=== PATIENT | female | born 1940 | race Hispanic/Latino ===

== ENCOUNTER 2017-06-26 12:33 | Inpatient (IN) | payer MEDICARE ==
[2017-06-26 12:33] VITALS: BMI 35.8
[2017-06-26] MEDS ORDERED: Iohexol 240 (50 ml) PO ONE (13:00)
[2017-06-26] MEDS ORDERED: Iohexol 240 (50 ml) ONE (13:17)
[2017-06-26 13:29] LABS: BASO # 0.1 K/uL (0.0-0.2); BASO % 1.1 % (0.0-2.0); EOS # 0.3 K/uL (0.0-0.7); EOS % 2.5 % (0.0-4.0); HEMATOCRIT 39.7 % (34.0-47.0); LYMPH # 1.3 K/uL (1.0-4.3); MEAN CELL VOLUME 90.9 fl (81.0-99.0); NEUT # 9.8 K/uL (1.8-7.0); NEUT % 78.4 % (50.0-75.0); RED CELL DISTRIBUTION WIDTH 15.6 % (11.5-14.5); WHITE BLOOD COUNT 12.5 K/uL (4.8-10.8)
[2017-06-26 13:46] LABS: ALB/GLOB RATIO 1.1 (1.0-2.1); ALKALINE PHOSPHATASE 86 U/L (38-126); ALT/SGPT 28 U/L (9-52); AST/SGOT 21 U/L (14-36); BILIRUBIN,TOTAL 0.8 mg/dl (0.2-1.3); BLOOD UREA NITROGEN 8 mg/dl (7-17); CARBON DIOXIDE 33 mmol/L (22-30); CHLORIDE 99 mmol/L (98-107); GFR AFRICAN-AMERICAN > 60; GLUCOSE,RANDOM 120 mg/dL (65-105); LIPASE 34 U/L (23-300); POTASSIUM 3.5 MMOL/L (3.6-5.0); SODIUM 141 mmol/l (132-148); TOTAL PROTEIN 6.5 G/DL (6.3-8.2)
--- NOTE | 2017-06-26 14:17 | ED PDOC ---
HPI: Abdomen Time Seen by Provider: 06/26/17 12:50 Chief Complaint (Nursing): Abdominal Pain Chief Complaint (Provider): Abdominal Pain History Per: Patient History/Exam Limitations: no limitations Onset/Duration Of Symptoms: Days (x2 weeks) Current Symptoms Are (Timing): Still Present Location Of Pain/Discomfort: LLQ Associated Symptoms: Vomiting (x2), Loss Of Appetite Additional Complaint(s): Marielos Zimmer is a 76 year old female with previous medical history of hypertension, atrial fibrillation and diverticulitis, who presents to the emergency department with a complaint of worsening left lower abdominal pain associated with abnormal stools, loss of appetite and 2 episodes of non-bloody vomiting ongoing for 2 weeks. Denied chest pain, cough, shortness of breath or dizziness. Patient stated she saw her night time babysitter, Dr. Schumacher, a week ago who also performed a colonoscopy/endoscopy in 2016 and removed 1 polyp but in process of looking for second opinion and requesting new GI doctor. PMD: Raymond Fang MD Past Medical History Reviewed: Historical Data, Nursing Documentation, Vital Signs Vital Signs: Last Vital Signs Temp 98.4 F 06/27/17 16:51 Pulse 57 L 06/27/17 16:51 Resp 20 06/27/17 16:51 BP 95/65 L 06/27/17 16:51 Pulse Ox 97 06/27/17 16:51 - Medical History PMH: Anemia, Asthma, Atrial Fibrillation, Bronchitis, Cardia Arrhythmia, CHF, Fractures (Left elbow repair), Gastritis, Osteoporosis, Pneumonia, Sleep Apnea Denies: Arthritis, COPD, HIV, HTN, Hypercholesterolemia, Hypothyroidism, Chronic Kidney Disease, Rheumatoid Arthritis - Surgical History Surgical History: Cholecystectomy, Tonsillectomy - Family History Family History: States: Unknown Family Hx - Social History Current smoker - smoking cessation education provided: No Ex-Smoker (has not smoked in the last 12 months): Yes Alcohol: None Drugs: Denies - Home Medications Home Medications: Ambulatory Orders Medication Instructions Recorded Furosemide [Lasix] 40 mg PO DAILY #0 tab 09/06/15 Clopidogrel [Plavix] 75 mg PO DAILY #0 tab 12/14/15 Digoxin [Lanoxin] 0.25 mg PO DAILY #0 tab 12/14/15 Aspirin [Ecotrin] 81 mg PO DAILY 06/26/17 Atorvastatin Calcium [Lipitor] 10 mg PO HS 06/26/17 Carvedilol [Coreg] 3.125 mg PO DAILY 06/26/17 Dexlansoprazole [Dexilant] 60 mg PO DAILY 06/26/17 - Allergies Allergies/Adverse Reactions: Allergies Allergy/AdvReac Type Severity Reaction Status Date / Time Penicillins Allergy RASH Verified 06/26/17 21:20 Sulfa (Sulfonamide Allergy RASH Verified 06/26/17 21:20 Antibiotics) suture Allergy REDNESS Uncoded 12/11/15 07:41 Review of Systems ROS Statement: Except As Marked, All Systems Reviewed And Found Negative Cardiovascular: Negative for: Chest Pain Respiratory: Negative for: Cough, Shortness of Breath Gastrointestinal: Positive for: Vomiting (non-bloody x2), Abdominal Pain (left lower), Other (abnormal stools; loss of appetite) Neurological: Negative for: Dizziness Physical Exam - Reviewed Nursing Documentation Reviewed: Yes Vital Signs Reviewed: Yes - Physical Exam Appears: Positive for: Well, Non-toxic, No Acute Distress Head Exam: Positive for: ATRAUMATIC, NORMAL INSPECTION, NORMOCEPHALIC Skin: Positive for: Pallor. Negative for: Normal Color Eye Exam: Positive for: Normal appearance ENT: Positive for: Normal ENT Inspection Neck: Positive for: Normal Cardiovascular/Chest: Positive for: Chest Non Tender Respiratory: Positive for: Normal Breath Sounds, Accessory Muscle Use. Negative for: Decreased Breath Sounds, Respiratory Distress Gastrointestinal/Abdominal: Positive for: Soft, Tenderness (LLQ). Negative for : Normal Exam Back: Positive for: Normal Inspection. Negative for: L CVA Tenderness, R CVA Tenderness Extremity: Positive for: Normal ROM. Negative for: Tenderness, Pedal Edema Neurologic/Psych: Positive for: Alert, Oriented - Laboratory Results Result Diagrams: 06/27/17 06:05 06/27/17 06:05 - ECG O2 Sat by Pulse Oximetry: 99 (RA) Pulse Ox Interpretation: Normal Medical Decision Making Medical Decision Making: Initial Impression: LLQ pain R/O diverticulitis Initial Plan: * Type and screen * VBG * CMP * Lipase * Omnipaque 50ml PO * Toradol 15mg IVP * Urinalysis * CT ABD/pelvis labs reveal mild leukocytosis, normal lactate, mild derangement of chemistries, evidence of UTI CT reveals severe colitis D/w PMD Dr Fang, admit hospitalist request GI consult Dr Osvaldo Escalona Attestation: Documented by Pastora Larios, acting as a scribe for Jasvir Burns III, DO. Provider Scribe Attestation: All medical record entries made by the Scribe were at my direction and personally dictated by me. I have reviewed the chart and agree that the record accurately reflects my personal performance of the history, physical exam, medical decision making, and the department course for this patient. I have also personally directed, reviewed, and agree with the discharge instructions and disposition. Disposition - Clinical Impression Clinical Impression: Colitis - Patient ED Disposition Is Patient to be Admitted: Yes - Disposition Disposition Time: 15:00 Condition: GUARDED - Pt Status Changed To: Hospital Disposition Of: Inpatient - Admit Certification Admit to Inpatient:: After my assessment, the patient will require hospitalization for at least two midnights. This is because of the severity of symptoms shown, intensity of services needed, and/or the medical risk in this patient being treated as an outpatient. - POA Present On Arrival: None
[2017-06-26 15:29] LABS: RBC URINE 3 /hpf (0-3); URINE BACTERIA MOD (<OCC); URINE BILIRUBIN NEGATIVE (NEGATIVE); URINE BLOOD NEGATIVE (NEGATIVE); URINE COLOR AMBER (YELLOW); URINE GLUCOSE (UA) NEG (Normal); URINE KETONE NEGATIVE (NEGATIVE); URINE LEUKOCYTE ESTERASE MOD Leu/uL (Negative); URINE PROTEIN 30 mg/dL (NEGATIVE); WBC URINE 38 /hpf (0-5)
[2017-06-26 16:10] LABS: VENOUS BLOOD GAS BASE EXCESS 8.4 mmol/L (0.0-2.0); VENOUS BLOOD GAS PCO2 57 mmHg (40-60)
[2017-06-26] MEDS ORDERED: Iohexol 300 100 ML IJ ONE (16:27)
[2017-06-26] MEDS ORDERED: Sodium Chloride 0.9% 50 ML IV ONE (16:28)
--- NOTE | 2017-06-26 17:29 | CT ---
PROCEDURE: CT Abdomen and Pelvis with contrast HISTORY: Unspecified abdominal pain. COMPARISON: None. TECHNIQUE: Contrast dose: 95 cc Omnipaque 300 Radiation dose: Total exam DLP = 955.96 mGy-cm. This CT exam was performed using one or more of the following dose reduction techniques: Automated exposure control, adjustment of the mA and/or kV according to patient size, and/or use of iterative reconstruction technique. FINDINGS: LOWER THORAX: Unremarkable. LIVER: Hepatic steatosis. No focal masses. No intrahepatic bile duct dilatation or perihepatic ascites. GALLBLADDER AND BILE DUCTS: Status post cholecystectomy. No abnormality is seen in the gallbladder fossa. PANCREAS: Unremarkable. No gross lesion or ductal dilatation. SPLEEN: Unremarkable. ADRENALS: Unremarkable. No mass. KIDNEYS AND URETERS: Unremarkable. No hydronephrosis. No solid mass. VASCULATURE: Unremarkable. No aortic aneurysm. BOWEL: Severe thickening of a long segment of the descending colon and sigmoid approximately 15 cm. Despite the fact that this appears in an area of diverticular disease and more likely represents colitis. The rectum is spared. There is a component of constipation proximal to this. Remainder of the colon however is unremarkable. APPENDIX: Normal appendix. PERITONEUM: Unremarkable. No free fluid. No free air. LYMPH NODES: Unremarkable. No enlarged lymph nodes. BLADDER: Unremarkable. REPRODUCTIVE: Unremarkable. BONES: No acute fracture. OTHER FINDINGS: None. IMPRESSION: Segmental thickening of the descending colon extending to the sigmoid. Although this occurs in a segment of the colon affected by diverticular disease the geographic nature and a long segment involvement more likely represents acute and severe colitis. No free air, loculated air, drainable collection.
[2017-06-26] MEDS ORDERED: Ciprofloxacin 400mg/200ml D5W 400 MG/200 ML BAG IVPB STA (18:11)
[2017-06-26] MEDS ORDERED: Sodium Chloride 0.9% 1,000 ML IV STA (18:20)
[2017-06-26] MEDS ORDERED: Ciprofloxacin 400mg/200ml D5W 400 MG/200 ML BAG IVPB ONE (18:22)
--- NOTE | 2017-06-26 19:13 | CP.PCM.HP ---
History of Present Illness - History of Present Illness History of Present Illness: 76 yo female with history of Asthma, CAD, CHF, AFib and Diverticulitis came in complaining of lower abdominal pain more on the left since 4 days ago associated with nausea, vomiting and decreased appetite. She also complained of loose bowel movement with abnormal looking stools, like gel. She denied chest pain, SOB, fever or chills. Present on Admission - Present on Admission Any Indicators Present on Admission: No History of DVT/PE: No History of Uncontrolled Diabetes: No Urinary Catheter: No Decubitus Ulcer Present: No Review of Systems - Review of Systems Systems not reviewed;Unavailable: Acuity of Condition (rom those mentioned above , 12 point system review were negative by me) Past Patient History - Infectious Disease Hx of Infectious Diseases: None - Tetanus Immunizations Tetanus Immunization: Unknown - Past Medical History & Family History Past Medical History?: Yes Past Family History: Reviewed and not pertinent - Past Social History Smoking Status: Former Smoker Alcohol: None Drugs: Denies - CARDIAC Hx Atrial Fibrillation: Yes Hx Cardia Arrhythmia: Yes Hx Congestive Heart Failure: Yes Hx Hypercholesterolemia: No Hx Hypertension: Yes - PULMONARY Hx Asthma: Yes Hx Bronchitis: Yes Hx Chronic Obstructive Pulmonary Disease (COPD): No Hx Pneumonia: Yes Hx Sleep Apnea: Yes - NEUROLOGICAL Hx Neurological Disorder: No HX Cerebrovascular Accident: No Other/Comment: Peripheral Neuropathy - HEENT Hx HEENT Problems: Yes Other/Comment: WEARS GLASSES FOR READING - RENAL Hx Chronic Kidney Disease: No - ENDOCRINE/METABOLIC Hx Hypothyroidism: No - HEMATOLOGICAL/ONCOLOGICAL Hx Anemia: Yes Hx Human Immunodeficiency Virus (HIV): No - INTEGUMENTARY Hx Dermatological Problems: Yes Other/Comment: Hx chronic venous stasis dermatitis - MUSCULOSKELETAL/RHEUMATOLOGICAL Hx Arthritis: No Hx Fractures: Yes (Left elbow repair) Hx Osteoporosis: Yes Hx Rheumatoid Arthritis: No - GASTROINTESTINAL Hx Gastritis: Yes - GENITOURINARY/GYNECOLOGICAL Hx Genitourinary Disorders: Yes Hx Incontinence: Yes Hx Urinary Tract Infection: Yes - PSYCHIATRIC Hx Psychophysiologic Disorder: No Hx Substance Use: No - SURGICAL HISTORY Hx Cholecystectomy: Yes Hx Tonsillectomy: Yes - ANESTHESIA Hx Anesthesia: Yes Hx Anesthesia Reactions: No Hx Malignant Hyperthermia: No Meds Allergies/Adverse Reactions: Allergies Allergy/AdvReac Type Severity Reaction Status Date / Time Penicillins Allergy RASH Verified 12/11/15 07:41 Sulfa (Sulfonamide Allergy RASH Verified 12/11/15 07:41 Antibiotics) suture Allergy REDNESS Uncoded 12/11/15 07:41 Physical Exam - Constitutional Appears: No Acute Distress - Head Exam Head Exam: ATRAUMATIC - Eye Exam Eye Exam: absent: Scleral icterus - ENT Exam ENT Exam: Mucous Membranes Moist - Neck Exam Neck exam: Negative for: Meningismus - Respiratory Exam Respiratory Exam: absent: Rhonchi, Wheezes, Respiratory Distress - Cardiovascular Exam Cardiovascular Exam: Irregular Rhythm, +S1, +S2 - GI/Abdominal Exam GI & Abdominal Exam: Soft. absent: Guarding, Rebound, Tenderness - Rectal Exam Rectal Exam: Deferred - Extremities Exam Extremities exam: Negative for: calf tenderness, pedal edema - Neurological Exam Neurological exam: Alert, Oriented x3 - Psychiatric Exam Psychiatric exam: Normal Affect - Skin Skin Exam: Dry, Intact Results - Vital Signs Recent Vital Signs: Last Vital Signs Temp 98.3 F 06/26/17 18:28 Pulse 61 06/26/17 18:28 Resp 16 06/26/17 18:28 BP 117/71 06/26/17 18:28 Pulse Ox 96 06/26/17 18:28 - Labs Result Diagrams: 06/26/17 13:13 06/26/17 13:13 Labs: Laboratory Results - last 24 hr 06/26/17 06/26/17 06/26/17 13:13 13:13 13:13 WBC 12.5 H RBC 4.37 Hgb 13.1 Hct 39.7 MCV 90.9 D MCH 30.0 MCHC 33.0 RDW 15.6 H Plt Count 401 H MPV 7.0 L Neut % (Auto) 78.4 H Lymph % (Auto) 10.0 L [place] % (Auto) 8.0 Eos % (Auto) 2.5 Baso % (Auto) 1.1 Neut # 9.8 H Lymph # 1.3 [place] # 1.0 H Eos # 0.3 Baso # 0.1 pO2 VBG pH VBG pCO2 VBG HCO3 VBG Total CO2 VBG O2 Sat (Calc) VBG Base Excess VBG Potassium Glucose Lactate FiO2 Sodium 141 Potassium 3.5 L Chloride 99 Carbon Dioxide 33 H Anion Gap 13 BUN 8 Creatinine 0.8 Est GFR ( Amer) > 60 Est GFR (Non-Af Amer) > 60 Random Glucose 120 H Calcium 9.0 Total Bilirubin 0.8 AST 21 ALT 28 Alkaline Phosphatase 86 Total Protein 6.5 Albumin 3.4 L Globulin 3.0 Albumin/Globulin Ratio 1.1 Lipase 34 Venous Blood Potassium Urine Color Urine Clarity Urine pH Ur Specific [place] Urine Protein Urine Glucose (UA) Urine Ketones Urine Blood Urine Nitrate Urine Bilirubin Urine Urobilinogen Ur Leukocyte Esterase Urine RBC (Auto) Urine Microscopic WBC Ur Squamous Epith Cells Urine Bacteria Hyaline Casts Blood Type O NEGATIVE Blood Type Confirm Antibody Screen Negative BBK History Checked No verified bt 06/26/17 06/26/17 06/26/17 13:23 13:59 15:16 WBC RBC Hgb Hct MCV MCH MCHC RDW Plt Count MPV Neut % (Auto) Lymph % (Auto) [place] % (Auto) Eos % (Auto) Baso % (Auto) Neut # Lymph # [place] # Eos # Baso # pO2 22 L VBG pH 7.40 VBG pCO2 57 VBG HCO3 29.9 VBG Total CO2 37.0 H VBG O2 Sat (Calc) 45.8 VBG Base Excess 8.4 H VBG Potassium 3.4 L Glucose 109 H Lactate 1.2 FiO2 21.0 Sodium 135.0 Potassium Chloride 97.0 L Carbon Dioxide Anion Gap BUN Creatinine Est GFR ( Amer) Est GFR (Non-Af Amer) Random Glucose Calcium Total Bilirubin AST ALT Alkaline Phosphatase Total Protein Albumin Globulin Albumin/Globulin Ratio Lipase Venous Blood Potassium 3.4 L Urine Color [place] Urine Clarity Cloudy Urine pH 6.0 Ur Specific [place] 1.014 Urine Protein 30 Urine Glucose (UA) Neg Urine Ketones Negative Urine Blood Negative Urine Nitrate Negative Urine Bilirubin Negative Urine Urobilinogen 4.0 H Ur Leukocyte Esterase Mod Urine RBC (Auto) 3 Urine Microscopic WBC 38 H Ur Squamous Epith Cells 2 Urine Bacteria Mod H Hyaline Casts 3-5 H Blood Type Blood Type Confirm O NEGATIVE Antibody Screen BBK History Checked Assessment & Plan (1) Colitis Status: Acute Comment: admit to med/surg. blood culture x 2. continue IV Cipro and oral Flagyl. continue IV hydration. NPO except meds. GI consult with Dr Riley ([place]) (2) Afib Status: Acute Comment: rate controlled. continue Digoxin and Coreg. on Plavix and ASA (3) Chronic congestive heart failure Status: Acute Comment: denied SOB. continue Lasix (4) Asthma Status: Chronic Priority: High Comment: asymptomatic (5) CAD (coronary artery disease) Status: Chronic Priority: Medium Comment: denied chest pain. continue statin, ASA, Plavix, BB (6) Hypertension Status: Chronic Priority: Medium Comment: BP stable. continue Coreg and Lasix
[2017-06-26] MEDS: Sodium Chloride 0.9% 1,000 ML IV SCH (20:18)
[2017-06-26] MEDS: Ciprofloxacin 400mg/200ml D5W 400 MG/200 ML BAG IVPB SCH (22:14)
[2017-06-27 06:35] LABS: BASO # 0.1 K/uL (0.0-0.2); BASO % 0.7 % (0.0-2.0); EOS # 0.6 K/uL (0.0-0.7); EOS % 6.6 % (0.0-4.0); HEMATOCRIT 36.1 % (34.0-47.0); LYMPH # 1.2 K/uL (1.0-4.3); MEAN CELL VOLUME 90.3 fl (81.0-99.0); MEAN CORPUSCULAR HGB CONC 34.3 g/dL (33.0-37.0); MEAN PLATELET VOLUME 7.1 fl (7.2-11.7); MONO # 0.9 K/uL (0.0-0.8); MONO % 10.4 % (0.0-10.0); NEUT # 5.8 K/uL (1.8-7.0); NEUT % 68.3 % (50.0-75.0); NRBC % 0.1 % (0.0-0.0); RED CELL DISTRIBUTION WIDTH 15.6 % (11.5-14.5); WHITE BLOOD COUNT 8.5 K/uL (4.8-10.8)
[2017-06-27 06:47] LABS: BLOOD UREA NITROGEN 7 mg/dl (7-17); CALCIUM 8.7 mg/dL (8.4-10.2); CARBON DIOXIDE 29 mmol/L (22-30); CHLORIDE 100 mmol/L (98-107); GFR AFRICAN-AMERICAN > 60; GLUCOSE,RANDOM 96 mg/dL (65-105); POTASSIUM 2.9 MMOL/L (3.6-5.0); SODIUM 139 mmol/l (132-148)
[2017-06-27] MEDS: Pantoprazole 40 mg EC Tab PO SCH (08:23)
[2017-06-27] MEDS: Sodium Chloride 0.9% 1,000 ML IV SCH ×2 (08:44→15:35)
[2017-06-27] MEDS ORDERED: Pneumococcal 23-Valent Vaccine IM ONE (09:00)
[2017-06-27] MEDS ORDERED: Influenza Vaccine 18yr & older 0.5 ML/45 MCG SYR IM ONE (09:00)
[2017-06-27] MEDS: Digoxin 250 mcg (0.25 mg) Tab PO SCH (09:04)
[2017-06-27] MEDS ORDERED: Potassium Chloride 20 mEq ER Tab PO ONE ×2 (10:35→15:30)
--- NOTE | 2017-06-27 10:39 | CP.PCM.CON ---
History of Present Illness - History of Present Illness History of Present Illness: This 76-year-old female who is known to suffer from bronchial asthma/COPD overlap syndrome as well as urinary incontinence, venous insufficiency of both lower extremities, diverticulosis, gastroesophageal reflux disease and hypertension came in to emergency room with severe abdominal pain which began about 3 or 4 days prior to admission. There was associated nausea but no vomiting and she did have a loss of appetite. She denies any bloody stools or constipation during this time. She was unaware of any fevers or chills. She has been seen by gastroenterology in the past and is known to have diverticulosis. Her respiratory status has been stable she does have chronic pain in both knees and lower back. Review of Systems - Review of Systems All systems: reviewed and no additional remarkable complaints except - Gastrointestinal Gastrointestinal: Abdominal Pain, Change in Stool Character, Cramping, Loose Stools, Nausea - Genitourinary Genitourinary: Urinary Incontinence - Musculoskeletal Musculoskeletal: Back Pain, Joint Swelling, Limited Range of Motion Past Patient History - Infectious Disease Hx of Infectious Diseases: None - Tetanus Immunizations Tetanus Immunization: Unknown - Past Medical History & Family History Past Medical History?: Yes - Past Social History Smoking Status: Former Smoker Chewing Tobacco Use: No Cigar Use: No Alcohol: Social Drugs: Denies Home Situation {Lives}: Alone - CARDIAC Hx Atrial Fibrillation: Yes Hx Congestive Heart Failure: Yes Hx Heart Attack: Yes Hx Hypertension: Yes Hx Peripheral Edema: Yes Other/Comment: chronic venous stasis dermatitis/peripheral neuropathy - PULMONARY Hx Asthma: Yes Hx Bronchitis: Yes Hx Chronic Obstructive Pulmonary Disease (COPD): Yes Hx Pneumonia: Yes - NEUROLOGICAL Other/Comment: peripheral neuropathy - HEENT Hx HEENT Problems: Yes - RENAL Hx Chronic Kidney Disease: No - ENDOCRINE/METABOLIC Other/Comment: exogenous obesity - HEMATOLOGICAL/ONCOLOGICAL Hx Blood Disorders: No Hx Human Immunodeficiency Virus (HIV): No - INTEGUMENTARY Other/Comment: dermatitis of LE's - MUSCULOSKELETAL/RHEUMATOLOGICAL Hx Arthritis: Yes Hx Back Pain: Yes Hx Degenerative Joint Disease: Yes Hx Falls: Yes Hx Fractures: Yes (left arm) Hx Osteoporosis: Yes - GASTROINTESTINAL Hx Diverticulitis: Yes Hx Gastritis: Yes - GENITOURINARY/GYNECOLOGICAL Hx Incontinence: Yes (bladder) Hx Urinary Tract Infection: Yes - PSYCHIATRIC Hx Psychophysiologic Disorder: No Hx Substance Use: No - SURGICAL HISTORY Hx Cholecystectomy: Yes Hx Orthopedic Surgery: Yes (left arm fx) Hx Tonsillectomy: Yes - ANESTHESIA Hx Anesthesia: Yes Hx Anesthesia Reactions: No Hx Malignant Hyperthermia: No Meds Allergies/Adverse Reactions: Allergies Allergy/AdvReac Type Severity Reaction Status Date / Time Penicillins Allergy RASH Verified 06/26/17 21:20 Sulfa (Sulfonamide Allergy RASH Verified 06/26/17 21:20 Antibiotics) suture Allergy REDNESS Uncoded 12/11/15 07:41 - Medications Medications: Current Medications Acetaminophen (Tylenol 325mg Tab) 650 mg PO Q6 PRN PRN Reason: Pain, Mild (1-3) Last Admin: 06/27/17 00:04 Dose: 650 mg Aspirin (Ecotrin) 81 mg PO DAILY [facility] Last Admin: 06/27/17 08:23 Dose: 81 mg Atorvastatin Calcium (Lipitor) 10 mg PO HS [facility] Last Admin: 06/26/17 22:34 Dose: 10 mg Carvedilol (Coreg) 3.125 mg PO DAILY [facility] Last Admin: 06/27/17 09:04 Dose: 3.125 mg Clopidogrel Bisulfate (Plavix) 75 mg PO DAILY [facility] Last Admin: 06/27/17 08:23 Dose: 75 mg Digoxin (Lanoxin) 0.25 mg PO DAILY [facility] Last Admin: 06/27/17 09:04 Dose: 0.25 mg Sodium Chloride (Sodium Chloride 0.9%) 1,000 mls @ 100 mls/hr IV .Q10H [facility] Last Admin: 06/27/17 08:44 Dose: 100 mls/hr Ciprofloxacin (Cipro 400mg/200ml Dsw) 400 mg in 200 mls @ 200 mls/hr IVPB Q12 [facility] PRN Reason: Protocol Last Admin: 06/26/17 22:14 Dose: Not Given Potassium Chloride (Potassium Chloride 10 Meq/100 Ml) 100 mls @ 100 mls/hr IVPB Q1 [facility] Stop: 06/27/17 12:59 Metronidazole (Flagyl) 500 mg PO Q8 [facility] PRN Reason: Protocol Last Admin: 06/27/17 08:23 Dose: 500 mg Ondansetron HCl (Zofran Inj) 4 mg IVP Q4 PRN PRN Reason: Nausea/Vomiting Last Admin: 06/27/17 08:37 Dose: 4 mg Pantoprazole Sodium (Protonix Ec Tab) 40 mg PO DAILY [facility] Last Admin: 06/27/17 08:23 Dose: 40 mg Physical Exam - Additional Findings Additional findings: When examined the patient was lying in bed and appeared relatively comfortable. There is trace edema of both ankles with some hyperemia and increased warmth. No calf tenderness or palpable venous cords. No cyanosis. Capillary refill appeared greater than 2 seconds. No palpable lymphadenopathy. Neck was supple and trachea was midline. No neck vein distention or carotid bruit. Fraction is pink and mucous membranes are moist. No exudate. Nares were patent bilaterally. No bleeding or exudate. Conjunctivae were pink and there is no scleral icterus. Chest: No dullness to percussion. Increased AP diameter of the thorax secondary to kyphosis of the dorsal spine. Breath sounds are present bilaterally without any rales or wheezes. No bronchial breath sounds or egophony. No rhonchi or rub. Heart sounds are slightly distant rhythm is regular. Faint ejection systolic murmur is heard at the base. The abdomen is obese, fleshy and at the present time nontender. Bowel sounds appear hypoactive. Results - Vital Signs Recent Vital Signs: Last Vital Signs Temp 98.2 F 06/27/17 08:50 Pulse 78 06/27/17 09:04 Resp 20 06/27/17 08:50 BP 133/63 06/27/17 09:04 Pulse Ox 86 L 06/27/17 08:50 - Labs Result Diagrams: 06/27/17 06:05 06/27/17 06:05 Labs: Laboratory Results - last 24 hr 06/26/17 06/26/17 06/26/17 13:13 13:13 13:13 WBC 12.5 H RBC 4.37 Hgb 13.1 Hct 39.7 MCV 90.9 D MCH 30.0 MCHC 33.0 RDW 15.6 H Plt Count 401 H MPV 7.0 L Neut % (Auto) 78.4 H Lymph % (Auto) 10.0 L [place] % (Auto) 8.0 Eos % (Auto) 2.5 Baso % (Auto) 1.1 Neut # 9.8 H Lymph # 1.3 [place] # 1.0 H Eos # 0.3 Baso # 0.1 pO2 VBG pH VBG pCO2 VBG HCO3 VBG Total CO2 VBG O2 Sat (Calc) VBG Base Excess VBG Potassium Glucose Lactate FiO2 Sodium 141 Potassium 3.5 L Chloride 99 Carbon Dioxide 33 H Anion Gap 13 BUN 8 Creatinine 0.8 Est GFR ( Amer) > 60 Est GFR (Non-Af Amer) > 60 POC Glucose (mg/dL) Random Glucose 120 H Calcium 9.0 Total Bilirubin 0.8 AST 21 ALT 28 Alkaline Phosphatase 86 Total Protein 6.5 Albumin 3.4 L Globulin 3.0 Albumin/Globulin Ratio 1.1 Lipase 34 Venous Blood Potassium Urine Color Urine Clarity Urine pH Ur Specific [place] Urine Protein Urine Glucose (UA) Urine Ketones Urine Blood Urine Nitrate Urine Bilirubin Urine Urobilinogen Ur Leukocyte Esterase Urine RBC (Auto) Urine Microscopic WBC Ur Squamous Epith Cells Urine Bacteria Hyaline Casts Blood Type O NEGATIVE Blood Type Confirm Antibody Screen Negative BBK History Checked No verified bt 06/26/17 06/26/17 06/26/17 13:23 13:59 15:16 WBC RBC Hgb Hct MCV MCH MCHC RDW Plt Count MPV Neut % (Auto) Lymph % (Auto) [place] % (Auto) Eos % (Auto) Baso % (Auto) Neut # Lymph # [place] # Eos # Baso # pO2 22 L VBG pH 7.40 VBG pCO2 57 VBG HCO3 29.9 VBG Total CO2 37.0 H VBG O2 Sat (Calc) 45.8 VBG Base Excess 8.4 H VBG Potassium 3.4 L Glucose 109 H Lactate 1.2 FiO2 21.0 Sodium 135.0 Potassium Chloride 97.0 L Carbon Dioxide Anion Gap BUN Creatinine Est GFR ( Amer) Est GFR (Non-Af Amer) POC Glucose (mg/dL) Random Glucose Calcium Total Bilirubin AST ALT Alkaline Phosphatase Total Protein Albumin Globulin Albumin/Globulin Ratio Lipase Venous Blood Potassium 3.4 L Urine Color Alejandra Urine Clarity Cloudy Urine pH 6.0 Ur Specific [place] 1.014 Urine Protein 30 Urine Glucose (UA) Neg Urine Ketones Negative Urine Blood Negative Urine Nitrate Negative Urine Bilirubin Negative Urine Urobilinogen 4.0 H Ur Leukocyte Esterase Mod Urine RBC (Auto) 3 Urine Microscopic WBC 38 H Ur Squamous Epith Cells 2 Urine Bacteria Mod H Hyaline Casts 3-5 H Blood Type Blood Type Confirm O NEGATIVE Antibody Screen BBK History Checked 06/27/17 06/27/17 06/27/17 05:59 06:05 06:05 WBC 8.5 RBC 4.00 Hgb 12.4 Hct 36.1 MCV 90.3 MCH 31.0 MCHC 34.3 RDW 15.6 H Plt Count 382 MPV 7.1 L Neut % (Auto) 68.3 Lymph % (Auto) 14.0 L [place] % (Auto) 10.4 H Eos % (Auto) 6.6 H Baso % (Auto) 0.7 Neut # 5.8 Lymph # 1.2 [place] # 0.9 H Eos # 0.6 Baso # 0.1 pO2 VBG pH VBG pCO2 VBG HCO3 VBG Total CO2 VBG O2 Sat (Calc) VBG Base Excess VBG Potassium Glucose Lactate FiO2 Sodium 139 Potassium 2.9 L Chloride 100 Carbon Dioxide 29 Anion Gap 13 BUN 7 Creatinine 0.8 Est GFR ( Amer) > 60 Est GFR (Non-Af Amer) > 60 POC Glucose (mg/dL) 89 Random Glucose 96 Calcium 8.7 Total Bilirubin AST ALT Alkaline Phosphatase Total Protein Albumin Globulin Albumin/Globulin Ratio Lipase Venous Blood Potassium Urine Color Urine Clarity Urine pH Ur Specific [place] Urine Protein Urine Glucose (UA) Urine Ketones Urine Blood Urine Nitrate Urine Bilirubin Urine Urobilinogen Ur Leukocyte Esterase Urine RBC (Auto) Urine Microscopic WBC Ur Squamous Epith Cells Urine Bacteria Hyaline Casts Blood Type Blood Type Confirm Antibody Screen BBK History Checked Assessment & Plan (1) Colitis Assessment and Plan: Patient presently appears to be somewhat improved from the time of admission. Continue current antibiotic regimen. GI consult pending. Status: Acute Priority: High (2) A-fib Status: Chronic Priority: Medium (3) Asthma with COPD Assessment and Plan: Stable at the present time. Status: Chronic Priority: Medium (4) Chronic pain disorder Status: Chronic Priority: Medium (5) Urinary incontinence Status: Chronic Priority: Medium - Date & Time Date: 06/27/17 Time: 10:45
[2017-06-27] MEDS: Potassium CL 10mEq/100ml 100 ML IVPB SCH ×2 (10:58→15:34)
[2017-06-27] MEDS: Ciprofloxacin 400mg/200ml D5W 400 MG/200 ML BAG IVPB SCH ×2 (11:21→20:41)
--- NOTE | 2017-06-27 15:02 | CP.PCM.PN ---
Subjective - Date & Time of Evaluation Date of Evaluation: 06/27/17 Time of Evaluation: 11:20 - Subjective Subjective: Pt seen and examined. Admitted feeling better although still nauseous at times. Objective - Vital Signs/Intake and Output Vital Signs (last 24 hours): Temp Pulse Resp BP Pulse Ox 98.2 F 78 20 133/63 86 L 06/27/17 08:50 06/27/17 09:04 06/27/17 08:50 06/27/17 09:04 06/27/17 08:50 - Medications Medications: Current Medications Acetaminophen (Tylenol 325mg Tab) 650 mg PO Q6 PRN PRN Reason: Pain, Mild (1-3) Last Admin: 06/27/17 10:55 Dose: 650 mg Atorvastatin Calcium (Lipitor) 10 mg PO HS [facility] Last Admin: 06/26/17 22:34 Dose: 10 mg Carvedilol (Coreg) 3.125 mg PO DAILY [facility] Last Admin: 06/27/17 09:04 Dose: 3.125 mg Digoxin (Lanoxin) 0.25 mg PO DAILY [facility] Last Admin: 06/27/17 09:04 Dose: 0.25 mg Sodium Chloride (Sodium Chloride 0.9%) 1,000 mls @ 100 mls/hr IV .Q10H [facility] Last Admin: 06/27/17 08:44 Dose: 100 mls/hr Ciprofloxacin (Cipro 400mg/200ml Dsw) 400 mg in 200 mls @ 200 mls/hr IVPB Q12 SHARIFA PRN Reason: Protocol Last Admin: 06/26/17 22:14 Dose: Not Given Metronidazole (Flagyl) 500 mg PO Q8 SHARIFA PRN Reason: Protocol Last Admin: 06/27/17 08:23 Dose: 500 mg Ondansetron HCl (Zofran Inj) 4 mg IVP Q4 PRN PRN Reason: Nausea/Vomiting Last Admin: 06/27/17 08:37 Dose: 4 mg Pantoprazole Sodium (Protonix Ec Tab) 40 mg PO DAILY [facility] Last Admin: 06/27/17 08:23 Dose: 40 mg - Labs Labs: 06/27/17 06:05 06/27/17 06:05 - Constitutional Appears: No Acute Distress - Head Exam Head Exam: ATRAUMATIC - Eye Exam Eye Exam: absent: Scleral icterus - ENT Exam ENT Exam: Mucous Membranes Moist - Neck Exam Neck Exam: absent: Meningismus - Respiratory Exam Respiratory Exam: absent: Rhonchi, Wheezes, Respiratory Distress - Cardiovascular Exam Cardiovascular Exam: REGULAR RHYTHM, +S1, +S2 - GI/Abdominal Exam GI & Abdominal Exam: Soft. absent: Tenderness - Rectal Exam Rectal Exam: Deferred - Extremities Exam Extremities Exam: Pedal Edema - Neurological Exam Neurological Exam: Alert, Oriented x3 - Psychiatric Exam Psychiatric exam: Normal Affect - Skin Skin Exam: Dry, Intact Assessment and Plan (1) Colitis Status: Acute (2) Afib Status: Chronic (3) Chronic congestive heart failure Status: Chronic (4) Asthma Status: Chronic (5) CAD (coronary artery disease) Status: Chronic (6) Hypertension Status: Chronic - Assessment and Plan (Free Text) Assessment: 76 yo female with history of Asthma, CAD, CHF, AFib and Diverticulitis came in complaining of lower abdominal pain more on the left since 4 days ago associated with nausea, vomiting and decreased appetite. She also complained of loose bowel movement with abnormal looking stools, like gel. She denied chest pain, SOB, fever or chills. (1) Colitis continue IV Cipro and PO Flagyl tolerated clear liquid diet Dr Riley saw patient and advised colonoscopy on Sunday will hold ASA and Plavix (2) Afib rate controlled. on Digoxin and Coreg. ASA and Plavix held prior to colonoscopy (3) Chronic congestive heart failure continue Lasix (4) Asthma asymptomatic (5) CAD (coronary artery disease) denied chest pain. continue statin, BB Plavix and ASA held (6) Hypertension BP stable. continue Coreg and Lasix
[2017-06-27] MEDS ORDERED: Alum-Mag Hydrox-Simethicone Susp (30 mL) PO ONE (16:14)
--- NOTE | 2017-06-27 18:38 | CP.PCM.CON ---
History of Present Illness - History of Present Illness History of Present Illness: 76 yo female with h/o divericulosis and last colonscopy early 2016 admitted with 4 days of unrelenting abdominal pain. Over past several months has been having irregular bowel movements but usually doesn't have constipation. Denies rectal bleeding. No fever or chills at home. Review of Systems - Constitutional Constitutional: absent: Chills - EENT Eyes: absent: Blurred Vision Nose/Mouth/Throat: absent: Epistaxis - Cardiovascular Cardiovascular: absent: Chest Pain - Respiratory Respiratory: absent: Dyspnea - Gastrointestinal Gastrointestinal: As Per HPI - Genitourinary Genitourinary: absent: Change in Urinary Stream Past Patient History - Infectious Disease Hx of Infectious Diseases: None - Tetanus Immunizations Tetanus Immunization: Unknown - Past Medical History & Family History Past Medical History?: Yes - Past Social History Alcohol: None Drugs: Denies - CARDIAC Hx Atrial Fibrillation: Yes Hx Cardia Arrhythmia: Yes Hx Congestive Heart Failure: Yes Hx Hypercholesterolemia: No Hx Hypertension: No - PULMONARY Hx Asthma: Yes Hx Bronchitis: Yes Hx Chronic Obstructive Pulmonary Disease (COPD): No Hx Pneumonia: Yes Hx Sleep Apnea: Yes - NEUROLOGICAL Other/Comment: peripheral neuropathy - HEENT Hx HEENT Problems: Yes - RENAL Hx Chronic Kidney Disease: No - ENDOCRINE/METABOLIC Hx Hypothyroidism: No - HEMATOLOGICAL/ONCOLOGICAL Hx Anemia: Yes Hx Human Immunodeficiency Virus (HIV): No - INTEGUMENTARY Other/Comment: dermatitis of LE's - MUSCULOSKELETAL/RHEUMATOLOGICAL Hx Arthritis: No Hx Fractures: Yes (Left elbow repair) Hx Osteoporosis: Yes Hx Rheumatoid Arthritis: No - GASTROINTESTINAL Hx Gastritis: Yes - GENITOURINARY/GYNECOLOGICAL Hx Incontinence: Yes (bladder) Hx Urinary Tract Infection: Yes - PSYCHIATRIC Hx Psychophysiologic Disorder: No Hx Substance Use: No - SURGICAL HISTORY Hx Cholecystectomy: Yes Hx Tonsillectomy: Yes - ANESTHESIA Hx Anesthesia: Yes Hx Anesthesia Reactions: No Hx Malignant Hyperthermia: No Meds Allergies/Adverse Reactions: Allergies Allergy/AdvReac Type Severity Reaction Status Date / Time Penicillins Allergy RASH Verified 06/26/17 21:20 Sulfa (Sulfonamide Allergy RASH Verified 06/26/17 21:20 Antibiotics) suture Allergy REDNESS Uncoded 12/11/15 07:41 - Medications Medications: Current Medications Acetaminophen (Tylenol 325mg Tab) 650 mg PO Q6 PRN PRN Reason: Pain, Mild (1-3) Last Admin: 06/27/17 10:55 Dose: 650 mg Atorvastatin Calcium (Lipitor) 10 mg PO HS [facility] Last Admin: 06/26/17 22:34 Dose: 10 mg Carvedilol (Coreg) 3.125 mg PO DAILY [facility] Last Admin: 06/27/17 09:04 Dose: 3.125 mg Digoxin (Lanoxin) 0.25 mg PO DAILY [facility] Last Admin: 06/27/17 09:04 Dose: 0.25 mg Sodium Chloride (Sodium Chloride 0.9%) 1,000 mls @ 100 mls/hr IV .Q10H [facility] Last Admin: 06/27/17 15:35 Dose: Not Given Ciprofloxacin (Cipro 400mg/200ml Dsw) 400 mg in 200 mls @ 200 mls/hr IVPB Q12 SHARIFA PRN Reason: Protocol Last Admin: 06/27/17 11:21 Dose: 200 mls/hr Metronidazole (Flagyl) 500 mg PO Q8 SHARIFA PRN Reason: Protocol Last Admin: 06/27/17 16:12 Dose: 500 mg Ondansetron HCl (Zofran Inj) 4 mg IVP Q4 PRN PRN Reason: Nausea/Vomiting Last Admin: 06/27/17 15:24 Dose: 4 mg Pantoprazole Sodium (Protonix Ec Tab) 40 mg PO DAILY [facility] Last Admin: 06/27/17 08:23 Dose: 40 mg Physical Exam - Head Exam Head Exam: ATRAUMATIC - Eye Exam Eye Exam: Normal appearance Pupil Exam: NORMAL ACCOMODATION - Respiratory Exam Respiratory Exam: Clear to Auscultation Bilateral - Cardiovascular Exam Cardiovascular Exam: REGULAR RHYTHM, +S1, +S2 - GI/Abdominal Exam GI & Abdominal Exam: Normal Bowel Sounds, Soft, Tenderness Additional comments: Moderate LLQ tenderness. no guarding or rebound. Results - Vital Signs Recent Vital Signs: Last Vital Signs Temp 98.4 F 06/27/17 16:51 Pulse 57 L 06/27/17 16:51 Resp 20 06/27/17 16:51 BP 95/65 L 06/27/17 16:51 Pulse Ox 99 06/27/17 18:25 - Labs Result Diagrams: 06/27/17 06:05 06/27/17 06:05 Labs: Laboratory Results - last 24 hr 06/27/17 06/27/17 06/27/17 05:59 06:05 06:05 WBC 8.5 RBC 4.00 Hgb 12.4 Hct 36.1 MCV 90.3 MCH 31.0 MCHC 34.3 RDW 15.6 H Plt Count 382 MPV 7.1 L Neut % (Auto) 68.3 Lymph % (Auto) 14.0 L [place] % (Auto) 10.4 H Eos % (Auto) 6.6 H Baso % (Auto) 0.7 Neut # 5.8 Lymph # 1.2 [place] # 0.9 H Eos # 0.6 Baso # 0.1 Sodium 139 Potassium 2.9 L Chloride 100 Carbon Dioxide 29 Anion Gap 13 BUN 7 Creatinine 0.8 Est GFR ( Amer) > 60 Est GFR (Non-Af Amer) > 60 POC Glucose (mg/dL) 89 Random Glucose 96 Calcium 8.7 Assessment & Plan (1) Colitis Assessment and Plan: CT shows thickening of descending colon c/w colitis. Agree with broad spectrum antibiotics. Colonscopy Sunday to r/o ischemia , fixed stricture possibly related to diverticuosis, , or infection. Clinically appears well. Status: Acute Priority: High
[2017-06-27] MEDS ORDERED: DiphenhydrAMINE 50 mg/ml Inj IVP STA (21:09)
[2017-06-28 06:39] LABS: BLOOD UREA NITROGEN 5 mg/dl (7-17); CALCIUM 8.4 mg/dL (8.4-10.2); CARBON DIOXIDE 28 mmol/L (22-30); CHLORIDE 103 mmol/L (98-107); GFR AFRICAN-AMERICAN > 60; GLUCOSE,RANDOM 100 mg/dL (65-105); POTASSIUM 3.2 MMOL/L (3.6-5.0); SODIUM 141 mmol/l (132-148)
[2017-06-28] MEDS ORDERED: Potassium Chloride 20 mEq ER Tab PO ONE ×2 (08:56)
--- NOTE | 2017-06-28 09:55 | PQF GENQUE ---
This form is a permanent part of the medical record 06/28/17 Dr Cabrales, Documentation of a history of Atrial Fibrillation. Medications include: Digoxin and Coreg. Please clarify the type of atrial fibrillation if known. Clarification of your documentation is requested to better reflect the severity of illness and intensity of treatment of your patient. Indicators present [] Specify: [] [] Specify: [] [] Specify: [] [] Specify: [] Location in the medical record that reflects the above clinical findings: [] Treatment Provided: [] PHYSICIAN'S RESPONSE Chronic A Fib Please clarify the type of atrial fibrillation: [] Chronic [] Paroxysmal [] Permanent [] Persistent [] Other (please specify type) [] Clinically unable to determine [] Unknown Based on your medical judgment of the clinical indicators outlined above please clarify the following: [] Practitioner response [] If unable to determine, please check the box, sign and date. Present On Admission (POA) Indicator: [] Present at the time of admission [] Not present at the time of admission [] Clinically Undetermined In responding to this query, please exercise your independent professional judgment. The fact that a question is asked does not imply that any particular answer is desired or expected. Thank you for your clarification on this documentation. If you have any questions please call:extension [phone] * Thank you, Tricia Raya RN CDMP [facility]TDD
[2017-06-28] MEDS ORDERED: Magnesium Citrate Oral SOL (300 ml) PO ONE ×2 (10:00→20:00)
--- NOTE | 2017-06-28 10:02 | PQF GENQUE ---
This form is a permanent part of the medical record 06/28/17 Dr. Cabrales, Documentation of a history of Chronic CHF. Please specify the type of heart failure if known. Clarification of your documentation is requested to better reflect the severity of illness and intensity of treatment of your patient. Indicators present [] Specify: [] [] Specify: [] [] Specify: [] [] Specify: [] Location in the medical record that reflects the above clinical findings: [] Treatment Provided: [] PHYSICIAN'S RESPONSE Chronic Diastolic CHF Please specify the type of heart failure if known [] Combined systolic and diastolic [] Diastolic [] Systolic [] Other (please specify) [] Clinically unable to determine [] Unknown Based on your medical judgment of the clinical indicators outlined above please clarify the following: [] Practitioner response [] If unable to determine, please check the box, sign and date. Present On Admission (POA) Indicator: [] Present at the time of admission [] Not present at the time of admission [] Clinically Undetermined In responding to this query, please exercise your independent professional judgment. The fact that a question is asked does not imply that any particular answer is desired or expected. Thank you for your clarification on this documentation. If you have any questions please call:ext [phone] * Thank you, Tricia Raya RN CDMP [id number]
[2017-06-28] MEDS: Ciprofloxacin 400mg/200ml D5W 400 MG/200 ML BAG IVPB SCH ×2 (10:10→22:18)
[2017-06-28] MEDS: Pantoprazole 40 mg EC Tab PO SCH (10:16)
[2017-06-28] MEDS: Digoxin 250 mcg (0.25 mg) Tab PO SCH (10:16)
[2017-06-28] MEDS ORDERED: Sucralfate 1 gm/10 ml Oral Susp UD PO STA (10:49)
--- NOTE | 2017-06-28 10:50 | CP.PCM.PN ---
Subjective - Date & Time of Evaluation Date of Evaluation: 06/28/17 Time of Evaluation: 10:00 - Subjective Subjective: No fever minimal abd pain had sl nausea and also some epigastric discomfort after taking the Potassium pill denies CP no SOB complains of skin pruritus on her arm , skin very dry no diarrhea no bloody stools Objective - Vital Signs/Intake and Output Vital Signs (last 24 hours): Temp Pulse Resp BP Pulse Ox 98.6 F 76 20 116/77 96 06/28/17 08:40 06/28/17 10:11 06/28/17 08:40 06/28/17 10:11 06/28/17 08:40 - Medications Medications: Current Medications Acetaminophen (Tylenol 325mg Tab) 650 mg PO Q6 PRN PRN Reason: Pain, Mild (1-3) Last Admin: 06/27/17 18:39 Dose: 650 mg Atorvastatin Calcium (Lipitor) 10 mg PO HS [facility] Last Admin: 06/27/17 21:01 Dose: 10 mg Bisacodyl (Dulcolax) 20 mg PO ONCE ONE Stop: 06/28/17 14:01 Carvedilol (Coreg) 3.125 mg PO DAILY [facility] Last Admin: 06/28/17 10:11 Dose: 3.125 mg Digoxin (Lanoxin) 0.25 mg PO DAILY [facility] Last Admin: 06/28/17 10:16 Dose: 0.25 mg Diphenhydramine HCl (Benadryl) 25 mg PO Q6 PRN PRN Reason: Itching / Pruritus Sodium Chloride (Sodium Chloride 0.9%) 1,000 mls @ 100 mls/hr IV .Q10H [facility] Last Admin: 06/27/17 15:35 Dose: Not Given Ciprofloxacin (Cipro 400mg/200ml Dsw) 400 mg in 200 mls @ 200 mls/hr IVPB Q12 SHARIFA PRN Reason: Protocol Last Admin: 06/28/17 10:10 Dose: 200 mls/hr Magnesium Citrate (Citrate Of Mag) 300 ml PO ONCE ONE Stop: 06/28/17 20:01 Metronidazole (Flagyl) 500 mg PO Q8 SHARIFA PRN Reason: Protocol Last Admin: 06/28/17 10:12 Dose: 500 mg Ondansetron HCl (Zofran Inj) 4 mg IVP Q4 PRN PRN Reason: Nausea/Vomiting Last Admin: 06/27/17 20:33 Dose: 4 mg Pantoprazole Sodium (Protonix Ec Tab) 40 mg PO DAILY [facility] Last Admin: 06/28/17 10:16 Dose: 40 mg - Labs Labs: 06/27/17 06:05 06/28/17 06:10 - Constitutional Appears: No Acute Distress, Chronically Ill - Head Exam Head Exam: NORMAL INSPECTION, NORMOCEPHALIC - Eye Exam Pupil Exam: NORMAL ACCOMODATION - ENT Exam ENT Exam: Mucous Membranes Moist, Normal External Ear Exam - Neck Exam Neck Exam: Full ROM. absent: Meningismus - Respiratory Exam Respiratory Exam: Decreased Breath Sounds, NORMAL BREATHING PATTERN. absent: Wheezes, Respiratory Distress - Cardiovascular Exam Cardiovascular Exam: Irregular Rhythm, +S1, +S2 - GI/Abdominal Exam GI & Abdominal Exam: Soft, Tenderness (minimal lower abd tenderness), Normal Bowel Sounds - Extremities Exam Extremities Exam: Full ROM, Normal Capillary Refill. absent: Calf Tenderness - Back Exam Back Exam: absent: CVA tenderness (L), CVA tenderness (R) - Neurological Exam Neurological Exam: Alert, Awake, CN II-XII Intact, Oriented x3 Neuro motor strength exam: Left Upper Extremity: 5, Right Upper Extremity: 5, Left Lower Extremity: 5, Right Lower Extremity: 5 - Psychiatric Exam Psychiatric exam: Normal Affect, Normal Mood - Skin Skin Exam: Dry, Normal Color, Warm Assessment and Plan (1) Acute colitis Status: Acute (2) Diverticulosis Status: Chronic (3) Chronic atrial fibrillation Status: Chronic (4) Chronic diastolic CHF (congestive heart failure) Status: Chronic (5) Pulmonary HTN Status: Chronic (6) CAD (coronary artery disease) Status: Chronic (7) COPD (chronic obstructive pulmonary disease) Status: Chronic (8) Hypertension Status: Chronic (9) DVT prophylaxis Status: Acute - Assessment and Plan (Free Text) Assessment: 76 y/o lady with hx of CAD , Hx of PCI ( 2014), Diverticulosis, HTN, CHF, A Fib , COPD, came in bec of 4 days of abd pain, N/V . No fever however had leukocytosis of 12K on admission. CT of abdomen:Segmental thickening of the descending colon extending to the sigmoid. Although this occurs in a segment of the colon affected by diverticular disease the geographic nature and a long segment involvement more likely represents acute and severe colitis. No free air, loculated air, drainable collection. (1) Acute colitis Status: Acute abd pain better cont IV Cipro and Flagyl GI consulted- discussed case with Dr Riley- plan for Colonoscopy in am Pain mgt (2) Diverticulosis Status: Chronic (3) Chronic atrial fibrillation Status: Chronic cont Digoxin and Coreg not on anticoagulat off ASA and Plavix for Colonoscopy (4) Chronic diastolic CHF (congestive heart failure) Status: Chronic Pt has hx of Pulm HTN on previous ECHO, normal LV fxn cont Coreg and Dogoxin Hold Lasix for now as pt will be NPO for the Colonoscopy (5) Pulmonary HTN Status: Chronic as above (6) CAD (coronary artery disease) Status: Chronic hx of PCI in 2015 off ASA and Plavix for Colonoscopy- restart post procedure cont Coreg and Statin (7) COPD (chronic obstructive pulmonary disease), stable Status: Chronic Duoneb prn Pulm consulted (8) Hypertension Status: Chronic cont Coreg 9. Dry Skin start Lac hydrin pruritus unlikely due to Cipro allergy ( pt had received Cipro on 3 previous admission without any incidence) and accdg to pt's PMD - Dr Fang - though pt is PCN allergic, she had taken Augementin and Amoxicillin and has been fine . (10) DVT prophylaxis Status: Acute Hold anticoag for now - plan for Colonoscopy in am
[2017-06-28] MEDS: Nasal Spray(Ocean spray) NAS PRN ×3 (12:26→23:44)
[2017-06-28] MEDS ORDERED: Bisacodyl 5mg EC Tab PO ONE (14:00)
--- NOTE | 2017-06-28 14:12 | CP.PCM.PN ---
Subjective - Date & Time of Evaluation Date of Evaluation: 06/28/17 Time of Evaluation: 14:09 - Subjective Subjective: Remains free of abdominal pain but continues to have nausea. As tolerated antibiotics without incident, although there was some transient itching while receiving 1 dose of parenteral ciprofloxacin. The patient has no known allergy to quinolones and this itching subsided despite continued infusion. Her vital signs remained stable. He remains afebrile. Oxygenation is satisfactory and blood pressure is normal. Leukocytosis has resolved. No respiratory complaints or shortness of breath. No cough. Plan for colonoscopy tomorrow. Agree with continued antibiotic therapy. The patient has never experienced any ill effect (bronchospasm) with the use of carvedilol. Objective - Vital Signs/Intake and Output Vital Signs (last 24 hours): Temp Pulse Resp BP Pulse Ox 98.6 F 76 20 116/77 96 06/28/17 08:40 06/28/17 10:11 06/28/17 08:40 06/28/17 10:11 06/28/17 08:40 - Medications Medications: Current Medications Acetaminophen (Tylenol 325mg Tab) 650 mg PO Q6 PRN PRN Reason: Pain, Mild (1-3) Last Admin: 06/27/17 18:39 Dose: 650 mg Atorvastatin Calcium (Lipitor) 10 mg PO HS [facility] Last Admin: 06/27/17 21:01 Dose: 10 mg Carvedilol (Coreg) 3.125 mg PO DAILY [facility] Last Admin: 06/28/17 10:11 Dose: 3.125 mg Digoxin (Lanoxin) 0.25 mg PO DAILY [facility] Last Admin: 06/28/17 10:16 Dose: 0.25 mg Diphenhydramine HCl (Benadryl) 25 mg PO Q6 PRN PRN Reason: Itching / Pruritus Sodium Chloride (Sodium Chloride 0.9%) 1,000 mls @ 100 mls/hr IV .Q10H [facility] Last Admin: 06/27/17 15:35 Dose: Not Given Ciprofloxacin (Cipro 400mg/200ml Dsw) 400 mg in 200 mls @ 200 mls/hr IVPB Q12 SHARIFA PRN Reason: Protocol Last Admin: 06/28/17 10:10 Dose: 200 mls/hr Lactic Acid (Lac-Hydrin 12% Lotion (225 G)) 1 applic TOP TID [facility] Last Admin: 06/28/17 12:18 Dose: 1 applic Magnesium Citrate (Citrate Of Mag) 300 ml PO ONCE ONE Stop: 06/28/17 20:01 Metronidazole (Flagyl) 500 mg PO Q8 SHARIFA PRN Reason: Protocol Last Admin: 06/28/17 10:12 Dose: 500 mg Ondansetron HCl (Zofran Inj) 4 mg IVP Q4 PRN PRN Reason: Nausea/Vomiting Last Admin: 06/28/17 13:22 Dose: 4 mg Pantoprazole Sodium (Protonix Ec Tab) 40 mg PO DAILY [facility] Last Admin: 06/28/17 10:16 Dose: 40 mg Sodium Chloride ([place] Nasal [place]) 2 sprays [place] Q4 PRN PRN Reason: Nasal congestion Last Admin: 06/28/17 12:26 Dose: 2 sprays - Labs Labs: 06/27/17 06:05 06/28/17 06:10 Assessment and Plan (1) Colitis Status: Acute (2) A-fib Status: Chronic (3) Asthma with COPD Status: Chronic (4) Chronic pain disorder Status: Chronic (5) Urinary incontinence Status: Chronic
--- NOTE | 2017-06-28 20:02 | CP.PCM.PN ---
Subjective - Date & Time of Evaluation Date of Evaluation: 06/28/17 Time of Evaluation: 14:00 - Subjective Subjective: Less abdominal pain. Prep has been started and mild nausea and light headedness reported. Objective - Vital Signs/Intake and Output Vital Signs (last 24 hours): Temp Pulse Resp BP Pulse Ox 97.9 F 78 20 107/66 95 06/28/17 16:50 06/28/17 16:50 06/28/17 16:50 06/28/17 16:50 06/28/17 16:50 - Medications Medications: Current Medications Acetaminophen (Tylenol 325mg Tab) 650 mg PO Q6 PRN PRN Reason: Pain, Mild (1-3) Last Admin: 06/27/17 18:39 Dose: 650 mg Atorvastatin Calcium (Lipitor) 10 mg PO HS [facility] Last Admin: 06/27/17 21:01 Dose: 10 mg Carvedilol (Coreg) 3.125 mg PO DAILY [facility] Last Admin: 06/28/17 10:11 Dose: 3.125 mg Digoxin (Lanoxin) 0.25 mg PO DAILY [facility] Last Admin: 06/28/17 10:16 Dose: 0.25 mg Diphenhydramine HCl (Benadryl) 25 mg PO Q6 PRN PRN Reason: Itching / Pruritus Sodium Chloride (Sodium Chloride 0.9%) 1,000 mls @ 100 mls/hr IV .Q10H [facility] Last Admin: 06/27/17 15:35 Dose: Not Given Ciprofloxacin (Cipro 400mg/200ml Dsw) 400 mg in 200 mls @ 200 mls/hr IVPB Q12 SHARIFA PRN Reason: Protocol Last Admin: 06/28/17 10:10 Dose: 200 mls/hr Lactic Acid (Lac-Hydrin 12% Lotion (225 G)) 1 applic TOP TID [facility] Last Admin: 06/28/17 17:05 Dose: 1 applic Magnesium Citrate (Citrate Of Mag) 300 ml PO ONCE ONE Stop: 06/28/17 20:01 Metronidazole (Flagyl) 500 mg PO Q8 SHARIFA PRN Reason: Protocol Last Admin: 06/28/17 17:04 Dose: 500 mg Ondansetron HCl (Zofran Inj) 4 mg IVP Q4 PRN PRN Reason: Nausea/Vomiting Last Admin: 06/28/17 13:22 Dose: 4 mg Pantoprazole Sodium (Protonix Ec Tab) 40 mg PO DAILY [facility] Last Admin: 06/28/17 10:16 Dose: 40 mg Sodium Chloride ([place] Nasal [place]) 2 sprays [place] Q4 PRN PRN Reason: Nasal congestion Last Admin: 06/28/17 17:06 Dose: 2 sprays - Labs Labs: 06/27/17 06:05 06/28/17 06:10 - Head Exam Head Exam: ATRAUMATIC - Eye Exam Eye Exam: Normal appearance - ENT Exam ENT Exam: Normal Exam - Neck Exam Neck Exam: Full ROM - Respiratory Exam Respiratory Exam: Clear to Ausculation Bilateral - Cardiovascular Exam Cardiovascular Exam: REGULAR RHYTHM - GI/Abdominal Exam GI & Abdominal Exam: Soft, Normal Bowel Sounds. absent: Tenderness Assessment and Plan (1) Colitis Assessment & Plan: Clinically better. Prep started and reasonably well tolerated. Colonoscopy tomorrow. Status: Acute
[2017-06-29 06:15] LABS: BASO # 0.1 K/uL (0.0-0.2); EOS # 0.6 K/uL (0.0-0.7); LYMPH # 1.3 K/uL (1.0-4.3); LYMPH % 15.7 % (20.0-40.0); MEAN CELL VOLUME 91.4 fl (81.0-99.0); MEAN CORPUSCULAR HEMOGLOBIN 29.9 pg (27.0-31.0); MEAN CORPUSCULAR HGB CONC 32.7 g/dL (33.0-37.0); MONO # 0.8 K/uL (0.0-0.8); MONO % 9.6 % (0.0-10.0); NEUT # 5.3 K/uL (1.8-7.0); NEUT % 65.7 % (50.0-75.0); RED CELL DISTRIBUTION WIDTH 15.7 % (11.5-14.5)
[2017-06-29 06:25] LABS: BLOOD UREA NITROGEN 3 mg/dl (7-17); CALCIUM 8.7 mg/dL (8.4-10.2); CARBON DIOXIDE 29 mmol/L (22-30); CHLORIDE 104 mmol/L (98-107); GFR AFRICAN-AMERICAN > 60; GLUCOSE,RANDOM 94 mg/dL (65-105); POTASSIUM 3.3 MMOL/L (3.6-5.0); SODIUM 142 mmol/l (132-148)
[2017-06-29 06:26] LABS: PARTIAL THROMBOPLASTIN TIME 35.3 Seconds (25.6-37.1)
[2017-06-29] MEDS ORDERED: Propofol 10 mg/ml Inj (20 ML) ONE (07:28)
[2017-06-29] MEDS ORDERED: Lidocaine 2% MPF (5 ml) Inj ONE (07:29)
[2017-06-29] MEDS ORDERED: Lactated Ringer's 500 ML IV ONE (07:57)
--- NOTE | 2017-06-29 08:19 | CARD ---
APPROVED REPORT EKG Measurement Heart [id number] <Conclusion> Atrial fibrillation with slow ventricular response Left axis deviation Anterior infarct, age undetermined Abnormal ECG
[2017-06-29 09:19] VITALS: RESP 20; TEMP 97; O2SAT 100
[2017-06-29 09:31] VITALS: BP 108/60; PULSE 63
[2017-06-29] MEDS: Digoxin 250 mcg (0.25 mg) Tab PO SCH (09:44)
[2017-06-29] MEDS: Pantoprazole 40 mg EC Tab PO SCH (09:44)
[2017-06-29 09:45] VITALS: PULSE 82
[2017-06-29] MEDS ORDERED: Potassium Chloride 20 mEq/15 ml LIQ UD PO ONE (09:45)
--- NOTE | 2017-06-29 11:36 | CP.PCM.PN ---
Subjective - Date & Time of Evaluation Date of Evaluation: 06/29/17 Time of Evaluation: 11:36 - Subjective Subjective: Case discussed with hospitalist. Results of colonoscopy noted. Appears comfortable. No further abdominal pain. Vital signs have remained stable. Pyuria with <10,000 CFU gram negative rods. Will await final culture report. No respiratory related problems. Plan for discharge to home later today. Will follow as outpatient. Objective - Vital Signs/Intake and Output Vital Signs (last 24 hours): Temp Pulse Resp BP Pulse Ox 97 F L 63 20 108/60 100 06/29/17 09:30 06/29/17 09:30 06/29/17 09:30 06/29/17 09:30 06/29/17 09:30 Intake and Output: 06/28/17 06/29/17 23:59 11:59 Intake Total 200 Balance 200 - Medications Medications: Current Medications Acetaminophen (Tylenol 325mg Tab) 650 mg PO Q6 PRN PRN Reason: Pain, Mild (1-3) Last Admin: 06/28/17 22:19 Dose: 650 mg Atorvastatin Calcium (Lipitor) 10 mg PO HS [facility] Last Admin: 06/28/17 22:19 Dose: 10 mg Carvedilol (Coreg) 3.125 mg PO DAILY [facility] Last Admin: 06/29/17 07:28 Dose: 3.125 mg Digoxin (Lanoxin) 0.25 mg PO DAILY [facility] Last Admin: 06/29/17 09:44 Dose: 0.25 mg Diphenhydramine HCl (Benadryl) 25 mg PO Q6 PRN PRN Reason: Itching / Pruritus Sodium Chloride (Sodium Chloride 0.9%) 1,000 mls @ 100 mls/hr IV .Q10H [facility] Last Admin: 06/27/17 15:35 Dose: Not Given Lactic Acid (Lac-Hydrin 12% Lotion (225 G)) 1 applic TOP TID [facility] Last Admin: 06/29/17 09:43 Dose: 1 applic Ondansetron HCl (Zofran Inj) 4 mg IVP Q4 PRN PRN Reason: Nausea/Vomiting Last Admin: 06/28/17 23:44 Dose: 4 mg Pantoprazole Sodium (Protonix Ec Tab) 40 mg PO DAILY [facility] Last Admin: 06/29/17 09:44 Dose: 40 mg Sodium Chloride (Enigma Nasal Fate) 2 sprays KWABENA Q4 PRN PRN Reason: Nasal congestion Last Admin: 06/28/17 23:44 Dose: 2 sprays - Labs Labs: 06/29/17 05:20 06/29/17 05:20 PT 13.3 Seconds (9.8-13.1) H 06/29/17 05:20 INR 1.2 (0.9-1.2) 06/29/17 05:20 APTT 35.3 Seconds (25.6-37.1) 06/29/17 05:20 Assessment and Plan (1) Colitis Status: Acute (2) A-fib Status: Chronic (3) Asthma with COPD Status: Chronic (4) Chronic pain disorder Status: Chronic (5) Urinary incontinence Status: Chronic
[2017-06-29] MEDS: Nasal Spray(Ocean spray) NAS PRN (14:46)
--- NOTE | 2017-06-29 15:38 | CP.PCM.DIS ---
Provider - Provider Date of Admission: 06/26/17 18:21 Attending physician: Jose G Lara MD Primary care physician: Dr. Fang Consults: Pulmonary consult Gastroenterology consult Time Spent in preparation of Discharge (in minutes): 20 Hospital Course - Lab Results Lab Results: Micro Results 06/27/17 20:06 Urine,Clean Catch Urine Culture - Final Gram Negative Jimmy Most Recent Lab Values WBC 8.0 K/uL (4.8-10.8) 06/29/17 05:20 RBC 4.27 Mil/uL (3.80-5.20) 06/29/17 05:20 Hgb 12.8 g/dL (12.0-16.0) 06/29/17 05:20 Hct 39.0 % (34.0-47.0) 06/29/17 05:20 MCV 91.4 fl (81.0-99.0) 06/29/17 05:20 MCH 29.9 pg (27.0-31.0) 06/29/17 05:20 MCHC 32.7 g/dL (33.0-37.0) L 06/29/17 05:20 RDW 15.7 % (11.5-14.5) H 06/29/17 05:20 Plt Count 408 K/uL (130-400) H 06/29/17 05:20 MPV 7.0 fl (7.2-11.7) L 06/29/17 05:20 Neut % (Auto) 65.7 % (50.0-75.0) 06/29/17 05:20 Lymph % (Auto) 15.7 % (20.0-40.0) L 06/29/17 05:20 [place] % (Auto) 9.6 % (0.0-10.0) 06/29/17 05:20 Eos % (Auto) 8.0 % (0.0-4.0) H 06/29/17 05:20 Baso % (Auto) 1.0 % (0.0-2.0) 06/29/17 05:20 Neut # 5.3 K/uL (1.8-7.0) 06/29/17 05:20 Lymph # 1.3 K/uL (1.0-4.3) 06/29/17 05:20 [place] # 0.8 K/uL (0.0-0.8) 06/29/17 05:20 Eos # 0.6 K/uL (0.0-0.7) 06/29/17 05:20 Baso # 0.1 K/uL (0.0-0.2) 06/29/17 05:20 PT 13.3 Seconds (9.8-13.1) H 06/29/17 05:20 INR 1.2 (0.9-1.2) 06/29/17 05:20 APTT 35.3 Seconds (25.6-37.1) 06/29/17 05:20 pO2 22 mm/Hg (30-55) L 06/26/17 13:59 VBG pH 7.40 (7.32-7.43) 06/26/17 13:59 VBG pCO2 57 mmHg (40-60) 06/26/17 13:59 VBG HCO3 29.9 mmol/L 06/26/17 13:59 VBG Total CO2 37.0 mmol/L (22-28) H 06/26/17 13:59 VBG O2 Sat (Calc) 45.8 % (40-65) 06/26/17 13:59 VBG Base Excess 8.4 mmol/L (0.0-2.0) H 06/26/17 13:59 VBG Potassium 3.4 mmol/L (3.6-5.2) L 06/26/17 13:59 Sodium 135.0 mmol/L (132-148) 06/26/17 13:59 Chloride 97.0 mmol/L (98-107) L 06/26/17 13:59 Glucose 109 mg/dL (65-105) H 06/26/17 13:59 Lactate 1.2 mmol/L (0.7-2.1) 06/26/17 13:59 FiO2 21.0 % 06/26/17 13:59 Sodium 142 mmol/l (132-148) 06/29/17 05:20 Potassium 3.3 MMOL/L (3.6-5.0) L 06/29/17 05:20 Chloride 104 mmol/L (98-107) 06/29/17 05:20 Carbon Dioxide 29 mmol/L (22-30) 06/29/17 05:20 Anion Gap 12 (10-20) 06/29/17 05:20 BUN 3 mg/dl (7-17) L 06/29/17 05:20 Creatinine 0.7 mg/dL (0.7-1.2) 06/29/17 05:20 Est GFR ( Amer) > 60 06/29/17 05:20 Est GFR (Non-Af Amer) > 60 06/29/17 05:20 POC Glucose (mg/dL) 89 mg/dL (65-110) 06/27/17 05:59 Random Glucose 94 mg/dL (65-105) 06/29/17 05:20 Calcium 8.7 mg/dL (8.4-10.2) 06/29/17 05:20 Total Bilirubin 0.8 mg/dl (0.2-1.3) 06/26/17 13:13 AST 21 U/L (14-36) 06/26/17 13:13 ALT 28 U/L (9-52) 06/26/17 13:13 Alkaline Phosphatase 86 U/L (38-126) 06/26/17 13:13 Total Protein 6.5 G/DL (6.3-8.2) 06/26/17 13:13 Albumin 3.4 g/dL (3.5-5.0) L 06/26/17 13:13 Globulin 3.0 gm/dL (2.2-3.9) 06/26/17 13:13 Albumin/Globulin Ratio 1.1 (1.0-2.1) 06/26/17 13:13 Lipase 34 U/L (23-300) 06/26/17 13:13 Venous Blood Potassium 3.4 mmol/L (3.6-5.2) L 06/26/17 13:59 Urine Color Alejandra (YELLOW) 06/26/17 15:16 Urine Clarity Cloudy (Clear) 06/26/17 15:16 Urine pH 6.0 (5.0-8.0) 06/26/17 15:16 Ur Specific [place] 1.014 (1.003-1.030) 06/26/17 15:16 Urine Protein 30 mg/dL (NEGATIVE) 06/26/17 15:16 Urine Glucose (UA) Neg mg/dL (Normal) 06/26/17 15:16 Urine Ketones Negative mg/dL (NEGATIVE) 06/26/17 15:16 Urine Blood Negative (NEGATIVE) 06/26/17 15:16 Urine Nitrate Negative (NEGATIVE) 06/26/17 15:16 Urine Bilirubin Negative (NEGATIVE) 06/26/17 15:16 Urine Urobilinogen 4.0 mg/dL (0.2-1.0) H 06/26/17 15:16 Ur Leukocyte Esterase Mod Jaci/uL (Negative) 06/26/17 15:16 Urine RBC (Auto) 3 /hpf (0-3) 06/26/17 15:16 Urine Microscopic WBC 38 /hpf (0-5) H 06/26/17 15:16 Ur Squamous Epith Cells 2 /hpf (0-5) 06/26/17 15:16 Urine Bacteria Mod (<OCC) H 06/26/17 15:16 Hyaline Casts 3-5 /hpf (0-2) H 06/26/17 15:16 Blood Type O NEGATIVE 06/26/17 13:13 Blood Type Confirm O NEGATIVE 06/26/17 13:23 Antibody Screen Negative 06/26/17 13:13 BBK History Checked No verified bt 06/26/17 13:13 - Hospital Course Hospital Course: 76 y/o lady with hx of CAD , Hx of PCI ( 2014), Diverticulosis, HTN, CHF, A Fib , COPD, came in bec of 4 days of abd pain,nausea and vomiting . No fever however had leukocytosis of 12K on admission. CT of abdomen showed :Segmental thickening of the descending colon extending to the sigmoid. Although this occurs in a segment of the colon affected by diverticular disease the geographic nature and a long segment involvement more likely represents acute and severe colitis. No free air, loculated air, drainable collection. Patient was admitted in med/surg started on IV Cipro and Flagyl ,pain medication , IVf and kept NPO. GI was consulted. Patient clinically showed improvement . She underwent colonsocopy today that showed diverticulosis without diverticulitis. Patient started on high fiber diet and tolerated well. Cleraed by Gi for discharge without any antibiotics.Nutritional consul called to educate patient on diverticulosis diet. Patient is hemodynamically stable, afebrile, pain totalluy resolved, tolerating Po intake , voiding freely and passing flatus. patient would like to go home and agress with discharge plan. will d/c patient home with follow up with PMD Dr. Fang and GI Dr. Salas Her urine cx also was reported as positive for gram negative jimmy but with < [phone] colonies.She already received Cipro and flagyl Iv for 3 days . 1.Non infectious colitis -- treated with Cipro and Flagyl IV empirically colonoscopy did not show evidence of colitis but Ct on admission showed thickening of descending colon extending to the sigmoid represented colitis pain resolved , tolerating diet d/c Cipro and Flagyl High fiber diet follow up with GI 2. 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 Pulmonary HTN Chronic Pulmonary consulted and following 7. CAD (coronary artery disease) Chronic hx of PCI in 2014 on ASA and Plavix f cont Coreg and Statin 8. COPD (chronic obstructive pulmonary disease), stable Chronic Duoneb prn Pulm consulted 9. Hypertension Chronic, controlled cont Coreg 10. Dry Skin- resolved given Lac hydrin pruritus unlikely due to Cipro allergy ( pt had received Cipro on 3 previous admission without any incidence) and accdg to pt's PMD - Dr Fang - though pt is PCN allergic, she had taken Augementin and Amoxicillin and has been fine . Will d/c cipro 11.Hypokalemia due to poor PO intake replaced Discharge Exam - Head Exam Head Exam: ATRAUMATIC, NORMAL INSPECTION, NORMOCEPHALIC - Eye Exam Eye Exam: EOMI, Normal appearance, PERRL Pupil Exam: NORMAL ACCOMODATION - ENT Exam ENT Exam: Mucous Membranes Moist, Normal Exam - Neck Exam Neck exam: Full Rom, Normal Inspection - Respiratory Exam Respiratory Exam: Clear to PA & Lateral, NORMAL BREATHING PATTERN. absent: Rales, Rhonchi, Wheezes - Cardiovascular Exam Cardiovascular Exam: REGULAR RHYTHM, RRR, +S1, +S2. absent: JVD - GI/Abdominal Exam GI & Abdominal Exam: Normal Bowel Sounds, Soft. absent: Distended, Guarding, Rebound, Tenderness - Rectal Exam Rectal Exam: Deferred - Extremities Exam Extremities exam: normal capillary refill, normal inspection, pedal pulses present - Back Exam Back exam: NORMAL INSPECTION - Neurological Exam Neurological exam: Alert, CN II-XII Intact, Oriented x3 - Psychiatric Exam Psychiatric exam: Normal Affect, Normal Mood - Skin Skin Exam: Dry, Intact, Normal Color, Warm Discharge Plan - Follow Up Plan Condition: STABLE Disposition: HOME/ ROUTINE Patient education suggested?: Yes Instructions: Colonoscopy (DC), Diverticulosis (DC), Diverticulitis Diet (DC) Additional Instructions: follow up with dr fang in 1 week and also with dr salas Referrals: Raymond Fang MD [Family Provider] - Johny Salas MD [Staff Provider] -
== END 2017-06-29 15:00 | disposition home or self-care (01) | DRG 392 ==
LOC: H.ER 12:33 → H.ERHOLD 18:21 → H.MEDSURG1 21:15
PROC: 3E0234Z Introduction of Serum, Toxoid and Vaccine into Muscle, Percutaneous Approach (ICD-10-PCS; 2017-06-27)
PROC: 0DDQ8ZX Extraction of Anus, Via Natural or Artificial Opening Endoscopic, Diagnostic (ICD-10-PCS; principal; 2017-06-29 08:00)
DX: K52.9 Noninfective gastroenteritis and colitis, unspecified (principal); I50.32 Chronic diastolic (congestive) heart failure; N39.0 Urinary tract infection, site not specified; I48.2 Chronic atrial fibrillation; K57.30 Diverticulosis of large intestine without perforation or abscess without bleeding; K62.0 Anal polyp; I11.0 Hypertensive heart disease with heart failure; E87.6 Hypokalemia; G62.9 Polyneuropathy, unspecified; J44.9 Chronic obstructive pulmonary disease, unspecified; D64.9 Anemia, unspecified; G47.30 Sleep apnea, unspecified; I27.20 Pulmonary hypertension, unspecified; I25.10 Atherosclerotic heart disease of native coronary artery without angina pectoris; G89.29 Other chronic pain; I87.2 Venous insufficiency (chronic) (peripheral); R32 Unspecified urinary incontinence; K21.9 Gastro-esophageal reflux disease without esophagitis; L29.9 Pruritus, unspecified; M81.0 Age-related osteoporosis without current pathological fracture; I25.2 Old myocardial infarction; K29.70 Gastritis, unspecified, without bleeding; Z23 Encounter for immunization; Z88.0 Allergy status to penicillin; Z88.2 Allergy status to sulfonamides; Z98.61 Coronary angioplasty status; Z79.02 Long term (current) use of antithrombotics/antiplatelets; Z79.82 Long term (current) use of aspirin; Z87.891 Personal history of nicotine dependence; Z87.01 Personal history of pneumonia (recurrent); Z87.440 Personal history of urinary (tract) infections

== ENCOUNTER 2018-03-04 00:31 | Inpatient (IN) | payer MEDICARE ==
[2018-03-04 00:32] VITALS: BMI 35.8
[2018-03-04] MEDS ORDERED: Sodium Chloride 0.9% 1,000 ML IV STA (01:08)
--- NOTE | 2018-03-04 01:26 | ED PDOC ---
HPI: Abdomen Time Seen by Provider: 03/04/18 00:37 Chief Complaint (Nursing): GI Problem Chief Complaint (Provider): Abdominal Pain History Per: Patient History/Exam Limitations: no limitations Onset/Duration Of Symptoms: Intermittent Episodes (for a few months), Worse Since (past few days) Current Symptoms Are (Timing): Still Present Location Of Pain/Discomfort: LLQ (pain most significant in LLQ) Associated Symptoms: Diarrhea. denies: Fever, Vomiting Exacerbating Factors: Other (Prescribed medication) Additional Complaint(s): 77 year old female presents to ED with complaints of intermittent episodes of abdominal pain for the past few months that worsened over the last few days and has a past medical history of AFIB, HTN, asthma, dyslipidemia, diverticular disease, and arthritis. (+) PO intolerance, weakness, nausea, fever, and diarrhea (non-bloody but mucoid stool). (-) vomiting or fever. Patient notes pain is most significant in the LLQ. Of note, patient states she was recently prescribed Linzess by her GI doctor, which made her symptoms worse. PCP: Leoncio GI: Osvaldo Past Medical History Reviewed: Historical Data, Nursing Documentation, Vital Signs Vital Signs: Last Vital Signs Temp 98.1 F 03/04/18 05:23 Pulse 93 H 03/04/18 05:23 Resp 18 03/04/18 05:23 BP 131/77 03/04/18 05:23 Pulse Ox 96 03/04/18 05:23 - Medical History PMH: Anemia, Asthma, Atrial Fibrillation, Bronchitis, CAD, Cardia Arrhythmia, CHF, Diverticulitis, Fractures (Left elbow repair), Gastritis, Osteoporosis, Peripheral Edema, Pneumonia, Sleep Apnea Denies: No Chronic Diseases, Arthritis, COPD, HIV, HTN, Hypercholesterolemia , Hypothyroidism, Chronic Kidney Disease, Rheumatoid Arthritis - Surgical History Surgical History: Cholecystectomy, Tonsillectomy Denies: No Surg Hx - Family History Family History: States: Unknown Family Hx - Living Arrangements Living Arrangements: With Family - Social History Current smoker - smoking cessation education provided: No Ex-Smoker (has not smoked in the last 12 months): No Alcohol: None Drugs: Denies - Home Medications Home Medications: Ambulatory Orders Medication Instructions Recorded Furosemide [Lasix] 40 mg PO DAILY #0 tab 09/06/15 Clopidogrel [Plavix] 75 mg PO DAILY #0 tab 12/14/15 Digoxin [Lanoxin] 0.25 mg PO DAILY #0 tab 12/14/15 Aspirin [Ecotrin] 81 mg PO DAILY 06/26/17 Atorvastatin Calcium [Lipitor] 10 mg PO HS 06/26/17 Carvedilol [Coreg] 3.125 mg PO DAILY 06/26/17 - Allergies Allergies/Adverse Reactions: Allergies Allergy/AdvReac Type Severity Reaction Status Date / Time Penicillins Allergy RASH Verified 06/26/17 21:20 Sulfa (Sulfonamide Allergy RASH Verified 06/26/17 21:20 Antibiotics) suture Allergy REDNESS Uncoded 12/11/15 07:41 Review of Systems ROS Statement: Except As Marked, All Systems Reviewed And Found Negative Constitutional: Positive for: Weakness. Negative for: Fever Gastrointestinal: Positive for: Nausea, Abdominal Pain, Diarrhea, Other ((+) PO intolerance). Negative for: Vomiting Physical Exam - Reviewed Nursing Documentation Reviewed: Yes Vital Signs Reviewed: Yes - Physical Exam Appears: Positive for: Non-toxic, Uncomfortable Skin: Positive for: Normal Color, Warm, Dry Eye Exam: Positive for: Normal appearance, EOMI, PERRL ENT: Negative for: Normal ENT Inspection (tacky mucous membranes) Cardiovascular/Chest: Positive for: Regular Rate, Rhythm. Negative for: Murmur Respiratory: Positive for: Normal Breath Sounds. Negative for: Respiratory Distress Gastrointestinal/Abdominal: Positive for: Soft, Tenderness (LLQ tenderness) Back: Positive for: Normal Inspection Extremity: Positive for: Normal ROM. Negative for: Deformity Neurologic/Psych: Positive for: Alert, Oriented. Negative for: Motor/Sensory Deficits - Laboratory Results Result Diagrams: 03/04/18 01:24 03/04/18 01:24 - ECG ECG: Positive for: Interpreted By Me, Viewed By Me ECG Rhythm: Positive for: Atrial Fibrillation, ST/T Changes (non-specific) Rate: 96 (at 0124 03/04/18) O2 Sat by Pulse Oximetry: 96 (RA) Pulse Ox Interpretation: Normal Medical Decision Making Medical Decision Makin Initial impression: 77 year old female with abdominal pain, nausea, and diarrhea in setting of diverticular disease Initial plan: * CTA A/P * EKG * Labs * Lipase * Morphine 2mg IVP * NS IV * Zofran 4mg IV * UA * Re-eval 0248 CT FINDINGS: Lung bases: COPD.There is bibasilar atelectasis. Heart: Cardiomegaly with mitral valve calcifications. Trace pericardial effusion. ABDOMEN: Liver: Enlarged fatty liver. Gallbladder and bile ducts: Cholecystectomy. Pancreas: Unremarkable. No mass. No ductal dilation. Spleen: Lobular deformed spleen. Adrenals: Unremarkable. No mass. Kidneys and ureters: Unremarkable. No solid mass. No hydronephrosis. Stomach and bowel: There is distal descending colon and sigmoid diverticulosis without colonic thickening and surrounding inflammatory changes representing acute diverticulitis and colitis. No abscess or free air is noted. There are nonspecific fluid filled small bowel loops. These findings can represent ileus versus enteritis versus slow transit versus peristalsis. Nonspecific gastric thickening likely due to under distention. Correlation with clinical data is recommended if gastritis is suspected. PELVIS: Appendix: The appendix not identified with complete certainty due to unopacified cecum and distal small bowel. There is lack of intra-abdominal fat. If clinical concern remains, a repeat study with thin sections after an appropriate time interval may allow oral contrast to opacify the cecum. Bladder: Partially decompressed bladder with bladder wall thickening. Correlation with urinalysis is recommended only if clinical cystitis is suspected. Reproductive: Uterus is seen. ABDOMEN and PELVIS: Intraperitoneal space: Free pelvic fluid. Bones/joints: Degenerative changes within the spine. No acute fracture. No dislocation. Soft tissues: There is a fat-containing umbilical hernia. Vasculature: Unremarkable. No abdominal aortic aneurysm. Lymph nodes: Multiple subcentimeter mesenteric and ileocolic lymph nodes. Findings are nonspecific but may represent mesenteric adenitis. IMPRESSION: 1. Free pelvic fluid. 2. There is distal descending colon and sigmoid diverticulosis without colonic thickening and surrounding inflammatory changes representing acute diverticulitis and colitis. No abscess or free air is noted. 0310 Labs reviewed: no clinically significant abnormalities with exception of elevated WBC count. Patient will be admitted for further treatment of acute diverticulitis. Discussed case with Dr. Chavarria who covers Dr. Fang, who accepts patient under his care (INPATIENT MED/SURG). Condition: fair * Lactic acid * Cipro IV * Flagyl IVPB * BCx Scribe Attestation: Documented by Angela Grayson acting as a scribe for Ethan Tom MD. Scribe Attestation: All medical record entries made by the Scribe were at my direction and personally dictated by me. I have reviewed the chart and agree that the record accurately reflects my personal performance of the history, physical exam, medical decision making, and the department course for this patient. I have also personally directed, reviewed, and agree with the discharge instructions and disposition. Disposition - Clinical Impression Clinical Impression: Diverticulitis - Patient ED Disposition Is Patient to be Admitted: Yes Discussed With DrTom: Brayan Chavarria (covers Dr Fang) - Disposition Disposition Time: 03:00 Condition: FAIR - Pt Status Changed To: Hospital Disposition Of: Inpatient - Admit Certification Admit to Inpatient:: After my assessment, the patient will require hospitalization for at least two midnights. This is because of the severity of symptoms shown, intensity of services needed, and/or the medical risk in this patient being treated as an outpatient.
[2018-03-04 01:27] LABS: BASO # 0.2 K/uL (0.0-0.2); BASO % 1.3 % (0.0-2.0); EOS # 0.4 K/uL (0.0-0.7); EOS % 2.3 % (0.0-4.0); HEMOGLOBIN 12.9 g/dL (12.0-16.0); LYMPH # 1.5 K/uL (1.0-4.3); LYMPH % 8.6 % (20.0-40.0); MEAN CELL VOLUME 93.8 fl (81.0-99.0); MEAN CORPUSCULAR HEMOGLOBIN 31.2 pg (27.0-31.0); MEAN CORPUSCULAR HGB CONC 33.3 g/dL (33.0-37.0); MEAN PLATELET VOLUME 6.6 fl (7.2-11.7); MONO # 1.2 K/uL (0.0-0.8); MONO % 7.2 % (0.0-10.0); NEUT # 13.7 K/uL (1.8-7.0); NEUT % 80.6 % (50.0-75.0); NRBC % 0.1 % (0.0-0.0); PLATELET COUNT 535 K/uL (130-400); RBC 4.12 Mil/uL (3.80-5.20); RED CELL DISTRIBUTION WIDTH 15.8 % (11.5-14.5); WHITE BLOOD COUNT 16.9 K/uL (4.8-10.8)
[2018-03-04 01:35] LABS: ALB/GLOB RATIO 0.9 (1.0-2.1); ALBUMIN 3.1 g/dL (3.5-5.0); ALT/SGPT 48 U/L (9-52); AST/SGOT 52 U/L (14-36); BLOOD UREA NITROGEN 10 mg/dl (7-17); CALCIUM 8.7 mg/dL (8.4-10.2); GFR AFRICAN-AMERICAN > 60; GFR NON-AFRICAN AMERICAN > 60; LIPASE 25 U/L (23-300)
[2018-03-04] MEDS ORDERED: Sodium Chloride 0.9% 50 ML IV ONE (01:50)
[2018-03-04] MEDS ORDERED: Iohexol 300 100 ML IJ ONE (01:50)
[2018-03-04] MEDS ORDERED: metroNIDAZOLE 500mg/100ml NS 100 ML IVPB STA (03:01)
[2018-03-04] MEDS ORDERED: Ciprofloxacin 400mg/200ml D5W 400 MG/200 ML BAG IV STA (03:01)
[2018-03-04 03:47] LABS: ANISOCYTOSIS SLIGHT; BANDS 4 % (0-2); EOSINOPHIL 5 % (0-7); LYMPHOCYTE 9 % (20-50); MONOCYTE 7 % (0-10); NEUTROPHIL 71 % (42-75); PLATELET ESTIMATE MARKEDLY INCREASED (NORMAL); REACTIVE LYMPHOCYTES 4 % (0-0); TOTAL CELLS COUNTED 100
[2018-03-04 03:49] LABS: HYPOCHROMIC SLIGHT; LARGE PLATELETS PRESENT; TEARDROP CELLS SLIGHT
--- NOTE | 2018-03-04 04:01 | CP.PCM.HP ---
History of Present Illness - History of Present Illness History of Present Illness: Pulmonogist: Dr Fang GI: Dr Riley Information Technology Director: Dr Salazar Chief Complaint: Abdominal pain The patient was seen and examined in the ED HPI: This is a 77 years old female with hx of Asthma, COPD, A Fib, Chf and diverticulosos. She was seen by the Director Of Income Tax for loose Stool and abdominal pains one week ago. She nows comes to the ED with the intermittent pain across the lower abdomen, most severe on the LLQ. The pain is becoming more intense and is associated with diarrhea. She referred subjected fever but no nausea nor vomiting, PMH: Anemia, Asthma, Atrial Fibrillation, Bronchitis, CAD, Cardia Arrhythmia, CHF, Diverticulitis, Fractures (Left elbow repair), Gastritis, Osteoporosis, Peripheral Edema, Pneumonia, Sleep Apnea PSH: Cholecystectomy, Tonsillectomy; Right foot benign tumor removed; Right rib benign tumor removed; Left wrist ORIF SH: Former smoker, No alcohol, No illegal drugs, Live with family FH: States: Unknown Family Hx Allergies: PCN/ Sulfa Medication: Reviewed Present on Admission - Present on Admission Any Indicators Present on Admission: No History of DVT/PE: No History of Uncontrolled Diabetes: No Urinary Catheter: No Decubitus Ulcer Present: No Review of Systems - Constitutional Constitutional: Anorexia, Fatigue, Fever, Frequent Falls. absent: Chills - EENT Eyes: Requires Corrective Lenses. absent: Diplopia, Floaters, Loss of Peripheral Vision Ears: absent: Decreased Hearing, Ear Discharge Nose/Mouth/Throat: Post Nasal Drip. absent: Epistaxis, Nasal Congestion, Nasal Discharge, Sinus Pain, Sinus Pressure - Cardiovascular Cardiovascular: absent: Chest Pain, Dyspnea, Edema - Respiratory Respiratory: absent: Cough, Dyspnea, Wheezing, Stridor - Gastrointestinal Gastrointestinal: Abdominal Pain, Cramping, Diarrhea. absent: Constipation, Nausea, Vomiting - Genitourinary Genitourinary: Urinary Incontinence. absent: Dysuria, Flank Pain - Musculoskeletal Musculoskeletal: Arthralgias. absent: Muscle Weakness, Numbness - Integumentary Integumentary: absent: Rash, Skin Pain, Skin Ulcer, Sores, Striae, Swelling - Neurological Neurological: Weakness. absent: Confusion, Dizziness, Focal Weakness, Headaches - Psychiatric Psychiatric: absent: Anxiety, Depression, Panic Attacks - Endocrine Endocrine: absent: Palpitations, Polydipsia, Polyphagia, Polyuria - Hematologic/Lymphatic Hematologic: absent: Easy Bleeding, Easy Bruising Past Patient History - Infectious Disease Hx of Infectious Diseases: None - Tetanus Immunizations Tetanus Immunization: Unknown - Past Medical History & Family History Past Medical History?: Yes - Past Social History Smoking Status: Former Smoker Chewing Tobacco Use: No Cigar Use: No Alcohol: None Drugs: Denies - CARDIAC Hx Atrial Fibrillation: Yes Hx Cardia Arrhythmia: Yes Hx Congestive Heart Failure: Yes Hx Heart Attack: Yes Hx Hypertension: Yes Hx Peripheral Edema: Yes Hx Peripheral Vascular Disease: Yes - PULMONARY Hx Respiratory Disorders: Yes Hx Asthma: Yes Hx Bronchitis: Yes Hx Chronic Obstructive Pulmonary Disease (COPD): Yes Hx Pneumonia: Yes Hx Sleep Apnea: Yes Other/Comment: Hx Pulmonary HTN - NEUROLOGICAL Hx Neurological Disorder: Yes Hx Vertigo: Yes Other/Comment: Hx peripheral neuropathy - HEENT Hx HEENT Problems: Yes - RENAL Hx Chronic Kidney Disease: No - ENDOCRINE/METABOLIC Hx Hypothyroidism: No - HEMATOLOGICAL/ONCOLOGICAL Hx Anemia: Yes - INTEGUMENTARY Hx Dermatological Problems: Yes Other/Comment: Hx Chronic venous stasis dermatitis BLE - MUSCULOSKELETAL/RHEUMATOLOGICAL Hx Musculoskeletal Disorders: Yes Hx Back Pain: Yes Hx Fractures: Yes (Left elbow) Hx Osteoporosis: Yes Hx Unsteady Gait: Yes - GASTROINTESTINAL Hx Gastrointestinal Disorders: Yes Hx Colitis: Yes Hx Diverticulitis: Yes Hx Gastritis: Yes - GENITOURINARY/GYNECOLOGICAL Hx Genitourinary Disorders: Yes Hx Incontinence: Yes Hx Urinary Tract Infection: Yes - PSYCHIATRIC Hx Substance Use: No - SURGICAL HISTORY Hx Surgeries: Yes Hx Cardiac Catheterization: Yes (with Thrombectomy) Hx Cholecystectomy: Yes Hx Tonsillectomy: Yes Other/Comment: Hx Benign tumor removal rib cage. Hx Benign Neuroma removal right foot - ANESTHESIA Hx Anesthesia: Yes Hx Anesthesia Reactions: No Hx Malignant Hyperthermia: No Meds Allergies/Adverse Reactions: Allergies Allergy/AdvReac Type Severity Reaction Status Date / Time Penicillins Allergy RASH Verified 06/26/17 21:20 Sulfa (Sulfonamide Allergy RASH Verified 06/26/17 21:20 Antibiotics) suture Allergy REDNESS Uncoded 12/11/15 07:41 Physical Exam - Constitutional Appears: No Acute Distress - Head Exam Head Exam: ATRAUMATIC, NORMAL INSPECTION, NORMOCEPHALIC - Eye Exam Eye Exam: EOMI, Normal appearance Pupil Exam: NORMAL ACCOMODATION, PERRL - ENT Exam ENT Exam: Normal Exam, Normal Oropharynx - Neck Exam Neck exam: Positive for: Full Rom, Normal Inspection. Negative for: Lymphadenopathy, Tenderness - Respiratory Exam Respiratory Exam: Clear to Auscultation Bilateral. absent: Rales, Rhonchi, Wheezes - Cardiovascular Exam Cardiovascular Exam: REGULAR RHYTHM, RRR, +S1, +S2 - GI/Abdominal Exam Additional comments: Obese, soft +ve bowel sounds No guarding, mild rebound tenderness - Rectal Exam Rectal Exam: Deferred - Extremities Exam Extremities exam: Positive for: full ROM, normal inspection. Negative for: joint swelling, pedal edema - Neurological Exam Neurological exam: Alert, CN II-XII Intact, Oriented x3, Reflexes Normal - Psychiatric Exam Psychiatric exam: Normal Affect, Normal Mood - Skin Skin Exam: Dry, Intact, Normal Color, Warm Results - Vital Signs Recent Vital Signs: Last Vital Signs Temp 97.9 F 03/04/18 00:34 Pulse 96 H 03/04/18 03:11 Resp 16 03/04/18 00:34 BP 116/65 03/04/18 00:34 Pulse Ox 96 03/04/18 03:11 - Labs Result Diagrams: 03/04/18 01:24 03/04/18 01:24 Labs: Laboratory Results - last 24 hr 03/04/18 03/04/18 03/04/18 01:24 01:24 02:30 WBC 16.9 H D RBC 4.12 Hgb 12.9 Hct 38.6 MCV 93.8 D MCH 31.2 H MCHC 33.3 RDW 15.8 H Plt Count 535 H D MPV 6.6 L Neut % (Auto) 80.6 H Lymph % (Auto) 8.6 L [place] % (Auto) 7.2 Eos % (Auto) 2.3 Baso % (Auto) 1.3 Neut # (Auto) 13.7 H Lymph # (Auto) 1.5 [place] # (Auto) 1.2 H Eos # (Auto) 0.4 Baso # (Auto) 0.2 Neutrophils % (Manual) 71 Band Neutrophils % 4 H Lymphocytes % (Manual) 9 L Reactive Lymphs % 4 H Monocytes % (Manual) 7 Eosinophils % (Manual) 5 Platelet Estimate Markedly increased H Large Platelets Present Hypochromasia (manual) Slight Anisocytosis (manual) Slight Tear Drop Cells Slight Sodium 140 Potassium 3.7 Chloride 99 Carbon Dioxide 33 H Anion Gap 12 BUN 10 Creatinine 0.8 Est GFR ( Amer) > 60 Est GFR (Non-Af Amer) > 60 Random Glucose 111 H Calcium 8.7 Total Bilirubin 0.7 AST 52 H D ALT 48 Alkaline Phosphatase 112 Total Protein 6.7 Albumin 3.1 L Globulin 3.6 Albumin/Globulin Ratio 0.9 L Lipase 25 Stool Occult Blood C. difficile Ag & Toxin Negative 03/04/18 02:30 WBC RBC Hgb Hct MCV MCH MCHC RDW Plt Count MPV Neut % (Auto) Lymph % (Auto) [place] % (Auto) Eos % (Auto) Baso % (Auto) Neut # (Auto) Lymph # (Auto) [place] # (Auto) Eos # (Auto) Baso # (Auto) Neutrophils % (Manual) Band Neutrophils % Lymphocytes % (Manual) Reactive Lymphs % Monocytes % (Manual) Eosinophils % (Manual) Platelet Estimate Large Platelets Hypochromasia (manual) Anisocytosis (manual) Tear Drop Cells Sodium Potassium Chloride Carbon Dioxide Anion Gap BUN Creatinine Est GFR ( Amer) Est GFR (Non-Af Amer) Random Glucose Calcium Total Bilirubin AST ALT Alkaline Phosphatase Total Protein Albumin Globulin Albumin/Globulin Ratio Lipase Stool Occult Blood Negative C. difficile Ag & Toxin - Impressions Impression: A Fib 90/min - Imaging and Cardiology CT scan - abdomen Status: Report reviewed by me Additional comment: EXAM: CT Abdomen and Pelvis With Intravenous Contrast FINDINGS: Lung bases: COPD.There is bibasilar atelectasis. Heart: Cardiomegaly with mitral valve calcifications. Trace pericardial effusion. ABDOMEN: Liver: Enlarged fatty liver. Gallbladder and bile ducts: Cholecystectomy. Pancreas: Unremarkable. No mass. No ductal dilation. Spleen: Lobular deformed spleen. Adrenals: Unremarkable. No mass. Kidneys and ureters: Unremarkable. No solid mass. No hydronephrosis. Stomach and bowel: There is distal descending colon and sigmoid diverticulosis without colonic thickening and surrounding inflammatory changes representing acute diverticulitis and colitis. No abscess or free air is noted. There are nonspecific fluid filled small bowel loops. These findings can represent ileus versus enteritis versus slow transit versus peristalsis. Nonspecific gastric thickening likely due to under distention. Correlation with clinical data is recommended if gastritis is suspected. PELVIS: Appendix: The appendix not identified with complete certainty due to unopacified cecum and distal small bowel. There is lack of intra-abdominal fat. If clinical concern remains, a repeat study with thin sections after an appropriate time interval may allow oral contrast to opacify the cecum. Bladder: Partially decompressed bladder with bladder wall thickening. Correlation with urinalysis is recommended only if clinical cystitis is suspected. Reproductive: Uterus is seen. ABDOMEN and PELVIS: Intraperitoneal space: Free pelvic fluid. Bones/joints: Degenerative changes within the spine. No acute fracture. No dislocation. Soft tissues: There is a fat-containing umbilical hernia. Vasculature: Unremarkable. No abdominal aortic aneurysm. Lymph nodes: Multiple subcentimeter mesenteric and ileocolic lymph nodes. Findings are nonspecific but may represent mesenteric adenitis. IMPRESSION: 1. Free pelvic fluid. 2. There is distal descending colon and sigmoid diverticulosis without colonic thickening and surrounding inflammatory changes representing acute diverticulitis and colitis. No abscess or free air is noted. Assessment & Plan - Assessment and Plan (Free Text) Assessment: #. Abdominal Pain #. Acute Enteritis #. Leukocytosis #. chronic A Fib #. Asthma/ COPD #.GERD #. Diverticulosis Plan: 77 years old female with hx of Asthma, COPD, A Fib, Chf and diverticulosos. She was seen by the Director Of Income Tax for loose Stool and abdominal pains one week ago. She nows comes to the ED with the intermittent pain across the lower abdomen, most severe on the LLQ. The pain is becoming more intense and is associated with diarrhea. She referred subjected fever but no nausea nor vomiting, #. Abdominal Pain with Diarrhea most likely due to enteritis as per CT abdomen but with the location of the pain Diverticulitis is r/o CT Abdomen: These findings can represent ileus versus enteritis versus slow transit versus peristalsis. - Consult Dr Bearden GI - Stool for C&S - Stool for C Diff Toxins - IV Fluids with NS - Flagyl - Cipro - Pain management #. Leukocytosis - follow up WBC #. Chronic A Fib rate controlled - Digoxin/ASA - Not on anticoagulant #. Asthma/ COPD/ ANKITA - consult Dr Fang pulmonology - Duoneb PRN #. Stress ulcer Prophylaxis with Protonix #. DVT prophylaxis with lovenox #, Code Status: Full - Date & Time Date: 03/04/18 Time: 04:01
[2018-03-04] MEDS ORDERED: Ciprofloxacin 400mg/200ml D5W 400 MG/200 ML BAG IVPB ONE (04:13)
[2018-03-04] MEDS ORDERED: metroNIDAZOLE 500mg/100ml NS 100 ML IVPB ONE (04:55)
[2018-03-04] MEDS: Sodium Chloride 0.9% 1,000 ML IV SCH ×3 (06:32→22:26)
--- NOTE | 2018-03-04 06:47 | CARD ---
APPROVED REPORT EKG Measurement Heart [id number] <Conclusion> Atrial fibrillation Left anterior fascicular block Septal infarct, age undetermined Abnormal ECG
[2018-03-04] MEDS ORDERED: Albuterol-Ipratrop 3 mg / 0.5 (3 ml) UD INH PRN (08:01)
[2018-03-04] MEDS: Enoxaparin 40 mg Syringe SC SCH (08:11)
[2018-03-04] MEDS: Pantoprazole 40 mg EC Tab PO SCH (08:21)
[2018-03-04 09:48] LABS: BASO # 0.2 K/uL (0.0-0.2); BASO % 1.3 % (0.0-2.0); EOS # 0.3 K/uL (0.0-0.7); EOS % 2.4 % (0.0-4.0); LYMPH # 1.2 K/uL (1.0-4.3); LYMPH % 8.3 % (20.0-40.0); MEAN CELL VOLUME 94.6 fl (81.0-99.0); MEAN CORPUSCULAR HEMOGLOBIN 31.5 pg (27.0-31.0); MEAN CORPUSCULAR HGB CONC 33.2 g/dL (33.0-37.0); MEAN PLATELET VOLUME 6.6 fl (7.2-11.7); MONO # 1.2 K/uL (0.0-0.8); MONO % 8.5 % (0.0-10.0); NEUT # 11.4 K/uL (1.8-7.0); NEUT % 79.5 % (50.0-75.0); RBC 3.83 Mil/uL (3.80-5.20); RED CELL DISTRIBUTION WIDTH 15.7 % (11.5-14.5); WHITE BLOOD COUNT 14.3 K/uL (4.8-10.8)
--- NOTE | 2018-03-04 09:48 | CP.PCM.CON ---
History of Present Illness - History of Present Illness History of Present Illness: Latricia 77 year old female, a former cigarette smoker with Asthma/COPD overlap was admitted through the emergency room because of abdominal pain and leukocytosis. She has been followed by GI as an outpatient because of constipation alternating with diarrhea for an extended period of time. She had recently been give Linzess and Miralax by GI because of her complaints. She has had poor appetite with nausea, but no vomiting, and passing mucous per rectum, but no blood. She was unaware of fever and chills, has had no coughing or sputum production. On presentation a CT of the abdomen was done, and the lower lung zones appeared clear, but no CXR was done. She did have leukocytosis of 16.9 with a shift to the left. Past Patient History - Infectious Disease Hx of Infectious Diseases: None - Tetanus Immunizations Tetanus Immunization: Unknown - Past Medical History & Family History Past Medical History?: Yes - Past Social History Smoking Status: Former Smoker Chewing Tobacco Use: No Cigar Use: No Alcohol: None Drugs: Denies Home Situation {Lives}: Alone - CARDIAC Hx Atrial Fibrillation: Yes Hx Cardia Arrhythmia: Yes Hx Congestive Heart Failure: Yes Hx Heart Attack: Yes Hx Hypertension: Yes Hx Peripheral Edema: Yes Hx Peripheral Vascular Disease: Yes - PULMONARY Hx Asthma: Yes Hx Bronchitis: Yes Hx Chronic Obstructive Pulmonary Disease (COPD): Yes Hx Pneumonia: Yes Other/Comment: Hx Pulmonary HTN - NEUROLOGICAL Hx Vertigo: Yes Other/Comment: Hx peripheral neuropathy - HEENT Hx HEENT Problems: No - RENAL Hx Chronic Kidney Disease: No - ENDOCRINE/METABOLIC Hx Endocrine Disorders: No Hx Hypothyroidism: No - HEMATOLOGICAL/ONCOLOGICAL Hx Anemia: Yes - INTEGUMENTARY Hx Dermatological Problems: Yes Other/Comment: Hx Chronic venous stasis dermatitis BLE - MUSCULOSKELETAL/RHEUMATOLOGICAL Hx Back Pain: Yes Hx Fractures: Yes (Left elbow) Hx Osteoporosis: Yes Hx Unsteady Gait: Yes - GASTROINTESTINAL Hx Colitis: Yes Hx Diverticulitis: Yes Hx Gastritis: Yes - GENITOURINARY/GYNECOLOGICAL Hx Incontinence: Yes Hx Urinary Tract Infection: Yes - PSYCHIATRIC Hx Psychophysiologic Disorder: No Hx Substance Use: No - SURGICAL HISTORY Hx Surgeries: Yes Hx Cardiac Catheterization: Yes (with Thrombectomy) Hx Cholecystectomy: Yes Hx Orthopedic Surgery: Yes Hx Tonsillectomy: Yes Other/Comment: Hx Benign tumor removal rib cage. Hx Benign Neuroma removal right foot - ANESTHESIA Hx Anesthesia: Yes Hx Anesthesia Reactions: No Hx Malignant Hyperthermia: No Meds Allergies/Adverse Reactions: Allergies Allergy/AdvReac Type Severity Reaction Status Date / Time Penicillins Allergy RASH Verified 06/26/17 21:20 Sulfa (Sulfonamide Allergy RASH Verified 06/26/17 21:20 Antibiotics) suture Allergy REDNESS Uncoded 12/11/15 07:41 - Medications Medications: Current Medications Albuterol/Ipratropium (Duoneb 3 Mg/0.5 Mg (3 Ml) Ud) 3 ml INH RQ6 PRN PRN Reason: Shortness of Breath Aspirin (Ecotrin) 81 mg PO DAILY [facility] Last Admin: 03/04/18 08:21 Dose: 81 mg Atorvastatin Calcium (Lipitor) 10 mg PO [facility] Carvedilol (Coreg) 3.125 mg PO DAILY [facility] Last Admin: 03/04/18 08:21 Dose: Not Given Clopidogrel Bisulfate (Plavix) 75 mg PO DAILY [facility] Last Admin: 03/04/18 08:21 Dose: 75 mg Digoxin (Lanoxin) 0.25 mg PO DAILY [facility] Enoxaparin Sodium (Lovenox) 40 mg SC DAILY [facility] PRN Reason: Protocol Last Admin: 03/04/18 08:11 Dose: 40 mg Ciprofloxacin (Cipro 400mg/200ml Dsw) 400 mg in 200 mls @ 200 mls/hr IVPB Q12@ 0400,1600 [facility] PRN Reason: Protocol Metronidazole (Flagyl 500mg/100ml Ns) 100 mls @ 100 mls/hr IVPB Q8 [facility] PRN Reason: Protocol Sodium Chloride (Sodium Chloride 0.9%) 1,000 mls @ 60 mls/hr IV .[id number] [facility] Stop: 03/05/18 06:11 Last Admin: 03/04/18 06:32 Dose: Not Given Morphine Sulfate (Morphine) 2 mg IVP Q6 PRN PRN Reason: Pain, severe (8-10) Last Admin: 03/04/18 06:37 Dose: 2 mg Morphine Sulfate (Morphine) 1 mg IVP Q6 PRN PRN Reason: Pain, moderate (4-7) Pantoprazole Sodium (Protonix Ec Tab) 40 mg PO DAILY [facility] Last Admin: 03/04/18 08:21 Dose: 40 mg Physical Exam - Additional Findings Additional findings: Well nourished, well developed female in moderate to severe discomfort. Skin turgor appears normal.no jaundice or cyanosis. Conjunctivae are pink, RENEE, EOMI, no nystagmus. Pharynx is pink, MM appear dry, no exudate. Nares are patent bilaterally w/o bleeding or exudate. Neck is supple and trachea midline, no JVD. No dullness on chest percussion, no subcut emphysema. Breath sounds are equally present in both lungs. Few scattered dry rales in lower lobes posteriorly. No audible wheezing or bronchial breathing. Occasional sonorous rhonchi in dependant areas. Heart sounds are slightly distant, rhythm is regular. Abdomen is slightly tense, ++guarding, very hypo bowel sounds. Tenderness to palpation is generalized, but more intense in LLQ. No mass is palpated. Trace dependant edema of the ankles and feet bilaterally. Mild erythema of the epidermis at both ankles w/o increased warmth. Results - Vital Signs Recent Vital Signs: Last Vital Signs Temp 98.5 F 03/04/18 08:14 Pulse 91 H 03/04/18 08:14 Resp 20 03/04/18 08:14 BP 90/57 L 03/04/18 08:21 Pulse Ox 98 03/04/18 08:14 - Labs Result Diagrams: 03/09/18 05:30 03/07/18 05:55 Labs: Laboratory Results - last 24 hr 03/04/18 03/04/18 03/04/18 01:24 01:24 02:30 WBC 16.9 H D RBC 4.12 Hgb 12.9 Hct 38.6 MCV 93.8 D MCH 31.2 H MCHC 33.3 RDW 15.8 H Plt Count 535 H D MPV 6.6 L Neut % (Auto) 80.6 H Lymph % (Auto) 8.6 L [place] % (Auto) 7.2 Eos % (Auto) 2.3 Baso % (Auto) 1.3 Neut # (Auto) 13.7 H Lymph # (Auto) 1.5 [place] # (Auto) 1.2 H Eos # (Auto) 0.4 Baso # (Auto) 0.2 Neutrophils % (Manual) 71 Band Neutrophils % 4 H Lymphocytes % (Manual) 9 L Reactive Lymphs % 4 H Monocytes % (Manual) 7 Eosinophils % (Manual) 5 Platelet Estimate Markedly increased H Large Platelets Present Hypochromasia (manual) Slight Anisocytosis (manual) Slight Tear Drop Cells Slight Sodium 140 Potassium 3.7 Chloride 99 Carbon Dioxide 33 H Anion Gap 12 BUN 10 Creatinine 0.8 Est GFR ( Amer) > 60 Est GFR (Non-Af Amer) > 60 Random Glucose 111 H Lactic Acid Calcium 8.7 Total Bilirubin 0.7 AST 52 H D ALT 48 Alkaline Phosphatase 112 Total Protein 6.7 Albumin 3.1 L Globulin 3.6 Albumin/Globulin Ratio 0.9 L Lipase 25 Stool Occult Blood C. difficile Ag & Toxin Negative 03/04/18 03/04/18 02:30 04:10 WBC RBC Hgb Hct MCV MCH MCHC RDW Plt Count MPV Neut % (Auto) Lymph % (Auto) [place] % (Auto) Eos % (Auto) Baso % (Auto) Neut # (Auto) Lymph # (Auto) [place] # (Auto) Eos # (Auto) Baso # (Auto) Neutrophils % (Manual) Band Neutrophils % Lymphocytes % (Manual) Reactive Lymphs % Monocytes % (Manual) Eosinophils % (Manual) Platelet Estimate Large Platelets Hypochromasia (manual) Anisocytosis (manual) Tear Drop Cells Sodium Potassium Chloride Carbon Dioxide Anion Gap BUN Creatinine Est GFR ( Amer) Est GFR (Non-Af Amer) Random Glucose Lactic Acid 1.1 Calcium Total Bilirubin AST ALT Alkaline Phosphatase Total Protein Albumin Globulin Albumin/Globulin Ratio Lipase Stool Occult Blood Negative C. difficile Ag & Toxin Assessment & Plan (1) Asthma with COPD Status: Chronic Priority: High (2) CAD (coronary artery disease) Status: Chronic Priority: High (3) Chronic atrial fibrillation Status: Chronic Priority: High (4) Diverticulitis Status: Acute Priority: High - Assessment and Plan (Free Text) Plan: Agree with plan for parenteral antibiotics, maintaining NPO status. GI will evaluate as well. CT has been reviewed. Respiratory status appears to be good at this point. encouraged deep breathing and coughing. Aerosol therapy ordered as well. - Date & Time Date: 03/04/18 Time: 09:47
[2018-03-04 10:10] LABS: INR 1.2 (0.9-1.2); PARTIAL THROMBOPLASTIN TIME 33.2 Seconds (25.6-37.1); PROTHROMBIN TIME 13.2 Seconds (9.8-13.1)
[2018-03-04 10:17] LABS: BLOOD UREA NITROGEN 7 mg/dl (7-17); CALCIUM 8.2 mg/dL (8.4-10.2); GFR AFRICAN-AMERICAN > 60; GFR NON-AFRICAN AMERICAN > 60
[2018-03-04] MEDS ORDERED: Potassium Chloride 20 mEq ER Tab PO ONE (11:18)
[2018-03-04] MEDS: metroNIDAZOLE 500mg/100ml NS 100 ML IVPB SCH ×2 (11:36→16:18)
[2018-03-04] MEDS: Digoxin 250 mcg (0.25 mg) Tab PO SCH (11:37)
--- NOTE | 2018-03-04 11:58 | CT ---
PROCEDURE: CT Abdomen and Pelvis with contrast HISTORY: Abdominal pain and diarrhea. COMPARISON: 11/06/2014, 06/26/[address] scans abdomen and pelvis TECHNIQUE: Contrast dose: 95 cc Omnipaque 300. Radiation dose: Total exam DLP = 805.32. MGy-cm. This CT exam was performed using one or more of the following dose reduction techniques: Automated exposure control, adjustment of the mA and/or kV according to patient size, and/or use of iterative reconstruction technique. FINDINGS: LOWER THORAX: Unremarkable. LIVER: Hepatic steatosis. No focal masses. No intrahepatic bile duct dilatation or perihepatic ascites. GALLBLADDER AND BILE DUCTS: Status post cholecystectomy. No abnormality is seen in the gallbladder fossa. PANCREAS: Unremarkable. No gross lesion or ductal dilatation. SPLEEN: Unremarkable. ADRENALS: Unremarkable. No mass. KIDNEYS AND URETERS: Unremarkable. No hydronephrosis. No solid mass. VASCULATURE: Unremarkable. No aortic aneurysm. BOWEL: Severe inflammatory changes affecting the distal descending colon and sigmoid with sparing of the rectum. The distribution of inflammatory changes is more pronounced extending into the sigmoid in the severity is greater compared to the most recent study 07/27/2017. Micro perforations are noted. No drainable collection or abscess is seen. APPENDIX: A normal appendix is not visualized PERITONEUM: Unremarkable. No free fluid. No free air. LYMPH NODES: Unremarkable. No enlarged lymph nodes. BLADDER: Unremarkable. REPRODUCTIVE: Unremarkable. BONES: No acute fracture. Scoliosis, secondary degenerative change at multiple levels. OTHER FINDINGS: None. IMPRESSION: Diverticulitis/ colitis more severe and extensive compared to the prior study without drainable collection, free air or significant loculated. Concordant results (preliminary interpretation) provided by Gust. Procedure Completed: 02:04 Preliminary ([employer]Rad) Report: Dictated and Authenticated: 02:48 Final Interpretation: 11:56
--- NOTE | 2018-03-04 12:01 | CP.PCM.CON ---
History of Present Illness - History of Present Illness History of Present Illness: 77 years old femaleadmitted with abdominal pains assoc with diarrhea She was seen by the Rigger Chief for loose Stool and abdominal pains one week ago. She nows comes to the ED with the intermittent pain across the lower abdomen, most severe on the LLQ. The pain is becoming more intense and is associated with diarrhea. She referred subjected fever but no nausea nor vomiting, EKG: Atrial Fibrillation Last echo 2014 [facility] Calc AV Good LV function MR PMH: Anemia, Asthma, Atrial Fibrillation not on anti coagulation secondary to complications Bronchitis, CAD CHF acute on chronic Left systolic Diverticulitis, Fractures (Left elbow repair), Gastritis, Osteoporosis, Peripheral Edema, Pneumonia, Sleep Apnea PSH: Cholecystectomy, Tonsillectomy; Right foot benign tumor removed; Right rib benign tumor removed; Left wrist ORIF Former smoker Past Patient History - Infectious Disease Hx of Infectious Diseases: None - Tetanus Immunizations Tetanus Immunization: Unknown - Past Medical History & Family History Past Medical History?: Yes - Past Social History Smoking Status: Former Smoker Chewing Tobacco Use: No Cigar Use: No Alcohol: None Drugs: Denies Home Situation {Lives}: Alone - CARDIAC Hx Atrial Fibrillation: Yes Hx Cardia Arrhythmia: Yes Hx Congestive Heart Failure: Yes Hx Heart Attack: Yes Hx Hypertension: Yes Hx Peripheral Edema: Yes Hx Peripheral Vascular Disease: Yes - PULMONARY Hx Asthma: Yes Hx Bronchitis: Yes Hx Chronic Obstructive Pulmonary Disease (COPD): Yes Hx Pneumonia: Yes Hx Sleep Apnea: Yes Other/Comment: Hx Pulmonary HTN - NEUROLOGICAL Hx Vertigo: Yes Other/Comment: Hx peripheral neuropathy - HEENT Hx HEENT Problems: Yes - RENAL Hx Chronic Kidney Disease: No - ENDOCRINE/METABOLIC Hx Hypothyroidism: No - HEMATOLOGICAL/ONCOLOGICAL Hx Anemia: Yes - INTEGUMENTARY Hx Dermatological Problems: Yes Other/Comment: Hx Chronic venous stasis dermatitis BLE - MUSCULOSKELETAL/RHEUMATOLOGICAL Hx Musculoskeletal Disorders: Yes Hx Back Pain: Yes Hx Fractures: Yes (Left elbow) Hx Osteoporosis: Yes Hx Unsteady Gait: Yes - GASTROINTESTINAL Hx Gastrointestinal Disorders: Yes Hx Colitis: Yes Hx Diverticulitis: Yes Hx Gastritis: Yes - GENITOURINARY/GYNECOLOGICAL Hx Genitourinary Disorders: Yes Hx Incontinence: Yes Hx Urinary Tract Infection: Yes - PSYCHIATRIC Hx Substance Use: No - SURGICAL HISTORY Hx Surgeries: Yes Hx Cardiac Catheterization: Yes (with Thrombectomy) Hx Cholecystectomy: Yes Hx Tonsillectomy: Yes Other/Comment: Hx Benign tumor removal rib cage. Hx Benign Neuroma removal right foot - ANESTHESIA Hx Anesthesia: Yes Hx Anesthesia Reactions: No Hx Malignant Hyperthermia: No Meds Allergies/Adverse Reactions: Allergies Allergy/AdvReac Type Severity Reaction Status Date / Time Penicillins Allergy RASH Verified 06/26/17 21:20 Sulfa (Sulfonamide Allergy RASH Verified 06/26/17 21:20 Antibiotics) suture Allergy REDNESS Uncoded 12/11/15 07:41 - Medications Medications: Current Medications Albuterol/Ipratropium (Duoneb 3 Mg/0.5 Mg (3 Ml) Ud) 3 ml INH RQ6 PRN PRN Reason: Shortness of Breath Aspirin (Ecotrin) 81 mg PO DAILY [facility] Last Admin: 03/04/18 08:21 Dose: 81 mg Atorvastatin Calcium (Lipitor) 10 mg PO [facility] Carvedilol (Coreg) 3.125 mg PO DAILY [facility] Last Admin: 03/04/18 08:21 Dose: Not Given Clopidogrel Bisulfate (Plavix) 75 mg PO DAILY [facility] Last Admin: 03/04/18 08:21 Dose: 75 mg Digoxin (Lanoxin) 0.25 mg PO DAILY [facility] Enoxaparin Sodium (Lovenox) 40 mg SC DAILY [facility] PRN Reason: Protocol Last Admin: 03/04/18 08:11 Dose: 40 mg Ciprofloxacin (Cipro 400mg/200ml Dsw) 400 mg in 200 mls @ 200 mls/hr IVPB Q12@ 0400,1600 [facility] PRN Reason: Protocol Metronidazole (Flagyl 500mg/100ml Ns) 100 mls @ 100 mls/hr IVPB Q8 [facility] PRN Reason: Protocol Sodium Chloride (Sodium Chloride 0.9%) 1,000 mls @ 60 mls/hr IV .[id number] [facility] Stop: 03/05/18 06:11 Last Admin: 03/04/18 06:32 Dose: Not Given Morphine Sulfate (Morphine) 2 mg IVP Q6 PRN PRN Reason: Pain, severe (8-10) Last Admin: 03/04/18 06:37 Dose: 2 mg Morphine Sulfate (Morphine) 1 mg IVP Q6 PRN PRN Reason: Pain, moderate (4-7) Pantoprazole Sodium (Protonix Ec Tab) 40 mg PO DAILY [facility] Last Admin: 03/04/18 08:21 Dose: 40 mg Physical Exam - Constitutional Appears: Well - Head Exam Head Exam: NORMAL INSPECTION - Eye Exam Eye Exam: Normal appearance - ENT Exam ENT Exam: Normal Exam - Neck Exam Neck exam: Positive for: Normal Inspection - Respiratory Exam Respiratory Exam: NORMAL BREATHING PATTERN - Cardiovascular Exam Cardiovascular Exam: Irregular Rhythm Results - Vital Signs Recent Vital Signs: Last Vital Signs Temp 98.5 F 03/04/18 08:14 Pulse 91 H 03/04/18 08:14 Resp 20 03/04/18 08:14 BP 90/57 L 03/04/18 08:21 Pulse Ox 98 03/04/18 08:14 - Labs Result Diagrams: 03/04/18 09:38 03/04/18 09:38 Labs: Laboratory Results - last 24 hr 03/04/18 03/04/18 03/04/18 01:24 01:24 02:30 WBC 16.9 H D RBC 4.12 Hgb 12.9 Hct 38.6 MCV 93.8 D MCH 31.2 H MCHC 33.3 RDW 15.8 H Plt Count 535 H D MPV 6.6 L Neut % (Auto) 80.6 H Lymph % (Auto) 8.6 L [place] % (Auto) 7.2 Eos % (Auto) 2.3 Baso % (Auto) 1.3 Neut # (Auto) 13.7 H Lymph # (Auto) 1.5 [place] # (Auto) 1.2 H Eos # (Auto) 0.4 Baso # (Auto) 0.2 Neutrophils % (Manual) 71 Band Neutrophils % 4 H Lymphocytes % (Manual) 9 L Reactive Lymphs % 4 H Monocytes % (Manual) 7 Eosinophils % (Manual) 5 Platelet Estimate Markedly increased H Large Platelets Present Hypochromasia (manual) Slight Anisocytosis (manual) Slight Tear Drop Cells Slight PT INR APTT Sodium 140 Potassium 3.7 Chloride 99 Carbon Dioxide 33 H Anion Gap 12 BUN 10 Creatinine 0.8 Est GFR ( Amer) > 60 Est GFR (Non-Af Amer) > 60 Random Glucose 111 H Lactic Acid Calcium 8.7 Total Bilirubin 0.7 AST 52 H D ALT 48 Alkaline Phosphatase 112 Total Protein 6.7 Albumin 3.1 L Globulin 3.6 Albumin/Globulin Ratio 0.9 L Lipase 25 Stool Occult Blood Digoxin C. difficile Ag & Toxin Negative 03/04/18 03/04/18 03/04/18 02:30 04:10 09:38 WBC 14.3 H RBC 3.83 Hgb 12.0 Hct 36.2 MCV 94.6 MCH 31.5 H MCHC 33.2 RDW 15.7 H Plt Count 493 H MPV 6.6 L Neut % (Auto) 79.5 H Lymph % (Auto) 8.3 L [place] % (Auto) 8.5 Eos % (Auto) 2.4 Baso % (Auto) 1.3 Neut # (Auto) 11.4 H Lymph # (Auto) 1.2 [place] # (Auto) 1.2 H Eos # (Auto) 0.3 Baso # (Auto) 0.2 Neutrophils % (Manual) Band Neutrophils % Lymphocytes % (Manual) Reactive Lymphs % Monocytes % (Manual) Eosinophils % (Manual) Platelet Estimate Large Platelets Hypochromasia (manual) Anisocytosis (manual) Tear Drop Cells PT INR APTT Sodium Potassium Chloride Carbon Dioxide Anion Gap BUN Creatinine Est GFR ( Amer) Est GFR (Non-Af Amer) Random Glucose Lactic Acid 1.1 Calcium Total Bilirubin AST ALT Alkaline Phosphatase Total Protein Albumin Globulin Albumin/Globulin Ratio Lipase Stool Occult Blood Negative Digoxin C. difficile Ag & Toxin 03/04/18 03/04/18 03/04/18 09:38 09:38 09:38 WBC RBC Hgb Hct MCV MCH MCHC RDW Plt Count MPV Neut % (Auto) Lymph % (Auto) [place] % (Auto) Eos % (Auto) Baso % (Auto) Neut # (Auto) Lymph # (Auto) [place] # (Auto) Eos # (Auto) Baso # (Auto) Neutrophils % (Manual) Band Neutrophils % Lymphocytes % (Manual) Reactive Lymphs % Monocytes % (Manual) Eosinophils % (Manual) Platelet Estimate Large Platelets Hypochromasia (manual) Anisocytosis (manual) Tear Drop Cells PT 13.2 H INR 1.2 APTT 33.2 Sodium 137 Potassium 3.2 L Chloride 100 Carbon Dioxide 33 H Anion Gap 7 L BUN 7 Creatinine 0.7 Est GFR ( Amer) > 60 Est GFR (Non-Af Amer) > 60 Random Glucose 92 Lactic Acid Calcium 8.2 L Total Bilirubin AST ALT Alkaline Phosphatase Total Protein Albumin Globulin Albumin/Globulin Ratio Lipase Stool Occult Blood Digoxin 0.7 L C. difficile Ag & Toxin Assessment & Plan (1) Atrial fibrillation, chronic Assessment and Plan: Patient denies any palpitations /chest pain/sob/de [place] cruz will order Echocardiogram last echo was 2014 Status: Acute (2) Diverticulitis Status: Acute (3) Asthma with COPD Status: Chronic Priority: High (4) Hypertension Status: Chronic Priority: Medium (5) Urinary incontinence Status: Chronic Priority: Medium
--- NOTE | 2018-03-04 15:00 | RAD ---
HISTORY: Abdominal pain COMPARISON: 04/18/2017 FINDINGS: LUNGS: No active pulmonary disease. PLEURA: No significant pleural effusion identified, no pneumothorax apparent. CARDIOVASCULAR: No radiographic findings to suggest acute or significant cardiovascular disease. OSSEOUS STRUCTURES: No significant abnormalities. VISUALIZED UPPER ABDOMEN: Normal. OTHER FINDINGS: None. IMPRESSION: No active disease. No significant interval change compared to the prior examination(s).
--- NOTE | 2018-03-04 15:39 | CARD ---
APPROVED REPORT EXAM: Two-dimensional and M-mode echocardiogram with Doppler and color Doppler. Other Information Quality : GoodRhythm : INDICATION Atrial Fibrillation 2D DIMENSIONS IVSd1.52 (0.7-1.1cm)LVDd4.68 (3.9-5.9cm) LVOT Diameter1.93 (1.8-2.4cm)PWd1.48 (0.7-1.1cm) IVSs1.79 (0.8-1.2cm)LVDs3.90 (2.5-4.0cm) FS (%) 16.7 %PWs1.68 (0.8-1.2cm) M-Mode DIMENSIONS Left Atrium (MM)6.01 (2.5-4.0cm)IVSd1.65 (0.7-1.1cm) Aortic Root3.18 (2.2-3.7cm)LVDd5.11 (4.0-5.6cm) Aortic Cusp Exc.1.68 (1.5-2.0cm)PWd1.52 (0.7-1.1cm) IVSs1.73 cmFS (%) 19 % LVDs4.14 (2.0-3.8cm)PWs1.82 cm Aortic Valve AoV Peak Daclcfkw099.2cm/sAoV VTI36.4cmAO Peak GR.22mmHg LVOT Peak Vdaawthk423.4cm/sLVOT VTI15.99cmAO Mean GR.12mmHg GORDON (VMAX)0.10zc3PFU (VTI)0.69cm2 Mitral Valve MV E Slorffdl988.7cm/sMV DECEL HOYU442ugTM A Czapmotr68.0cm/s MV LXL34diS/A ratio2.3MVA (PHT)5.68cm2 TDI Lateral E' Peak V11.65cm/sMedial E' Peak V5.95cm/sE/Lateral E'9.1 E/Medial E'17.8 Pulmonary Valve PV Peak Rzjplsqy412.9cm/s Tricuspid Valve TR Peak Pyioexpe536ac/sRAP UHNUAZDC31vzTaIR Peak Gr.30mmHg [id number] LEFT VENTRICLE The left ventricle is normal size. There is mild concentric left ventricular hypertrophy. The systolic function is mildly to moderately impaired. The Ejection Fraction is 35-40%. There is global hypokinesis of the left ventricle. The left ventricular diastolic function is normal. RIGHT VENTRICLE The right ventricle is normal size. The right ventricular systolic function is normal. ATRIA The left atrium is mildly dilated. The right atrium size is normal. AORTIC VALVE The aortic valve is normal in structure. No aortic regurgitation is present. There is mild valvular aortic stenosis. MITRAL VALVE Mitral annular calcification is mild. There is no evidence of mitral valve prolapse. There is no mitral valve stenosis. Mitral regurgitation is mild. TRICUSPID VALVE The tricuspid valve is normal in structure. There is no tricuspid valve regurgitation noted. PULMONIC VALVE The pulmonary valve is normal in structure. There is no pulmonic valvular regurgitation. GREAT VESSELS The aortic root is normal in size. The IVC is normal in size and collapses >50% with inspiration. PERICARDIAL EFFUSION The pericardium appears normal. <Conclusion> The left ventricle is normal size. There is mild concentric left ventricular hypertrophy. The systolic function is mildly to moderately impaired. The Ejection Fraction is 35-40%. The left atrium is mildly dilated. Mitral annular calcification is mild. Mitral regurgitation is mild.
[2018-03-04] MEDS: Ciprofloxacin 400mg/200ml D5W 400 MG/200 ML BAG IVPB SCH (16:19)
[2018-03-04 22:57] LABS: SQUAMOUS EPITHIAL 5 /hpf (0-5); URINE BACTERIA MANY (<OCC); URINE BILIRUBIN NEGATIVE (NEGATIVE); URINE BLOOD NEGATIVE (NEGATIVE); URINE CLARITY TURBID (Clear); URINE COLOR AMBER (YELLOW); URINE GLUCOSE (UA) NEG (Normal); URINE LEUKOCYTE ESTERASE MOD Leu/uL (Negative); URINE PROTEIN 100 mg/dL (NEGATIVE); WBC CLUMPS MANY /hpf
--- NOTE | 2018-03-04 23:14 | CP.PCM.CON ---
History of Present Illness - History of Present Illness History of Present Illness: 77 yo female with h/o COPD admitted with abdominal pain and leukocytosis. Patient seen by me in office about 2 weeks ago for mixed diarrhea and constipation. Now presenting with constant diarrhea and worsening left sided abdominal pain. Review of Systems - Constitutional Constitutional: absent: Chills - EENT Eyes: absent: Blurred Vision Ears: absent: Decreased Hearing Nose/Mouth/Throat: absent: Epistaxis - Cardiovascular Cardiovascular: absent: Chest Pain - Respiratory Respiratory: absent: Cough - Gastrointestinal Gastrointestinal: As Per HPI - Genitourinary Genitourinary: absent: Change in Urinary Stream Past Patient History - Infectious Disease Hx of Infectious Diseases: None - Tetanus Immunizations Tetanus Immunization: Unknown - Past Medical History & Family History Past Medical History?: Yes - Past Social History Smoking Status: Former Smoker Chewing Tobacco Use: No Cigar Use: No Alcohol: None Drugs: Denies Home Situation {Lives}: Alone - CARDIAC Hx Atrial Fibrillation: Yes Hx Cardia Arrhythmia: Yes Hx Congestive Heart Failure: Yes Hx Heart Attack: Yes Hx Hypertension: Yes Hx Peripheral Edema: Yes Hx Peripheral Vascular Disease: Yes - PULMONARY Hx Asthma: Yes Hx Bronchitis: Yes Hx Chronic Obstructive Pulmonary Disease (COPD): Yes Hx Pneumonia: Yes Other/Comment: Hx Pulmonary HTN - NEUROLOGICAL Hx Vertigo: Yes Other/Comment: Hx peripheral neuropathy - HEENT Hx HEENT Problems: No - RENAL Hx Chronic Kidney Disease: No - ENDOCRINE/METABOLIC Hx Endocrine Disorders: No Hx Hypothyroidism: No - HEMATOLOGICAL/ONCOLOGICAL Hx Anemia: Yes - INTEGUMENTARY Hx Dermatological Problems: Yes Other/Comment: Hx Chronic venous stasis dermatitis BLE - MUSCULOSKELETAL/RHEUMATOLOGICAL Hx Back Pain: Yes Hx Fractures: Yes (Left elbow) Hx Osteoporosis: Yes Hx Unsteady Gait: Yes - GASTROINTESTINAL Hx Colitis: Yes Hx Diverticulitis: Yes Hx Gastritis: Yes - GENITOURINARY/GYNECOLOGICAL Hx Incontinence: Yes Hx Urinary Tract Infection: Yes - PSYCHIATRIC Hx Psychophysiologic Disorder: No Hx Substance Use: No - SURGICAL HISTORY Hx Surgeries: Yes Hx Cardiac Catheterization: Yes (with Thrombectomy) Hx Cholecystectomy: Yes Hx Orthopedic Surgery: Yes Hx Tonsillectomy: Yes Other/Comment: Hx Benign tumor removal rib cage. Hx Benign Neuroma removal right foot - ANESTHESIA Hx Anesthesia: Yes Hx Anesthesia Reactions: No Hx Malignant Hyperthermia: No Meds Allergies/Adverse Reactions: Allergies Allergy/AdvReac Type Severity Reaction Status Date / Time Penicillins Allergy RASH Verified 06/26/17 21:20 Sulfa (Sulfonamide Allergy RASH Verified 06/26/17 21:20 Antibiotics) suture Allergy REDNESS Uncoded 12/11/15 07:41 - Medications Medications: Current Medications Albuterol/Ipratropium (Duoneb 3 Mg/0.5 Mg (3 Ml) Ud) 3 ml INH RQ6 PRN PRN Reason: Shortness of Breath Aspirin (Ecotrin) 81 mg PO DAILY [facility] Last Admin: 03/04/18 08:21 Dose: 81 mg Atorvastatin Calcium (Lipitor) 10 mg PO HS [facility] Last Admin: 03/04/18 22:26 Dose: 10 mg Carvedilol (Coreg) 3.125 mg PO DAILY [facility] Last Admin: 03/04/18 11:37 Dose: 3.125 mg Clopidogrel Bisulfate (Plavix) 75 mg PO DAILY [facility] Last Admin: 03/04/18 08:21 Dose: 75 mg Digoxin (Lanoxin) 0.25 mg PO DAILY [facility] Last Admin: 03/04/18 11:37 Dose: 0.25 mg Enoxaparin Sodium (Lovenox) 40 mg SC DAILY [facility] PRN Reason: Protocol Last Admin: 03/04/18 08:11 Dose: 40 mg Ciprofloxacin (Cipro 400mg/200ml Dsw) 400 mg in 200 mls @ 200 mls/hr IVPB Q12@ 0400,1600 [facility] PRN Reason: Protocol Last Admin: 03/04/18 16:19 Dose: 200 mls/hr Metronidazole (Flagyl 500mg/100ml Ns) 100 mls @ 100 mls/hr IVPB Q8 [facility] PRN Reason: Protocol Last Admin: 03/04/18 16:18 Dose: 100 mls/hr Sodium Chloride (Sodium Chloride 0.9%) 1,000 mls @ 60 mls/hr IV .[id number] [facility] Stop: 03/05/18 06:11 Last Admin: 03/04/18 22:26 Dose: 60 mls/hr Morphine Sulfate (Morphine) 2 mg IVP Q6 PRN PRN Reason: Pain, severe (8-10) Last Admin: 03/04/18 18:48 Dose: 2 mg Morphine Sulfate (Morphine) 1 mg IVP Q6 PRN PRN Reason: Pain, moderate (4-7) Last Admin: 03/04/18 11:31 Dose: 1 mg Ondansetron HCl (Zofran Inj) 4 mg IVP Q4 PRN PRN Reason: Nausea/Vomiting Last Admin: 03/04/18 20:13 Dose: 4 mg Pantoprazole Sodium (Protonix Ec Tab) 40 mg PO DAILY [facility] Last Admin: 03/04/18 08:21 Dose: 40 mg Physical Exam - Constitutional Appears: Non-toxic - Head Exam Head Exam: ATRAUMATIC - Eye Exam Eye Exam: Normal appearance - ENT Exam ENT Exam: Mucous Membranes Moist - Neck Exam Neck exam: Positive for: Normal Inspection - Respiratory Exam Respiratory Exam: Clear to Auscultation Bilateral - Cardiovascular Exam Cardiovascular Exam: REGULAR RHYTHM - GI/Abdominal Exam GI & Abdominal Exam: Normal Bowel Sounds, Soft, Tenderness Additional comments: LLQ tenderness Results - Vital Signs Recent Vital Signs: Last Vital Signs Temp 98.5 F 03/04/18 17:28 Pulse 90 03/04/18 15:59 Resp 18 03/04/18 15:59 BP 139/72 03/04/18 15:59 Pulse Ox 99 03/04/18 15:59 - Labs Result Diagrams: 03/04/18 09:38 03/04/18 09:38 Labs: Laboratory Results - last 24 hr 03/04/18 03/04/18 03/04/18 01:24 01:24 02:30 WBC 16.9 H D RBC 4.12 Hgb 12.9 Hct 38.6 MCV 93.8 D MCH 31.2 H MCHC 33.3 RDW 15.8 H Plt Count 535 H D MPV 6.6 L Neut % (Auto) 80.6 H Lymph % (Auto) 8.6 L [place] % (Auto) 7.2 Eos % (Auto) 2.3 Baso % (Auto) 1.3 Neut # (Auto) 13.7 H Lymph # (Auto) 1.5 [place] # (Auto) 1.2 H Eos # (Auto) 0.4 Baso # (Auto) 0.2 Neutrophils % (Manual) 71 Band Neutrophils % 4 H Lymphocytes % (Manual) 9 L Reactive Lymphs % 4 H Monocytes % (Manual) 7 Eosinophils % (Manual) 5 Platelet Estimate Markedly increased H Large Platelets Present Hypochromasia (manual) Slight Anisocytosis (manual) Slight Tear Drop Cells Slight PT INR APTT Sodium 140 Potassium 3.7 Chloride 99 Carbon Dioxide 33 H Anion Gap 12 BUN 10 Creatinine 0.8 Est GFR ( Amer) > 60 Est GFR (Non-Af Amer) > 60 Random Glucose 111 H Lactic Acid Calcium 8.7 Total Bilirubin 0.7 AST 52 H D ALT 48 Alkaline Phosphatase 112 Total Protein 6.7 Albumin 3.1 L Globulin 3.6 Albumin/Globulin Ratio 0.9 L Lipase 25 Urine Color Urine Clarity Urine pH Ur Specific [place] Urine Protein Urine Glucose (UA) Urine Ketones Urine Blood Urine Nitrate Urine Bilirubin Urine Urobilinogen Ur Leukocyte Esterase Urine RBC (Auto) Urine WBC Clumps (Auto) Urine Microscopic WBC Ur Squamous Epith Cells Urine Bacteria Stool Occult Blood Stool Leukocytes, Qual Digoxin C. difficile Ag & Toxin Negative 03/04/18 03/04/18 03/04/18 02:30 02:30 04:10 WBC RBC Hgb Hct MCV MCH MCHC RDW Plt Count MPV Neut % (Auto) Lymph % (Auto) [place] % (Auto) Eos % (Auto) Baso % (Auto) Neut # (Auto) Lymph # (Auto) [place] # (Auto) Eos # (Auto) Baso # (Auto) Neutrophils % (Manual) Band Neutrophils % Lymphocytes % (Manual) Reactive Lymphs % Monocytes % (Manual) Eosinophils % (Manual) Platelet Estimate Large Platelets Hypochromasia (manual) Anisocytosis (manual) Tear Drop Cells PT INR APTT Sodium Potassium Chloride Carbon Dioxide Anion Gap BUN Creatinine Est GFR ( Amer) Est GFR (Non-Af Amer) Random Glucose Lactic Acid 1.1 Calcium Total Bilirubin AST ALT Alkaline Phosphatase Total Protein Albumin Globulin Albumin/Globulin Ratio Lipase Urine Color Urine Clarity Urine pH Ur Specific [place] Urine Protein Urine Glucose (UA) Urine Ketones Urine Blood Urine Nitrate Urine Bilirubin Urine Urobilinogen Ur Leukocyte Esterase Urine RBC (Auto) Urine WBC Clumps (Auto) Urine Microscopic WBC Ur Squamous Epith Cells Urine Bacteria Stool Occult Blood Negative Stool Leukocytes, Qual Positive H Digoxin C. difficile Ag & Toxin 03/04/18 03/04/18 03/04/18 09:38 09:38 09:38 WBC 14.3 H RBC 3.83 Hgb 12.0 Hct 36.2 MCV 94.6 MCH 31.5 H MCHC 33.2 RDW 15.7 H Plt Count 493 H MPV 6.6 L Neut % (Auto) 79.5 H Lymph % (Auto) 8.3 L [place] % (Auto) 8.5 Eos % (Auto) 2.4 Baso % (Auto) 1.3 Neut # (Auto) 11.4 H Lymph # (Auto) 1.2 [place] # (Auto) 1.2 H Eos # (Auto) 0.3 Baso # (Auto) 0.2 Neutrophils % (Manual) Band Neutrophils % Lymphocytes % (Manual) Reactive Lymphs % Monocytes % (Manual) Eosinophils % (Manual) Platelet Estimate Large Platelets Hypochromasia (manual) Anisocytosis (manual) Tear Drop Cells PT 13.2 H INR 1.2 APTT 33.2 Sodium 137 Potassium 3.2 L Chloride 100 Carbon Dioxide 33 H Anion Gap 7 L BUN 7 Creatinine 0.7 Est GFR ( Amer) > 60 Est GFR (Non-Af Amer) > 60 Random Glucose 92 Lactic Acid Calcium 8.2 L Total Bilirubin AST ALT Alkaline Phosphatase Total Protein Albumin Globulin Albumin/Globulin Ratio Lipase Urine Color Urine Clarity Urine pH Ur Specific [place] Urine Protein Urine Glucose (UA) Urine Ketones Urine Blood Urine Nitrate Urine Bilirubin Urine Urobilinogen Ur Leukocyte Esterase Urine RBC (Auto) Urine WBC Clumps (Auto) Urine Microscopic WBC Ur Squamous Epith Cells Urine Bacteria Stool Occult Blood Stool Leukocytes, Qual Digoxin C. difficile Ag & Toxin 03/04/18 03/04/18 09:38 22:48 WBC RBC Hgb Hct MCV MCH MCHC RDW Plt Count MPV Neut % (Auto) Lymph % (Auto) [place] % (Auto) Eos % (Auto) Baso % (Auto) Neut # (Auto) Lymph # (Auto) [place] # (Auto) Eos # (Auto) Baso # (Auto) Neutrophils % (Manual) Band Neutrophils % Lymphocytes % (Manual) Reactive Lymphs % Monocytes % (Manual) Eosinophils % (Manual) Platelet Estimate Large Platelets Hypochromasia (manual) Anisocytosis (manual) Tear Drop Cells PT INR APTT Sodium Potassium Chloride Carbon Dioxide Anion Gap BUN Creatinine Est GFR ( Amer) Est GFR (Non-Af Amer) Random Glucose Lactic Acid Calcium Total Bilirubin AST ALT Alkaline Phosphatase Total Protein Albumin Globulin Albumin/Globulin Ratio Lipase Urine Color Alejandra Urine Clarity Turbid Urine pH 6.0 Ur Specific [place] 1.033 H Urine Protein 100 Urine Glucose (UA) Neg Urine Ketones Negative Urine Blood Negative Urine Nitrate Positive H Urine Bilirubin Negative Urine Urobilinogen 2.0 H Ur Leukocyte Esterase Mod Urine RBC (Auto) 13 H Urine WBC Clumps (Auto) Many H Urine Microscopic WBC 214 H Ur Squamous Epith Cells 5 Urine Bacteria Many H Stool Occult Blood Stool Leukocytes, Qual Digoxin 0.7 L C. difficile Ag & Toxin - Imaging and Cardiology CT scan - abdomen Status: Report reviewed by me Assessment & Plan (1) Diverticulitis Assessment and Plan: Left sided diverticulitis with evidence of microperforations on CT. Continue cipro/flagyl. Consider surgical consultation. Status: Acute
[2018-03-05] MEDS: metroNIDAZOLE 500mg/100ml NS 100 ML IVPB SCH ×3 (00:46→16:13)
[2018-03-05] MEDS: Ciprofloxacin 400mg/200ml D5W 400 MG/200 ML BAG IVPB SCH ×2 (03:32→16:12)
[2018-03-05 06:05] LABS: BASO # 0.1 K/uL (0.0-0.2); BASO % 0.8 % (0.0-2.0); EOS # 0.4 K/uL (0.0-0.7); EOS % 3.3 % (0.0-4.0); HEMOGLOBIN 11.5 g/dL (12.0-16.0); LYMPH % 7.1 % (20.0-40.0); MEAN CELL VOLUME 94.4 fl (81.0-99.0); MEAN CORPUSCULAR HEMOGLOBIN 31.3 pg (27.0-31.0); MEAN CORPUSCULAR HGB CONC 33.1 g/dL (33.0-37.0); MEAN PLATELET VOLUME 6.3 fl (7.2-11.7); MONO # 1.1 K/uL (0.0-0.8); MONO % 8.1 % (0.0-10.0); NEUT % 80.7 % (50.0-75.0); NRBC % 0.1 % (0.0-0.0); RBC 3.69 Mil/uL (3.80-5.20); RED CELL DISTRIBUTION WIDTH 15.6 % (11.5-14.5); WHITE BLOOD COUNT 13.6 K/uL (4.8-10.8)
[2018-03-05 06:48] LABS: BLOOD UREA NITROGEN 6 mg/dl (7-17); CALCIUM 8.2 mg/dL (8.4-10.2); GFR AFRICAN-AMERICAN > 60; GFR NON-AFRICAN AMERICAN > 60
[2018-03-05] MEDS: Digoxin 250 mcg (0.25 mg) Tab PO SCH (10:24)
[2018-03-05] MEDS: Enoxaparin 40 mg Syringe SC SCH (10:24)
[2018-03-05] MEDS: Pantoprazole 40 mg EC Tab PO SCH (10:27)
--- NOTE | 2018-03-05 11:16 | CP.PCM.PN ---
Subjective - Date & Time of Evaluation Date of Evaluation: 03/05/18 Time of Evaluation: 11:14 - Subjective Subjective: Spoke with GI earlier today. Patient looks a little more comfortable today, but does continue to have abdominal/pelvic pain. Her vital signs have been stable, and her WBC's have come down to 13.6 this morning. Surgical evaluation has been requested. Will discuss also with cardiology. From a respiratory standpoint she is well enough for surgery if needed. Objective - Vital Signs/Intake and Output Vital Signs (last 24 hours): Temp Pulse Resp BP Pulse Ox 98.0 F 80 20 102/60 96 03/05/18 07:56 03/05/18 07:56 03/05/18 07:56 03/05/18 10:31 03/05/18 07:56 - Medications Medications: Current Medications Albuterol/Ipratropium (Duoneb 3 Mg/0.5 Mg (3 Ml) Ud) 3 ml INH RQ6 PRN PRN Reason: Shortness of Breath Aspirin (Ecotrin) 81 mg PO DAILY [facility] Last Admin: 03/05/18 10:34 Dose: Not Given Atorvastatin Calcium (Lipitor) 10 mg PO HS [facility] Last Admin: 03/04/18 22:26 Dose: 10 mg Carvedilol (Coreg) 3.125 mg PO DAILY [facility] Last Admin: 03/05/18 10:31 Dose: Not Given Clopidogrel Bisulfate (Plavix) 75 mg PO DAILY [facility] Last Admin: 03/05/18 10:35 Dose: Not Given Digoxin (Lanoxin) 0.25 mg PO DAILY [facility] Last Admin: 03/05/18 10:24 Dose: 0.25 mg Enoxaparin Sodium (Lovenox) 40 mg SC DAILY [facility] PRN Reason: Protocol Last Admin: 03/05/18 10:24 Dose: 40 mg Ciprofloxacin (Cipro 400mg/200ml Dsw) 400 mg in 200 mls @ 200 mls/hr IVPB Q12@ 0400,1600 [facility] PRN Reason: Protocol Last Admin: 03/05/18 03:32 Dose: 200 mls/hr Metronidazole (Flagyl 500mg/100ml Ns) 100 mls @ 100 mls/hr IVPB Q8 [facility] PRN Reason: Protocol Last Admin: 03/05/18 10:20 Dose: 100 mls/hr Morphine Sulfate (Morphine) 2 mg IVP Q6 PRN PRN Reason: Pain, severe (8-10) Last Admin: 03/05/18 10:46 Dose: 2 mg Morphine Sulfate (Morphine) 1 mg IVP Q6 PRN PRN Reason: Pain, moderate (4-7) Last Admin: 03/05/18 08:33 Dose: 1 mg Nystatin (Mycostatin Cream) 1 applic TOP TID [facility] Last Admin: 03/05/18 10:25 Dose: 1 u Ondansetron HCl (Zofran Inj) 4 mg IVP Q4 PRN PRN Reason: Nausea/Vomiting Last Admin: 03/05/18 06:14 Dose: 4 mg Pantoprazole Sodium (Protonix Ec Tab) 40 mg PO DAILY [facility] Last Admin: 03/05/18 10:27 Dose: 40 mg - Labs Labs: 03/05/18 05:50 03/05/18 05:50 PT 13.2 Seconds (9.8-13.1) H 03/04/18 09:38 INR 1.2 (0.9-1.2) 03/04/18 09:38 APTT 33.2 Seconds (25.6-37.1) 03/04/18 09:38 Assessment and Plan (1) Asthma with COPD Status: Chronic (2) CAD (coronary artery disease) Status: Chronic (3) Chronic atrial fibrillation Status: Chronic
--- NOTE | 2018-03-05 11:21 | CP.PCM.PN ---
Subjective - Date & Time of Evaluation Date of Evaluation: 03/05/18 Time of Evaluation: 10:00 - Subjective Subjective: Patient was seen and examined at the bedside. She states that she is still having significant LLQ pain but it is somewhat controlled with the pain medications. Continues to have some loose stools. Denies any fever, chills, nausea, or vomiting currently. Objective - Vital Signs/Intake and Output Vital Signs (last 24 hours): Temp Pulse Resp BP Pulse Ox 98.0 F 80 20 102/60 96 03/05/18 07:56 03/05/18 07:56 03/05/18 07:56 03/05/18 10:31 03/05/18 07:56 - Medications Medications: Current Medications Albuterol/Ipratropium (Duoneb 3 Mg/0.5 Mg (3 Ml) Ud) 3 ml INH RQ6 PRN PRN Reason: Shortness of Breath Aspirin (Ecotrin) 81 mg PO DAILY [facility] [place] Last Admin: 03/05/18 10:34 Dose: Not Given Atorvastatin Calcium (Lipitor) 10 mg PO HS [facility] Last Admin: 03/04/18 22:26 Dose: 10 mg Carvedilol (Coreg) 3.125 mg PO DAILY [facility] [place] Last Admin: 03/05/18 10:31 Dose: Not Given Clopidogrel Bisulfate (Plavix) 75 mg PO DAILY [facility] [place] Last Admin: 03/05/18 10:35 Dose: Not Given Digoxin (Lanoxin) 0.25 mg PO DAILY [facility] [place] Last Admin: 03/05/18 10:24 Dose: 0.25 mg Enoxaparin Sodium (Lovenox) 40 mg SC DAILY [facility] PRN Reason: Protocol Last Admin: 03/05/18 10:24 Dose: 40 mg Ciprofloxacin (Cipro 400mg/200ml Dsw) 400 mg in 200 mls @ 200 mls/hr IVPB Q12@ 0400,1600 [facility] PRN Reason: Protocol Last Admin: 03/05/18 03:32 Dose: 200 mls/hr Metronidazole (Flagyl 500mg/100ml Ns) 100 mls @ 100 mls/hr IVPB Q8 [facility] PRN Reason: Protocol Last Admin: 03/05/18 10:20 Dose: 100 mls/hr Morphine Sulfate (Morphine) 2 mg IVP Q6 PRN PRN Reason: Pain, severe (8-10) Last Admin: 03/05/18 10:46 Dose: 2 mg Morphine Sulfate (Morphine) 1 mg IVP Q6 PRN PRN Reason: Pain, moderate (4-7) Last Admin: 03/05/18 08:33 Dose: 1 mg Nystatin (Mycostatin Cream) 1 applic TOP TID [facility] [place] Last Admin: 03/05/18 10:25 Dose: 1 u Ondansetron HCl (Zofran Inj) 4 mg IVP Q4 PRN PRN Reason: Nausea/Vomiting Last Admin: 03/05/18 06:14 Dose: 4 mg Pantoprazole Sodium (Protonix Ec Tab) 40 mg PO DAILY [facility] [place] Last Admin: 03/05/18 10:27 Dose: 40 mg - Labs Labs: 03/05/18 05:50 03/05/18 05:50 PT 13.2 Seconds (9.8-13.1) H 03/04/18 09:38 INR 1.2 (0.9-1.2) 03/04/18 09:38 APTT 33.2 Seconds (25.6-37.1) 03/04/18 09:38 - Additional Findings Additional findings: Physical exam: Constitutional- cooperative, awake, alert Head- NCAT, PERRL Eye- PERRL, EOMI ENT- normal exam, MMM. Neck- normal inspection, supple, no JVD Respiratory- CTAB, no wheezes rales rhonchi Cardiovascular- RRR, +S1, +S2 no MRG GI/Abdominal- + LLQ tenderness to palpation. normal bowel sounds, soft, no mass , no hsm Skin- warm, dry Extremities Exam- +Bilateral onchomycosis. normal capillary refill Neurological Exam- alert, awake, oriented Psych- normal mood, normal affect Assessment and Plan - Assessment and Plan (Free Text) Plan: ASSESSMENT/PLAN: 77 years old female with hx of Asthma, COPD, A Fib, Chf and diverticulosis. She was seen by the Tire Repair Mechanic for loose Stool and abdominal pains one week ago. She nows comes to the ED with the intermittent pain across the lower abdomen, most severe on the LLQ. The pain is becoming more intense and is associated with diarrhea. She referred subjected fever but no nausea nor vomiting, #. Acute diverticulitis, severe CT Abdomen: These findings can represent ileus versus enteritis versus slow transit versus peristalsis. - Consult Dr Riley GI - Consult Dr. Bailey, general surgery - Stool for C&S - Stool for C Diff Toxins - Blood CX x 2 neg x 24 hours - IV Fluids with NS - Flagyl - Cipro - Pain management #. Leukocytosis - 14->13 today - follow up WBC #. Chronic A Fib rate controlled - Digoxin/ASA - Not on anticoagulant #. Asthma/ COPD/ ANKITA - consult Dr Fang pulmonology - Duoneb PRN #. Stress ulcer Prophylaxis with Protonix #. DVT prophylaxis with lovenox #, Code Status: Full
--- NOTE | 2018-03-05 12:23 | CP.PCM.CON ---
History of Present Illness - History of Present Illness History of Present Illness: Podiatry consult note for Dr. Arias, 77 yo female with pmhx of COPD admitted with abdominal pain and leukocytosis resting in bed comfortably. Patient is in no acute distress and AAO x3. Patient states she sees a optics technical officer regularly (9 weeks), but was unable to this time because she has been in the hospital. Patient complains of pain due to long toe nails, and states she has history of peripheral neuropathy. Patient denies any other pedal complains at this time. Patient denies N/V/F/SOB/Chills. Past Patient History - Infectious Disease Hx of Infectious Diseases: None - Tetanus Immunizations Tetanus Immunization: Unknown - Past Medical History & Family History Past Medical History?: Yes - Past Social History Smoking Status: Former Smoker Chewing Tobacco Use: No Cigar Use: No Alcohol: None Drugs: Denies Home Situation {Lives}: Alone - CARDIAC Hx Atrial Fibrillation: Yes Hx Cardia Arrhythmia: Yes Hx Congestive Heart Failure: Yes Hx Heart Attack: Yes Hx Hypertension: Yes Hx Peripheral Edema: Yes Hx Peripheral Vascular Disease: Yes - PULMONARY Hx Asthma: Yes Hx Bronchitis: Yes Hx Chronic Obstructive Pulmonary Disease (COPD): Yes Hx Pneumonia: Yes Other/Comment: Hx Pulmonary HTN - NEUROLOGICAL Hx Vertigo: Yes Other/Comment: Hx peripheral neuropathy - HEENT Hx HEENT Problems: No - RENAL Hx Chronic Kidney Disease: No - ENDOCRINE/METABOLIC Hx Endocrine Disorders: No Hx Hypothyroidism: No - HEMATOLOGICAL/ONCOLOGICAL Hx Anemia: Yes - INTEGUMENTARY Hx Dermatological Problems: Yes Other/Comment: Hx Chronic venous stasis dermatitis BLE - MUSCULOSKELETAL/RHEUMATOLOGICAL Hx Back Pain: Yes Hx Fractures: Yes (Left elbow) Hx Osteoporosis: Yes Hx Unsteady Gait: Yes - GASTROINTESTINAL Hx Colitis: Yes Hx Diverticulitis: Yes Hx Gastritis: Yes - GENITOURINARY/GYNECOLOGICAL Hx Incontinence: Yes Hx Urinary Tract Infection: Yes - PSYCHIATRIC Hx Psychophysiologic Disorder: No Hx Substance Use: No - SURGICAL HISTORY Hx Surgeries: Yes Hx Cardiac Catheterization: Yes (with Thrombectomy) Hx Cholecystectomy: Yes Hx Orthopedic Surgery: Yes Hx Tonsillectomy: Yes Other/Comment: Hx Benign tumor removal rib cage. Hx Benign Neuroma removal right foot - ANESTHESIA Hx Anesthesia: Yes Hx Anesthesia Reactions: No Hx Malignant Hyperthermia: No Meds Allergies/Adverse Reactions: Allergies Allergy/AdvReac Type Severity Reaction Status Date / Time Penicillins Allergy RASH Verified 06/26/17 21:20 Sulfa (Sulfonamide Allergy RASH Verified 06/26/17 21:20 Antibiotics) suture Allergy REDNESS Uncoded 12/11/15 07:41 - Medications Medications: Current Medications Albuterol/Ipratropium (Duoneb 3 Mg/0.5 Mg (3 Ml) Ud) 3 ml INH RQ6 PRN PRN Reason: Shortness of Breath Aspirin (Ecotrin) 81 mg PO DAILY [facility] Last Admin: 03/05/18 10:34 Dose: Not Given Atorvastatin Calcium (Lipitor) 10 mg PO HS [facility] Last Admin: 03/04/18 22:26 Dose: 10 mg Carvedilol (Coreg) 3.125 mg PO DAILY [facility] Last Admin: 03/05/18 10:31 Dose: Not Given Clopidogrel Bisulfate (Plavix) 75 mg PO DAILY [facility] Last Admin: 03/05/18 10:35 Dose: Not Given Digoxin (Lanoxin) 0.25 mg PO DAILY [facility] Last Admin: 03/05/18 10:24 Dose: 0.25 mg Enoxaparin Sodium (Lovenox) 40 mg SC DAILY [facility] PRN Reason: Protocol Last Admin: 03/05/18 10:24 Dose: 40 mg Ciprofloxacin (Cipro 400mg/200ml Dsw) 400 mg in 200 mls @ 200 mls/hr IVPB Q12@ 0400,1600 [facility] PRN Reason: Protocol Last Admin: 03/05/18 03:32 Dose: 200 mls/hr Metronidazole (Flagyl 500mg/100ml Ns) 100 mls @ 100 mls/hr IVPB Q8 [facility] PRN Reason: Protocol Last Admin: 03/05/18 10:20 Dose: 100 mls/hr Morphine Sulfate (Morphine) 2 mg IVP Q6 PRN PRN Reason: Pain, severe (8-10) Last Admin: 03/05/18 10:46 Dose: 2 mg Morphine Sulfate (Morphine) 1 mg IVP Q6 PRN PRN Reason: Pain, moderate (4-7) Last Admin: 03/05/18 08:33 Dose: 1 mg Nystatin (Mycostatin Cream) 1 applic TOP TID [facility] Last Admin: 03/05/18 10:25 Dose: 1 u Ondansetron HCl (Zofran Inj) 4 mg IVP Q4 PRN PRN Reason: Nausea/Vomiting Last Admin: 03/05/18 06:14 Dose: 4 mg Pantoprazole Sodium (Protonix Ec Tab) 40 mg PO DAILY [facility] Last Admin: 03/05/18 10:27 Dose: 40 mg Physical Exam - Constitutional Appears: Well, Non-toxic, No Acute Distress - Head Exam Head Exam: ATRAUMATIC, NORMOCEPHALIC - Extremities Exam Additional comments: Vascular: DP/PT pulses non palpable due to non-pitting edema, CFT <3 secs x10, TG warm to warm, no pitting edema noted. Neuro: protective sensation grossly intact Derm: no open lesions noted, no IDM, elongated mycotic toenails x10, onycholysis of the right hallucal nail noted, no clinical signs of infection Ortho: no pain on palpation, no other gross deformities noted - Neurological Exam Neurological exam: Alert, Oriented x3 - Psychiatric Exam Psychiatric exam: Normal Affect - Skin Skin Exam: Normal Color Results - Vital Signs Recent Vital Signs: Last Vital Signs Temp 98.0 F 03/05/18 07:56 Pulse 80 03/05/18 07:56 Resp 20 03/05/18 07:56 BP 102/60 03/05/18 10:31 Pulse Ox 96 03/05/18 07:56 - Labs Result Diagrams: 03/05/18 05:50 03/05/18 05:50 Labs: Laboratory Results - last 24 hr 03/04/18 03/04/18 03/05/18 02:30 22:48 05:50 WBC 13.6 H RBC 3.69 L Hgb 11.5 L Hct 34.8 MCV 94.4 MCH 31.3 H MCHC 33.1 RDW 15.6 H Plt Count 463 H MPV 6.3 L Neut % (Auto) 80.7 H Lymph % (Auto) 7.1 L [place] % (Auto) 8.1 Eos % (Auto) 3.3 Baso % (Auto) 0.8 Neut # (Auto) 11.0 H Lymph # (Auto) 1.0 [place] # (Auto) 1.1 H Eos # (Auto) 0.4 Baso # (Auto) 0.1 Sodium Potassium Chloride Carbon Dioxide Anion Gap BUN Creatinine Est GFR ( Amer) Est GFR (Non-Af Amer) Random Glucose Calcium Urine Color Alejandra Urine Clarity Turbid Urine pH 6.0 Ur Specific [place] 1.033 H Urine Protein 100 Urine Glucose (UA) Neg Urine Ketones Negative Urine Blood Negative Urine Nitrate Positive H Urine Bilirubin Negative Urine Urobilinogen 2.0 H Ur Leukocyte Esterase Mod Urine RBC (Auto) 13 H Urine WBC Clumps (Auto) Many H Urine Microscopic WBC 214 H Ur Squamous Epith Cells 5 Urine Bacteria Many H Stool Leukocytes, Qual Positive H 03/05/18 05:50 WBC RBC Hgb Hct MCV MCH MCHC RDW Plt Count MPV Neut % (Auto) Lymph % (Auto) [place] % (Auto) Eos % (Auto) Baso % (Auto) Neut # (Auto) Lymph # (Auto) [place] # (Auto) Eos # (Auto) Baso # (Auto) Sodium 138 Potassium 4.0 Chloride 103 Carbon Dioxide 27 Anion Gap 12 BUN 6 L Creatinine 0.7 Est GFR ( Amer) > 60 Est GFR (Non-Af Amer) > 60 Random Glucose 105 Calcium 8.2 L Urine Color Urine Clarity Urine pH Ur Specific [place] Urine Protein Urine Glucose (UA) Urine Ketones Urine Blood Urine Nitrate Urine Bilirubin Urine Urobilinogen Ur Leukocyte Esterase Urine RBC (Auto) Urine WBC Clumps (Auto) Urine Microscopic WBC Ur Squamous Epith Cells Urine Bacteria Stool Leukocytes, Qual Assessment & Plan - Assessment and Plan (Free Text) Assessment: 77 yo female with painful, elongated, mycotic toenails x10 Plan: Patient seen and evaluated History and plan discussed with attending in detail, Dr. Arias Patient advised to follow up with her regular optics technical officer for onycholysis of the right hallucal nail. Nails debrided x 10 using a sterile nail nipper. Patient tolerated without any complications. Podiatry will sign off at this time, please reconsult if necessary.
--- NOTE | 2018-03-05 13:03 | CP.PCM.CON ---
History of Present Illness - History of Present Illness History of Present Illness: General Surgery Surgery consulted for diverticulitis. This is a pleasant 77 y female with an extensive medical hx, who presented to the ED after having worsening abdominal pain, associated with non bloody diarrhea and severe nausea for the past 1 week. Pt reports she has been having abdominal pain intermittently for the past 1 yr and alternates between constipation, diarrhea, or very soft stools. At home she reports feeling feverish and having a decrease in appetite. Pt reports she was last admitted with similar symptoms ~7 months ago. Of note, pt is on Plavix and aspirin, currently held this admission. Review of Systems - Constitutional Constitutional: As Per HPI, Weight Loss - Cardiovascular Cardiovascular: absent: Chest Pain, Dyspnea, Palpitations - Respiratory Respiratory: absent: Dyspnea, Dyspnea on Exertion, Wheezing - Gastrointestinal Gastrointestinal: As Per HPI Additional comments: Pt uses adult diapers, as she is unable to make it to the restroom secondary to her arthritis. - Genitourinary Genitourinary: Urinary Incontinence (Pt uses adult diapers (see above)). absent : Dysuria, Hematuria - Menstruation Menstruation: Post Menopausal - Musculoskeletal Musculoskeletal: Arthralgias, Back Pain, Deformity (Left elbow.), Limited Range of Motion (Left elbow) - Neurological Neurological: Burning Sensations (bilateral feet) Past Patient History - Infectious Disease Hx of Infectious Diseases: None - Tetanus Immunizations Tetanus Immunization: Unknown - Past Medical History & Family History Past Medical History?: Yes - Past Social History Smoking Status: Former Smoker Chewing Tobacco Use: No Cigar Use: No Alcohol: None Drugs: Denies Home Situation {Lives}: Alone - CARDIAC Hx Atrial Fibrillation: Yes Hx Cardia Arrhythmia: Yes Hx Congestive Heart Failure: Yes Hx Heart Attack: Yes Hx Hypertension: Yes Hx Peripheral Edema: Yes Hx Peripheral Vascular Disease: Yes - PULMONARY Hx Asthma: Yes Hx Bronchitis: Yes Hx Chronic Obstructive Pulmonary Disease (COPD): No (pt denies) Hx Pneumonia: Yes Hx Sleep Apnea: No Other/Comment: Hx Pulmonary HTN - NEUROLOGICAL Hx Vertigo: Yes Other/Comment: Hx peripheral neuropathy - HEENT Hx HEENT Problems: No Hx Deafness: No - RENAL Hx Chronic Kidney Disease: No Hx Dialysis: No - ENDOCRINE/METABOLIC Hx Endocrine Disorders: No Hx Diabetes Mellitus Type 2: No Hx Hypothyroidism: No - HEMATOLOGICAL/ONCOLOGICAL Hx Anemia: No (Pt denies) - INTEGUMENTARY Hx Dermatological Problems: Yes Other/Comment: Hx Chronic venous stasis dermatitis BLE - MUSCULOSKELETAL/RHEUMATOLOGICAL Hx Back Pain: Yes Hx Fractures: Yes (Left elbow) Hx Osteoporosis: Yes Hx Unsteady Gait: Yes - GASTROINTESTINAL Hx Constipation: Yes Hx Diarrhea: Yes Hx Diverticulitis: Yes Hx Gastritis: Yes Hx Gastroesophageal Reflux: Yes Hx Nausea: Yes - GENITOURINARY/GYNECOLOGICAL Hx Incontinence: Yes (uses adult diapers, pt can not make it in time to the bathroom) Hx Urinary Tract Infection: Yes - PSYCHIATRIC Hx Psychophysiologic Disorder: No Hx Substance Use: No - SURGICAL HISTORY Hx Surgeries: Yes Hx Cardiac Catheterization: Yes (with Thrombectomy) Hx Cholecystectomy: Yes Hx Orthopedic Surgery: Yes (Left elbow reconstrucion ~ 10 yrs ago) Hx Tonsillectomy: Yes Other/Comment: Hx Benign tumor removal rib cage. Hx Benign Neuroma removal right foot - ANESTHESIA Hx Anesthesia: Yes Hx Anesthesia Reactions: Yes (Pt reports having hallucinations and paranoia for ~ 1-2 weeks) Hx Malignant Hyperthermia: No Meds Allergies/Adverse Reactions: Allergies Allergy/AdvReac Type Severity Reaction Status Date / Time Penicillins Allergy RASH Verified 06/26/17 21:20 Sulfa (Sulfonamide Allergy RASH Verified 06/26/17 21:20 Antibiotics) suture Allergy REDNESS Uncoded 12/11/15 07:41 - Medications Medications: Current Medications Albuterol/Ipratropium (Duoneb 3 Mg/0.5 Mg (3 Ml) Ud) 3 ml INH RQ6 PRN PRN Reason: Shortness of Breath Aspirin (Ecotrin) 81 mg PO DAILY [facility] Last Admin: 03/05/18 10:34 Dose: Not Given Atorvastatin Calcium (Lipitor) 10 mg PO [facility] Last Admin: 03/04/18 22:26 Dose: 10 mg Carvedilol (Coreg) 3.125 mg PO DAILY [facility] Last Admin: 03/05/18 10:31 Dose: Not Given Clopidogrel Bisulfate (Plavix) 75 mg PO DAILY [facility] Last Admin: 03/05/18 10:35 Dose: Not Given Digoxin (Lanoxin) 0.25 mg PO DAILY [facility] Last Admin: 03/05/18 10:24 Dose: 0.25 mg Enoxaparin Sodium (Lovenox) 40 mg SC DAILY [facility] PRN Reason: Protocol Last Admin: 03/05/18 10:24 Dose: 40 mg Ciprofloxacin (Cipro 400mg/200ml Dsw) 400 mg in 200 mls @ 200 mls/hr IVPB Q12@ 0400,1600 [facility] PRN Reason: Protocol Last Admin: 03/05/18 03:32 Dose: 200 mls/hr Metronidazole (Flagyl 500mg/100ml Ns) 100 mls @ 100 mls/hr IVPB Q8 [facility] PRN Reason: Protocol Last Admin: 03/05/18 10:20 Dose: 100 mls/hr Morphine Sulfate (Morphine) 2 mg IVP Q6 PRN PRN Reason: Pain, severe (8-10) Last Admin: 03/05/18 10:46 Dose: 2 mg Morphine Sulfate (Morphine) 1 mg IVP Q6 PRN PRN Reason: Pain, moderate (4-7) Last Admin: 03/05/18 08:33 Dose: 1 mg Nystatin (Mycostatin Cream) 1 applic TOP TID [facility] Last Admin: 03/05/18 10:25 Dose: 1 u Ondansetron HCl (Zofran Inj) 4 mg IVP Q4 PRN PRN Reason: Nausea/Vomiting Last Admin: 03/05/18 06:14 Dose: 4 mg Pantoprazole Sodium (Protonix Ec Tab) 40 mg PO DAILY [facility] Last Admin: 03/05/18 10:27 Dose: 40 mg Physical Exam - Constitutional Appears: Well, No Acute Distress - Head Exam Head Exam: ATRAUMATIC - Eye Exam Eye Exam: EOMI, Normal appearance - ENT Exam ENT Exam: Mucous Membranes Moist - Neck Exam Neck exam: Positive for: Normal Inspection - Respiratory Exam Respiratory Exam: Clear to Auscultation Bilateral, NORMAL BREATHING PATTERN. absent: Wheezes - Cardiovascular Exam Cardiovascular Exam: Irregular Rhythm. absent: Tachycardia - GI/Abdominal Exam GI & Abdominal Exam: Soft, Tenderness. absent: Firm, Guarding, Mass Additional comments: Generalized tenderness, greatest at RLQ and LLQ - Extremities Exam Extremities exam: Negative for: normal inspection (Left elbow (+) deformity.) Additional comments: Pedal edema bilaterally - Neurological Exam Neurological exam: Alert, CN II-XII Intact, Oriented x3 - Psychiatric Exam Psychiatric exam: Normal Affect, Normal Mood - Skin Skin Exam: Intact, Warm Additional comments: Mild erythema to bilateral LE from the mid jacobson down to ankles, (-) tenderness Results - Vital Signs Recent Vital Signs: Last Vital Signs Temp 98.0 F 03/05/18 07:56 Pulse 80 03/05/18 07:56 Resp 20 03/05/18 07:56 BP 102/60 03/05/18 10:31 Pulse Ox 96 03/05/18 07:56 - Labs Result Diagrams: 03/05/18 05:50 03/05/18 05:50 Labs: Laboratory Results - last 24 hr 03/04/18 03/04/18 03/05/18 02:30 22:48 05:50 WBC 13.6 H RBC 3.69 L Hgb 11.5 L Hct 34.8 MCV 94.4 MCH 31.3 H MCHC 33.1 RDW 15.6 H Plt Count 463 H MPV 6.3 L Neut % (Auto) 80.7 H Lymph % (Auto) 7.1 L [place] % (Auto) 8.1 Eos % (Auto) 3.3 Baso % (Auto) 0.8 Neut # (Auto) 11.0 H Lymph # (Auto) 1.0 [place] # (Auto) 1.1 H Eos # (Auto) 0.4 Baso # (Auto) 0.1 Sodium Potassium Chloride Carbon Dioxide Anion Gap BUN Creatinine Est GFR ( Amer) Est GFR (Non-Af Amer) Random Glucose Calcium Urine Color Alejandra Urine Clarity Turbid Urine pH 6.0 Ur Specific [place] 1.033 H Urine Protein 100 Urine Glucose (UA) Neg Urine Ketones Negative Urine Blood Negative Urine Nitrate Positive H Urine Bilirubin Negative Urine Urobilinogen 2.0 H Ur Leukocyte Esterase Mod Urine RBC (Auto) 13 H Urine WBC Clumps (Auto) Many H Urine Microscopic WBC 214 H Ur Squamous Epith Cells 5 Urine Bacteria Many H Stool Leukocytes, Qual Positive H 03/05/18 05:50 WBC RBC Hgb Hct MCV MCH MCHC RDW Plt Count MPV Neut % (Auto) Lymph % (Auto) [place] % (Auto) Eos % (Auto) Baso % (Auto) Neut # (Auto) Lymph # (Auto) [place] # (Auto) Eos # (Auto) Baso # (Auto) Sodium 138 Potassium 4.0 Chloride 103 Carbon Dioxide 27 Anion Gap 12 BUN 6 L Creatinine 0.7 Est GFR ( Amer) > 60 Est GFR (Non-Af Amer) > 60 Random Glucose 105 Calcium 8.2 L Urine Color Urine Clarity Urine pH Ur Specific [place] Urine Protein Urine Glucose (UA) Urine Ketones Urine Blood Urine Nitrate Urine Bilirubin Urine Urobilinogen Ur Leukocyte Esterase Urine RBC (Auto) Urine WBC Clumps (Auto) Urine Microscopic WBC Ur Squamous Epith Cells Urine Bacteria Stool Leukocytes, Qual Assessment & Plan (1) Diverticulitis Status: Acute - Assessment and Plan (Free Text) Assessment: Diverticulitis Plan: Continue NPO Continue antibiotics Continue holding Plavix and aspirin Continue IVF Serial Abdominal Exams No surgical intervention at this time
--- NOTE | 2018-03-05 20:07 | CP.PCM.PN ---
Subjective - Date & Time of Evaluation Date of Evaluation: 03/05/18 Time of Evaluation: 09:00 - Subjective Subjective: Still with abdominal pain . On IV abx. Objective - Vital Signs/Intake and Output Vital Signs (last 24 hours): Temp Pulse Resp BP Pulse Ox 98.2 F 75 18 121/81 97 03/05/18 16:01 03/05/18 16:01 03/05/18 16:01 03/05/18 16:01 03/05/18 16:01 - Medications Medications: Current Medications Albuterol/Ipratropium (Duoneb 3 Mg/0.5 Mg (3 Ml) Ud) 3 ml INH RQ6 PRN PRN Reason: Shortness of Breath Aspirin (Ecotrin) 81 mg PO DAILY [facility] Last Admin: 03/05/18 10:34 Dose: Not Given Atorvastatin Calcium (Lipitor) 10 mg PO HS [facility] Last Admin: 03/04/18 22:26 Dose: 10 mg Carvedilol (Coreg) 3.125 mg PO DAILY [facility] Last Admin: 03/05/18 10:31 Dose: Not Given Clopidogrel Bisulfate (Plavix) 75 mg PO DAILY [facility] Last Admin: 03/05/18 10:35 Dose: Not Given Digoxin (Lanoxin) 0.25 mg PO DAILY [facility] Last Admin: 03/05/18 10:24 Dose: 0.25 mg Enoxaparin Sodium (Lovenox) 40 mg SC DAILY [facility] PRN Reason: Protocol Last Admin: 03/05/18 10:24 Dose: 40 mg Ciprofloxacin (Cipro 400mg/200ml Dsw) 400 mg in 200 mls @ 200 mls/hr IVPB Q12@ 0400,1600 [facility] PRN Reason: Protocol Last Admin: 03/05/18 16:12 Dose: 200 mls/hr Metronidazole (Flagyl 500mg/100ml Ns) 100 mls @ 100 mls/hr IVPB Q8 [facility] PRN Reason: Protocol Last Admin: 03/05/18 16:13 Dose: 100 mls/hr Morphine Sulfate (Morphine) 2 mg IVP Q6 PRN PRN Reason: Pain, severe (8-10) Last Admin: 03/05/18 16:14 Dose: 2 mg Morphine Sulfate (Morphine) 1 mg IVP Q6 PRN PRN Reason: Pain, moderate (4-7) Last Admin: 03/05/18 08:33 Dose: 1 mg Nystatin (Mycostatin Cream) 1 applic TOP TID [facility] Last Admin: 03/05/18 16:15 Dose: 1 u Ondansetron HCl (Zofran Inj) 4 mg IVP Q4 PRN PRN Reason: Nausea/Vomiting Last Admin: 03/05/18 17:31 Dose: 4 mg Pantoprazole Sodium (Protonix Ec Tab) 40 mg PO DAILY [facility] Last Admin: 03/05/18 10:27 Dose: 40 mg - Labs Labs: 03/05/18 05:50 03/05/18 05:50 PT 13.2 Seconds (9.8-13.1) H 03/04/18 09:38 INR 1.2 (0.9-1.2) 03/04/18 09:38 APTT 33.2 Seconds (25.6-37.1) 03/04/18 09:38 - Head Exam Head Exam: ATRAUMATIC - ENT Exam ENT Exam: Mucous Membranes Moist - Neck Exam Neck Exam: Full ROM - Respiratory Exam Respiratory Exam: Clear to Ausculation Bilateral - GI/Abdominal Exam GI & Abdominal Exam: Soft, Tenderness (LLQ tenderness), Normal Bowel Sounds Assessment and Plan (1) Diverticulitis Assessment & Plan: Continue IV antibiotics. Comanage with surgery. Maintain NPO. Status: Acute
[2018-03-06] MEDS: metroNIDAZOLE 500mg/100ml NS 100 ML IVPB SCH ×3 (00:13→18:10)
[2018-03-06] MEDS: Ciprofloxacin 400mg/200ml D5W 400 MG/200 ML BAG IVPB SCH ×2 (03:52→16:35)
[2018-03-06 09:05] LABS: HEMOGLOBIN 12.1 g/dL (12.0-16.0); MEAN CELL VOLUME 95.2 fl (81.0-99.0); MEAN CORPUSCULAR HEMOGLOBIN 31.1 pg (27.0-31.0); MEAN CORPUSCULAR HGB CONC 32.7 g/dL (33.0-37.0); RBC 3.89 Mil/uL (3.80-5.20); RED CELL DISTRIBUTION WIDTH 15.5 % (11.5-14.5); WHITE BLOOD COUNT 12.5 K/uL (4.8-10.8)
[2018-03-06 09:07] LABS: BLOOD UREA NITROGEN 5 mg/dl (7-17); CALCIUM 7.9 mg/dL (8.4-10.2); GFR AFRICAN-AMERICAN > 60; GFR NON-AFRICAN AMERICAN > 60
[2018-03-06] MEDS: Dextrose 5%/0.9% NS 1,000 ML IV SCH ×3 (09:37→21:58)
[2018-03-06] MEDS: Digoxin 250 mcg (0.25 mg) Tab PO SCH (09:40)
[2018-03-06] MEDS: Enoxaparin 40 mg Syringe SC SCH (09:41)
[2018-03-06] MEDS: Pantoprazole 40 mg EC Tab PO SCH (09:41)
--- NOTE | 2018-03-06 10:46 | CP.PCM.PN ---
Subjective - Date & Time of Evaluation Date of Evaluation: 03/06/18 Time of Evaluation: 10:40 - Subjective Subjective: General Surgery Pt seen and examined this AM. Pt reports she feels a "little bit" better than yesterday regarding her left sided abdominal pain that she describes as sore. She also reports having difficulty urinating in regards to hesitancy, urgency and low abdominal pain. Pt had a small watery BM, (-) N/V, afebrile overnight. Vitals and labs noted. WBC improving PE Gen: Asleep, easily arousable Skin: warm and dry Cardio: afib, (-) tachycardic Lungs: CTA bilaterally Abd: soft, generalized abdominal tenderness Extr: (-) calf tenderness bilaterally A/P Diverticulitis Continue NPO, maybe advance to clears tomorrow if pt feels better Continue IV antibiotics Continue IVF Serial abdominal exam UTI to be managed by medicine Objective - Vital Signs/Intake and Output Vital Signs (last 24 hours): Temp Pulse Resp BP Pulse Ox 97.8 F 84 19 109/64 96 03/06/18 08:03 03/06/18 09:42 03/06/18 09:42 03/06/18 09:42 03/06/18 09:42 - Medications Medications: Current Medications Albuterol/Ipratropium (Duoneb 3 Mg/0.5 Mg (3 Ml) Ud) 3 ml INH RQ6 PRN PRN Reason: Shortness of Breath Aspirin (Ecotrin) 81 mg PO DAILY [facility] Last Admin: 03/05/18 10:34 Dose: Not Given Atorvastatin Calcium (Lipitor) 10 mg PO HS [facility] Last Admin: 03/05/18 22:00 Dose: 10 mg Carvedilol (Coreg) 3.125 mg PO DAILY [facility] Last Admin: 03/06/18 09:41 Dose: 3.125 mg Clopidogrel Bisulfate (Plavix) 75 mg PO DAILY [facility] Last Admin: 03/05/18 10:35 Dose: Not Given Digoxin (Lanoxin) 0.25 mg PO DAILY [facility] Last Admin: 03/06/18 09:40 Dose: 0.25 mg Enoxaparin Sodium (Lovenox) 40 mg SC DAILY [facility] PRN Reason: Protocol Last Admin: 03/06/18 09:41 Dose: 40 mg Ciprofloxacin (Cipro 400mg/200ml Dsw) 400 mg in 200 mls @ 200 mls/hr IVPB Q12@ 0400,1600 [facility] PRN Reason: Protocol Last Admin: 03/06/18 03:52 Dose: 200 mls/hr Metronidazole (Flagyl 500mg/100ml Ns) 100 mls @ 100 mls/hr IVPB Q8 [facility] PRN Reason: Protocol Last Admin: 03/06/18 09:38 Dose: 100 mls/hr Dextrose/Sodium Chloride (Dextrose 5%/0.9% Ns 1000 Ml) 1,000 mls @ 100 mls/hr IV .Q10H [facility] Stop: 03/07/18 08:15 Last Admin: 03/06/18 09:37 Dose: 100 mls/hr Morphine Sulfate (Morphine) 2 mg IVP Q6 PRN PRN Reason: Pain, severe (8-10) Last Admin: 03/05/18 16:14 Dose: 2 mg Morphine Sulfate (Morphine) 1 mg IVP Q6 PRN PRN Reason: Pain, moderate (4-7) Last Admin: 03/06/18 06:50 Dose: 1 mg Nystatin (Mycostatin Cream) 1 applic TOP TID [facility] Last Admin: 03/06/18 09:41 Dose: 1 u Ondansetron HCl (Zofran Inj) 4 mg IVP Q4 PRN PRN Reason: Nausea/Vomiting Last Admin: 03/06/18 06:50 Dose: 4 mg Pantoprazole Sodium (Protonix Ec Tab) 40 mg PO DAILY [facility] Last Admin: 03/06/18 09:41 Dose: 40 mg - Labs Labs: 03/06/18 08:49 03/06/18 08:49 PT 13.2 Seconds (9.8-13.1) H 03/04/18 09:38 INR 1.2 (0.9-1.2) 03/04/18 09:38 APTT 33.2 Seconds (25.6-37.1) 03/04/18 09:38 Assessment and Plan (1) Diverticulitis Status: Acute
--- NOTE | 2018-03-06 11:45 | CP.PCM.PN ---
Subjective - Date & Time of Evaluation Date of Evaluation: 03/06/18 Time of Evaluation: 11:44 - Subjective Subjective: Feels as though her abdominal pain may be slightly lessened. No nausea or vomiting. Remains NPO. Leukocytosis is decreasing. Remains afebrile. GI and Surgery are following. No complaints of cough or dyspnea. No dullness on chest percussion. Breath sounds are present bilaterally. No audible wheezing or bronchial breath sounds. Few dry rales are present posteriorly in the lower lobes. Heart sounds are distant, rhythm is regular. Abdomen is slightly less tense, generalized tenderness, more so in LLQ. Bowel sounds are present, somewhat hypoactive. Trace dependant edema at the ankles bilaterally with mild hyperemia of epidermis. \Maintain present medical regimen and surgical followup. Maintain NPO for now. Continue aerosol therapy. Objective - Vital Signs/Intake and Output Vital Signs (last 24 hours): Temp Pulse Resp BP Pulse Ox 97.8 F 84 19 109/64 96 03/06/18 08:03 03/06/18 09:42 03/06/18 09:42 03/06/18 09:42 03/06/18 09:42 - Medications Medications: Current Medications Albuterol/Ipratropium (Duoneb 3 Mg/0.5 Mg (3 Ml) Ud) 3 ml INH RQ6 PRN PRN Reason: Shortness of Breath Aspirin (Ecotrin) 81 mg PO DAILY [facility] Last Admin: 03/05/18 10:34 Dose: Not Given Atorvastatin Calcium (Lipitor) 10 mg PO HS [facility] Last Admin: 03/05/18 22:00 Dose: 10 mg Carvedilol (Coreg) 3.125 mg PO DAILY [facility] Last Admin: 03/06/18 09:41 Dose: 3.125 mg Clopidogrel Bisulfate (Plavix) 75 mg PO DAILY [facility] Last Admin: 03/05/18 10:35 Dose: Not Given Digoxin (Lanoxin) 0.25 mg PO DAILY [facility] Last Admin: 03/06/18 09:40 Dose: 0.25 mg Enoxaparin Sodium (Lovenox) 40 mg SC DAILY [facility] PRN Reason: Protocol Last Admin: 03/06/18 09:41 Dose: 40 mg Ciprofloxacin (Cipro 400mg/200ml Dsw) 400 mg in 200 mls @ 200 mls/hr IVPB Q12@ 0400,1600 [facility] PRN Reason: Protocol Last Admin: 03/06/18 03:52 Dose: 200 mls/hr Metronidazole (Flagyl 500mg/100ml Ns) 100 mls @ 100 mls/hr IVPB Q8 [facility] PRN Reason: Protocol Last Admin: 03/06/18 09:38 Dose: 100 mls/hr Dextrose/Sodium Chloride (Dextrose 5%/0.9% Ns 1000 Ml) 1,000 mls @ 100 mls/hr IV .Q10H [facility] Stop: 03/07/18 08:15 Last Admin: 03/06/18 09:37 Dose: 100 mls/hr Morphine Sulfate (Morphine) 2 mg IVP Q6 PRN PRN Reason: Pain, severe (8-10) Last Admin: 03/05/18 16:14 Dose: 2 mg Morphine Sulfate (Morphine) 1 mg IVP Q6 PRN PRN Reason: Pain, moderate (4-7) Last Admin: 03/06/18 06:50 Dose: 1 mg Nystatin (Mycostatin Cream) 1 applic TOP TID [facility] Last Admin: 03/06/18 09:41 Dose: 1 u Ondansetron HCl (Zofran Inj) 4 mg IVP Q4 PRN PRN Reason: Nausea/Vomiting Last Admin: 03/06/18 11:12 Dose: 4 mg Pantoprazole Sodium (Protonix Ec Tab) 40 mg PO DAILY [facility] Last Admin: 03/06/18 09:41 Dose: 40 mg - Labs Labs: 03/06/18 08:49 03/06/18 08:49 PT 13.2 Seconds (9.8-13.1) H 03/04/18 09:38 INR 1.2 (0.9-1.2) 03/04/18 09:38 APTT 33.2 Seconds (25.6-37.1) 03/04/18 09:38 Assessment and Plan (1) Asthma with COPD Status: Chronic (2) CAD (coronary artery disease) Status: Chronic (3) Chronic atrial fibrillation Status: Chronic
--- NOTE | 2018-03-06 15:47 | CP.PCM.PN ---
Subjective - Date & Time of Evaluation Date of Evaluation: 03/06/18 Time of Evaluation: 10:00 - Subjective Subjective: Feels slightly better today concerned she may need surgery Echo: CH EF: 35-40% Mild MR [facility] Objective - Vital Signs/Intake and Output Vital Signs (last 24 hours): Temp Pulse Resp BP Pulse Ox 97.8 F 84 19 109/64 96 03/06/18 08:03 03/06/18 09:42 03/06/18 09:42 03/06/18 09:42 03/06/18 09:42 - Medications Medications: Current Medications Albuterol/Ipratropium (Duoneb 3 Mg/0.5 Mg (3 Ml) Ud) 3 ml INH RQ6 PRN PRN Reason: Shortness of Breath Aspirin (Ecotrin) 81 mg PO DAILY [facility] Last Admin: 03/05/18 10:34 Dose: Not Given Atorvastatin Calcium (Lipitor) 10 mg PO HS [facility] Last Admin: 03/05/18 22:00 Dose: 10 mg Carvedilol (Coreg) 3.125 mg PO DAILY [facility] Last Admin: 03/06/18 09:41 Dose: 3.125 mg Clopidogrel Bisulfate (Plavix) 75 mg PO DAILY [facility] Last Admin: 03/05/18 10:35 Dose: Not Given Digoxin (Lanoxin) 0.25 mg PO DAILY [facility] Last Admin: 03/06/18 09:40 Dose: 0.25 mg Enoxaparin Sodium (Lovenox) 40 mg SC DAILY [facility] PRN Reason: Protocol Last Admin: 03/06/18 09:41 Dose: 40 mg Ciprofloxacin (Cipro 400mg/200ml Dsw) 400 mg in 200 mls @ 200 mls/hr IVPB Q12@ 0400,1600 [facility] PRN Reason: Protocol Last Admin: 03/06/18 03:52 Dose: 200 mls/hr Metronidazole (Flagyl 500mg/100ml Ns) 100 mls @ 100 mls/hr IVPB Q8 [facility] PRN Reason: Protocol Last Admin: 03/06/18 09:38 Dose: 100 mls/hr Dextrose/Sodium Chloride (Dextrose 5%/0.9% Ns 1000 Ml) 1,000 mls @ 100 mls/hr IV .Q10H [facility] Stop: 03/07/18 08:15 Last Admin: 03/06/18 09:37 Dose: 100 mls/hr Morphine Sulfate (Morphine) 2 mg IVP Q6 PRN PRN Reason: Pain, severe (8-10) Last Admin: 03/05/18 16:14 Dose: 2 mg Morphine Sulfate (Morphine) 1 mg IVP Q6 PRN PRN Reason: Pain, moderate (4-7) Last Admin: 03/06/18 14:42 Dose: 1 mg Nystatin (Mycostatin Cream) 1 applic TOP TID [facility] Last Admin: 03/06/18 14:37 Dose: Not Given Ondansetron HCl (Zofran Inj) 4 mg IVP Q4 PRN PRN Reason: Nausea/Vomiting Last Admin: 03/06/18 11:12 Dose: 4 mg Pantoprazole Sodium (Protonix Ec Tab) 40 mg PO DAILY [facility] Last Admin: 03/06/18 09:41 Dose: 40 mg - Labs Labs: 03/06/18 08:49 03/06/18 08:49 PT 13.2 Seconds (9.8-13.1) H 03/04/18 09:38 INR 1.2 (0.9-1.2) 03/04/18 09:38 APTT 33.2 Seconds (25.6-37.1) 03/04/18 09:38 Assessment and Plan (1) Atrial fibrillation, chronic Status: Acute (2) Diverticulitis Status: Acute (3) Asthma with COPD Status: Chronic (4) Hypertension Status: Chronic (5) Urinary incontinence Status: Chronic
--- NOTE | 2018-03-06 16:07 | CP.PCM.PN ---
Subjective - Date & Time of Evaluation Date of Evaluation: 03/06/18 Time of Evaluation: 10:00 - Subjective Subjective: Patient was seen at the bedside. Occasional nausea but no vomiting. Still c/o occasional significant pain to the LLQ and also c/o bladder pain when urinating. Denies any fever, chills currently. Objective - Vital Signs/Intake and Output Vital Signs (last 24 hours): Temp Pulse Resp BP Pulse Ox 97.8 F 84 19 109/64 96 03/06/18 08:03 03/06/18 09:42 03/06/18 09:42 03/06/18 09:42 03/06/18 09:42 - Medications Medications: Current Medications Albuterol/Ipratropium (Duoneb 3 Mg/0.5 Mg (3 Ml) Ud) 3 ml INH RQ6 PRN PRN Reason: Shortness of Breath Aspirin (Ecotrin) 81 mg PO DAILY [facility] Last Admin: 03/05/18 10:34 Dose: Not Given Atorvastatin Calcium (Lipitor) 10 mg PO HS [facility] Last Admin: 03/05/18 22:00 Dose: 10 mg Carvedilol (Coreg) 3.125 mg PO DAILY [facility] Last Admin: 03/06/18 09:41 Dose: 3.125 mg Clopidogrel Bisulfate (Plavix) 75 mg PO DAILY [facility] Last Admin: 03/05/18 10:35 Dose: Not Given Digoxin (Lanoxin) 0.25 mg PO DAILY [facility] Last Admin: 03/06/18 09:40 Dose: 0.25 mg Enoxaparin Sodium (Lovenox) 40 mg SC DAILY [facility] PRN Reason: Protocol Last Admin: 03/06/18 09:41 Dose: 40 mg Ciprofloxacin (Cipro 400mg/200ml Dsw) 400 mg in 200 mls @ 200 mls/hr IVPB Q12@ 0400,1600 [facility] PRN Reason: Protocol Last Admin: 03/06/18 03:52 Dose: 200 mls/hr Metronidazole (Flagyl 500mg/100ml Ns) 100 mls @ 100 mls/hr IVPB Q8 [facility] PRN Reason: Protocol Last Admin: 03/06/18 09:38 Dose: 100 mls/hr Dextrose/Sodium Chloride (Dextrose 5%/0.9% Ns 1000 Ml) 1,000 mls @ 100 mls/hr IV .Q10H [facility] Stop: 03/07/18 08:15 Last Admin: 03/06/18 09:37 Dose: 100 mls/hr Morphine Sulfate (Morphine) 2 mg IVP Q6 PRN PRN Reason: Pain, severe (8-10) Last Admin: 03/05/18 16:14 Dose: 2 mg Morphine Sulfate (Morphine) 1 mg IVP Q6 PRN PRN Reason: Pain, moderate (4-7) Last Admin: 03/06/18 14:42 Dose: 1 mg Nystatin (Mycostatin Cream) 1 applic TOP TID [facility] Last Admin: 03/06/18 14:37 Dose: Not Given Ondansetron HCl (Zofran Inj) 4 mg IVP Q4 PRN PRN Reason: Nausea/Vomiting Last Admin: 03/06/18 11:12 Dose: 4 mg Pantoprazole Sodium (Protonix Ec Tab) 40 mg PO DAILY [facility] Last Admin: 03/06/18 09:41 Dose: 40 mg - Labs Labs: 03/06/18 08:49 03/06/18 08:49 PT 13.2 Seconds (9.8-13.1) H 03/04/18 09:38 INR 1.2 (0.9-1.2) 03/04/18 09:38 APTT 33.2 Seconds (25.6-37.1) 03/04/18 09:38 - Additional Findings Additional findings: Physical exam: Constitutional- cooperative, awake, alert Head- NCAT, PERRL Eye- PERRL, EOMI ENT- normal exam, MMM. Neck- normal inspection, supple, no JVD Respiratory- CTAB, no wheezes rales rhonchi Cardiovascular- irregular rate and rhythm +S1, +S2 no MRG GI/Abdominal- + LLQ tenderness to palpation. normal bowel sounds, soft, no mass , no hsm Skin- warm, dry Extremities Exam- +Bilateral onchomycosis. normal capillary refill Neurological Exam- alert, awake, oriented Psych- normal mood, normal affect Assessment and Plan - Assessment and Plan (Free Text) Plan: ASSESSMENT/PLAN: 77 years old female with hx of Asthma, COPD, A Fib, Chf and diverticulosis. She was seen by the Certified Phlebotomist for loose Stool and abdominal pains one week ago. She nows comes to the ED with the intermittent pain across the lower abdomen, most severe on the LLQ. The pain is becoming more intense and is associated with diarrhea. She referred subjected fever but no nausea nor vomiting, 1) Acute diverticulitis, improving, still with significant pain and leukocytosis CT Abdomen: These findings can represent ileus versus enteritis versus slow transit versus peristalsis. - Consult Dr Riley GI- will attempt clear liquid diet today; though pt c/o some nausea intermittently. - Consult Dr. Bailey, general surgery- recommends conservative management at this time, may need elective surgical intervention as outpatient - Stool for C&S- negative - Blood CX x 2 neg x 48 hours - IV Fluids with NS - Flagyl - Cipro - Pain management 2) Acute UTI Continue Cipro/Flagyl add Pyridium for pain control #. Leukocytosis, improving slowly - 14->13->12.5 Today - follow up WBC #. Chronic A Fib rate controlled - Digoxin/ASA - Not on anticoagulant #. Asthma/ COPD/ ANKITA - consult Dr Fang pulmonology - Duoneb PRN #. Stress ulcer Prophylaxis with Protonix #. DVT prophylaxis with lovenox #, Code Status: Full
[2018-03-07] MEDS: metroNIDAZOLE 500mg/100ml NS 100 ML IVPB SCH ×3 (00:39→16:06)
[2018-03-07] MEDS: Ciprofloxacin 400mg/200ml D5W 400 MG/200 ML BAG IVPB SCH ×2 (04:05→16:06)
[2018-03-07] MEDS: Dextrose 5%/0.9% NS 1,000 ML IV SCH ×2 (04:06→08:09)
[2018-03-07 06:24] LABS: MEAN CELL VOLUME 94.7 fl (81.0-99.0); MEAN CORPUSCULAR HEMOGLOBIN 30.8 pg (27.0-31.0); MEAN CORPUSCULAR HGB CONC 32.5 g/dL (33.0-37.0); RBC 3.88 Mil/uL (3.80-5.20); RED CELL DISTRIBUTION WIDTH 15.5 % (11.5-14.5); WHITE BLOOD COUNT 11.3 K/uL (4.8-10.8)
--- NOTE | 2018-03-07 07:41 | CP.PCM.PN ---
Subjective - Date & Time of Evaluation Date of Evaluation: 03/07/18 Time of Evaluation: 06:40 - Subjective Subjective: Patient seen and examined this morning. Reports developing worsening abdominal pain in left lower quadrant after ingestion of liquids. Review of vital signs is normal. Objective - Vital Signs/Intake and Output Vital Signs (last 24 hours): Temp Pulse Resp BP Pulse Ox 98.3 F 61 19 104/64 95 03/06/18 23:52 03/06/18 23:52 03/06/18 23:52 03/06/18 23:52 03/06/18 23:52 - Medications Medications: Current Medications Albuterol/Ipratropium (Duoneb 3 Mg/0.5 Mg (3 Ml) Ud) 3 ml INH RQ6 PRN PRN Reason: Shortness of Breath Aspirin (Ecotrin) 81 mg PO DAILY [facility] Last Admin: 03/05/18 10:34 Dose: Not Given Atorvastatin Calcium (Lipitor) 10 mg PO HS [facility] Last Admin: 03/06/18 21:58 Dose: 10 mg Carvedilol (Coreg) 3.125 mg PO DAILY [facility] Last Admin: 03/06/18 09:41 Dose: 3.125 mg Clopidogrel Bisulfate (Plavix) 75 mg PO DAILY [facility] Last Admin: 03/05/18 10:35 Dose: Not Given Digoxin (Lanoxin) 0.25 mg PO DAILY [facility] [place] Last Admin: 03/06/18 09:40 Dose: 0.25 mg Enoxaparin Sodium (Lovenox) 40 mg SC DAILY [facility] PRN Reason: Protocol Last Admin: 03/06/18 09:41 Dose: 40 mg Ciprofloxacin (Cipro 400mg/200ml Dsw) 400 mg in 200 mls @ 200 mls/hr IVPB Q12@ 0400,1600 [facility] PRN Reason: Protocol Last Admin: 03/07/18 04:05 Dose: 200 mls/hr Metronidazole (Flagyl 500mg/100ml Ns) 100 mls @ 100 mls/hr IVPB Q8 [facility] PRN Reason: Protocol Last Admin: 03/07/18 00:39 Dose: 100 mls/hr Dextrose/Sodium Chloride (Dextrose 5%/0.9% Ns 1000 Ml) 1,000 mls @ 100 mls/hr IV .Q10H [facility] Stop: 03/07/18 08:15 Last Admin: 03/07/18 04:06 Dose: Not Given Morphine Sulfate (Morphine) 2 mg IVP Q6 PRN PRN Reason: Pain, severe (8-10) Last Admin: 03/07/18 05:12 Dose: 2 mg Morphine Sulfate (Morphine) 1 mg IVP Q6 PRN PRN Reason: Pain, moderate (4-7) Last Admin: 03/06/18 14:42 Dose: 1 mg Nystatin (Mycostatin Cream) 1 applic TOP TID [facility] Last Admin: 03/06/18 16:35 Dose: 1 u Ondansetron HCl (Zofran Inj) 4 mg IVP Q4 PRN PRN Reason: Nausea/Vomiting Last Admin: 03/07/18 05:14 Dose: 4 mg Pantoprazole Sodium (Protonix Ec Tab) 40 mg PO DAILY [facility] Last Admin: 03/06/18 09:41 Dose: 40 mg Phenazopyridine HCl (Pyridium) 100 mg PO TID [facility] Last Admin: 03/06/18 17:19 Dose: 100 mg - Labs Labs: 03/07/18 05:55 03/06/18 08:49 PT 13.2 Seconds (9.8-13.1) H 03/04/18 09:38 INR 1.2 (0.9-1.2) 03/04/18 09:38 APTT 33.2 Seconds (25.6-37.1) 03/04/18 09:38 - Constitutional Appears: No Acute Distress - Head Exam Head Exam: NORMOCEPHALIC - Eye Exam Eye Exam: Normal appearance - ENT Exam ENT Exam: Mucous Membranes Moist - Respiratory Exam Respiratory Exam: NORMAL BREATHING PATTERN - Cardiovascular Exam Cardiovascular Exam: +S1, +S2 - GI/Abdominal Exam GI & Abdominal Exam: Soft, Tenderness, Rebound. absent: Distended, Firm, Rigid Additional comments: +LLQ tenderness - Neurological Exam Neurological Exam: Alert, Awake, Oriented x3 - Psychiatric Exam Psychiatric exam: Normal Mood - Skin Skin Exam: Normal Color, Warm Assessment and Plan - Assessment and Plan (Free Text) Assessment: 77F with diverticulitis Plan: NPO w/ ice chips IVF ABx Analgesic/Anti-emetics prn DVT ppx D/w Dr. Maritza Mills PGY2
[2018-03-07] MEDS: Enoxaparin 40 mg Syringe SC SCH (08:08)
[2018-03-07] MEDS: Pantoprazole 40 mg EC Tab PO SCH (08:09)
[2018-03-07] MEDS: Digoxin 250 mcg (0.25 mg) Tab PO SCH (08:09)
[2018-03-07 08:48] LABS: BLOOD UREA NITROGEN 3 mg/dl (7-17); CALCIUM 7.9 mg/dL (8.4-10.2); GFR AFRICAN-AMERICAN > 60; GFR NON-AFRICAN AMERICAN > 60
--- NOTE | 2018-03-07 09:49 | CP.PCM.PN ---
Subjective - Date & Time of Evaluation Date of Evaluation: 03/07/18 Time of Evaluation: 09:46 - Subjective Subjective: Pain less today. Had increased pain with clear liquid diet yesterday and back on ice chips Objective - Vital Signs/Intake and Output Vital Signs (last 24 hours): Temp Pulse Resp BP Pulse Ox 97.4 F L 120 H 20 134/73 94 L 03/07/18 07:51 03/07/18 07:51 03/07/18 07:51 03/07/18 07:51 03/07/18 07:51 - Medications Medications: Current Medications Albuterol/Ipratropium (Duoneb 3 Mg/0.5 Mg (3 Ml) Ud) 3 ml INH RQ6 PRN PRN Reason: Shortness of Breath Aspirin (Ecotrin) 81 mg PO DAILY [facility] Last Admin: 03/05/18 10:34 Dose: Not Given Atorvastatin Calcium (Lipitor) 10 mg PO HS [facility] Last Admin: 03/06/18 21:58 Dose: 10 mg Carvedilol (Coreg) 3.125 mg PO DAILY [facility] Last Admin: 03/07/18 08:09 Dose: 3.125 mg Clopidogrel Bisulfate (Plavix) 75 mg PO DAILY [facility] Last Admin: 03/05/18 10:35 Dose: Not Given Digoxin (Lanoxin) 0.25 mg PO DAILY [facility] Last Admin: 03/07/18 08:09 Dose: 0.25 mg Enoxaparin Sodium (Lovenox) 40 mg SC DAILY [facility] PRN Reason: Protocol Last Admin: 03/07/18 08:08 Dose: 40 mg Ciprofloxacin (Cipro 400mg/200ml Dsw) 400 mg in 200 mls @ 200 mls/hr IVPB Q12@ 0400,1600 [facility] PRN Reason: Protocol Last Admin: 03/07/18 04:05 Dose: 200 mls/hr Metronidazole (Flagyl 500mg/100ml Ns) 100 mls @ 100 mls/hr IVPB Q8 [facility] PRN Reason: Protocol Last Admin: 03/07/18 08:08 Dose: 100 mls/hr Morphine Sulfate (Morphine) 2 mg IVP Q6 PRN PRN Reason: Pain, severe (8-10) Last Admin: 03/07/18 05:12 Dose: 2 mg Morphine Sulfate (Morphine) 1 mg IVP Q6 PRN PRN Reason: Pain, moderate (4-7) Last Admin: 03/06/18 14:42 Dose: 1 mg Nystatin (Mycostatin Cream) 1 applic TOP TID [facility] Last Admin: 03/07/18 08:07 Dose: 1 u Ondansetron HCl (Zofran Inj) 4 mg IVP Q4 PRN PRN Reason: Nausea/Vomiting Last Admin: 03/07/18 08:06 Dose: 4 mg Pantoprazole Sodium (Protonix Ec Tab) 40 mg PO DAILY [facility] Last Admin: 03/07/18 08:09 Dose: 40 mg Phenazopyridine HCl (Pyridium) 100 mg PO TID [facility] Last Admin: 03/07/18 08:08 Dose: 100 mg - Labs Labs: 03/07/18 05:55 03/07/18 05:55 PT 13.2 Seconds (9.8-13.1) H 03/04/18 09:38 INR 1.2 (0.9-1.2) 03/04/18 09:38 APTT 33.2 Seconds (25.6-37.1) 03/04/18 09:38 - Head Exam Head Exam: ATRAUMATIC - Eye Exam Eye Exam: Normal appearance - ENT Exam ENT Exam: Mucous Membranes Moist - Neck Exam Neck Exam: Normal Inspection - Cardiovascular Exam Cardiovascular Exam: REGULAR RHYTHM, +S1, +S2 - GI/Abdominal Exam GI & Abdominal Exam: Soft, Normal Bowel Sounds. absent: Tenderness Assessment and Plan (1) Diverticulitis Assessment & Plan: Clinically improving with generally less pain and reduced WBC. continue IV abx. May retry clear liquids for dinner or tomorrow breakfast Status: Acute
--- NOTE | 2018-03-07 12:58 | CP.PCM.PN ---
Subjective - Date & Time of Evaluation Date of Evaluation: 03/07/18 Time of Evaluation: 12:58 - Subjective Subjective: patient hesitant to attempt clear liquids again today as she had increased and severe pain yesterday will attempt later this afternoon when more comfortable hd stable seen by ESTEBAN GROVES Objective - Vital Signs/Intake and Output Vital Signs (last 24 hours): Temp Pulse Resp BP Pulse Ox 97.4 F L 75 20 98/61 L 98 03/07/18 07:51 03/07/18 11:27 03/07/18 07:51 03/07/18 11:27 03/07/18 11:27 - Medications Medications: Current Medications Albuterol/Ipratropium (Duoneb 3 Mg/0.5 Mg (3 Ml) Ud) 3 ml INH RQ6 PRN PRN Reason: Shortness of Breath Aspirin (Ecotrin) 81 mg PO DAILY [facility] Last Admin: 03/05/18 10:34 Dose: Not Given Atorvastatin Calcium (Lipitor) 10 mg PO HS [facility] Last Admin: 03/06/18 21:58 Dose: 10 mg Carvedilol (Coreg) 3.125 mg PO DAILY [facility] Last Admin: 03/07/18 08:09 Dose: 3.125 mg Clopidogrel Bisulfate (Plavix) 75 mg PO DAILY [facility] Last Admin: 03/05/18 10:35 Dose: Not Given Digoxin (Lanoxin) 0.25 mg PO DAILY [facility] Last Admin: 03/07/18 08:09 Dose: 0.25 mg Enoxaparin Sodium (Lovenox) 40 mg SC DAILY [facility] PRN Reason: Protocol Last Admin: 03/07/18 08:08 Dose: 40 mg Ciprofloxacin (Cipro 400mg/200ml Dsw) 400 mg in 200 mls @ 200 mls/hr IVPB Q12@ 0400,1600 [facility] PRN Reason: Protocol Last Admin: 03/07/18 04:05 Dose: 200 mls/hr Metronidazole (Flagyl 500mg/100ml Ns) 100 mls @ 100 mls/hr IVPB Q8 [facility] PRN Reason: Protocol Last Admin: 03/07/18 08:08 Dose: 100 mls/hr Morphine Sulfate (Morphine) 2 mg IVP Q6 PRN PRN Reason: Pain, severe (8-10) Last Admin: 03/07/18 12:09 Dose: 2 mg Morphine Sulfate (Morphine) 1 mg IVP Q6 PRN PRN Reason: Pain, moderate (4-7) Last Admin: 03/06/18 14:42 Dose: 1 mg Nystatin (Mycostatin Cream) 1 applic TOP TID [facility] Last Admin: 03/07/18 12:04 Dose: 1 u Ondansetron HCl (Zofran Inj) 4 mg IVP Q4 PRN PRN Reason: Nausea/Vomiting Last Admin: 03/07/18 12:00 Dose: 4 mg Pantoprazole Sodium (Protonix Ec Tab) 40 mg PO DAILY [facility] Last Admin: 03/07/18 08:09 Dose: 40 mg Phenazopyridine HCl (Pyridium) 100 mg PO TID [facility] Last Admin: 03/07/18 12:04 Dose: 100 mg - Labs Labs: 03/07/18 05:55 03/07/18 05:55 PT 13.2 Seconds (9.8-13.1) H 03/04/18 09:38 INR 1.2 (0.9-1.2) 03/04/18 09:38 APTT 33.2 Seconds (25.6-37.1) 03/04/18 09:38 - Constitutional Appears: Non-toxic, No Acute Distress - Head Exam Head Exam: ATRAUMATIC, NORMOCEPHALIC - Eye Exam Eye Exam: EOMI, Normal appearance, PERRL - ENT Exam ENT Exam: Mucous Membranes Moist, Normal Oropharynx - Respiratory Exam Respiratory Exam: Clear to Ausculation Bilateral, NORMAL BREATHING PATTERN - Cardiovascular Exam Cardiovascular Exam: RRR, +S1, +S2 - GI/Abdominal Exam GI & Abdominal Exam: Soft, Tenderness, Normal Bowel Sounds. absent: Mass, Organomegaly - Extremities Exam Extremities Exam: Normal Capillary Refill, Normal Inspection - Back Exam Back Exam: absent: CVA tenderness (L), CVA tenderness (R) - Neurological Exam Neurological Exam: Alert, Awake - Psychiatric Exam Psychiatric exam: Normal Affect, Normal Mood - Skin Skin Exam: Dry, Normal Color, Warm Assessment and Plan - Assessment and Plan (Free Text) Plan: 77 years old female with hx of Asthma, COPD, A Fib, Chf and diverticulosis. She was seen by the Material Control Clerk for loose Stool and abdominal pains one week ago. She nows comes to the ED with the intermittent pain across the lower abdomen, most severe on the LLQ. The pain is becoming more intense and is associated with diarrhea. She referred subjected fever but no nausea nor vomiting, 1) Acute diverticulitis, improving will attempt to advance diet slowly today CT Abdomen: These findings can represent ileus versus enteritis versus slow transit versus peristalsis. - Consult Dr Riley GI- will attempt clear liquid diet today; though pt c/o some nausea intermittently. - Consult Dr. Bailey, general surgery- recommends conservative management at this time, may need elective surgical intervention as outpatient - Stool for C&S- negative - Blood CX x 2 neg x 48 hours - IV Fluids with NS - Flagyl - Cipro - Pain management 2) Acute UTI Continue Cipro/Flagyl add Pyridium for pain control #. Leukocytosis, improving slowly - 14->13->12.5 Today - follow up WBC #. Chronic A Fib rate controlled - Digoxin/ASA - Not on anticoagulant #. Asthma/ COPD/ ANKITA - consult Dr Fang pulmonology - Duoneb PRN #. Stress ulcer Prophylaxis with Protonix #. DVT prophylaxis with lovenox #, Code Status: Full
--- NOTE | 2018-03-07 14:02 | CP.PCM.PN ---
Subjective - Date & Time of Evaluation Date of Evaluation: 03/07/18 Time of Evaluation: 11:00 - Subjective Subjective: As noted pt did not tolerate clear liquids well had increased abdominal pains after clear liquids Objective - Vital Signs/Intake and Output Vital Signs (last 24 hours): Temp Pulse Resp BP Pulse Ox 97.4 F L 75 20 98/61 L 98 03/07/18 07:51 03/07/18 11:27 03/07/18 07:51 03/07/18 11:27 03/07/18 11:27 - Medications Medications: Current Medications Albuterol/Ipratropium (Duoneb 3 Mg/0.5 Mg (3 Ml) Ud) 3 ml INH RQ6 PRN PRN Reason: Shortness of Breath Aspirin (Ecotrin) 81 mg PO DAILY [facility] Last Admin: 03/05/18 10:34 Dose: Not Given Atorvastatin Calcium (Lipitor) 10 mg PO HS [facility] Last Admin: 03/06/18 21:58 Dose: 10 mg Carvedilol (Coreg) 3.125 mg PO DAILY [facility] Last Admin: 03/07/18 08:09 Dose: 3.125 mg Clopidogrel Bisulfate (Plavix) 75 mg PO DAILY [facility] Last Admin: 03/05/18 10:35 Dose: Not Given Digoxin (Lanoxin) 0.25 mg PO DAILY [facility] Last Admin: 03/07/18 08:09 Dose: 0.25 mg Enoxaparin Sodium (Lovenox) 40 mg SC DAILY [facility] PRN Reason: Protocol Last Admin: 03/07/18 08:08 Dose: 40 mg Ciprofloxacin (Cipro 400mg/200ml Dsw) 400 mg in 200 mls @ 200 mls/hr IVPB Q12@ 0400,1600 [facility] PRN Reason: Protocol Last Admin: 03/07/18 04:05 Dose: 200 mls/hr Metronidazole (Flagyl 500mg/100ml Ns) 100 mls @ 100 mls/hr IVPB Q8 [facility] PRN Reason: Protocol Last Admin: 03/07/18 08:08 Dose: 100 mls/hr Morphine Sulfate (Morphine) 2 mg IVP Q6 PRN PRN Reason: Pain, severe (8-10) Last Admin: 03/07/18 12:09 Dose: 2 mg Morphine Sulfate (Morphine) 1 mg IVP Q6 PRN PRN Reason: Pain, moderate (4-7) Last Admin: 03/06/18 14:42 Dose: 1 mg Nystatin (Mycostatin Cream) 1 applic TOP TID [facility] Last Admin: 03/07/18 12:04 Dose: 1 u Ondansetron HCl (Zofran Inj) 4 mg IVP Q4 PRN PRN Reason: Nausea/Vomiting Last Admin: 03/07/18 12:00 Dose: 4 mg Pantoprazole Sodium (Protonix Ec Tab) 40 mg PO DAILY [facility] Last Admin: 03/07/18 08:09 Dose: 40 mg Phenazopyridine HCl (Pyridium) 100 mg PO TID [facility] Last Admin: 03/07/18 12:04 Dose: 100 mg - Labs Labs: 03/07/18 05:55 03/07/18 05:55 PT 13.2 Seconds (9.8-13.1) H 03/04/18 09:38 INR 1.2 (0.9-1.2) 03/04/18 09:38 APTT 33.2 Seconds (25.6-37.1) 03/04/18 09:38 Assessment and Plan (1) Atrial fibrillation, chronic Status: Acute (2) Diverticulitis Status: Acute (3) Asthma with COPD Status: Chronic (4) Hypertension Status: Chronic (5) Urinary incontinence Status: Chronic
--- NOTE | 2018-03-07 14:35 | CP.PCM.PN ---
Subjective - Date & Time of Evaluation Date of Evaluation: 03/07/18 Time of Evaluation: 14:31 - Subjective Subjective: General surgery Pt seen and examined this AM. She reports after trying her clear liquid diet that she began to have increased abdominal pain. Pt reports she has been tolerating sips of water at this time. She describes her abdominal pain as feeling "sore". Afebrile overnight. Labs and vitals noted. WBC slightly improved from 12.5 to 11.3 today PE Gen: Pt laying in bed in NAD Skin: warm and dry Cardio: Afib, rate controlled Lungs: CTA bilaterally Abd: Soft (+) LLQ and LUQ tenderness, (-) ND Extr: (+) left elbow deformity, (-) calf tenderness bilterally A/P Diverticulitis Pt to advance to clears liquids as tolerated, pt made aware to let staff know when she feels ready to drink Okay to restart anticoagulants as surgery isn't planned for this pt at this time Continue iv antibiotics Monitor labs Serial abdominal exams Objective - Vital Signs/Intake and Output Vital Signs (last 24 hours): Temp Pulse Resp BP Pulse Ox 97.4 F L 75 20 98/61 L 98 03/07/18 07:51 03/07/18 11:27 03/07/18 07:51 03/07/18 11:27 03/07/18 11:27 - Medications Medications: Current Medications Albuterol/Ipratropium (Duoneb 3 Mg/0.5 Mg (3 Ml) Ud) 3 ml INH RQ6 PRN PRN Reason: Shortness of Breath Aspirin (Ecotrin) 81 mg PO DAILY [facility] Last Admin: 03/05/18 10:34 Dose: Not Given Atorvastatin Calcium (Lipitor) 10 mg PO HS [facility] Last Admin: 03/06/18 21:58 Dose: 10 mg Carvedilol (Coreg) 3.125 mg PO DAILY [facility] Last Admin: 03/07/18 08:09 Dose: 3.125 mg Clopidogrel Bisulfate (Plavix) 75 mg PO DAILY [facility] Last Admin: 03/05/18 10:35 Dose: Not Given Digoxin (Lanoxin) 0.25 mg PO DAILY [facility] Last Admin: 03/07/18 08:09 Dose: 0.25 mg Enoxaparin Sodium (Lovenox) 40 mg SC DAILY [facility] PRN Reason: Protocol Last Admin: 03/07/18 08:08 Dose: 40 mg Ciprofloxacin (Cipro 400mg/200ml Dsw) 400 mg in 200 mls @ 200 mls/hr IVPB Q12@ 0400,1600 [facility] PRN Reason: Protocol Last Admin: 03/07/18 04:05 Dose: 200 mls/hr Metronidazole (Flagyl 500mg/100ml Ns) 100 mls @ 100 mls/hr IVPB Q8 [facility] PRN Reason: Protocol Last Admin: 03/07/18 08:08 Dose: 100 mls/hr Morphine Sulfate (Morphine) 2 mg IVP Q6 PRN PRN Reason: Pain, severe (8-10) Last Admin: 03/07/18 12:09 Dose: 2 mg Morphine Sulfate (Morphine) 1 mg IVP Q6 PRN PRN Reason: Pain, moderate (4-7) Last Admin: 03/06/18 14:42 Dose: 1 mg Nystatin (Mycostatin Cream) 1 applic TOP TID [facility] Last Admin: 03/07/18 12:04 Dose: 1 u Ondansetron HCl (Zofran Inj) 4 mg IVP Q4 PRN PRN Reason: Nausea/Vomiting Last Admin: 03/07/18 12:00 Dose: 4 mg Pantoprazole Sodium (Protonix Ec Tab) 40 mg PO DAILY [facility] Last Admin: 03/07/18 08:09 Dose: 40 mg Phenazopyridine HCl (Pyridium) 100 mg PO TID [facility] Last Admin: 03/07/18 12:04 Dose: 100 mg - Labs Labs: 03/07/18 05:55 03/07/18 05:55 PT 13.2 Seconds (9.8-13.1) H 03/04/18 09:38 INR 1.2 (0.9-1.2) 03/04/18 09:38 APTT 33.2 Seconds (25.6-37.1) 03/04/18 09:38 Assessment and Plan (1) Diverticulitis Status: Acute
--- NOTE | 2018-03-07 15:50 | CP.PCM.PN ---
Subjective - Date & Time of Evaluation Date of Evaluation: 03/07/18 Time of Evaluation: 15:36 - Subjective Subjective: Interim events reviewed. Patient was tried with clear liquids by mouth yesterday but developed increased abdominal pain subsequently. Her leukocytosis continues to decrease on a daily basis. Her vital signs remained stable and she is afebrile. The abdomen is soft with tenderness mostly in the left lower quadrant. Bowel sounds are present. Lungs remain clear to auscultation bilaterally. The heart sounds are slightly distant and the rhythm is regular. WILL continue current antibiotic regimen and attempt clear liquids again at a later time. Objective - Vital Signs/Intake and Output Vital Signs (last 24 hours): Temp Pulse Resp BP Pulse Ox 97.4 F L 75 20 98/61 L 98 03/07/18 07:51 03/07/18 11:27 03/07/18 07:51 03/07/18 11:27 03/07/18 11:27 - Medications Medications: Current Medications Albuterol/Ipratropium (Duoneb 3 Mg/0.5 Mg (3 Ml) Ud) 3 ml INH RQ6 PRN PRN Reason: Shortness of Breath Aspirin (Ecotrin) 81 mg PO DAILY [facility] Last Admin: 03/05/18 10:34 Dose: Not Given Atorvastatin Calcium (Lipitor) 10 mg PO HS [facility] Last Admin: 03/06/18 21:58 Dose: 10 mg Carvedilol (Coreg) 3.125 mg PO DAILY [facility] Last Admin: 03/07/18 08:09 Dose: 3.125 mg Clopidogrel Bisulfate (Plavix) 75 mg PO DAILY [facility] Last Admin: 03/05/18 10:35 Dose: Not Given Digoxin (Lanoxin) 0.25 mg PO DAILY [facility] Last Admin: 03/07/18 08:09 Dose: 0.25 mg Enoxaparin Sodium (Lovenox) 40 mg SC DAILY [facility] PRN Reason: Protocol Last Admin: 03/07/18 08:08 Dose: 40 mg Ciprofloxacin (Cipro 400mg/200ml Dsw) 400 mg in 200 mls @ 200 mls/hr IVPB Q12@ 0400,1600 [facility] PRN Reason: Protocol Last Admin: 03/07/18 04:05 Dose: 200 mls/hr Metronidazole (Flagyl 500mg/100ml Ns) 100 mls @ 100 mls/hr IVPB Q8 [facility] PRN Reason: Protocol Last Admin: 03/07/18 08:08 Dose: 100 mls/hr Morphine Sulfate (Morphine) 2 mg IVP Q6 PRN PRN Reason: Pain, severe (8-10) Last Admin: 03/07/18 12:09 Dose: 2 mg Morphine Sulfate (Morphine) 1 mg IVP Q6 PRN PRN Reason: Pain, moderate (4-7) Last Admin: 03/06/18 14:42 Dose: 1 mg Nystatin (Mycostatin Cream) 1 applic TOP TID [facility] Last Admin: 03/07/18 12:04 Dose: 1 u Ondansetron HCl (Zofran Inj) 4 mg IVP Q4 PRN PRN Reason: Nausea/Vomiting Last Admin: 03/07/18 12:00 Dose: 4 mg Pantoprazole Sodium (Protonix Ec Tab) 40 mg PO DAILY [facility] Last Admin: 03/07/18 08:09 Dose: 40 mg Phenazopyridine HCl (Pyridium) 100 mg PO TID [facility] Last Admin: 03/07/18 12:04 Dose: 100 mg - Labs Labs: 03/07/18 05:55 03/07/18 05:55 PT 13.2 Seconds (9.8-13.1) H 03/04/18 09:38 INR 1.2 (0.9-1.2) 03/04/18 09:38 APTT 33.2 Seconds (25.6-37.1) 03/04/18 09:38 Assessment and Plan (1) Asthma with COPD Status: Chronic (2) CAD (coronary artery disease) Status: Chronic (3) Chronic atrial fibrillation Status: Chronic
[2018-03-08] MEDS: metroNIDAZOLE 500mg/100ml NS 100 ML IVPB SCH ×3 (01:00→18:07)
[2018-03-08] MEDS: Ciprofloxacin 400mg/200ml D5W 400 MG/200 ML BAG IVPB SCH ×2 (03:55→16:25)
--- NOTE | 2018-03-08 07:59 | CP.PCM.PN ---
<IrishKwame - Last Filed: 03/08/18 07:56> Subjective - Date & Time of Evaluation Date of Evaluation: 03/08/18 Time of Evaluation: 07:00 - Subjective Subjective: Surgery Progress note. Dr. Salas Pt seen and examined at bedside. No acute events overnight. Does report some nausea yesterday evening. Pain much improved. No F/C. States that she would like to try some liquids this morning. Does report flatus. No new complaints. Objective - Vital Signs/Intake and Output Vital Signs (last 24 hours): Temp Pulse Resp BP Pulse Ox 98.1 F 72 20 115/82 93 L 03/08/18 07:39 03/08/18 07:39 03/08/18 07:39 03/08/18 07:39 03/08/18 07:39 - Medications Medications: Current Medications Albuterol/Ipratropium (Duoneb 3 Mg/0.5 Mg (3 Ml) Ud) 3 ml INH RQ6 PRN PRN Reason: Shortness of Breath Aspirin (Ecotrin) 81 mg PO DAILY [facility] Last Admin: 03/05/18 10:34 Dose: Not Given Atorvastatin Calcium (Lipitor) 10 mg PO HS [facility] Last Admin: 03/07/18 21:52 Dose: 10 mg Carvedilol (Coreg) 3.125 mg PO DAILY [facility] Last Admin: 03/07/18 08:09 Dose: 3.125 mg Clopidogrel Bisulfate (Plavix) 75 mg PO DAILY [facility] Last Admin: 03/05/18 10:35 Dose: Not Given Digoxin (Lanoxin) 0.25 mg PO DAILY [facility] Last Admin: 03/07/18 08:09 Dose: 0.25 mg Enoxaparin Sodium (Lovenox) 40 mg SC DAILY [facility] PRN Reason: Protocol Last Admin: 03/07/18 08:08 Dose: 40 mg Ciprofloxacin (Cipro 400mg/200ml Dsw) 400 mg in 200 mls @ 200 mls/hr IVPB Q12@ 0400,1600 [facility] PRN Reason: Protocol Last Admin: 03/08/18 03:55 Dose: 200 mls/hr Metronidazole (Flagyl 500mg/100ml Ns) 100 mls @ 100 mls/hr IVPB Q8 [facility] PRN Reason: Protocol Last Admin: 03/08/18 01:00 Dose: 100 mls/hr Morphine Sulfate (Morphine) 2 mg IVP Q6 PRN PRN Reason: Pain, severe (8-10) Last Admin: 03/07/18 17:35 Dose: 2 mg Morphine Sulfate (Morphine) 1 mg IVP Q6 PRN PRN Reason: Pain, moderate (4-7) Last Admin: 03/06/18 14:42 Dose: 1 mg Nystatin (Mycostatin Cream) 1 applic TOP TID [facility] Last Admin: 03/07/18 16:07 Dose: 1 u Ondansetron HCl (Zofran Inj) 4 mg IVP Q4 PRN PRN Reason: Nausea/Vomiting Last Admin: 03/07/18 12:00 Dose: 4 mg Pantoprazole Sodium (Protonix Ec Tab) 40 mg PO DAILY [facility] Last Admin: 03/07/18 08:09 Dose: 40 mg Phenazopyridine HCl (Pyridium) 100 mg PO TID [facility] Last Admin: 03/07/18 16:07 Dose: 100 mg - Labs Labs: 03/07/18 05:55 03/07/18 05:55 PT 13.2 Seconds (9.8-13.1) H 03/04/18 09:38 INR 1.2 (0.9-1.2) 03/04/18 09:38 APTT 33.2 Seconds (25.6-37.1) 03/04/18 09:38 - Constitutional Appears: Non-toxic, No Acute Distress - Head Exam Head Exam: ATRAUMATIC, NORMAL INSPECTION, NORMOCEPHALIC - Eye Exam Eye Exam: EOMI, Normal appearance. absent: Scleral icterus - ENT Exam ENT Exam: Mucous Membranes Moist - Respiratory Exam Respiratory Exam: NORMAL BREATHING PATTERN. absent: Accessory Muscle Use, Respiratory Distress - Cardiovascular Exam Cardiovascular Exam: RRR. absent: JVD - GI/Abdominal Exam GI & Abdominal Exam: Soft. absent: Distended, Firm, Guarding, Rebound Additional comments: mild LLQ tenderness, much improved compared to yesterday - Extremities Exam Extremities Exam: Normal Inspection. absent: Calf Tenderness - Neurological Exam Neurological Exam: Alert, Awake, Oriented x3 - Skin Skin Exam: Dry, Intact, Normal Color, Warm Assessment and Plan - Assessment and Plan (Free Text) Assessment: 77yo F with Diverticulitis Plan: - Advance diet to CLD, slowly - Antiemetics prn. Analgesics prn - IVF - ABX - DVT ppx Further recs as per Dr. Maritza Coburn PGY1 surgery pager: [phone] <Jonathan Salas - Last Filed: 03/08/18 12:42> Subjective - Date & Time of Evaluation Time of Evaluation: 12:20 - Subjective Subjective: Patient was seen and examined at the bedside. Agree with resident's note above. Objective - Vital Signs/Intake and Output Vital Signs (last 24 hours): Temp Pulse Resp BP Pulse Ox 98.1 F 72 20 115/82 93 L 03/08/18 07:39 03/08/18 08:56 03/08/18 07:39 03/08/18 08:56 03/08/18 07:39 - Medications Medications: Current Medications Albuterol/Ipratropium (Duoneb 3 Mg/0.5 Mg (3 Ml) Ud) 3 ml INH RQ6 PRN PRN Reason: Shortness of Breath Aspirin (Ecotrin) 81 mg PO DAILY [facility] Last Admin: 03/05/18 10:34 Dose: Not Given Atorvastatin Calcium (Lipitor) 10 mg PO HS [facility] Last Admin: 03/07/18 21:52 Dose: 10 mg Carvedilol (Coreg) 3.125 mg PO DAILY [facility] Last Admin: 03/08/18 08:56 Dose: 3.125 mg Clopidogrel Bisulfate (Plavix) 75 mg PO DAILY [facility] Last Admin: 03/08/18 09:02 Dose: Not Given Digoxin (Lanoxin) 0.25 mg PO DAILY [facility] Last Admin: 03/08/18 08:57 Dose: 0.25 mg Enoxaparin Sodium (Lovenox) 40 mg SC DAILY [facility] PRN Reason: Protocol Last Admin: 03/08/18 08:57 Dose: 40 mg Ciprofloxacin (Cipro 400mg/200ml Dsw) 400 mg in 200 mls @ 200 mls/hr IVPB Q12@ 0400,1600 [facility] PRN Reason: Protocol Last Admin: 03/08/18 03:55 Dose: 200 mls/hr Metronidazole (Flagyl 500mg/100ml Ns) 100 mls @ 100 mls/hr IVPB Q8 [facility] PRN Reason: Protocol Last Admin: 03/08/18 08:56 Dose: 100 mls/hr Morphine Sulfate (Morphine) 2 mg IVP Q6 PRN PRN Reason: Pain, severe (8-10) Last Admin: 03/08/18 09:06 Dose: 2 mg Morphine Sulfate (Morphine) 1 mg IVP Q6 PRN PRN Reason: Pain, moderate (4-7) Last Admin: 03/06/18 14:42 Dose: 1 mg Nystatin (Mycostatin Cream) 1 applic TOP TID [facility] Last Admin: 03/08/18 08:56 Dose: 1 u Ondansetron HCl (Zofran Inj) 4 mg IVP Q4 PRN PRN Reason: Nausea/Vomiting Last Admin: 03/08/18 09:02 Dose: 4 mg Pantoprazole Sodium (Protonix Ec Tab) 40 mg PO DAILY [facility] Last Admin: 03/08/18 08:57 Dose: 40 mg Phenazopyridine HCl (Pyridium) 100 mg PO TID [facility] Last Admin: 03/08/18 08:58 Dose: 100 mg - Labs Labs: 03/08/18 09:14 03/07/18 05:55 PT 13.2 Seconds (9.8-13.1) H 03/04/18 09:38 INR 1.2 (0.9-1.2) 03/04/18 09:38 APTT 33.2 Seconds (25.6-37.1) 03/04/18 09:38 Assessment and Plan - Assessment and Plan (Free Text) Plan: - Patient may have sips of water and ice chips, will hold off on clear liquid diet for now - repeat labs in am - Will follow
[2018-03-08] MEDS: Pantoprazole 40 mg EC Tab PO SCH (08:57)
[2018-03-08] MEDS: Digoxin 250 mcg (0.25 mg) Tab PO SCH (08:57)
[2018-03-08] MEDS: Enoxaparin 40 mg Syringe SC SCH (08:57)
[2018-03-08 09:22] LABS: HEMOGLOBIN 12.6 g/dL (12.0-16.0); MEAN CELL VOLUME 94.2 fl (81.0-99.0); MEAN CORPUSCULAR HEMOGLOBIN 30.8 pg (27.0-31.0); MEAN CORPUSCULAR HGB CONC 32.7 g/dL (33.0-37.0); RBC 4.09 Mil/uL (3.80-5.20); RED CELL DISTRIBUTION WIDTH 15.9 % (11.5-14.5); WHITE BLOOD COUNT 8.5 K/uL (4.8-10.8)
--- NOTE | 2018-03-08 09:46 | PQF ---
PROVIDER RESPONSE TEXT: Both Acute diverticulitis and acute Urinary Tract Infection were present on admission. REVIEWER QUERY TEXT: Present On Admission It is unclear whether a diagnosis was present on admission. Your help is needed. Please clarify the POA status Such as: -- Present on admission -- Not present on admission The patient's Clinical Indicators include: Admitted on 03/04/18 for Acute Diverticulitis. PN 03/06 + Bladder pain when urinating. UTI. On Cipro a nd Flagyl add Pyridium for pain control. UA on admission: Turbid, nitrate +, leukocytes, many WBC and bacteria. Query created by: Tricia Raya on 03/07/2018 10:44 AM Electronically signed by: Travis Reeder MD 03/08/2018 9:44 AM
--- NOTE | 2018-03-08 09:48 | CP.PCM.PN ---
Subjective - Date & Time of Evaluation Date of Evaluation: 03/08/18 Time of Evaluation: 09:47 - Subjective Subjective: pt feeling improved willing to attempt PO clears today HD stable NAD Objective - Vital Signs/Intake and Output Vital Signs (last 24 hours): Temp Pulse Resp BP Pulse Ox 98.1 F 72 20 115/82 93 L 03/08/18 07:39 03/08/18 08:56 03/08/18 07:39 03/08/18 08:56 03/08/18 07:39 GEN: WDWN, ALERT, COOPERATIVE HEENT: NCAT, PERRL, EOMI HEART: +S1+S2, RRR NO MRG LUNG: CTAB, NO WRR ABD: SOFT BSX4 ND NO HSM NO MASS EXT: WARM, WELL PERFUSED NEURO: AA0X3, STRENGTH AND SENSATION EQUAL AND BILATERAL SKIN: WARM DRY PSYCH: NORMAL MOOD NORMAL AFFECT - Medications Medications: Current Medications Albuterol/Ipratropium (Duoneb 3 Mg/0.5 Mg (3 Ml) Ud) 3 ml INH RQ6 PRN PRN Reason: Shortness of Breath Aspirin (Ecotrin) 81 mg PO DAILY [facility] [place] Last Admin: 03/05/18 10:34 Dose: Not Given Atorvastatin Calcium (Lipitor) 10 mg PO HS [facility] [place] Last Admin: 03/07/18 21:52 Dose: 10 mg Carvedilol (Coreg) 3.125 mg PO DAILY [facility] [place] Last Admin: 03/08/18 08:56 Dose: 3.125 mg Clopidogrel Bisulfate (Plavix) 75 mg PO DAILY [facility] [place] Last Admin: 03/08/18 09:02 Dose: Not Given Digoxin (Lanoxin) 0.25 mg PO DAILY [facility] [place] Last Admin: 03/08/18 08:57 Dose: 0.25 mg Enoxaparin Sodium (Lovenox) 40 mg SC DAILY [facility] [place] PRN Reason: Protocol Last Admin: 03/08/18 08:57 Dose: 40 mg Ciprofloxacin (Cipro 400mg/200ml Dsw) 400 mg in 200 mls @ 200 mls/hr IVPB Q12@ 0400,1600 [facility] PRN Reason: Protocol Last Admin: 03/08/18 03:55 Dose: 200 mls/hr Metronidazole (Flagyl 500mg/100ml Ns) 100 mls @ 100 mls/hr IVPB Q8 [facility] [place] PRN Reason: Protocol Last Admin: 03/08/18 08:56 Dose: 100 mls/hr Morphine Sulfate (Morphine) 2 mg IVP Q6 PRN PRN Reason: Pain, severe (8-10) Last Admin: 03/08/18 09:06 Dose: 2 mg Morphine Sulfate (Morphine) 1 mg IVP Q6 PRN PRN Reason: Pain, moderate (4-7) Last Admin: 03/06/18 14:42 Dose: 1 mg Nystatin (Mycostatin Cream) 1 applic TOP TID [facility] [place] Last Admin: 03/08/18 08:56 Dose: 1 u Ondansetron HCl (Zofran Inj) 4 mg IVP Q4 PRN PRN Reason: Nausea/Vomiting Last Admin: 03/08/18 09:02 Dose: 4 mg Pantoprazole Sodium (Protonix Ec Tab) 40 mg PO DAILY [facility] [place] Last Admin: 03/08/18 08:57 Dose: 40 mg Phenazopyridine HCl (Pyridium) 100 mg PO TID [facility] [place] Last Admin: 03/08/18 08:58 Dose: 100 mg - Labs Labs: 03/08/18 09:14 03/07/18 05:55 PT 13.2 Seconds (9.8-13.1) H 03/04/18 09:38 INR 1.2 (0.9-1.2) 03/04/18 09:38 APTT 33.2 Seconds (25.6-37.1) 03/04/18 09:38 Assessment and Plan - Assessment and Plan (Free Text) Plan: 77 years old female with hx of Asthma, COPD, A Fib, Chf and diverticulosis. She was seen by the Dental Aide for loose Stool and abdominal pains one week ago. She nows comes to the ED with the intermittent pain across the lower abdomen, most severe on the LLQ. The pain is becoming more intense and is associated with diarrhea. She referred subjected fever but no nausea nor vomiting, 1) Acute diverticulitis - improving attempting to advance diet very slowly, patient very sensitive,+ nausea CT Abdomen: These findings can represent ileus versus enteritis versus slow transit versus peristalsis. - Consult Dr Riley GI- will attempt clear liquid diet today; though pt c/o some nausea intermittently. - Consult Dr. Bailey, general surgery- recommends conservative management at this time, may need elective surgical intervention as outpatient - Stool for C&S- negative - Blood CX x 2 neg x 48 hours - Flagyl - Cipro - Pain management 2) Acute UTI Continue Cipro/Flagyl add Pyridium for pain control #. Leukocytosis, improved - follow up WBC #. Chronic A Fib rate controlled - Digoxin/ASA - Not on anticoagulant #. Asthma/ COPD/ ANKITA - consult Dr Fang pulmonology - Duoneb PRN #. Stress ulcer Prophylaxis with Protonix #. DVT prophylaxis with lovenox #, Code Status: Full
--- NOTE | 2018-03-08 14:53 | CP.PCM.PN ---
Subjective - Date & Time of Evaluation Date of Evaluation: 03/08/18 Time of Evaluation: 14:53 - Subjective Subjective: Appears more comfortable today. Able to take small amounts of clear liquids. Abdominal pain is gradually decreasing. Small soft stool reported. Remains afebrile, vital signs are stable. White count is now WNL. Renal function good. Abdomen is more soft and less tender on palpation. Bowel sounds appear to be normal. Chest remains okay with few dry dependant rales only. No wheezing or bronchial breathing. Minimal ankle and foot swelling, mildly erythematous w/o increased warmth. Will maintain current regimen. Advance diet as tolerated. Surgery following also; no planned interventions at this time. Physical therapy evaluation to begin mobilization. Objective - Vital Signs/Intake and Output Vital Signs (last 24 hours): Temp Pulse Resp BP Pulse Ox 98.1 F 72 20 115/82 93 L 03/08/18 07:39 03/08/18 08:56 03/08/18 07:39 03/08/18 08:56 03/08/18 07:39 - Medications Medications: Current Medications Albuterol/Ipratropium (Duoneb 3 Mg/0.5 Mg (3 Ml) Ud) 3 ml INH RQ6 PRN PRN Reason: Shortness of Breath Aspirin (Ecotrin) 81 mg PO DAILY [facility] Last Admin: 03/05/18 10:34 Dose: Not Given Atorvastatin Calcium (Lipitor) 10 mg PO HS [facility] Last Admin: 03/07/18 21:52 Dose: 10 mg Carvedilol (Coreg) 3.125 mg PO DAILY [facility] Last Admin: 03/08/18 08:56 Dose: 3.125 mg Clopidogrel Bisulfate (Plavix) 75 mg PO DAILY [facility] Last Admin: 03/08/18 09:02 Dose: Not Given Digoxin (Lanoxin) 0.25 mg PO DAILY [facility] Last Admin: 03/08/18 08:57 Dose: 0.25 mg Enoxaparin Sodium (Lovenox) 40 mg SC DAILY [facility] PRN Reason: Protocol Last Admin: 03/08/18 08:57 Dose: 40 mg Ciprofloxacin (Cipro 400mg/200ml Dsw) 400 mg in 200 mls @ 200 mls/hr IVPB Q12@ 0400,1600 [facility] PRN Reason: Protocol Last Admin: 03/08/18 03:55 Dose: 200 mls/hr Metronidazole (Flagyl 500mg/100ml Ns) 100 mls @ 100 mls/hr IVPB Q8 [facility] PRN Reason: Protocol Last Admin: 03/08/18 08:56 Dose: 100 mls/hr Morphine Sulfate (Morphine) 2 mg IVP Q6 PRN PRN Reason: Pain, severe (8-10) Last Admin: 03/08/18 09:06 Dose: 2 mg Morphine Sulfate (Morphine) 1 mg IVP Q6 PRN PRN Reason: Pain, moderate (4-7) Last Admin: 03/06/18 14:42 Dose: 1 mg Nystatin (Mycostatin Cream) 1 applic TOP TID [facility] Last Admin: 03/08/18 14:01 Dose: Not Given Ondansetron HCl (Zofran Inj) 4 mg IVP Q4 PRN PRN Reason: Nausea/Vomiting Last Admin: 03/08/18 14:03 Dose: 4 mg Pantoprazole Sodium (Protonix Ec Tab) 40 mg PO DAILY [facility] Last Admin: 03/08/18 08:57 Dose: 40 mg Phenazopyridine HCl (Pyridium) 100 mg PO TID [facility] Last Admin: 03/08/18 14:03 Dose: 100 mg - Labs Labs: 03/08/18 09:14 03/07/18 05:55 PT 13.2 Seconds (9.8-13.1) H 03/04/18 09:38 INR 1.2 (0.9-1.2) 03/04/18 09:38 APTT 33.2 Seconds (25.6-37.1) 03/04/18 09:38 Assessment and Plan (1) Asthma with COPD Status: Chronic (2) CAD (coronary artery disease) Status: Chronic (3) Chronic atrial fibrillation Status: Chronic
--- NOTE | 2018-03-08 15:11 | CP.PCM.PN ---
Subjective - Date & Time of Evaluation Date of Evaluation: 03/08/18 Time of Evaluation: 15:02 - Subjective Subjective: Patient again had pain after clear liquids. WBC continues to come down. Continue abx. Objective - Vital Signs/Intake and Output Vital Signs (last 24 hours): Temp Pulse Resp BP Pulse Ox 98.1 F 72 20 115/82 93 L 03/08/18 07:39 03/08/18 08:56 03/08/18 07:39 03/08/18 08:56 03/08/18 07:39 - Medications Medications: Current Medications Albuterol/Ipratropium (Duoneb 3 Mg/0.5 Mg (3 Ml) Ud) 3 ml INH RQ6 PRN PRN Reason: Shortness of Breath Aspirin (Ecotrin) 81 mg PO DAILY [facility] Last Admin: 03/05/18 10:34 Dose: Not Given Atorvastatin Calcium (Lipitor) 10 mg PO HS [facility] Last Admin: 03/07/18 21:52 Dose: 10 mg Carvedilol (Coreg) 3.125 mg PO DAILY [facility] Last Admin: 03/08/18 08:56 Dose: 3.125 mg Clopidogrel Bisulfate (Plavix) 75 mg PO DAILY [facility] Last Admin: 03/08/18 09:02 Dose: Not Given Digoxin (Lanoxin) 0.25 mg PO DAILY [facility] Last Admin: 03/08/18 08:57 Dose: 0.25 mg Enoxaparin Sodium (Lovenox) 40 mg SC DAILY [facility] PRN Reason: Protocol Last Admin: 03/08/18 08:57 Dose: 40 mg Ciprofloxacin (Cipro 400mg/200ml Dsw) 400 mg in 200 mls @ 200 mls/hr IVPB Q12@ 0400,1600 [facility] PRN Reason: Protocol Last Admin: 03/08/18 03:55 Dose: 200 mls/hr Metronidazole (Flagyl 500mg/100ml Ns) 100 mls @ 100 mls/hr IVPB Q8 [facility] PRN Reason: Protocol Last Admin: 03/08/18 08:56 Dose: 100 mls/hr Morphine Sulfate (Morphine) 2 mg IVP Q6 PRN PRN Reason: Pain, severe (8-10) Last Admin: 03/08/18 09:06 Dose: 2 mg Morphine Sulfate (Morphine) 1 mg IVP Q6 PRN PRN Reason: Pain, moderate (4-7) Last Admin: 03/06/18 14:42 Dose: 1 mg Nystatin (Mycostatin Cream) 1 applic TOP TID [facility] Last Admin: 03/08/18 14:01 Dose: Not Given Ondansetron HCl (Zofran Inj) 4 mg IVP Q4 PRN PRN Reason: Nausea/Vomiting Last Admin: 03/08/18 14:03 Dose: 4 mg Pantoprazole Sodium (Protonix Ec Tab) 40 mg PO DAILY [facility] Last Admin: 03/08/18 08:57 Dose: 40 mg Phenazopyridine HCl (Pyridium) 100 mg PO TID [facility] Last Admin: 03/08/18 14:03 Dose: 100 mg - Labs Labs: 03/08/18 09:14 03/07/18 05:55 PT 13.2 Seconds (9.8-13.1) H 03/04/18 09:38 INR 1.2 (0.9-1.2) 03/04/18 09:38 APTT 33.2 Seconds (25.6-37.1) 03/04/18 09:38 Assessment and Plan (1) Diverticulitis Status: Acute
[2018-03-09] MEDS: metroNIDAZOLE 500mg/100ml NS 100 ML IVPB SCH ×3 (01:30→17:36)
[2018-03-09] MEDS: Ciprofloxacin 400mg/200ml D5W 400 MG/200 ML BAG IVPB SCH ×2 (04:09→17:37)
[2018-03-09 07:52] LABS: HEMOGLOBIN 12.5 g/dL (12.0-16.0); MEAN CELL VOLUME 93.8 fl (81.0-99.0); MEAN CORPUSCULAR HEMOGLOBIN 31.6 pg (27.0-31.0); MEAN CORPUSCULAR HGB CONC 33.8 g/dL (33.0-37.0); RBC 3.94 Mil/uL (3.80-5.20); RED CELL DISTRIBUTION WIDTH 15.9 % (11.5-14.5); WHITE BLOOD COUNT 7.6 K/uL (4.8-10.8)
--- NOTE | 2018-03-09 08:36 | CP.PCM.PN ---
Subjective - Date & Time of Evaluation Date of Evaluation: 03/09/18 Time of Evaluation: 08:33 - Subjective Subjective: pt states she had pain after trialing liquids yesterday she takes her pills with water without issue per nursing shes been changed back to NPO with maintenance fluids hd stable nad Objective - Vital Signs/Intake and Output Vital Signs (last 24 hours): Temp Pulse Resp BP Pulse Ox 97.5 F L 106 H 20 110/79 92 L 03/09/18 08:12 03/09/18 08:12 03/09/18 08:12 03/09/18 08:12 03/09/18 08:12 - Medications Medications: Current Medications Albuterol/Ipratropium (Duoneb 3 Mg/0.5 Mg (3 Ml) Ud) 3 ml INH RQ6 PRN PRN Reason: Shortness of Breath Aspirin (Ecotrin) 81 mg PO DAILY [facility] Last Admin: 03/05/18 10:34 Dose: Not Given Atorvastatin Calcium (Lipitor) 10 mg PO HS [facility] Last Admin: 03/08/18 21:52 Dose: 10 mg Carvedilol (Coreg) 3.125 mg PO DAILY [facility] Last Admin: 03/08/18 08:56 Dose: 3.125 mg Clopidogrel Bisulfate (Plavix) 75 mg PO DAILY [facility] Last Admin: 03/08/18 09:02 Dose: Not Given Digoxin (Lanoxin) 0.25 mg PO DAILY [facility] Last Admin: 03/08/18 08:57 Dose: 0.25 mg Enoxaparin Sodium (Lovenox) 40 mg SC DAILY [facility] PRN Reason: Protocol Last Admin: 03/08/18 08:57 Dose: 40 mg Ciprofloxacin (Cipro 400mg/200ml Dsw) 400 mg in 200 mls @ 200 mls/hr IVPB Q12@ 0400,1600 [facility] PRN Reason: Protocol Last Admin: 03/09/18 04:09 Dose: 200 mls/hr Metronidazole (Flagyl 500mg/100ml Ns) 100 mls @ 100 mls/hr IVPB Q8 [facility] PRN Reason: Protocol Last Admin: 03/09/18 01:30 Dose: 100 mls/hr Potassium Chloride/Dextrose/Sod Cl (Potassium Chl 20 Meq In D5-1/2ns) 1,000 mls @ 100 mls/hr IV .Q10H [facility] Stop: 03/10/18 08:32 Morphine Sulfate (Morphine) 2 mg IVP Q6 PRN PRN Reason: Pain, severe (8-10) Last Admin: 03/08/18 09:06 Dose: 2 mg Morphine Sulfate (Morphine) 1 mg IVP Q6 PRN PRN Reason: Pain, moderate (4-7) Last Admin: 03/08/18 16:33 Dose: 1 mg Nystatin (Mycostatin Cream) 1 applic TOP TID [facility] Last Admin: 03/08/18 16:26 Dose: 1 u Ondansetron HCl (Zofran Inj) 4 mg IVP Q4 PRN PRN Reason: Nausea/Vomiting Last Admin: 03/08/18 18:08 Dose: 4 mg Pantoprazole Sodium (Protonix Ec Tab) 40 mg PO DAILY [facility] Last Admin: 03/08/18 08:57 Dose: 40 mg Phenazopyridine HCl (Pyridium) 100 mg PO TID [facility] Last Admin: 03/08/18 16:26 Dose: 100 mg - Labs Labs: 03/09/18 05:30 03/07/18 05:55 PT 13.2 Seconds (9.8-13.1) H 03/04/18 09:38 INR 1.2 (0.9-1.2) 03/04/18 09:38 APTT 33.2 Seconds (25.6-37.1) 03/04/18 09:38 - Constitutional Appears: Non-toxic, No Acute Distress - Head Exam Head Exam: ATRAUMATIC, NORMOCEPHALIC - Eye Exam Eye Exam: EOMI, Normal appearance, PERRL Pupil Exam: NORMAL ACCOMODATION - ENT Exam ENT Exam: Mucous Membranes Moist, Normal Oropharynx - Neck Exam Neck Exam: Full ROM, Normal Inspection - Respiratory Exam Respiratory Exam: Clear to Ausculation Bilateral, NORMAL BREATHING PATTERN - Cardiovascular Exam Cardiovascular Exam: RRR, +S1, +S2 - GI/Abdominal Exam GI & Abdominal Exam: Soft, Normal Bowel Sounds. absent: Tenderness, Hyperactive Bowel Sounds, Organomegaly - Extremities Exam Extremities Exam: Normal Capillary Refill, Normal Inspection - Back Exam Back Exam: absent: CVA tenderness (L), CVA tenderness (R) - Neurological Exam Neurological Exam: Alert, Awake, Oriented x3 - Psychiatric Exam Psychiatric exam: Normal Affect, Normal Mood - Skin Skin Exam: Dry, Warm Assessment and Plan - Assessment and Plan (Free Text) Plan: 77 years old female with hx of Asthma, COPD, A Fib, Chf and diverticulosis. She was seen by the Deputy Director Of Nursing for loose Stool and abdominal pains one week ago. She nows comes to the ED with the intermittent pain across the lower abdomen, most severe on the LLQ. The pain is becoming more intense and is associated with diarrhea. She referred subjected fever but no nausea nor vomiting, 1) Acute diverticulitis - improving attempting to advance diet very slowly, did not tolerate liquids for the second time yesterday. back to NPO and fluids CT Abdomen: These findings can represent ileus versus enteritis versus slow transit versus peristalsis. - Consult Dr Riley GI - Consult Dr. Bailey, general surgery- recommends conservative management at this time, may need elective surgical intervention as outpatient - Stool for C&S- negative - Blood CX x 2 neg x 48 hours - Flagyl DAY 6 - Cipro DAY 6 - Pain management CHANGE FROM MORPHINE TO TYLENOL 2) Acute UTI Continue Cipro/Flagyl add Pyridium for pain control #. Leukocytosis, improved - follow up WBC #. Chronic A Fib rate controlled - Digoxin/ASA - Not on anticoagulant #. Asthma/ COPD/ ANKITA - consult Dr Fang pulmonology - Duoneb PRN #. Stress ulcer Prophylaxis with Protonix #. DVT prophylaxis with lovenox #, Code Status: Full
[2018-03-09] MEDS: Potassium Ch 20mEq in D5-1/2NS 1,000 ML IV SCH ×3 (09:00→18:48)
--- NOTE | 2018-03-09 09:11 | CP.PCM.PN ---
<Kwame Coburn - Last Filed: 03/09/18 09:09> Subjective - Date & Time of Evaluation Date of Evaluation: 03/09/18 Time of Evaluation: 09:09 - Subjective Subjective: Surgery progress note. Dr. Vergara Pt seen and examined at bedside. No acute events overnight. States that she had some nausea and increased abdominal pain with CLD yesterday. No F/C. No CP/SOB. No new complaints. Objective - Vital Signs/Intake and Output Vital Signs (last 24 hours): Temp Pulse Resp BP Pulse Ox 97.5 F L 106 H 20 110/79 92 L 03/09/18 08:12 03/09/18 08:12 03/09/18 08:12 03/09/18 08:12 03/09/18 08:12 - Medications Medications: Current Medications Acetaminophen (Tylenol 325mg Tab) 975 mg PO Q6 PRN PRN Reason: Pain, moderate (4-7) Albuterol/Ipratropium (Duoneb 3 Mg/0.5 Mg (3 Ml) Ud) 3 ml INH RQ6 PRN PRN Reason: Shortness of Breath Aspirin (Ecotrin) 81 mg PO DAILY [facility] Last Admin: 03/05/18 10:34 Dose: Not Given Atorvastatin Calcium (Lipitor) 10 mg PO HS [facility] Last Admin: 03/08/18 21:52 Dose: 10 mg Carvedilol (Coreg) 3.125 mg PO DAILY [facility] Last Admin: 03/08/18 08:56 Dose: 3.125 mg Clopidogrel Bisulfate (Plavix) 75 mg PO DAILY [facility] Last Admin: 03/08/18 09:02 Dose: Not Given Digoxin (Lanoxin) 0.25 mg PO DAILY [facility] Last Admin: 03/08/18 08:57 Dose: 0.25 mg Enoxaparin Sodium (Lovenox) 40 mg SC DAILY [facility] PRN Reason: Protocol Last Admin: 03/08/18 08:57 Dose: 40 mg Ciprofloxacin (Cipro 400mg/200ml Dsw) 400 mg in 200 mls @ 200 mls/hr IVPB Q12@ 0400,1600 [facility] PRN Reason: Protocol Last Admin: 03/09/18 04:09 Dose: 200 mls/hr Metronidazole (Flagyl 500mg/100ml Ns) 100 mls @ 100 mls/hr IVPB Q8 [facility] PRN Reason: Protocol Last Admin: 03/09/18 01:30 Dose: 100 mls/hr Potassium Chloride/Dextrose/Sod Cl (Potassium Chl 20 Meq In D5-1/2ns) 1,000 mls @ 100 mls/hr IV .Q10H [facility] Stop: 03/10/18 08:32 Nystatin (Mycostatin Cream) 1 applic TOP TID [facility] Last Admin: 03/08/18 16:26 Dose: 1 u Ondansetron HCl (Zofran Inj) 4 mg IVP Q4 PRN PRN Reason: Nausea/Vomiting Last Admin: 03/08/18 18:08 Dose: 4 mg Pantoprazole Sodium (Protonix Ec Tab) 40 mg PO DAILY [facility] Last Admin: 03/08/18 08:57 Dose: 40 mg Phenazopyridine HCl (Pyridium) 100 mg PO TID [facility] Last Admin: 03/08/18 16:26 Dose: 100 mg - Labs Labs: 03/09/18 05:30 03/07/18 05:55 PT 13.2 Seconds (9.8-13.1) H 03/04/18 09:38 INR 1.2 (0.9-1.2) 03/04/18 09:38 APTT 33.2 Seconds (25.6-37.1) 03/04/18 09:38 - Constitutional Appears: Well, Non-toxic, No Acute Distress - Head Exam Head Exam: ATRAUMATIC, NORMAL INSPECTION, NORMOCEPHALIC - Eye Exam Eye Exam: EOMI, Normal appearance - ENT Exam ENT Exam: Mucous Membranes Moist - Respiratory Exam Respiratory Exam: NORMAL BREATHING PATTERN. absent: Accessory Muscle Use, Respiratory Distress - Cardiovascular Exam Cardiovascular Exam: RRR. absent: JVD - GI/Abdominal Exam GI & Abdominal Exam: Soft. absent: Distended, Firm, Guarding, Rebound Additional comments: Mild tenderness to palpation LLQ. - Neurological Exam Neurological Exam: Alert, Awake, Oriented x3 Assessment and Plan - Assessment and Plan (Free Text) Assessment: 77yo F with Diverticulitis Plan: - Maintain NPO for now - Antiemetics prn. Analgesics prn - IVF - ABX - DVT ppx Further recs as per Dr. Jai Coburn PGY1 surgery pager: [phone] <Mauro Vergara - Last Filed: 03/09/18 12:41> Objective - Vital Signs/Intake and Output Vital Signs (last 24 hours): Temp Pulse Resp BP Pulse Ox 97.5 F L 106 H 20 110/79 92 L 03/09/18 08:12 03/09/18 08:12 03/09/18 08:12 03/09/18 08:12 03/09/18 08:12 - Medications Medications: Current Medications Acetaminophen (Tylenol 325mg Tab) 975 mg PO Q6 PRN PRN Reason: Pain, moderate (4-7) Albuterol/Ipratropium (Duoneb 3 Mg/0.5 Mg (3 Ml) Ud) 3 ml INH RQ6 PRN PRN Reason: Shortness of Breath Aspirin (Ecotrin) 81 mg PO DAILY [facility] Last Admin: 03/05/18 10:34 Dose: Not Given Atorvastatin Calcium (Lipitor) 10 mg PO HS [facility] Last Admin: 03/08/18 21:52 Dose: 10 mg Carvedilol (Coreg) 3.125 mg PO DAILY [facility] Last Admin: 03/09/18 09:59 Dose: 3.125 mg Clopidogrel Bisulfate (Plavix) 75 mg PO DAILY [facility] Last Admin: 03/09/18 09:59 Dose: 75 mg Digoxin (Lanoxin) 0.25 mg PO DAILY [facility] Last Admin: 03/09/18 09:59 Dose: 0.25 mg Enoxaparin Sodium (Lovenox) 40 mg SC DAILY [facility] PRN Reason: Protocol Last Admin: 03/09/18 10:00 Dose: 40 mg Ciprofloxacin (Cipro 400mg/200ml Dsw) 400 mg in 200 mls @ 200 mls/hr IVPB Q12@ 0400,1600 [facility] PRN Reason: Protocol Last Admin: 03/09/18 04:09 Dose: 200 mls/hr Metronidazole (Flagyl 500mg/100ml Ns) 100 mls @ 100 mls/hr IVPB Q8 [facility] PRN Reason: Protocol Last Admin: 03/09/18 10:00 Dose: 100 mls/hr Potassium Chloride/Dextrose/Sod Cl (Potassium Chl 20 Meq In D5-1/2ns) 1,000 mls @ 100 mls/hr IV .Q10H [facility] Stop: 03/10/18 08:32 Nystatin (Mycostatin Cream) 1 applic TOP TID [facility] Last Admin: 03/09/18 10:00 Dose: 1 u Ondansetron HCl (Zofran Inj) 4 mg IVP Q4 PRN PRN Reason: Nausea/Vomiting Last Admin: 03/08/18 18:08 Dose: 4 mg Pantoprazole Sodium (Protonix Ec Tab) 40 mg PO DAILY [facility] Last Admin: 03/09/18 09:59 Dose: 40 mg Phenazopyridine HCl (Pyridium) 100 mg PO TID [facility] Last Admin: 03/09/18 09:59 Dose: 100 mg - Labs Labs: 03/09/18 05:30 03/07/18 05:55 PT 13.2 Seconds (9.8-13.1) H 03/04/18 09:38 INR 1.2 (0.9-1.2) 03/04/18 09:38 APTT 33.2 Seconds (25.6-37.1) 03/04/18 09:38 Assessment and Plan - Assessment and Plan (Free Text) Plan: cont ice chips for now
[2018-03-09] MEDS: Pantoprazole 40 mg EC Tab PO SCH (09:59)
[2018-03-09] MEDS: Digoxin 250 mcg (0.25 mg) Tab PO SCH (09:59)
[2018-03-09] MEDS: Enoxaparin 40 mg Syringe SC SCH (10:00)
--- NOTE | 2018-03-09 10:14 | CP.PCM.PN ---
Subjective - Date & Time of Evaluation Date of Evaluation: 03/09/18 Time of Evaluation: 10:14 - Subjective Subjective: Patient states she is feeling better today. Had been placed back on NPO status yesterday after increased abdominal pain. Able to move about with less abdominal pain this morning. Had some brief PT yesterday, able to stand at the bedside with assist. Awaiting further PT today. Vital signs are stable, afebrile. C/O increased dysuria. Abdomen is less tender with continued modest discomfort in LLQ. Bowel sounds are hypo, but improved. Lungs remain clear to auscultation. Heart sounds are distant, rhythm irregular. Minimal ankle edema and erythema. Maintain current regimen. Urine analysis/culture. Advance diet as tolerated. Increased PT. Objective - Vital Signs/Intake and Output Vital Signs (last 24 hours): Temp Pulse Resp BP Pulse Ox 97.5 F L 106 H 20 110/79 92 L 03/09/18 08:12 03/09/18 08:12 03/09/18 08:12 03/09/18 08:12 03/09/18 08:12 - Medications Medications: Current Medications Acetaminophen (Tylenol 325mg Tab) 975 mg PO Q6 PRN PRN Reason: Pain, moderate (4-7) Albuterol/Ipratropium (Duoneb 3 Mg/0.5 Mg (3 Ml) Ud) 3 ml INH RQ6 PRN PRN Reason: Shortness of Breath Aspirin (Ecotrin) 81 mg PO DAILY [facility] Last Admin: 03/05/18 10:34 Dose: Not Given Atorvastatin Calcium (Lipitor) 10 mg PO HS [facility] Last Admin: 03/08/18 21:52 Dose: 10 mg Carvedilol (Coreg) 3.125 mg PO DAILY [facility] Last Admin: 03/09/18 09:59 Dose: 3.125 mg Clopidogrel Bisulfate (Plavix) 75 mg PO DAILY [facility] Last Admin: 03/09/18 09:59 Dose: 75 mg Digoxin (Lanoxin) 0.25 mg PO DAILY [facility] Last Admin: 03/09/18 09:59 Dose: 0.25 mg Enoxaparin Sodium (Lovenox) 40 mg SC DAILY [facility] PRN Reason: Protocol Last Admin: 03/09/18 10:00 Dose: 40 mg Ciprofloxacin (Cipro 400mg/200ml Dsw) 400 mg in 200 mls @ 200 mls/hr IVPB Q12@ 0400,1600 [facility] PRN Reason: Protocol Last Admin: 03/09/18 04:09 Dose: 200 mls/hr Metronidazole (Flagyl 500mg/100ml Ns) 100 mls @ 100 mls/hr IVPB Q8 [facility] PRN Reason: Protocol Last Admin: 03/09/18 10:00 Dose: 100 mls/hr Potassium Chloride/Dextrose/Sod Cl (Potassium Chl 20 Meq In D5-1/2ns) 1,000 mls @ 100 mls/hr IV .Q10H [facility] Stop: 03/10/18 08:32 Nystatin (Mycostatin Cream) 1 applic TOP TID [facility] Last Admin: 03/09/18 10:00 Dose: 1 u Ondansetron HCl (Zofran Inj) 4 mg IVP Q4 PRN PRN Reason: Nausea/Vomiting Last Admin: 03/08/18 18:08 Dose: 4 mg Pantoprazole Sodium (Protonix Ec Tab) 40 mg PO DAILY [facility] Last Admin: 03/09/18 09:59 Dose: 40 mg Phenazopyridine HCl (Pyridium) 100 mg PO TID [facility] Last Admin: 03/09/18 09:59 Dose: 100 mg - Labs Labs: 03/09/18 05:30 03/07/18 05:55 PT 13.2 Seconds (9.8-13.1) H 03/04/18 09:38 INR 1.2 (0.9-1.2) 03/04/18 09:38 APTT 33.2 Seconds (25.6-37.1) 03/04/18 09:38 Assessment and Plan (1) Asthma with COPD Status: Chronic (2) CAD (coronary artery disease) Status: Chronic (3) Chronic atrial fibrillation Status: Chronic (4) Diverticulitis Status: Acute
[2018-03-09 16:32] LABS: URINE BILIRUBIN NEGATIVE (NEGATIVE); URINE BLOOD NEGATIVE (NEGATIVE); URINE CLARITY CLEAR (Clear); URINE COLOR AMBER (YELLOW); URINE GLUCOSE (UA) NEG (Normal); URINE LEUKOCYTE ESTERASE NEG Leu/uL (Negative); URINE PROTEIN NEGATIVE (NEGATIVE)
[2018-03-09 16:43] LABS: URINE BACTERIA FEW (<OCC)
[2018-03-10] MEDS: metroNIDAZOLE 500mg/100ml NS 100 ML IVPB SCH ×3 (00:03→16:14)
[2018-03-10] MEDS: Ciprofloxacin 400mg/200ml D5W 400 MG/200 ML BAG IVPB SCH ×2 (04:43→15:33)
[2018-03-10] MEDS: Potassium Ch 20mEq in D5-1/2NS 1,000 ML IV SCH (04:47)
[2018-03-10 07:23] LABS: HEMOGLOBIN 12.4 g/dL (12.0-16.0); MEAN CELL VOLUME 94.2 fl (81.0-99.0); MEAN CORPUSCULAR HEMOGLOBIN 31.9 pg (27.0-31.0); MEAN CORPUSCULAR HGB CONC 33.8 g/dL (33.0-37.0); RBC 3.9 Mil/uL (3.80-5.20); RED CELL DISTRIBUTION WIDTH 16.2 % (11.5-14.5); WHITE BLOOD COUNT 7.1 K/uL (4.8-10.8)
--- NOTE | 2018-03-10 07:54 | CP.PCM.PN ---
<IrishKwame hobbs - Last Filed: 03/10/18 08:05> Subjective - Date & Time of Evaluation Date of Evaluation: 03/10/18 Time of Evaluation: 07:00 - Subjective Subjective: Surgery Progress note. Dr. Vergara Pt seen and examined at bedside. No acute events overnight. States that she feels better compared to yesterday. No nausea, no vomiting. No F/C. Denies any new complaints. Objective - Vital Signs/Intake and Output Vital Signs (last 24 hours): Temp Pulse Resp BP Pulse Ox 97.8 F 77 20 112/73 95 03/10/18 00:40 03/10/18 00:40 03/10/18 00:40 03/10/18 00:40 03/10/18 00:40 - Medications Medications: Current Medications Acetaminophen (Tylenol 325mg Tab) 975 mg PO Q6 PRN PRN Reason: Pain, moderate (4-7) Last Admin: 03/10/18 00:06 Dose: 975 mg Albuterol/Ipratropium (Duoneb 3 Mg/0.5 Mg (3 Ml) Ud) 3 ml INH RQ6 PRN PRN Reason: Shortness of Breath Aspirin (Ecotrin) 81 mg PO DAILY [facility] Last Admin: 03/05/18 10:34 Dose: Not Given Atorvastatin Calcium (Lipitor) 10 mg PO HS [facility] Last Admin: 03/09/18 22:02 Dose: 10 mg Carvedilol (Coreg) 3.125 mg PO DAILY [facility] Last Admin: 03/09/18 09:59 Dose: 3.125 mg Clopidogrel Bisulfate (Plavix) 75 mg PO DAILY [facility] Last Admin: 03/09/18 09:59 Dose: 75 mg Digoxin (Lanoxin) 0.25 mg PO DAILY [facility] Last Admin: 03/09/18 09:59 Dose: 0.25 mg Enoxaparin Sodium (Lovenox) 40 mg SC DAILY [facility] PRN Reason: Protocol Last Admin: 03/09/18 10:00 Dose: 40 mg Ciprofloxacin (Cipro 400mg/200ml Dsw) 400 mg in 200 mls @ 200 mls/hr IVPB Q12@ 0400,1600 [facility] PRN Reason: Protocol Last Admin: 03/10/18 04:43 Dose: 200 mls/hr Metronidazole (Flagyl 500mg/100ml Ns) 100 mls @ 100 mls/hr IVPB Q8 [facility] PRN Reason: Protocol Last Admin: 03/10/18 00:03 Dose: 100 mls/hr Potassium Chloride/Dextrose/Sod Cl (Potassium Chl 20 Meq In D5-1/2ns) 1,000 mls @ 100 mls/hr IV .Q10H [facility] Stop: 03/10/18 08:32 Last Admin: 03/10/18 04:47 Dose: 100 mls/hr Nystatin (Mycostatin Cream) 1 applic TOP TID [facility] Last Admin: 03/09/18 17:37 Dose: Not Given Ondansetron HCl (Zofran Inj) 4 mg IVP Q4 PRN PRN Reason: Nausea/Vomiting Last Admin: 03/08/18 18:08 Dose: 4 mg Ondansetron HCl (Zofran Odt) 4 mg PO Q8H PRN PRN Reason: Nausea/Vomiting Last Admin: 03/09/18 13:39 Dose: 4 mg Pantoprazole Sodium (Protonix Ec Tab) 40 mg PO DAILY [facility] Last Admin: 03/09/18 09:59 Dose: 40 mg Phenazopyridine HCl (Pyridium) 100 mg PO TID [facility] Last Admin: 03/09/18 17:36 Dose: 100 mg - Labs Labs: 03/10/18 05:30 03/07/18 05:55 PT 13.2 Seconds (9.8-13.1) H 03/04/18 09:38 INR 1.2 (0.9-1.2) 03/04/18 09:38 APTT 33.2 Seconds (25.6-37.1) 03/04/18 09:38 - Constitutional Appears: Well, Non-toxic, No Acute Distress - Head Exam Head Exam: ATRAUMATIC, NORMAL INSPECTION, NORMOCEPHALIC - Eye Exam Eye Exam: EOMI, Normal appearance - ENT Exam ENT Exam: Mucous Membranes Moist - Respiratory Exam Respiratory Exam: NORMAL BREATHING PATTERN. absent: Accessory Muscle Use, Respiratory Distress - GI/Abdominal Exam GI & Abdominal Exam: Soft. absent: Distended, Firm, Guarding, Rigid, Rebound - Extremities Exam Extremities Exam: Normal Inspection. absent: Calf Tenderness - Neurological Exam Neurological Exam: Alert, Awake, Oriented x3 - Skin Skin Exam: Dry, Intact, Normal Color, Warm Assessment and Plan - Assessment and Plan (Free Text) Assessment: 77yo F with Diverticulitis Plan: - Advanced diet to CLD - Antiemetics prn. Analgesics prn - Continue Abx - Encourage OOBTC - DVT ppx Further recs as per Dr. Jai Coburn PGY2 surgery pager: [phone] <Mauro Vergara - Last Filed: 03/10/18 13:42> Objective - Vital Signs/Intake and Output Vital Signs (last 24 hours): Temp Pulse Resp BP Pulse Ox 97.4 F L 75 20 143/69 95 03/10/18 08:25 03/10/18 09:27 03/10/18 08:25 03/10/18 09:27 03/10/18 08:25 - Medications Medications: Current Medications Acetaminophen (Tylenol 325mg Tab) 975 mg PO Q6 PRN PRN Reason: Pain, moderate (4-7) Last Admin: 03/10/18 09:20 Dose: 975 mg Albuterol/Ipratropium (Duoneb 3 Mg/0.5 Mg (3 Ml) Ud) 3 ml INH RQ6 PRN PRN Reason: Shortness of Breath Aspirin (Ecotrin) 81 mg PO DAILY [facility] Last Admin: 03/05/18 10:34 Dose: Not Given Atorvastatin Calcium (Lipitor) 10 mg PO HS [facility] Last Admin: 03/09/18 22:02 Dose: 10 mg Carvedilol (Coreg) 3.125 mg PO DAILY [facility] Last Admin: 03/10/18 09:27 Dose: 3.125 mg Clopidogrel Bisulfate (Plavix) 75 mg PO DAILY [facility] Last Admin: 03/10/18 09:26 Dose: 75 mg Digoxin (Lanoxin) 0.25 mg PO DAILY [facility] Last Admin: 03/10/18 09:26 Dose: 0.25 mg Enoxaparin Sodium (Lovenox) 40 mg SC DAILY [facility] PRN Reason: Protocol Last Admin: 03/10/18 09:25 Dose: 40 mg Ciprofloxacin (Cipro 400mg/200ml Dsw) 400 mg in 200 mls @ 200 mls/hr IVPB Q12@ 0400,1600 [facility] PRN Reason: Protocol Last Admin: 03/10/18 04:43 Dose: 200 mls/hr Metronidazole (Flagyl 500mg/100ml Ns) 100 mls @ 100 mls/hr IVPB Q8 [facility] PRN Reason: Protocol Last Admin: 03/10/18 09:22 Dose: 100 mls/hr Nystatin (Mycostatin Cream) 1 applic TOP TID [facility] Last Admin: 03/10/18 12:18 Dose: 1 u Ondansetron HCl (Zofran Inj) 4 mg IVP Q4 PRN PRN Reason: Nausea/Vomiting Last Admin: 03/08/18 18:08 Dose: 4 mg Ondansetron HCl (Zofran Odt) 4 mg PO Q8H PRN PRN Reason: Nausea/Vomiting Last Admin: 03/10/18 09:35 Dose: 4 mg Oxycodone/Acetaminophen (Percocet 5/325 Mg Tab) 1 tab PO Q6 PRN PRN Reason: Pain, moderate (4-7) Stop: 03/13/18 11:22 Last Admin: 03/10/18 11:30 Dose: 1 tab Pantoprazole Sodium (Protonix Ec Tab) 40 mg PO DAILY [facility] Last Admin: 03/10/18 09:27 Dose: 40 mg Phenazopyridine HCl (Pyridium) 100 mg PO TID [facility] Last Admin: 03/10/18 12:17 Dose: 100 mg - Labs Labs: 03/10/18 05:30 03/10/18 05:30 PT 13.2 Seconds (9.8-13.1) H 03/04/18 09:38 INR 1.2 (0.9-1.2) 03/04/18 09:38 APTT 33.2 Seconds (25.6-37.1) 03/04/18 09:38 Assessment and Plan - Assessment and Plan (Free Text) Plan: give IV pain meds, zofran, picc line in the am
[2018-03-10 08:35] LABS: BLOOD UREA NITROGEN < 2 mg/dl (7-17); CALCIUM 8.2 mg/dL (8.4-10.2); GFR AFRICAN-AMERICAN > 60; GFR NON-AFRICAN AMERICAN > 60
[2018-03-10] MEDS ORDERED: Potassium Chloride 20 mEq 100 ML IVPB ONE (08:40)
[2018-03-10] MEDS ORDERED: Potassium Chloride 20 mEq ER Tab PO ONE (08:41)
[2018-03-10] MEDS: Enoxaparin 40 mg Syringe SC SCH (09:25)
[2018-03-10] MEDS: Digoxin 250 mcg (0.25 mg) Tab PO SCH (09:26)
[2018-03-10] MEDS: Pantoprazole 40 mg EC Tab PO SCH (09:27)
--- NOTE | 2018-03-10 10:26 | CP.PCM.PN ---
Subjective - Date & Time of Evaluation Date of Evaluation: 03/10/18 Time of Evaluation: 10:00 - Subjective Subjective: No fever was started on Clear liquid diet for breakfast - pt had some juice and started feeling some lower abd discomfort again no N/V no CP no SOB Objective - Vital Signs/Intake and Output Vital Signs (last 24 hours): Temp Pulse Resp BP Pulse Ox 97.4 F L 75 20 143/69 95 03/10/18 08:25 03/10/18 09:27 03/10/18 08:25 03/10/18 09:27 03/10/18 08:25 - Medications Medications: Current Medications Acetaminophen (Tylenol 325mg Tab) 975 mg PO Q6 PRN PRN Reason: Pain, moderate (4-7) Last Admin: 03/10/18 09:20 Dose: 975 mg Albuterol/Ipratropium (Duoneb 3 Mg/0.5 Mg (3 Ml) Ud) 3 ml INH RQ6 PRN PRN Reason: Shortness of Breath Aspirin (Ecotrin) 81 mg PO DAILY [facility] Last Admin: 03/05/18 10:34 Dose: Not Given Atorvastatin Calcium (Lipitor) 10 mg PO HS [facility] Last Admin: 03/09/18 22:02 Dose: 10 mg Carvedilol (Coreg) 3.125 mg PO DAILY [facility] Last Admin: 03/10/18 09:27 Dose: 3.125 mg Clopidogrel Bisulfate (Plavix) 75 mg PO DAILY [facility] Last Admin: 03/10/18 09:26 Dose: 75 mg Digoxin (Lanoxin) 0.25 mg PO DAILY [facility] Last Admin: 03/10/18 09:26 Dose: 0.25 mg Enoxaparin Sodium (Lovenox) 40 mg SC DAILY [facility] PRN Reason: Protocol Last Admin: 03/10/18 09:25 Dose: 40 mg Ciprofloxacin (Cipro 400mg/200ml Dsw) 400 mg in 200 mls @ 200 mls/hr IVPB Q12@ 0400,1600 [facility] PRN Reason: Protocol Last Admin: 03/10/18 04:43 Dose: 200 mls/hr Metronidazole (Flagyl 500mg/100ml Ns) 100 mls @ 100 mls/hr IVPB Q8 [facility] PRN Reason: Protocol Last Admin: 03/10/18 09:22 Dose: 100 mls/hr Potassium Chloride (Potassium Chloride 20 Meq/100 Ml) 100 mls @ 50 mls/hr IVPB ONCE ONE Stop: 03/10/18 10:39 Nystatin (Mycostatin Cream) 1 applic TOP TID [facility] Last Admin: 03/10/18 09:28 Dose: 1 u Ondansetron HCl (Zofran Inj) 4 mg IVP Q4 PRN PRN Reason: Nausea/Vomiting Last Admin: 03/08/18 18:08 Dose: 4 mg Ondansetron HCl (Zofran Odt) 4 mg PO Q8H PRN PRN Reason: Nausea/Vomiting Last Admin: 03/10/18 09:35 Dose: 4 mg Pantoprazole Sodium (Protonix Ec Tab) 40 mg PO DAILY [facility] Last Admin: 03/10/18 09:27 Dose: 40 mg Phenazopyridine HCl (Pyridium) 100 mg PO TID [facility] Last Admin: 03/10/18 09:28 Dose: 100 mg - Labs Labs: 03/10/18 05:30 03/10/18 05:30 PT 13.2 Seconds (9.8-13.1) H 03/04/18 09:38 INR 1.2 (0.9-1.2) 03/04/18 09:38 APTT 33.2 Seconds (25.6-37.1) 03/04/18 09:38 - Constitutional Appears: Non-toxic, No Acute Distress, Chronically Ill - Head Exam Head Exam: NORMAL INSPECTION, NORMOCEPHALIC - Eye Exam Eye Exam: EOMI, Normal appearance Pupil Exam: NORMAL ACCOMODATION - ENT Exam ENT Exam: Mucous Membranes Dry, Normal External Ear Exam - Neck Exam Neck Exam: Full ROM. absent: Meningismus - Respiratory Exam Respiratory Exam: NORMAL BREATHING PATTERN. absent: Respiratory Distress - Cardiovascular Exam Cardiovascular Exam: Irregular Rhythm, +S1, +S2 - GI/Abdominal Exam GI & Abdominal Exam: Soft, Tenderness (mild LLQ tenderness), Normal Bowel Sounds - Extremities Exam Extremities Exam: Normal Capillary Refill. absent: Calf Tenderness - Back Exam Back Exam: Full ROM. absent: CVA tenderness (L), CVA tenderness (R) - Neurological Exam Neurological Exam: Alert, Awake, CN II-XII Intact, Oriented x3 - Psychiatric Exam Psychiatric exam: Normal Affect, Normal Mood - Skin Skin Exam: Dry, Normal Color, Warm Assessment and Plan - Assessment and Plan (Free Text) Assessment: 77 years old female with hx of Asthma, COPD, A Fib, Chf and diverticulosis. She was seen by the Medical Office Coordinator for loose Stool and abdominal pains one week prior to admission. She then presented to the ED with the intermittent pain across the lower abdomen, most severe on the LLQ. The pain is becoming more intense and is associated with diarrhea. She referred subjected fever but no nausea nor vomiting, CT of the Abdomen: Diverticulitis/ colitis more severe and extensive compared to the prior study without drainable collection, free air or significant loculated. 1) Acute diverticulitis - improving attempting to advance diet very slowly, started on Clear Liquid diet today by Surgery - Consulted Dr Riley GI - Consult Dr. Bailey, general surgery- recommends conservative management at this time, may need elective surgical intervention as outpatient - Stool for C&S- negative - Blood CX x 2 neg - cont IV Cipro and Flagyl - fever and leukocytosis resolved 2) Acute UTI Continue Cipro/Flagyl d/c Pyridium 3. Chronic A Fib rate controlled -cont Digoxin/ASA, Plavix, Coreg - Not on anticoagulant 4. Asthma/ COPD/ ANKITA - consult Dr Fang pulmonology - Duoneb PRN #. DVT prophylaxis with lovenox Code Status: Full, Surrogate decision maker- sister Jazmin
[2018-03-10] MEDS: Oxycodone/Acetaminophen 5/325 mg Tab PO PRN ×2 (11:30→21:05)
--- NOTE | 2018-03-10 14:28 | CP.PCM.PN ---
Subjective - Date & Time of Evaluation Date of Evaluation: 03/10/18 Time of Evaluation: 14:25 - Subjective Subjective: No fever chills. Still has pain when ingesting liquids. Objective - Vital Signs/Intake and Output Vital Signs (last 24 hours): Temp Pulse Resp BP Pulse Ox 97.4 F L 75 20 143/69 95 03/10/18 08:25 03/10/18 09:27 03/10/18 08:25 03/10/18 09:27 03/10/18 08:25 - Medications Medications: Current Medications Acetaminophen (Tylenol 325mg Tab) 975 mg PO Q6 PRN PRN Reason: Pain, moderate (4-7) Last Admin: 03/10/18 09:20 Dose: 975 mg Albuterol/Ipratropium (Duoneb 3 Mg/0.5 Mg (3 Ml) Ud) 3 ml INH RQ6 PRN PRN Reason: Shortness of Breath Aspirin (Ecotrin) 81 mg PO DAILY [facility] Last Admin: 03/05/18 10:34 Dose: Not Given Atorvastatin Calcium (Lipitor) 10 mg PO HS [facility] Last Admin: 03/09/18 22:02 Dose: 10 mg Carvedilol (Coreg) 3.125 mg PO DAILY [facility] Last Admin: 03/10/18 09:27 Dose: 3.125 mg Clopidogrel Bisulfate (Plavix) 75 mg PO DAILY [facility] Last Admin: 03/10/18 09:26 Dose: 75 mg Digoxin (Lanoxin) 0.25 mg PO DAILY [facility] Last Admin: 03/10/18 09:26 Dose: 0.25 mg Enoxaparin Sodium (Lovenox) 40 mg SC DAILY [facility] PRN Reason: Protocol Last Admin: 03/10/18 09:25 Dose: 40 mg Ciprofloxacin (Cipro 400mg/200ml Dsw) 400 mg in 200 mls @ 200 mls/hr IVPB Q12@ 0400,1600 [facility] PRN Reason: Protocol Last Admin: 03/10/18 04:43 Dose: 200 mls/hr Metronidazole (Flagyl 500mg/100ml Ns) 100 mls @ 100 mls/hr IVPB Q8 [facility] PRN Reason: Protocol Last Admin: 03/10/18 09:22 Dose: 100 mls/hr Nystatin (Mycostatin Cream) 1 applic TOP TID [facility] Last Admin: 03/10/18 12:18 Dose: 1 u Ondansetron HCl (Zofran Inj) 4 mg IVP Q4 PRN PRN Reason: Nausea/Vomiting Last Admin: 03/08/18 18:08 Dose: 4 mg Ondansetron HCl (Zofran Odt) 4 mg PO Q8H PRN PRN Reason: Nausea/Vomiting Last Admin: 03/10/18 09:35 Dose: 4 mg Oxycodone/Acetaminophen (Percocet 5/325 Mg Tab) 1 tab PO Q6 PRN PRN Reason: Pain, moderate (4-7) Stop: 03/13/18 11:22 Last Admin: 03/10/18 11:30 Dose: 1 tab Pantoprazole Sodium (Protonix Ec Tab) 40 mg PO DAILY [facility] Last Admin: 03/10/18 09:27 Dose: 40 mg Phenazopyridine HCl (Pyridium) 100 mg PO TID [facility] Last Admin: 03/10/18 12:17 Dose: 100 mg - Labs Labs: 03/10/18 05:30 03/10/18 05:30 PT 13.2 Seconds (9.8-13.1) H 03/04/18 09:38 INR 1.2 (0.9-1.2) 03/04/18 09:38 APTT 33.2 Seconds (25.6-37.1) 03/04/18 09:38 - Head Exam Head Exam: ATRAUMATIC - ENT Exam ENT Exam: Normal Exam - Neck Exam Neck Exam: Full ROM - Respiratory Exam Respiratory Exam: NORMAL BREATHING PATTERN - Cardiovascular Exam Cardiovascular Exam: +S1, +S2 - GI/Abdominal Exam GI & Abdominal Exam: Soft, Tenderness Additional comments: LLQ tenderness Assessment and Plan (1) Diverticulitis Assessment & Plan: Improving clinically; WBC is normal and no fever. Still has pain when attempting oral intake. Continue antibiotics. Status: Acute
[2018-03-11] MEDS: metroNIDAZOLE 500mg/100ml NS 100 ML IVPB SCH ×3 (00:21→17:26)
[2018-03-11] MEDS: Ciprofloxacin 400mg/200ml D5W 400 MG/200 ML BAG IVPB SCH ×2 (04:59→16:23)
[2018-03-11 07:02] LABS: BLOOD UREA NITROGEN < 2 mg/dl (7-17); CALCIUM 8.2 mg/dL (8.4-10.2); GFR AFRICAN-AMERICAN > 60; GFR NON-AFRICAN AMERICAN > 60
[2018-03-11] MEDS ORDERED: Potassium Chloride 20 mEq ER Tab PO ONE (07:30)
[2018-03-11] MEDS: Digoxin 250 mcg (0.25 mg) Tab PO SCH (08:55)
[2018-03-11] MEDS: Enoxaparin 40 mg Syringe SC SCH (08:56)
[2018-03-11] MEDS: Pantoprazole 40 mg EC Tab PO SCH (08:57)
--- NOTE | 2018-03-11 09:57 | CP.PCM.PN ---
Subjective - Date & Time of Evaluation Date of Evaluation: 03/11/18 Time of Evaluation: 09:45 - Subjective Subjective: Pt was started on Clear liquid diet yesterday - deveoped soem abdominal after eating today she again tried the Liquid diet and became nauseous after having 2 small cups of juice. no fever abd pain better no SOB no CP Objective - Vital Signs/Intake and Output Vital Signs (last 24 hours): Temp Pulse Resp BP Pulse Ox 97.5 F L 73 20 135/86 96 03/11/18 07:56 03/11/18 08:55 03/11/18 07:56 03/11/18 08:55 03/11/18 07:56 - Medications Medications: Current Medications Acetaminophen (Tylenol 325mg Tab) 975 mg PO Q6 PRN PRN Reason: Pain, moderate (4-7) Last Admin: 03/10/18 09:20 Dose: 975 mg Albuterol/Ipratropium (Duoneb 3 Mg/0.5 Mg (3 Ml) Ud) 3 ml INH RQ6 PRN PRN Reason: Shortness of Breath Aspirin (Ecotrin) 81 mg PO DAILY [facility] Last Admin: 03/05/18 10:34 Dose: Not Given Atorvastatin Calcium (Lipitor) 10 mg PO HS [facility] Last Admin: 03/10/18 21:14 Dose: 10 mg Carvedilol (Coreg) 3.125 mg PO DAILY [facility] Last Admin: 03/11/18 08:55 Dose: 3.125 mg Clopidogrel Bisulfate (Plavix) 75 mg PO DAILY [facility] Last Admin: 03/11/18 08:57 Dose: 75 mg Digoxin (Lanoxin) 0.25 mg PO DAILY [facility] Last Admin: 03/11/18 08:55 Dose: 0.25 mg Enoxaparin Sodium (Lovenox) 40 mg SC DAILY [facility] PRN Reason: Protocol Last Admin: 03/11/18 08:56 Dose: 40 mg Ciprofloxacin (Cipro 400mg/200ml Dsw) 400 mg in 200 mls @ 200 mls/hr IVPB Q12@ 0400,1600 [facility] PRN Reason: Protocol Last Admin: 03/11/18 04:59 Dose: 200 mls/hr Metronidazole (Flagyl 500mg/100ml Ns) 100 mls @ 100 mls/hr IVPB Q8 [facility] PRN Reason: Protocol Last Admin: 03/11/18 08:55 Dose: 100 mls/hr Nystatin (Mycostatin Cream) 1 applic TOP TID [facility] Last Admin: 03/11/18 08:56 Dose: 1 applic Ondansetron HCl (Zofran Inj) 4 mg IVP Q4 PRN PRN Reason: Nausea/Vomiting Last Admin: 03/08/18 18:08 Dose: 4 mg Ondansetron HCl (Zofran Odt) 4 mg PO Q8H PRN PRN Reason: Nausea/Vomiting Last Admin: 03/11/18 08:57 Dose: 4 mg Oxycodone/Acetaminophen (Percocet 5/325 Mg Tab) 1 tab PO Q6 PRN PRN Reason: Pain, moderate (4-7) Stop: 03/13/18 11:22 Last Admin: 03/10/18 21:05 Dose: 1 tab Pantoprazole Sodium (Protonix Ec Tab) 40 mg PO DAILY [facility] Last Admin: 03/11/18 08:57 Dose: 40 mg - Labs Labs: 03/10/18 05:30 03/11/18 06:10 PT 13.2 Seconds (9.8-13.1) H 03/04/18 09:38 INR 1.2 (0.9-1.2) 03/04/18 09:38 APTT 33.2 Seconds (25.6-37.1) 03/04/18 09:38 - Constitutional Appears: Non-toxic, No Acute Distress, Chronically Ill - Head Exam Head Exam: NORMAL INSPECTION, NORMOCEPHALIC - Eye Exam Eye Exam: EOMI, Normal appearance Pupil Exam: NORMAL ACCOMODATION - ENT Exam ENT Exam: Mucous Membranes Dry, Normal External Ear Exam - Neck Exam Neck Exam: Full ROM. absent: Meningismus - Respiratory Exam Respiratory Exam: NORMAL BREATHING PATTERN. absent: Respiratory Distress - Cardiovascular Exam Cardiovascular Exam: Irregular Rhythm, +S1, +S2 - GI/Abdominal Exam GI & Abdominal Exam: Soft, Tenderness (mild LLQ tenderness), Normal Bowel Sounds - Extremities Exam Extremities Exam: Normal Capillary Refill. absent: Calf Tenderness - Back Exam Back Exam: Full ROM. absent: CVA tenderness (L), CVA tenderness (R) - Neurological Exam Neurological Exam: Alert, Awake, CN II-XII Intact, Oriented x3 - Psychiatric Exam Psychiatric exam: Normal Affect, Normal Mood - Skin Skin Exam: Dry, Normal Color, Warm Assessment and Plan (1) Diverticulitis Status: Acute (2) Atrial fibrillation, chronic Status: Chronic (3) UTI (urinary tract infection) Status: Acute - Assessment and Plan (Free Text) Assessment: 77 years old female with hx of Asthma, COPD, A Fib, Chf and diverticulosis. She was seen by the [facility] for loose Stool and abdominal pains one week prior to admission. She then presented to the ED with the intermittent pain across the lower abdomen, most severe on the LLQ. The pain is becoming more intense and is associated with diarrhea. She referred subjected fever but no nausea nor vomiting, CT of the Abdomen: Diverticulitis/ colitis more severe and extensive compared to the prior study without drainable collection, free air or significant loculated. 1) Acute diverticulitis -clinically better however attempting to advance diet very slowly, started on Clear Liquid diet but developed nausea after eating - Consulted Dr Riley GI - Consulted Dr. Bailey, general surgery- recommends conservative management at this time, may need elective surgical intervention as outpatient - Stool for C&S- negative - Blood CX x 2 neg - cont IV Cipro and Flagyl - fever and leukocytosis resolved 2) Acute UTI Continue Cipro/Flagyl d/c Pyridium 3. Chronic A Fib rate controlled -cont Digoxin/ASA, Plavix, Coreg - Not on anticoagulant 4. Asthma/ COPD/ ANKITA - consult Dr Fang pulmonology - Duoneb PRN 5. Deconditioning - Physical therapy consult #. DVT prophylaxis with lovenox
--- NOTE | 2018-03-11 10:10 | CP.PCM.PN ---
Subjective - Date & Time of Evaluation Date of Evaluation: 03/11/18 Time of Evaluation: 10:04 - Subjective Subjective: Pt seen and examined this AM. She reports she had no abdominal pain this AM after having clear liquid breakfast. She does admit to having nausea after eating, relieved with zofran. Afebrile. PICC placement pending. Labs and vitals noted. PE Gen: Pt laying in bed in NAD Skin: warm and dry Cardio: (+) afib, rate controlled Lungs: CTA biltaterally Abd: Soft NTND Extr: (+) left elbow deformity A/P Diverticulitis Monitor clear liquid diet tolerance Continue antibiotics If pt unable to advance diet passed clears will need PN Monitor labs Serial abdominal exams Pain control prn Objective - Vital Signs/Intake and Output Vital Signs (last 24 hours): Temp Pulse Resp BP Pulse Ox 97.5 F L 73 20 135/86 96 03/11/18 07:56 03/11/18 08:55 03/11/18 07:56 03/11/18 08:55 03/11/18 07:56 - Medications Medications: Current Medications Acetaminophen (Tylenol 325mg Tab) 975 mg PO Q6 PRN PRN Reason: Pain, moderate (4-7) Last Admin: 03/10/18 09:20 Dose: 975 mg Albuterol/Ipratropium (Duoneb 3 Mg/0.5 Mg (3 Ml) Ud) 3 ml INH RQ6 PRN PRN Reason: Shortness of Breath Aspirin (Ecotrin) 81 mg PO DAILY [facility] Last Admin: 03/05/18 10:34 Dose: Not Given Atorvastatin Calcium (Lipitor) 10 mg PO HS [facility] Last Admin: 03/10/18 21:14 Dose: 10 mg Carvedilol (Coreg) 3.125 mg PO DAILY [facility] Last Admin: 03/11/18 08:55 Dose: 3.125 mg Clopidogrel Bisulfate (Plavix) 75 mg PO DAILY [facility] Last Admin: 03/11/18 08:57 Dose: 75 mg Digoxin (Lanoxin) 0.25 mg PO DAILY [facility] Last Admin: 03/11/18 08:55 Dose: 0.25 mg Enoxaparin Sodium (Lovenox) 40 mg SC DAILY [facility] PRN Reason: Protocol Last Admin: 03/11/18 08:56 Dose: 40 mg Ciprofloxacin (Cipro 400mg/200ml Dsw) 400 mg in 200 mls @ 200 mls/hr IVPB Q12@ 0400,1600 [facility] PRN Reason: Protocol Last Admin: 03/11/18 04:59 Dose: 200 mls/hr Metronidazole (Flagyl 500mg/100ml Ns) 100 mls @ 100 mls/hr IVPB Q8 [facility] PRN Reason: Protocol Last Admin: 03/11/18 08:55 Dose: 100 mls/hr Nystatin (Mycostatin Cream) 1 applic TOP TID [facility] Last Admin: 03/11/18 08:56 Dose: 1 applic Ondansetron HCl (Zofran Inj) 4 mg IVP Q4 PRN PRN Reason: Nausea/Vomiting Last Admin: 03/08/18 18:08 Dose: 4 mg Oxycodone/Acetaminophen (Percocet 5/325 Mg Tab) 1 tab PO Q6 PRN PRN Reason: Pain, moderate (4-7) Stop: 03/13/18 11:22 Last Admin: 03/10/18 21:05 Dose: 1 tab Pantoprazole Sodium (Protonix Ec Tab) 40 mg PO DAILY [facility] Last Admin: 03/11/18 08:57 Dose: 40 mg - Labs Labs: 03/10/18 05:30 03/11/18 06:10 PT 13.2 Seconds (9.8-13.1) H 03/04/18 09:38 INR 1.2 (0.9-1.2) 03/04/18 09:38 APTT 33.2 Seconds (25.6-37.1) 03/04/18 09:38 Assessment and Plan (1) Diverticulitis Status: Acute
--- NOTE | 2018-03-11 10:51 | CP.PCM.PN ---
Subjective - Date & Time of Evaluation Date of Evaluation: 03/11/18 Time of Evaluation: 10:50 - Subjective Subjective: General Surgery Dr. Vergara (covering Dr. Bailey) Objective - Vital Signs/Intake and Output Vital Signs (last 24 hours): Temp Pulse Resp BP Pulse Ox 97.5 F L 73 20 135/86 96 03/11/18 07:56 03/11/18 08:55 03/11/18 07:56 03/11/18 08:55 03/11/18 07:56 - Medications Medications: Current Medications Acetaminophen (Tylenol 325mg Tab) 975 mg PO Q6 PRN PRN Reason: Pain, moderate (4-7) Last Admin: 03/10/18 09:20 Dose: 975 mg Albuterol/Ipratropium (Duoneb 3 Mg/0.5 Mg (3 Ml) Ud) 3 ml INH RQ6 PRN PRN Reason: Shortness of Breath Aspirin (Ecotrin) 81 mg PO DAILY [facility] Last Admin: 03/05/18 10:34 Dose: Not Given Atorvastatin Calcium (Lipitor) 10 mg PO HS [facility] Last Admin: 03/10/18 21:14 Dose: 10 mg Carvedilol (Coreg) 3.125 mg PO DAILY [facility] Last Admin: 03/11/18 08:55 Dose: 3.125 mg Clopidogrel Bisulfate (Plavix) 75 mg PO DAILY [facility] Last Admin: 03/11/18 08:57 Dose: 75 mg Digoxin (Lanoxin) 0.25 mg PO DAILY [facility] Last Admin: 03/11/18 08:55 Dose: 0.25 mg Enoxaparin Sodium (Lovenox) 40 mg SC DAILY [facility] PRN Reason: Protocol Last Admin: 03/11/18 08:56 Dose: 40 mg Ciprofloxacin (Cipro 400mg/200ml Dsw) 400 mg in 200 mls @ 200 mls/hr IVPB Q12@ 0400,1600 [facility] PRN Reason: Protocol Last Admin: 03/11/18 04:59 Dose: 200 mls/hr Metronidazole (Flagyl 500mg/100ml Ns) 100 mls @ 100 mls/hr IVPB Q8 [facility] PRN Reason: Protocol Last Admin: 03/11/18 08:55 Dose: 100 mls/hr Nystatin (Mycostatin Cream) 1 applic TOP TID [facility] Last Admin: 03/11/18 08:56 Dose: 1 applic Ondansetron HCl (Zofran Inj) 4 mg IVP Q4 PRN PRN Reason: Nausea/Vomiting Last Admin: 03/08/18 18:08 Dose: 4 mg Oxycodone/Acetaminophen (Percocet 5/325 Mg Tab) 1 tab PO Q6 PRN PRN Reason: Pain, moderate (4-7) Stop: 03/13/18 11:22 Last Admin: 03/10/18 21:05 Dose: 1 tab Pantoprazole Sodium (Protonix Ec Tab) 40 mg PO DAILY [facility] Last Admin: 03/11/18 08:57 Dose: 40 mg - Labs Labs: 03/10/18 05:30 03/11/18 06:10 PT 13.2 Seconds (9.8-13.1) H 03/04/18 09:38 INR 1.2 (0.9-1.2) 03/04/18 09:38 APTT 33.2 Seconds (25.6-37.1) 03/04/18 09:38
--- NOTE | 2018-03-11 11:34 | CP.PCM.PN ---
Subjective - Date & Time of Evaluation Date of Evaluation: 03/11/18 Time of Evaluation: 07:30 - Subjective Subjective: Patient seen and examined today at bedside with Dr. Fang. She is able to tolerate a small amount amount of liquids in the am without abdominal pain. She hopes to have some liquids at lunch. She denies fever, vomiting, diarrhea, chest pain, and SOB. She denies BM so far due to starting liquid diet today. Objective - Vital Signs/Intake and Output Vital Signs (last 24 hours): Temp Pulse Resp BP Pulse Ox 97.5 F L 73 20 135/86 96 03/11/18 07:56 03/11/18 08:55 03/11/18 07:56 03/11/18 08:55 03/11/18 07:56 - Medications Medications: Current Medications Acetaminophen (Tylenol 325mg Tab) 975 mg PO Q6 PRN PRN Reason: Pain, moderate (4-7) Last Admin: 03/10/18 09:20 Dose: 975 mg Albuterol/Ipratropium (Duoneb 3 Mg/0.5 Mg (3 Ml) Ud) 3 ml INH RQ6 PRN PRN Reason: Shortness of Breath Aspirin (Ecotrin) 81 mg PO DAILY [facility] Last Admin: 03/05/18 10:34 Dose: Not Given Atorvastatin Calcium (Lipitor) 10 mg PO HS [facility] Last Admin: 03/10/18 21:14 Dose: 10 mg Carvedilol (Coreg) 3.125 mg PO DAILY [facility] Last Admin: 03/11/18 08:55 Dose: 3.125 mg Clopidogrel Bisulfate (Plavix) 75 mg PO DAILY [facility] Last Admin: 03/11/18 08:57 Dose: 75 mg Digoxin (Lanoxin) 0.25 mg PO DAILY [facility] Last Admin: 03/11/18 08:55 Dose: 0.25 mg Enoxaparin Sodium (Lovenox) 40 mg SC DAILY [facility] PRN Reason: Protocol Last Admin: 03/11/18 08:56 Dose: 40 mg Ciprofloxacin (Cipro 400mg/200ml Dsw) 400 mg in 200 mls @ 200 mls/hr IVPB Q12@ 0400,1600 [facility] PRN Reason: Protocol Last Admin: 03/11/18 04:59 Dose: 200 mls/hr Metronidazole (Flagyl 500mg/100ml Ns) 100 mls @ 100 mls/hr IVPB Q8 [facility] PRN Reason: Protocol Last Admin: 03/11/18 08:55 Dose: 100 mls/hr Nystatin (Mycostatin Cream) 1 applic TOP TID [facility] Last Admin: 03/11/18 08:56 Dose: 1 applic Ondansetron HCl (Zofran Inj) 4 mg IVP Q4 PRN PRN Reason: Nausea/Vomiting Last Admin: 03/08/18 18:08 Dose: 4 mg Oxycodone/Acetaminophen (Percocet 5/325 Mg Tab) 1 tab PO Q6 PRN PRN Reason: Pain, moderate (4-7) Stop: 03/13/18 11:22 Last Admin: 03/10/18 21:05 Dose: 1 tab Pantoprazole Sodium (Protonix Ec Tab) 40 mg PO DAILY [facility] Last Admin: 03/11/18 08:57 Dose: 40 mg - Labs Labs: 03/10/18 05:30 03/11/18 06:10 PT 13.2 Seconds (9.8-13.1) H 03/04/18 09:38 INR 1.2 (0.9-1.2) 03/04/18 09:38 APTT 33.2 Seconds (25.6-37.1) 03/04/18 09:38 - Constitutional Appears: Non-toxic, No Acute Distress - Head Exam Head Exam: NORMAL INSPECTION - Eye Exam Eye Exam: Normal appearance - ENT Exam ENT Exam: Mucous Membranes Moist - Respiratory Exam Respiratory Exam: Clear to Ausculation Bilateral. absent: Rales, Rhonchi, Wheezes - Cardiovascular Exam Cardiovascular Exam: Irregular Rhythm, +S1, +S2 - GI/Abdominal Exam GI & Abdominal Exam: Soft, Tenderness (LLQ mild tenderness), Normal Bowel Sounds. absent: Guarding, Rigid - Extremities Exam Extremities Exam: Normal Capillary Refill, Normal Inspection. absent: Calf Tenderness - Back Exam Back Exam: NORMAL INSPECTION. absent: CVA tenderness (L), CVA tenderness (R) - Neurological Exam Neurological Exam: Alert, Awake, Oriented x3 - Psychiatric Exam Psychiatric exam: Normal Affect, Normal Mood - Skin Skin Exam: Erythema (Bilateral distal 1/3 erythema, blanching, non-tender, normal temperature to touch) Assessment and Plan (1) Diverticulitis Assessment & Plan: Continue same regimen Flagyl and Cipro Advance diet as tolerated. Continue with PT Status: Acute (2) Asthma with COPD Status: Chronic (3) CAD (coronary artery disease) Status: Chronic (4) Chronic atrial fibrillation Status: Chronic
--- NOTE | 2018-03-11 20:35 | CP.PCM.PN ---
Subjective - Date & Time of Evaluation Date of Evaluation: 03/11/18 Time of Evaluation: 14:00 - Subjective Subjective: Abdominal pain continues to gradually improve Objective - Vital Signs/Intake and Output Vital Signs (last 24 hours): Temp Pulse Resp BP Pulse Ox 97.5 F L 75 20 107/57 L 96 03/11/18 16:15 03/11/18 16:15 03/11/18 16:15 03/11/18 16:15 03/11/18 16:15 - Medications Medications: Current Medications Acetaminophen (Tylenol 325mg Tab) 975 mg PO Q6 PRN PRN Reason: Pain, moderate (4-7) Last Admin: 03/10/18 09:20 Dose: 975 mg Albuterol/Ipratropium (Duoneb 3 Mg/0.5 Mg (3 Ml) Ud) 3 ml INH RQ6 PRN PRN Reason: Shortness of Breath Aspirin (Ecotrin) 81 mg PO DAILY [facility] Last Admin: 03/05/18 10:34 Dose: Not Given Atorvastatin Calcium (Lipitor) 10 mg PO HS [facility] Last Admin: 03/10/18 21:14 Dose: 10 mg Carvedilol (Coreg) 3.125 mg PO DAILY [facility] Last Admin: 03/11/18 08:55 Dose: 3.125 mg Clopidogrel Bisulfate (Plavix) 75 mg PO DAILY [facility] Last Admin: 03/11/18 08:57 Dose: 75 mg Digoxin (Lanoxin) 0.25 mg PO DAILY [facility] Last Admin: 03/11/18 08:55 Dose: 0.25 mg Enoxaparin Sodium (Lovenox) 40 mg SC DAILY [facility] PRN Reason: Protocol Last Admin: 03/11/18 08:56 Dose: 40 mg Ciprofloxacin (Cipro 400mg/200ml Dsw) 400 mg in 200 mls @ 200 mls/hr IVPB Q12@ 0400,1600 [facility] PRN Reason: Protocol Last Admin: 03/11/18 16:23 Dose: 200 mls/hr Metronidazole (Flagyl 500mg/100ml Ns) 100 mls @ 100 mls/hr IVPB Q8 [facility] PRN Reason: Protocol Last Admin: 03/11/18 17:26 Dose: 100 mls/hr Nystatin (Mycostatin Cream) 1 applic TOP TID [facility] Last Admin: 03/11/18 16:24 Dose: Not Given Ondansetron HCl (Zofran Inj) 4 mg IVP Q4 PRN PRN Reason: Nausea/Vomiting Last Admin: 03/11/18 16:21 Dose: 4 mg Oxycodone/Acetaminophen (Percocet 5/325 Mg Tab) 1 tab PO Q6 PRN PRN Reason: Pain, moderate (4-7) Stop: 03/13/18 11:22 Last Admin: 03/10/18 21:05 Dose: 1 tab Pantoprazole Sodium (Protonix Ec Tab) 40 mg PO DAILY [facility] Last Admin: 03/11/18 08:57 Dose: 40 mg - Labs Labs: 03/10/18 05:30 03/11/18 06:10 PT 13.2 Seconds (9.8-13.1) H 03/04/18 09:38 INR 1.2 (0.9-1.2) 03/04/18 09:38 APTT 33.2 Seconds (25.6-37.1) 03/04/18 09:38 - Head Exam Head Exam: ATRAUMATIC - Eye Exam Eye Exam: Normal appearance - ENT Exam ENT Exam: Normal Exam - Neck Exam Neck Exam: Full ROM - Respiratory Exam Respiratory Exam: Clear to Ausculation Bilateral - Cardiovascular Exam Cardiovascular Exam: REGULAR RHYTHM, +S1, +S2 - GI/Abdominal Exam GI & Abdominal Exam: Soft, Tenderness, Normal Bowel Sounds Additional comments: mild LLQ tenderness Assessment and Plan (1) Diverticulitis Assessment & Plan: Tolerating clears. Continue to slowly advance diet as tolerated. Status: Acute
[2018-03-12] MEDS: metroNIDAZOLE 500mg/100ml NS 100 ML IVPB SCH ×2 (00:27→10:16)
[2018-03-12] MEDS: Ciprofloxacin 400mg/200ml D5W 400 MG/200 ML BAG IVPB SCH ×2 (04:18→17:15)
[2018-03-12 08:09] LABS: INR 1.2 (0.9-1.2); PARTIAL THROMBOPLASTIN TIME 41.5 Seconds (25.6-37.1); PROTHROMBIN TIME 13.2 Seconds (9.8-13.1)
[2018-03-12 08:14] VITALS: RESP 20
--- NOTE | 2018-03-12 09:57 | CP.PCM.PN ---
Subjective - Date & Time of Evaluation Date of Evaluation: 03/12/18 Time of Evaluation: 09:53 - Subjective Subjective: General surgery Pt seen and examined this AM. She reports tolerating full liquids right now, however previously felt nauseous. (-) vomiting. Pt reports her abdominal pain is improving. Pt is pending PICC placement today as per RN. Pt's current peripheral line removed due to swelling and pain at the site. (+) formed BM yesterday, pt unsure if there was blood in it. Vitals noted, no new chemistry/cbc drawn today PE Gen: Pt laying in bed in NAD Skin: warm and dry Cardio: Afib, rate controlled Lungs: CTA bilaterally Abd: Soft, (+) LLQ tenderness Extr: (+) Left elbow deformity, (+) mild swelling at the IV site of left forearm that was removed earlier, (-) calf tenderness bilaterally A/P Diverticulitis Continue full liquids today, advance diet slowly as pt continues to have LLQ tenderness Continue IV antibiotics when IV access achieved Zofran ODT ordered prn for now while pt has no IV access No surgical intervention at this time. Objective - Vital Signs/Intake and Output Vital Signs (last 24 hours): Temp Pulse Resp BP Pulse Ox 97.8 F 79 20 130/81 95 03/12/18 08:12 03/12/18 08:12 03/12/18 08:12 03/12/18 08:12 03/12/18 08:12 - Medications Medications: Current Medications Acetaminophen (Tylenol 325mg Tab) 975 mg PO Q6 PRN PRN Reason: Pain, moderate (4-7) Last Admin: 03/10/18 09:20 Dose: 975 mg Albuterol/Ipratropium (Duoneb 3 Mg/0.5 Mg (3 Ml) Ud) 3 ml INH RQ6 PRN PRN Reason: Shortness of Breath Aspirin (Ecotrin) 81 mg PO DAILY [facility] Last Admin: 03/05/18 10:34 Dose: Not Given Atorvastatin Calcium (Lipitor) 10 mg PO HS [facility] Last Admin: 03/11/18 21:39 Dose: 10 mg Carvedilol (Coreg) 3.125 mg PO DAILY [facility] Last Admin: 03/11/18 08:55 Dose: 3.125 mg Clopidogrel Bisulfate (Plavix) 75 mg PO DAILY [facility] Last Admin: 03/11/18 08:57 Dose: 75 mg Digoxin (Lanoxin) 0.25 mg PO DAILY [facility] Last Admin: 03/11/18 08:55 Dose: 0.25 mg Enoxaparin Sodium (Lovenox) 40 mg SC DAILY [facility] PRN Reason: Protocol Last Admin: 03/11/18 08:56 Dose: 40 mg Ciprofloxacin (Cipro 400mg/200ml Dsw) 400 mg in 200 mls @ 200 mls/hr IVPB Q12@ 0400,1600 [facility] PRN Reason: Protocol Last Admin: 03/12/18 04:18 Dose: 200 mls/hr Metronidazole (Flagyl 500mg/100ml Ns) 100 mls @ 100 mls/hr IVPB Q8 [facility] PRN Reason: Protocol Last Admin: 03/12/18 00:27 Dose: 100 mls/hr Nystatin (Mycostatin Cream) 1 applic TOP TID [facility] Last Admin: 03/11/18 16:24 Dose: Not Given Ondansetron HCl (Zofran Inj) 4 mg IVP Q4 PRN PRN Reason: Nausea/Vomiting Last Admin: 03/11/18 23:18 Dose: 4 mg Ondansetron HCl (Zofran Odt) 4 mg PO Q8H PRN PRN Reason: Nausea/Vomiting Oxycodone/Acetaminophen (Percocet 5/325 Mg Tab) 1 tab PO Q6 PRN PRN Reason: Pain, moderate (4-7) Stop: 03/13/18 11:22 Last Admin: 03/10/18 21:05 Dose: 1 tab Pantoprazole Sodium (Protonix Ec Tab) 40 mg PO DAILY [facility] Last Admin: 03/11/18 08:57 Dose: 40 mg - Labs Labs: 03/10/18 05:30 03/11/18 06:10 PT 13.2 Seconds (9.8-13.1) H 03/12/18 07:49 INR 1.2 (0.9-1.2) 03/12/18 07:49 APTT 41.5 Seconds (25.6-37.1) H 03/12/18 07:49 Assessment and Plan (1) Diverticulitis Status: Acute
[2018-03-12] MEDS: Digoxin 250 mcg (0.25 mg) Tab PO SCH (10:17)
[2018-03-12] MEDS: Enoxaparin 40 mg Syringe SC SCH (10:18)
[2018-03-12] MEDS: Pantoprazole 40 mg EC Tab PO SCH (10:18)
[2018-03-12 10:19] VITALS: PULSE 79
--- NOTE | 2018-03-12 10:38 | CP.PCM.PN ---
Subjective - Date & Time of Evaluation Date of Evaluation: 03/12/18 Time of Evaluation: 10:32 - Subjective Subjective: Surgery PT seen and examined. No acute events. Pain controlled. Denies fever, nausea, vomiting, diarrhea. Tolerating FLD. Had BM. Objective - Vital Signs/Intake and Output Vital Signs (last 24 hours): Temp Pulse Resp BP Pulse Ox 97.8 F 79 20 130/81 95 03/12/18 08:12 03/12/18 08:12 03/12/18 08:12 03/12/18 08:12 03/12/18 08:12 - Medications Medications: Current Medications Acetaminophen (Tylenol 325mg Tab) 975 mg PO Q6 PRN PRN Reason: Pain, moderate (4-7) Last Admin: 03/10/18 09:20 Dose: 975 mg Albuterol/Ipratropium (Duoneb 3 Mg/0.5 Mg (3 Ml) Ud) 3 ml INH RQ6 PRN PRN Reason: Shortness of Breath Aspirin (Ecotrin) 81 mg PO DAILY [facility] Last Admin: 03/05/18 10:34 Dose: Not Given Atorvastatin Calcium (Lipitor) 10 mg PO HS [facility] Last Admin: 03/11/18 21:39 Dose: 10 mg Carvedilol (Coreg) 3.125 mg PO DAILY [facility] Last Admin: 03/12/18 10:18 Dose: 3.125 mg Clopidogrel Bisulfate (Plavix) 75 mg PO DAILY [facility] Last Admin: 03/12/18 10:17 Dose: 75 mg Digoxin (Lanoxin) 0.25 mg PO DAILY [facility] Last Admin: 03/12/18 10:17 Dose: 0.25 mg Enoxaparin Sodium (Lovenox) 40 mg SC DAILY [facility] PRN Reason: Protocol Last Admin: 03/12/18 10:18 Dose: 40 mg Ciprofloxacin (Cipro 400mg/200ml Dsw) 400 mg in 200 mls @ 200 mls/hr IVPB Q12@ 0400,1600 [facility] PRN Reason: Protocol Last Admin: 03/12/18 04:18 Dose: 200 mls/hr Metronidazole (Flagyl 500mg/100ml Ns) 100 mls @ 100 mls/hr IVPB Q8 [facility] PRN Reason: Protocol Last Admin: 03/12/18 10:16 Dose: Not Given Nystatin (Mycostatin Cream) 1 applic TOP TID [facility] Last Admin: 03/12/18 10:18 Dose: 1 applic Ondansetron HCl (Zofran Inj) 4 mg IVP Q4 PRN PRN Reason: Nausea/Vomiting Last Admin: 03/11/18 23:18 Dose: 4 mg Ondansetron HCl (Zofran Odt) 4 mg PO Q8H PRN PRN Reason: Nausea/Vomiting Oxycodone/Acetaminophen (Percocet 5/325 Mg Tab) 1 tab PO Q6 PRN PRN Reason: Pain, moderate (4-7) Stop: 03/13/18 11:22 Last Admin: 03/10/18 21:05 Dose: 1 tab Pantoprazole Sodium (Protonix Ec Tab) 40 mg PO DAILY [facility] Last Admin: 03/12/18 10:18 Dose: 40 mg - Labs Labs: 03/10/18 05:30 03/11/18 06:10 PT 13.2 Seconds (9.8-13.1) H 03/12/18 07:49 INR 1.2 (0.9-1.2) 03/12/18 07:49 APTT 41.5 Seconds (25.6-37.1) H 03/12/18 07:49 - Constitutional Appears: No Acute Distress - Head Exam Head Exam: ATRAUMATIC, NORMAL INSPECTION, NORMOCEPHALIC - Eye Exam Eye Exam: EOMI, Normal appearance, PERRL Pupil Exam: NORMAL ACCOMODATION, PERRL - ENT Exam ENT Exam: Mucous Membranes Moist, Normal Exam - Neck Exam Neck Exam: Full ROM, Normal Inspection. absent: Lymphadenopathy - Respiratory Exam Respiratory Exam: Clear to Ausculation Bilateral, NORMAL BREATHING PATTERN - Cardiovascular Exam Cardiovascular Exam: REGULAR RHYTHM, +S1, +S2. absent: Murmur - GI/Abdominal Exam GI & Abdominal Exam: Soft, Tenderness, Normal Bowel Sounds. absent: Distended, Firm, Guarding, Rigid, Mass, Rebound Additional comments: LLQ TTP. LOw abd TTP. - Exam Exam: NORMAL INSPECTION - Extremities Exam Extremities Exam: Full ROM, Normal Capillary Refill, Normal Inspection. absent : Joint Swelling, Pedal Edema - Back Exam Back Exam: NORMAL INSPECTION - Neurological Exam Neurological Exam: Alert, Awake, CN II-XII Intact, Normal Gait, Oriented x3 - Psychiatric Exam Psychiatric exam: Normal Affect, Normal Mood - Skin Skin Exam: Dry, Intact, Normal Color, Warm Assessment and Plan - Assessment and Plan (Free Text) Assessment: Diverticulitis : improving -FLD -ABX -IVF -Pain control -Nausea control DW Surgical team.
--- NOTE | 2018-03-12 10:51 | CP.PCM.PN ---
Subjective - Date & Time of Evaluation Date of Evaluation: 03/12/18 Time of Evaluation: 08:00 - Subjective Subjective: Patient was seen and examined at bedside with Dr. Fang. Patient reports decrease in appetite but is tolerating a liquid diet yesterday and reports mild nausea with the diet. Denies BM and reports last BM was over the weekend. She attributes not having a BM to her current liquid diet. Patient reports less abdominal pain today as compared to yesterday and she reports feeling much better overall. Denies fever, vomiting, chest pain, SOB, and diarrhea. Objective - Vital Signs/Intake and Output Vital Signs (last 24 hours): Temp Pulse Resp BP Pulse Ox 97.8 F 79 20 130/81 95 03/12/18 08:12 03/12/18 08:12 03/12/18 08:12 03/12/18 08:12 03/12/18 08:12 - Medications Medications: Current Medications Acetaminophen (Tylenol 325mg Tab) 975 mg PO Q6 PRN PRN Reason: Pain, moderate (4-7) Last Admin: 03/10/18 09:20 Dose: 975 mg Albuterol/Ipratropium (Duoneb 3 Mg/0.5 Mg (3 Ml) Ud) 3 ml INH RQ6 PRN PRN Reason: Shortness of Breath Aspirin (Ecotrin) 81 mg PO DAILY [facility] Last Admin: 03/05/18 10:34 Dose: Not Given Atorvastatin Calcium (Lipitor) 10 mg PO HS [facility] Last Admin: 03/11/18 21:39 Dose: 10 mg Carvedilol (Coreg) 3.125 mg PO DAILY [facility] Last Admin: 03/12/18 10:18 Dose: 3.125 mg Clopidogrel Bisulfate (Plavix) 75 mg PO DAILY [facility] Last Admin: 03/12/18 10:17 Dose: 75 mg Digoxin (Lanoxin) 0.25 mg PO DAILY [facility] Last Admin: 03/12/18 10:17 Dose: 0.25 mg Enoxaparin Sodium (Lovenox) 40 mg SC DAILY [facility] PRN Reason: Protocol Last Admin: 03/12/18 10:18 Dose: 40 mg Ciprofloxacin (Cipro 400mg/200ml Dsw) 400 mg in 200 mls @ 200 mls/hr IVPB Q12@ 0400,1600 [facility] PRN Reason: Protocol Last Admin: 03/12/18 04:18 Dose: 200 mls/hr Metronidazole (Flagyl 500mg/100ml Ns) 100 mls @ 100 mls/hr IVPB Q8 [facility] PRN Reason: Protocol Last Admin: 03/12/18 10:16 Dose: Not Given Nystatin (Mycostatin Cream) 1 applic TOP TID [facility] Last Admin: 03/12/18 10:18 Dose: 1 applic Ondansetron HCl (Zofran Inj) 4 mg IVP Q4 PRN PRN Reason: Nausea/Vomiting Last Admin: 03/11/18 23:18 Dose: 4 mg Ondansetron HCl (Zofran Odt) 4 mg PO Q8H PRN PRN Reason: Nausea/Vomiting Oxycodone/Acetaminophen (Percocet 5/325 Mg Tab) 1 tab PO Q6 PRN PRN Reason: Pain, moderate (4-7) Stop: 03/13/18 11:22 Last Admin: 03/10/18 21:05 Dose: 1 tab Pantoprazole Sodium (Protonix Ec Tab) 40 mg PO DAILY [facility] Last Admin: 03/12/18 10:18 Dose: 40 mg - Labs Labs: 03/10/18 05:30 03/11/18 06:10 PT 13.2 Seconds (9.8-13.1) H 03/12/18 07:49 INR 1.2 (0.9-1.2) 03/12/18 07:49 APTT 41.5 Seconds (25.6-37.1) H 03/12/18 07:49 - Constitutional Appears: Non-toxic, No Acute Distress - Head Exam Head Exam: NORMAL INSPECTION - ENT Exam ENT Exam: Mucous Membranes Moist - Respiratory Exam Respiratory Exam: Clear to Ausculation Bilateral, NORMAL BREATHING PATTERN. absent: Rales, Rhonchi, Wheezes - Cardiovascular Exam Cardiovascular Exam: Irregular Rhythm, +S1, +S2 - GI/Abdominal Exam GI & Abdominal Exam: Tenderness (LLQ tenderness ), Normal Bowel Sounds. absent : Guarding Additional comments: LLQ tenderness - Extremities Exam Extremities Exam: absent: Calf Tenderness, Joint Swelling - Neurological Exam Neurological Exam: Alert, Awake - Skin Skin Exam: Normal Color Assessment and Plan (1) Diverticulitis Assessment & Plan: Continue Same regimen: Flagyl and Ciprofloxacin Continue to advance diet as tolerated Continue PT Pending disposition to TCU Status: Acute (2) Asthma with COPD Status: Chronic (3) CAD (coronary artery disease) Status: Chronic (4) Chronic atrial fibrillation Status: Chronic
--- NOTE | 2018-03-12 11:08 | CP.PCM.DIS ---
Provider - Provider Date of Admission: 03/04/18 03:02 Attending physician: Brayan Chavarria Primary care physician: Raymond Fang MD Time Spent in preparation of Discharge (in minutes): 30 Hospital Course - Lab Results Lab Results: Micro Results 03/09/18 16:20 Urine,Catheterized Urine Culture - Final No Growth (<1,000 CFU/ML) 03/04/18 03:50 Blood-Venous Blood Culture - Final NO GROWTH AFTER 5 DAYS 03/04/18 03:50 Blood-Venous Gram Stain - Final TEST NOT PERFORMED 03/04/18 04:00 Blood-Venous Blood Culture - Final NO GROWTH AFTER 5 DAYS 03/04/18 02:30 Stool Ova and Parasite Concentrate Exam - Final 03/04/18 02:30 Stool Stool Culture - Final NO SALMONELLA, SHIGELLA OR CAMPYLOBACTER ISOLATED. Most Recent Lab Values WBC 7.1 K/uL (4.8-10.8) 03/10/18 05:30 RBC 3.90 Mil/uL (3.80-5.20) 03/10/18 05:30 Hgb 12.4 g/dL (12.0-16.0) 03/10/18 05:30 Hct 36.8 % (34.0-47.0) 03/10/18 05:30 MCV 94.2 fl (81.0-99.0) 03/10/18 05:30 MCH 31.9 pg (27.0-31.0) H 03/10/18 05:30 MCHC 33.8 g/dL (33.0-37.0) 03/10/18 05:30 RDW 16.2 % (11.5-14.5) H 03/10/18 05:30 Plt Count 555 K/uL (130-400) H 03/10/18 05:30 MPV 6.3 fl (7.2-11.7) L 03/05/18 05:50 Neut % (Auto) 80.7 % (50.0-75.0) H 03/05/18 05:50 Lymph % (Auto) 7.1 % (20.0-40.0) L 03/05/18 05:50 [place] % (Auto) 8.1 % (0.0-10.0) 03/05/18 05:50 Eos % (Auto) 3.3 % (0.0-4.0) 03/05/18 05:50 Baso % (Auto) 0.8 % (0.0-2.0) 03/05/18 05:50 Neut # (Auto) 11.0 K/uL (1.8-7.0) H 03/05/18 05:50 Lymph # (Auto) 1.0 K/uL (1.0-4.3) 03/05/18 05:50 [place] # (Auto) 1.1 K/uL (0.0-0.8) H 03/05/18 05:50 Eos # (Auto) 0.4 K/uL (0.0-0.7) 03/05/18 05:50 Baso # (Auto) 0.1 K/uL (0.0-0.2) 03/05/18 05:50 Neutrophils % (Manual) 71 % (42-75) 03/04/18 01:24 Band Neutrophils % 4 % (0-2) H 03/04/18 01:24 Lymphocytes % (Manual) 9 % (20-50) L 03/04/18 01:24 Reactive Lymphs % 4 % (0-0) H 03/04/18 01:24 Monocytes % (Manual) 7 % (0-10) 03/04/18 01:24 Eosinophils % (Manual) 5 % (0-7) 03/04/18 01:24 Platelet Estimate Markedly increased (NORMAL) H 03/04/18 01:24 Large Platelets Present 03/04/18 01:24 Hypochromasia (manual) Slight 03/04/18 01:24 Anisocytosis (manual) Slight 03/04/18 01:24 Tear Drop Cells Slight 03/04/18 01:24 PT 13.2 Seconds (9.8-13.1) H 03/12/18 07:49 INR 1.2 (0.9-1.2) 03/12/18 07:49 APTT 41.5 Seconds (25.6-37.1) H 03/12/18 07:49 Sodium 140 mmol/l (132-148) 03/11/18 06:10 Potassium 3.8 MMOL/L (3.6-5.0) 03/11/18 06:10 Chloride 106 mmol/L (98-107) 03/11/18 06:10 Carbon Dioxide 24 mmol/L (22-30) 03/11/18 06:10 Anion Gap 14 (10-20) 03/11/18 06:10 BUN < 2 mg/dl (7-17) L 03/11/18 06:10 Creatinine 0.5 mg/dl (0.7-1.2) L 03/11/18 06:10 Est GFR ( Amer) > 60 03/11/18 06:10 Est GFR (Non-Af Amer) > 60 03/11/18 06:10 Random Glucose 99 mg/dL (65-105) 03/11/18 06:10 Lactic Acid 1.1 MMOL/L (0.7-2.1) 03/04/18 04:10 Calcium 8.2 mg/dL (8.4-10.2) L 03/11/18 06:10 Phosphorus 2.9 mg/dl (2.5-4.5) 03/11/18 06:10 Magnesium 1.8 MG/DL (1.6-2.3) 03/11/18 06:10 Total Bilirubin 0.7 mg/dl (0.2-1.3) 03/04/18 01:24 AST 52 U/L (14-36) H D 03/04/18 01:24 ALT 48 U/L (9-52) 03/04/18 01:24 Alkaline Phosphatase 112 U/L (38-126) 03/04/18 01:24 Total Protein 6.7 G/DL (6.3-8.2) 03/04/18 01:24 Albumin 3.1 g/dL (3.5-5.0) L 03/04/18 01:24 Globulin 3.6 gm/dL (2.2-3.9) 03/04/18 01:24 Albumin/Globulin Ratio 0.9 (1.0-2.1) L 03/04/18 01:24 Lipase 25 U/L (23-300) 03/04/18 01:24 Urine Color Alejandra (YELLOW) 03/09/18 16:20 Urine Clarity Clear (Clear) 03/09/18 16:20 Urine pH 6.0 (5.0-8.0) 03/09/18 16:20 Ur Specific [place] 1.012 (1.003-1.030) 03/09/18 16:20 Urine Protein Negative mg/dL (NEGATIVE) 03/09/18 16:20 Urine Glucose (UA) Neg mg/dL (Normal) 03/09/18 16:20 Urine Ketones Trace mg/dL (NEGATIVE) 03/09/18 16:20 Urine Blood Negative (NEGATIVE) 03/09/18 16:20 Urine Nitrate Positive (NEGATIVE) H 03/09/18 16:20 Urine Bilirubin Negative (NEGATIVE) 03/09/18 16:20 Urine Urobilinogen 4.0 mg/dL (0.2-1.0) H 03/09/18 16:20 Ur Leukocyte Esterase Neg Jaci/uL (Negative) 03/09/18 16:20 Urine RBC (Auto) 3 /hpf (0-3) 03/09/18 16:20 Urine WBC Clumps (Auto) Many /hpf (NONE) H 03/04/18 22:48 Urine Microscopic WBC 7 /hpf (0-5) H 03/09/18 16:20 Ur Squamous Epith Cells 5 /hpf (0-5) 03/04/18 22:48 Urine Bacteria Few (<OCC) H 03/09/18 16:20 Stool Occult Blood Negative (NEGATIVE) 03/04/18 02:30 Stool Leukocytes, Qual Positive (NEGATIVE) H 03/04/18 02:30 Digoxin 0.7 ng/mL (0.8-2.0) L 03/04/18 09:38 C. difficile Ag & Toxin Negative (NEGATIVE) 03/04/18 02:30 - Hospital Course Hospital Course: 77 years old female with hx of Asthma, COPD, A Fib, Chf and diverticulosis. She was seen by the Hair Dryer for loose Stool and abdominal pains one week prior to admission. She then presented to the ED with the intermittent pain across the lower abdomen, most severe on the LLQ. The pain is becoming more intense and is associated with diarrhea. She referred subjected fever but no nausea nor vomiting, CT of the Abdomen: Diverticulitis/ colitis more severe and extensive compared to the prior study without drainable collection, free air or significant loculated. 1) Acute diverticulitis -clinically better however attempting to advance diet very slowly, started on Clear Liquid diet but developed nausea after eating. pt continuing to very slowly tolerate PO liquids. Stable for transfer to TCU. - Consulted Dr Riley GI - Consulted Dr. Bailey, general surgery- recommends conservative management at this time, may need elective surgical intervention as outpatient - Stool for C&S- negative - Blood CX x 2 neg - cont IV Cipro and Flagyl - fever and leukocytosis resolved 2) Acute UTI Continue Cipro/Flagyl d/c Pyridium 3. Chronic A Fib rate controlled -cont Digoxin/ASA, Plavix, Coreg - Not on anticoagulant 4. Asthma/ COPD/ ANKITA - consult Dr Fang pulmonology - Duoneb PRN 5. Deconditioning - Physical therapy consult #. DVT prophylaxis with lovenox Discharge Exam - Head Exam Additional comments: EXAM: Vitals stable and reviewed GEN: WDWN, alert, cooperative HEENT: NCAT, PERRL, EOMI Neck: supple, no lymphadenopathy CARDIO: +S1S2, RRR, NO M/R/G LUNG: CTAB, NO W/R/R ABD: soft, NT, ND, no masses, no HSM EXT: no edema, pedal pulses Neuro: AAOx3, Strength equal, bilateral UE/LE Psych: normal mood, normal affect Discharge Plan - Follow Up Plan Condition: FAIR Disposition: TRANSF TO SNF Instructions: Low Fiber Diet, Diverticulitis (DC) Additional Instructions: follow up with primary MD and GI 1 week Referrals: Raymond Fang MD [Primary Care Provider] - Johny Riley MD [Staff Provider] -
--- NOTE | 2018-03-12 12:18 | CP.PCM.CON ---
History of Present Illness - History of Present Illness History of Present Illness: Podiatry consult note for attending, Dr. Camacho, 77 y/o female with PMHx of Asthma, COPD, A-fib, CHF, and diverticulosis was consulted on for complaints of a loose right hallucal toenail. Patient denies any pain to the nail, and states she wanted the nail evaluated. Patient reports podiatry trimmed her nails last week and told patient the nail will fall off on it's own. Patient denies any other pedal complaints, F/V/N/SOB. Review of Systems - Review of Systems All systems: reviewed and no additional remarkable complaints except Review of Systems: As per HPI Past Patient History - Infectious Disease Hx of Infectious Diseases: None - Tetanus Immunizations Tetanus Immunization: Unknown - Past Medical History & Family History Past Medical History?: Yes - Past Social History Smoking Status: Former Smoker Chewing Tobacco Use: No Cigar Use: No Alcohol: None Drugs: Denies Home Situation {Lives}: Alone - CARDIAC Hx Atrial Fibrillation: Yes Hx Cardia Arrhythmia: Yes Hx Congestive Heart Failure: Yes Hx Heart Attack: Yes Hx Hypertension: Yes Hx Peripheral Edema: Yes Hx Peripheral Vascular Disease: Yes - PULMONARY Hx Asthma: Yes Hx Bronchitis: Yes Hx Chronic Obstructive Pulmonary Disease (COPD): Yes Hx Pneumonia: Yes Other/Comment: Hx Pulmonary HTN - NEUROLOGICAL Hx Vertigo: Yes Other/Comment: Hx peripheral neuropathy - HEENT Hx HEENT Problems: No - RENAL Hx Chronic Kidney Disease: No - ENDOCRINE/METABOLIC Hx Endocrine Disorders: No Hx Hypothyroidism: No - HEMATOLOGICAL/ONCOLOGICAL Hx Anemia: Yes - INTEGUMENTARY Hx Dermatological Problems: Yes Other/Comment: Hx Chronic venous stasis dermatitis BLE - MUSCULOSKELETAL/RHEUMATOLOGICAL Hx Back Pain: Yes Hx Fractures: Yes (Left elbow) Hx Osteoporosis: Yes Hx Unsteady Gait: Yes - GASTROINTESTINAL Hx Colitis: Yes Hx Diverticulitis: Yes Hx Gastritis: Yes - GENITOURINARY/GYNECOLOGICAL Hx Incontinence: Yes Hx Urinary Tract Infection: Yes - PSYCHIATRIC Hx Psychophysiologic Disorder: No Hx Substance Use: No - SURGICAL HISTORY Hx Surgeries: Yes Hx Cardiac Catheterization: Yes (with Thrombectomy) Hx Cholecystectomy: Yes Hx Orthopedic Surgery: Yes Hx Tonsillectomy: Yes Other/Comment: Hx Benign tumor removal rib cage. Hx Benign Neuroma removal right foot - ANESTHESIA Hx Anesthesia: Yes Hx Anesthesia Reactions: No Hx Malignant Hyperthermia: No Meds Home Medications: Home Medication List Medication Instructions Recorded Confirmed Type Acetaminophen [Tylenol 325mg tab] 975 mg PO Q6 PRN tab 03/12/18 Rx Albuterol/Ipratropium [Duoneb 3 3 ml INH RQ6 PRN neb 03/12/18 Rx mg/0.5 mg (3 ml) UD] Enoxaparin [Lovenox] 40 mg SC DAILY syr 03/12/18 Rx Nystatin [Mycostatin Cream] 1 applic TOP TID tube 03/12/18 Rx Ondansetron ODT [Zofran ODT] 4 mg PO Q8H PRN odt 03/12/18 Rx Pantoprazole [Protonix EC Tab] 40 mg PO DAILY ect 03/12/18 Rx oxyCODONE/Acetaminophen [Percocet 1 tab PO Q6 PRN tab 03/12/18 Rx 5/325 mg Tab] Allergies/Adverse Reactions: Allergies Allergy/AdvReac Type Severity Reaction Status Date / Time Penicillins Allergy RASH Verified 06/26/17 21:20 Sulfa (Sulfonamide Allergy RASH Verified 06/26/17 21:20 Antibiotics) suture Allergy REDNESS Uncoded 12/11/15 07:41 - Medications Medications: Current Medications Acetaminophen (Tylenol 325mg Tab) 975 mg PO Q6 PRN PRN Reason: Pain, moderate (4-7) Last Admin: 03/10/18 09:20 Dose: 975 mg Albuterol/Ipratropium (Duoneb 3 Mg/0.5 Mg (3 Ml) Ud) 3 ml INH RQ6 PRN PRN Reason: Shortness of Breath Aspirin (Ecotrin) 81 mg PO DAILY [facility] Last Admin: 03/05/18 10:34 Dose: Not Given Atorvastatin Calcium (Lipitor) 10 mg PO [facility] Last Admin: 03/11/18 21:39 Dose: 10 mg Carvedilol (Coreg) 3.125 mg PO DAILY [facility] Last Admin: 03/12/18 10:18 Dose: 3.125 mg Clopidogrel Bisulfate (Plavix) 75 mg PO DAILY [facility] Last Admin: 03/12/18 10:17 Dose: 75 mg Digoxin (Lanoxin) 0.25 mg PO DAILY [facility] Last Admin: 03/12/18 10:17 Dose: 0.25 mg Enoxaparin Sodium (Lovenox) 40 mg SC DAILY [facility] PRN Reason: Protocol Last Admin: 03/12/18 10:18 Dose: 40 mg Ciprofloxacin (Cipro 400mg/200ml Dsw) 400 mg in 200 mls @ 200 mls/hr IVPB Q12@ 0400,1600 SHARIFA PRN Reason: Protocol Last Admin: 03/12/18 04:18 Dose: 200 mls/hr Metronidazole (Flagyl 500mg/100ml Ns) 100 mls @ 100 mls/hr IVPB Q8 SHARIFA PRN Reason: Protocol Last Admin: 03/12/18 10:16 Dose: Not Given Nystatin (Mycostatin Cream) 1 applic TOP TID [facility] Last Admin: 03/12/18 10:18 Dose: 1 applic Ondansetron HCl (Zofran Inj) 4 mg IVP Q4 PRN PRN Reason: Nausea/Vomiting Last Admin: 03/11/18 23:18 Dose: 4 mg Ondansetron HCl (Zofran Odt) 4 mg PO Q8H PRN PRN Reason: Nausea/Vomiting Last Admin: 03/12/18 11:13 Dose: 4 mg Oxycodone/Acetaminophen (Percocet 5/325 Mg Tab) 1 tab PO Q6 PRN PRN Reason: Pain, moderate (4-7) Stop: 03/13/18 11:22 Last Admin: 03/10/18 21:05 Dose: 1 tab Pantoprazole Sodium (Protonix Ec Tab) 40 mg PO DAILY [facility] Last Admin: 03/12/18 10:18 Dose: 40 mg Physical Exam - Constitutional Appears: Well, Non-toxic, No Acute Distress - Head Exam Head Exam: ATRAUMATIC, NORMOCEPHALIC - Extremities Exam Additional comments: Bilateral Lower Extremity Exam: VASC: DP and PT 1/4 bilaterally, CFT less than 3 seconds X 10, TG warm to cool proximal to distal, minimal +2 pitting edema noted to the dorsum of the left foot NEURO: grossly intact, protective sensation diminished DERM: oncholysis of the right hallucal toenail, no signs of infection, no erythema, no drainage, no malodor, rest of the toenails are cut to appropriate length and thickened X 10 MSK: no pain on palpation, 5/5 muscle strength - Neurological Exam Neurological exam: Alert, Oriented x3 - Psychiatric Exam Psychiatric exam: Normal Affect, Normal Mood Results - Vital Signs Recent Vital Signs: Last Vital Signs Temp 97.8 F 03/12/18 08:12 Pulse 79 03/12/18 08:12 Resp 20 03/12/18 08:12 BP 130/81 03/12/18 08:12 Pulse Ox 95 03/12/18 08:12 - Labs Result Diagrams: 03/10/18 05:30 03/11/18 06:10 Labs: Laboratory Results - last 24 hr 03/12/18 07:49 PT 13.2 H INR 1.2 APTT 41.5 H Assessment & Plan - Assessment and Plan (Free Text) Assessment: 77 y/o female with PMHX of Asthma, COPD, A-fib, CHF and Diverticulosis seen for a non-painful oncholysis of right hallucal nail Plan: Patient seen and evaluated bedside Plan discussed with attending, Dr. Camacho Patient nailed trimmed with aseptic nail nipper, and cleaned with alcohol; Patient tolerated well Advised patient to allow the nail to come off on its own Patient states she will follow-up with her tnt powder worker upon discharge Band-aid applied to the nail Patient questions answered and patient to consult podiatry if symptoms worsen Thank you for the podiatry consult - Date & Time Date: 03/12/18 Time: 12:25
--- NOTE | 2018-03-12 14:30 | CARD ---
APPROVED REPORT EKG Measurement Heart [id number] <Conclusion> Atrial fibrillation Left anterior fascicular block Septal infarct, age undetermined Abnormal ECG
--- NOTE | 2018-03-12 14:36 | CP.PCM.PN ---
Subjective - Date & Time of Evaluation Date of Evaluation: 03/12/18 Time of Evaluation: 14:36 - Subjective Subjective: Continues to feel better. No abdominal pain provoked by diet Objective - Vital Signs/Intake and Output Vital Signs (last 24 hours): Temp Pulse Resp BP Pulse Ox 97.8 F 79 20 130/81 95 03/12/18 08:12 03/12/18 08:12 03/12/18 08:12 03/12/18 08:12 03/12/18 08:12 - Medications Medications: Current Medications Acetaminophen (Tylenol 325mg Tab) 975 mg PO Q6 PRN PRN Reason: Pain, moderate (4-7) Last Admin: 03/12/18 13:56 Dose: 975 mg Albuterol/Ipratropium (Duoneb 3 Mg/0.5 Mg (3 Ml) Ud) 3 ml INH RQ6 PRN PRN Reason: Shortness of Breath Aspirin (Ecotrin) 81 mg PO DAILY [facility] Last Admin: 03/05/18 10:34 Dose: Not Given Atorvastatin Calcium (Lipitor) 10 mg PO HS [facility] Last Admin: 03/11/18 21:39 Dose: 10 mg Carvedilol (Coreg) 3.125 mg PO DAILY [facility] Last Admin: 03/12/18 10:18 Dose: 3.125 mg Clopidogrel Bisulfate (Plavix) 75 mg PO DAILY [facility] Last Admin: 03/12/18 10:17 Dose: 75 mg Digoxin (Lanoxin) 0.25 mg PO DAILY [facility] Last Admin: 03/12/18 10:17 Dose: 0.25 mg Enoxaparin Sodium (Lovenox) 40 mg SC DAILY [facility] PRN Reason: Protocol Last Admin: 03/12/18 10:18 Dose: 40 mg Ciprofloxacin (Cipro 400mg/200ml Dsw) 400 mg in 200 mls @ 200 mls/hr IVPB Q12@ 0400,1600 SHARIFA PRN Reason: Protocol Last Admin: 03/12/18 04:18 Dose: 200 mls/hr Metronidazole (Flagyl 500mg/100ml Ns) 100 mls @ 100 mls/hr IVPB Q8 SHAR[facility] PRN Reason: Protocol Last Admin: 03/12/18 10:16 Dose: Not Given Nystatin (Mycostatin Cream) 1 applic TOP TID [facility] Last Admin: 03/12/18 13:04 Dose: Not Given Ondansetron HCl (Zofran Inj) 4 mg IVP Q4 PRN PRN Reason: Nausea/Vomiting Last Admin: 03/11/18 23:18 Dose: 4 mg Ondansetron HCl (Zofran Odt) 4 mg PO Q8H PRN PRN Reason: Nausea/Vomiting Last Admin: 03/12/18 11:13 Dose: 4 mg Oxycodone/Acetaminophen (Percocet 5/325 Mg Tab) 1 tab PO Q6 PRN PRN Reason: Pain, moderate (4-7) Stop: 03/13/18 11:22 Last Admin: 03/10/18 21:05 Dose: 1 tab Pantoprazole Sodium (Protonix Ec Tab) 40 mg PO DAILY [facility] Last Admin: 03/12/18 10:18 Dose: 40 mg - Labs Labs: 03/10/18 05:30 03/11/18 06:10 PT 13.2 Seconds (9.8-13.1) H 03/12/18 07:49 INR 1.2 (0.9-1.2) 03/12/18 07:49 APTT 41.5 Seconds (25.6-37.1) H 03/12/18 07:49 - Head Exam Head Exam: ATRAUMATIC - Eye Exam Eye Exam: Normal appearance - ENT Exam ENT Exam: Normal Exam - Neck Exam Neck Exam: Full ROM - Respiratory Exam Respiratory Exam: NORMAL BREATHING PATTERN - Cardiovascular Exam Cardiovascular Exam: REGULAR RHYTHM, +S1, +S2 - GI/Abdominal Exam GI & Abdominal Exam: Soft, Tenderness (LLQ mild) Assessment and Plan (1) Diverticulitis Assessment & Plan: Continues to improve. Patient was told by surgery that they will be performing elective surgery in approximately 3 months. Status: Acute
[2018-03-12 16:17] VITALS: BP 110/71; PULSE 77; TEMP 97.3; O2SAT 96
== END 2018-03-12 21:32 | DRG 392 ==
LOC: H.ER 00:31 → H.ERHOLD 03:02 → H.MEDSURG1 04:59
PROVIDERS: ADMIT Internal Medicine; ATTEND Internal Medicine
PROC: 0HBRXZZ Excision of Toe Nail, External Approach (ICD-10-PCS; principal; 2018-03-05)
PROC: 0HBRXZZ Excision of Toe Nail, External Approach (ICD-10-PCS; 2018-03-05)
PROC: 0HBRXZZ Excision of Toe Nail, External Approach (ICD-10-PCS; 2018-03-05)
PROC: 0HBRXZZ Excision of Toe Nail, External Approach (ICD-10-PCS; 2018-03-05)
PROC: 0HBRXZZ Excision of Toe Nail, External Approach (ICD-10-PCS; 2018-03-05)
PROC: 0HBRXZZ Excision of Toe Nail, External Approach (ICD-10-PCS; 2018-03-05)
PROC: 0HBRXZZ Excision of Toe Nail, External Approach (ICD-10-PCS; 2018-03-05)
PROC: 0HBRXZZ Excision of Toe Nail, External Approach (ICD-10-PCS; 2018-03-05)
PROC: 0HBRXZZ Excision of Toe Nail, External Approach (ICD-10-PCS; 2018-03-05)
PROC: 0HBRXZZ Excision of Toe Nail, External Approach (ICD-10-PCS; 2018-03-05)
DX: K57.20 Diverticulitis of large intestine with perforation and abscess without bleeding (principal); N39.0 Urinary tract infection, site not specified; I50.22 Chronic systolic (congestive) heart failure; I48.2 Chronic atrial fibrillation; I27.20 Pulmonary hypertension, unspecified; I11.0 Hypertensive heart disease with heart failure; L60.1 Onycholysis; D72.828 Other elevated white blood cell count; I25.10 Atherosclerotic heart disease of native coronary artery without angina pectoris; I87.2 Venous insufficiency (chronic) (peripheral); E78.5 Hyperlipidemia, unspecified; G47.33 Obstructive sleep apnea (adult) (pediatric); K21.9 Gastro-esophageal reflux disease without esophagitis; J44.9 Chronic obstructive pulmonary disease, unspecified; M81.0 Age-related osteoporosis without current pathological fracture; N39.498 Other specified urinary incontinence; I25.2 Old myocardial infarction; K59.00 Constipation, unspecified; G62.9 Polyneuropathy, unspecified; D64.9 Anemia, unspecified; M19.90 Unspecified osteoarthritis, unspecified site; Z87.891 Personal history of nicotine dependence; Z79.82 Long term (current) use of aspirin; Z79.02 Long term (current) use of antithrombotics/antiplatelets; Z87.01 Personal history of pneumonia (recurrent); Z87.440 Personal history of urinary (tract) infections; Z88.0 Allergy status to penicillin; Z88.2 Allergy status to sulfonamides

== ENCOUNTER 2018-03-12 15:00 | Inpatient (IN) | payer OTHER, MEDICARE ==
[2018-03-12 21:20] VITALS: BMI 35.2
[2018-03-12 21:43] VITALS: RESP 20
[2018-03-12] MEDS ORDERED: Albuterol-Ipratrop 3 mg / 0.5 (3 ml) UD INH PRN (21:45)
[2018-03-12] MEDS ORDERED: Oxycodone/Acetaminophen 5/325 mg Tab PO PRN (21:45)
[2018-03-13 06:42] LABS: BASO # 0.1 K/uL (0.0-0.2); BASO % 1.3 % (0.0-2.0); EOS # 0.6 K/uL (0.0-0.7); EOS % 7.4 % (0.0-4.0); HEMOGLOBIN 12.6 g/dL (12.0-16.0); LYMPH # 1.7 K/uL (1.0-4.3); LYMPH % 19.2 % (20.0-40.0); MEAN CELL VOLUME 94.1 fl (81.0-99.0); MEAN CORPUSCULAR HEMOGLOBIN 30.4 pg (27.0-31.0); MEAN CORPUSCULAR HGB CONC 32.3 g/dL (33.0-37.0); MEAN PLATELET VOLUME 6.3 fl (7.2-11.7); MONO # 0.8 K/uL (0.0-0.8); MONO % 8.9 % (0.0-10.0); NEUT # 5.5 K/uL (1.8-7.0); NEUT % 63.2 % (50.0-75.0); RBC 4.14 Mil/uL (3.80-5.20); RED CELL DISTRIBUTION WIDTH 16.6 % (11.5-14.5); WHITE BLOOD COUNT 8.6 K/uL (4.8-10.8)
[2018-03-13 07:17] LABS: BLOOD UREA NITROGEN 2 mg/dl (7-17); CALCIUM 8.4 mg/dL (8.4-10.2); GFR AFRICAN-AMERICAN > 60; GFR NON-AFRICAN AMERICAN > 60
[2018-03-13] MEDS: Lactobacillus Acidophilus 500 MU Cap PO SCH ×2 (08:10→16:10)
[2018-03-13] MEDS: Enoxaparin 40 mg Syringe SC SCH (08:11)
[2018-03-13] MEDS: Digoxin 250 mcg (0.25 mg) Tab PO SCH (08:11)
[2018-03-13] MEDS: Pantoprazole 40 mg EC Tab PO SCH (08:12)
--- NOTE | 2018-03-13 11:01 | CP.PCM.HP ---
History of Present Illness - History of Present Illness History of Present Illness: 77 years old female with hx of Asthma, COPD, A Fib, Chf and diverticulosis. She was seen by the Infrastructure Architect for loose Stool and abdominal pains one week prior to admission. She then presented to the ED with the intermittent pain across the lower abdomen, most severe on the LLQ. The pain is becoming more intense and is associated with diarrhea. She referred subjected fever but no nausea nor vomiting, CT of the Abdomen: Diverticulitis/ colitis more severe and extensive compared to the prior study without drainable collection, free air or significant loculated. Patient was seen and examined by surgery team, no surgical intervention at this time. Tolerated antibiotics well, HD stable, however is improving very slowly. She continues to have multiple complaints, mild nausea, mild "tweak" pain with full liquids. Patient to go to TCU for further PT and complete antibiotics. ROS: per HPI all other systems reviewed and negative Present on Admission - Present on Admission Any Indicators Present on Admission: No Past Patient History - Infectious Disease Hx of Infectious Diseases: None - Tetanus Immunizations Tetanus Immunization: Unknown - Past Medical History & Family History Past Medical History?: Yes - Past Social History Smoking Status: Never Smoked - CARDIAC Hx Atrial Fibrillation: Yes Hx Cardia Arrhythmia: Yes Hx Congestive Heart Failure: Yes Hx Heart Attack: Yes Hx Hypertension: Yes Hx Peripheral Edema: Yes Hx Peripheral Vascular Disease: Yes - PULMONARY Hx Asthma: Yes Hx Chronic Obstructive Pulmonary Disease (COPD): Yes Hx Pneumonia: Yes Other/Comment: Hx Pulmonary HTN - NEUROLOGICAL Hx Vertigo: Yes Other/Comment: Hx peripheral neuropathy - HEENT Hx HEENT Problems: No - RENAL Hx Chronic Kidney Disease: No - ENDOCRINE/METABOLIC Hx Endocrine Disorders: No Hx Hypothyroidism: No - HEMATOLOGICAL/ONCOLOGICAL Hx Anemia: Yes - INTEGUMENTARY Hx Dermatological Problems: Yes Other/Comment: Hx Chronic venous stasis dermatitis BLE - MUSCULOSKELETAL/RHEUMATOLOGICAL Hx Back Pain: Yes Hx Falls: No Hx Fractures: Yes (Left elbow) Hx Osteoporosis: Yes Hx Unsteady Gait: Yes - GASTROINTESTINAL Hx Gastrointestinal Disorders: Yes Hx Colitis: Yes Hx Diverticulitis: Yes Hx Gastritis: Yes - GENITOURINARY/GYNECOLOGICAL Hx Incontinence: Yes Hx Urinary Tract Infection: Yes - PSYCHIATRIC Hx Substance Use: No - SURGICAL HISTORY Hx Surgeries: Yes Hx Cardiac Catheterization: Yes (with Thrombectomy) Hx Cholecystectomy: Yes Hx Orthopedic Surgery: Yes Hx Tonsillectomy: Yes Other/Comment: Hx Benign tumor removal rib cage. Hx Benign Neuroma removal right foot - ANESTHESIA Hx Anesthesia: Yes Hx Anesthesia Reactions: No Hx Malignant Hyperthermia: No Meds Allergies/Adverse Reactions: Allergies Allergy/AdvReac Type Severity Reaction Status Date / Time Penicillins Allergy RASH Verified 06/26/17 21:20 Sulfa (Sulfonamide Allergy RASH Verified 06/26/17 21:20 Antibiotics) suture Allergy REDNESS Uncoded 12/11/15 07:41 Physical Exam - Constitutional Additional comments: Gen: awake, alert HEENT: NCAT, PERRL, EOMI HEART: RRR +S1S2 LUNG: CTAB, No WRR ABD: soft NT no masses, no HSM Ext: warm, well perfused Back: aligned, no rashes Neuro: awake, alert Skin: Warm, Dry Psych: normal mood, normal affect Results - Vital Signs Recent Vital Signs: Last Vital Signs Temp 97.5 F L 03/13/18 07:51 Pulse 70 03/13/18 08:03 Resp 20 03/13/18 07:51 BP 133/70 03/13/18 08:03 Pulse Ox 98 03/13/18 07:51 - Labs Result Diagrams: 03/13/18 05:50 03/13/18 05:50 Labs: Laboratory Results - last 24 hr 03/13/18 03/13/18 05:50 05:50 WBC 8.6 RBC 4.14 Hgb 12.6 Hct 39.0 MCV 94.1 MCH 30.4 MCHC 32.3 L RDW 16.6 H Plt Count 591 H MPV 6.3 L Neut % (Auto) 63.2 Lymph % (Auto) 19.2 L [place] % (Auto) 8.9 Eos % (Auto) 7.4 H Baso % (Auto) 1.3 Neut # (Auto) 5.5 Lymph # (Auto) 1.7 [place] # (Auto) 0.8 Eos # (Auto) 0.6 Baso # (Auto) 0.1 Sodium 139 Potassium 3.3 L Chloride 105 Carbon Dioxide 30 Anion Gap 7 L BUN 2 L Creatinine 0.5 L Est GFR ( Amer) > 60 Est GFR (Non-Af Amer) > 60 Random Glucose 96 Calcium 8.4 Assessment & Plan - Assessment and Plan (Free Text) Plan: 77 years old female with hx of Asthma, COPD, A Fib, Chf and diverticulosis. She was seen by the Infrastructure Architect for loose Stool and abdominal pains one week prior to admission. She then presented to the ED with the intermittent pain across the lower abdomen, most severe on the LLQ. The pain is becoming more intense and is associated with diarrhea. She referred subjected fever but no nausea nor vomiting, CT of the Abdomen: Diverticulitis/ colitis more severe and extensive compared to the prior study without drainable collection, free air or significant loculated. 1) Acute diverticulitis -clinically better however attempting to advance diet very slowly, started on Clear Liquid diet but developed nausea after eating. pt continuing to very slowly tolerate PO liquids. Stable for transfer to TCU. - Consulted Dr Riley GI - Consulted Dr. Bailey, general surgery- recommends conservative management at this time, may need elective surgical intervention as outpatient - Stool for C&S- negative - Blood CX x 2 neg - cont IV Cipro and Flagyl - fever and leukocytosis resolved 2) Acute UTI Continue Cipro/Flagyl d/c Pyridium 3. Chronic A Fib rate controlled -cont Digoxin/ASA, Plavix, Coreg - Not on anticoagulant 4. Asthma/ COPD/ ANKITA - consult Dr Fang pulmonology - Duoneb PRN 5. Deconditioning - Physical therapy consult #. DVT prophylaxis with lovenox
--- NOTE | 2018-03-13 15:50 | CP.PCM.CON ---
History of Present Illness - History of Present Illness History of Present Illness: 77 yo female recently admitted for diverticulitis. Has improved with IV antibiotics. Patient seen by surgery and told that may need operation but not for 2 months. Currently having nausea and post nasal drip. Review of Systems - Constitutional Constitutional: absent: Chills - EENT Eyes: absent: Blurred Vision Ears: absent: Decreased Hearing Nose/Mouth/Throat: absent: Epistaxis - Cardiovascular Cardiovascular: absent: Chest Pain - Respiratory Respiratory: absent: Cough - Gastrointestinal Gastrointestinal: absent: Abdominal Pain - Genitourinary Genitourinary: absent: Change in Urinary Stream Past Patient History - Infectious Disease Hx of Infectious Diseases: None - Tetanus Immunizations Tetanus Immunization: Unknown - Past Medical History & Family History Past Medical History?: Yes - Past Social History Smoking Status: Never Smoked - CARDIAC Hx Atrial Fibrillation: Yes Hx Cardia Arrhythmia: Yes Hx Congestive Heart Failure: Yes Hx Heart Attack: Yes Hx Hypertension: Yes Hx Peripheral Edema: Yes Hx Peripheral Vascular Disease: Yes - PULMONARY Hx Asthma: Yes Hx Chronic Obstructive Pulmonary Disease (COPD): Yes Hx Pneumonia: Yes Other/Comment: Hx Pulmonary HTN - NEUROLOGICAL Hx Vertigo: Yes Other/Comment: Hx peripheral neuropathy - HEENT Hx HEENT Problems: No - RENAL Hx Chronic Kidney Disease: No - ENDOCRINE/METABOLIC Hx Endocrine Disorders: No Hx Hypothyroidism: No - HEMATOLOGICAL/ONCOLOGICAL Hx Anemia: Yes - INTEGUMENTARY Hx Dermatological Problems: Yes Other/Comment: Hx Chronic venous stasis dermatitis BLE - MUSCULOSKELETAL/RHEUMATOLOGICAL Hx Back Pain: Yes Hx Falls: No Hx Fractures: Yes (Left elbow) Hx Osteoporosis: Yes Hx Unsteady Gait: Yes - GASTROINTESTINAL Hx Gastrointestinal Disorders: Yes Hx Colitis: Yes Hx Diverticulitis: Yes Hx Gastritis: Yes - GENITOURINARY/GYNECOLOGICAL Hx Incontinence: Yes Hx Urinary Tract Infection: Yes - PSYCHIATRIC Hx Substance Use: No - SURGICAL HISTORY Hx Surgeries: Yes Hx Cardiac Catheterization: Yes (with Thrombectomy) Hx Cholecystectomy: Yes Hx Orthopedic Surgery: Yes Hx Tonsillectomy: Yes Other/Comment: Hx Benign tumor removal rib cage. Hx Benign Neuroma removal right foot - ANESTHESIA Hx Anesthesia: Yes Hx Anesthesia Reactions: No Hx Malignant Hyperthermia: No Meds Allergies/Adverse Reactions: Allergies Allergy/AdvReac Type Severity Reaction Status Date / Time Penicillins Allergy RASH Verified 06/26/17 21:20 Sulfa (Sulfonamide Allergy RASH Verified 06/26/17 21:20 Antibiotics) suture Allergy REDNESS Uncoded 12/11/15 07:41 - Medications Medications: Current Medications Acetaminophen (Tylenol 325mg Tab) 975 mg PO Q6 PRN PRN Reason: Pain, moderate (4-7) Albuterol/Ipratropium (Duoneb 3 Mg/0.5 Mg (3 Ml) Ud) 3 ml INH RQ6 PRN PRN Reason: Shortness of Breath Aspirin (Ecotrin) 81 mg PO DAILY [facility] Last Admin: 03/13/18 12:01 Dose: 81 mg Atorvastatin Calcium (Lipitor) 10 mg PO HS [facility] Last Admin: 03/12/18 22:51 Dose: 10 mg Carvedilol (Coreg) 3.125 mg PO DAILY [facility] Last Admin: 03/13/18 08:03 Dose: 3.125 mg Ciprofloxacin (Cipro) 500 mg PO Q12 [facility] PRN Reason: Protocol Last Admin: 03/13/18 08:02 Dose: 500 mg Clopidogrel Bisulfate (Plavix) 75 mg PO DAILY [facility] Last Admin: 03/13/18 08:12 Dose: 75 mg Digoxin (Lanoxin) 0.25 mg PO DAILY [facility] Last Admin: 03/13/18 08:11 Dose: 0.25 mg Enoxaparin Sodium (Lovenox) 40 mg SC DAILY [facility] PRN Reason: Protocol Last Admin: 03/13/18 08:11 Dose: 40 mg Fluticasone Propionate (Flonase) 2 spr KWABENA DAILY [facility] Lactobacillus Acidophilus (Bacid Acidophilus) 1 cap PO BID [facility] Last Admin: 03/13/18 08:10 Dose: 1 cap Metronidazole (Flagyl) 250 mg PO Q8 [facility] PRN Reason: Protocol Nystatin (Mycostatin Cream) 1 applic TOP TID [facility] Last Admin: 03/13/18 12:02 Dose: 1 applic Ondansetron HCl (Zofran Odt) 4 mg PO Q8H PRN PRN Reason: Nausea/Vomiting Last Admin: 03/13/18 08:02 Dose: 4 mg Oxycodone/Acetaminophen (Percocet 5/325 Mg Tab) 1 tab PO Q6 PRN PRN Reason: Pain, moderate (4-7) Stop: 03/15/18 21:46 Pantoprazole Sodium (Protonix Ec Tab) 40 mg PO DAILY [facility] Last Admin: 03/13/18 08:12 Dose: 40 mg Physical Exam - Head Exam Head Exam: ATRAUMATIC - Eye Exam Eye Exam: EOMI - ENT Exam ENT Exam: Normal Exam - Neck Exam Neck exam: Positive for: Full Rom - Respiratory Exam Respiratory Exam: NORMAL BREATHING PATTERN - Cardiovascular Exam Cardiovascular Exam: REGULAR RHYTHM - GI/Abdominal Exam GI & Abdominal Exam: Normal Bowel Sounds, Soft. absent: Tenderness Results - Vital Signs Recent Vital Signs: Last Vital Signs Temp 97.5 F L 03/13/18 07:51 Pulse 70 03/13/18 08:03 Resp 20 03/13/18 07:51 BP 133/70 03/13/18 08:03 Pulse Ox 98 03/13/18 07:51 - Labs Result Diagrams: 03/13/18 05:50 03/13/18 05:50 Labs: Laboratory Results - last 24 hr 03/13/18 03/13/18 05:50 05:50 WBC 8.6 RBC 4.14 Hgb 12.6 Hct 39.0 MCV 94.1 MCH 30.4 MCHC 32.3 L RDW 16.6 H Plt Count 591 H MPV 6.3 L Neut % (Auto) 63.2 Lymph % (Auto) 19.2 L [place] % (Auto) 8.9 Eos % (Auto) 7.4 H Baso % (Auto) 1.3 Neut # (Auto) 5.5 Lymph # (Auto) 1.7 [place] # (Auto) 0.8 Eos # (Auto) 0.6 Baso # (Auto) 0.1 Sodium 139 Potassium 3.3 L Chloride 105 Carbon Dioxide 30 Anion Gap 7 L BUN 2 L Creatinine 0.5 L Est GFR ( Amer) > 60 Est GFR (Non-Af Amer) > 60 Random Glucose 96 Calcium 8.4 Assessment & Plan (1) Diverticulitis Assessment and Plan: Continue po antibiotics. Will lower flagyl from to 500 to 250n mg po TID. Flonase given for post nasal drip. Status: Acute Priority: High
[2018-03-13] MEDS ORDERED: Potassium Chloride 20 mEq ER Tab PO ONE (16:08)
[2018-03-14] MEDS: Lactobacillus Acidophilus 500 MU Cap PO SCH ×3 (08:47→20:00)
[2018-03-14] MEDS: Enoxaparin 40 mg Syringe SC SCH (08:47)
[2018-03-14] MEDS: Pantoprazole 40 mg EC Tab PO SCH (08:49)
[2018-03-14] MEDS: Digoxin 250 mcg (0.25 mg) Tab PO SCH (08:49)
--- NOTE | 2018-03-14 11:20 | CP.PCM.PN ---
Subjective - Date & Time of Evaluation Date of Evaluation: 03/14/18 Time of Evaluation: 08:30 - Subjective Subjective: Patient was seen and examined at bedside with Dr. Fang. She reports feeling better as compared to when she first came in. She has been going to PT and feels tired afterwards but reports that she feels it is helping her improve. Patient reports that her abdominal pain has lessened and only occurs when she eats a meal. She has been able to tolerate solid foods and reports she ate toast this morning with mild nausea. She reports one episode of vomitus yesterday morning after breakfast that she attributes to her post nasal drip symptoms. Patient states that she cannot remember her last BM as she is incontinent of stool. She is afebrile and vitally stable. Objective - Vital Signs/Intake and Output Vital Signs (last 24 hours): Temp Pulse Resp BP Pulse Ox 97.0 F L 68 20 148/73 96 03/14/18 09:07 03/14/18 10:55 03/14/18 09:07 03/14/18 09:07 03/14/18 10:55 - Medications Medications: Current Medications Acetaminophen (Tylenol 325mg Tab) 975 mg PO Q6 PRN PRN Reason: Pain, moderate (4-7) Last Admin: 03/14/18 08:45 Dose: 975 mg Albuterol/Ipratropium (Duoneb 3 Mg/0.5 Mg (3 Ml) Ud) 3 ml INH RQ6 PRN PRN Reason: Shortness of Breath Aspirin (Ecotrin) 81 mg PO DAILY [facility] Last Admin: 03/14/18 08:48 Dose: 81 mg Atorvastatin Calcium (Lipitor) 10 mg PO HS [facility] Last Admin: 03/13/18 21:39 Dose: 10 mg Carvedilol (Coreg) 3.125 mg PO DAILY [facility] Last Admin: 03/14/18 08:48 Dose: 3.125 mg Ciprofloxacin (Cipro) 500 mg PO Q12 [facility] PRN Reason: Protocol Last Admin: 03/14/18 08:47 Dose: 500 mg Clopidogrel Bisulfate (Plavix) 75 mg PO DAILY [facility] Last Admin: 03/14/18 08:49 Dose: 75 mg Digoxin (Lanoxin) 0.25 mg PO DAILY [facility] Last Admin: 03/14/18 08:49 Dose: 0.25 mg Enoxaparin Sodium (Lovenox) 40 mg SC DAILY [facility] PRN Reason: Protocol Last Admin: 03/14/18 08:47 Dose: 40 mg Fluticasone Propionate (Flonase) 2 spr KW[place]ENA DAILY [facility] Last Admin: 03/14/18 08:48 Dose: 2 spr Lactobacillus Acidophilus (Bacid Acidophilus) 1 cap PO BID [facility] Last Admin: 03/14/18 08:47 Dose: 1 cap Metronidazole (Flagyl) 250 mg PO Q8 [facility] PRN Reason: Protocol Last Admin: 03/14/18 08:48 Dose: 250 mg Nystatin (Mycostatin Cream) 1 applic TOP TID [facility] Last Admin: 03/14/18 08:47 Dose: 1 applic Ondansetron HCl (Zofran Odt) 4 mg PO Q8H PRN PRN Reason: Nausea/Vomiting Last Admin: 03/14/18 07:05 Dose: 4 mg Oxycodone/Acetaminophen (Percocet 5/325 Mg Tab) 1 tab PO Q6 PRN PRN Reason: Pain, moderate (4-7) Stop: 03/15/18 21:46 Pantoprazole Sodium (Protonix Ec Tab) 40 mg PO DAILY [facility] Last Admin: 03/14/18 08:49 Dose: 40 mg - Labs Labs: 03/13/18 05:50 03/13/18 05:50 - Constitutional Appears: Non-toxic, No Acute Distress - Head Exam Head Exam: NORMAL INSPECTION - ENT Exam ENT Exam: Mucous Membranes Moist - Respiratory Exam Respiratory Exam: Clear to Ausculation Bilateral, NORMAL BREATHING PATTERN. absent: Decreased Breath Sounds, Rhonchi, Wheezes, Respiratory Distress, Stridor - Cardiovascular Exam Cardiovascular Exam: Irregular Rhythm, +S1, +S2 - GI/Abdominal Exam GI & Abdominal Exam: Soft, Tenderness (LLQ tendernes), Normal Bowel Sounds. absent: Guarding, Rigid - Extremities Exam Extremities Exam: Normal Inspection - Psychiatric Exam Psychiatric exam: Normal Affect, Normal Mood Assessment and Plan (1) Diverticulitis Assessment & Plan: Continue Flagyl and Cipro Status: Acute (2) UTI (urinary tract infection) Assessment & Plan: Continue Flagyl and Ciprofloxacin Status: Acute (3) Atrial fibrillation, chronic Assessment & Plan: Continue current management- Digoxin, aspirin, plavix, coreg. Status: Chronic (4) Asthma with COPD Assessment & Plan: Stable continue current management: Albuterol/ ipratropium prn Status: Chronic
--- NOTE | 2018-03-14 14:57 | CP.PCM.PN ---
Subjective - Date & Time of Evaluation Date of Evaluation: 03/14/18 Time of Evaluation: 14:55 - Subjective Subjective: Patient developed nausea after lunch today. no vomiting or fever. Objective - Vital Signs/Intake and Output Vital Signs (last 24 hours): Temp Pulse Resp BP Pulse Ox 97.0 F L 68 20 148/73 96 03/14/18 09:07 03/14/18 10:55 03/14/18 09:07 03/14/18 09:07 03/14/18 10:55 - Medications Medications: Current Medications Acetaminophen (Tylenol 325mg Tab) 975 mg PO Q6 PRN PRN Reason: Pain, moderate (4-7) Last Admin: 03/14/18 08:45 Dose: 975 mg Albuterol/Ipratropium (Duoneb 3 Mg/0.5 Mg (3 Ml) Ud) 3 ml INH RQ6 PRN PRN Reason: Shortness of Breath Aspirin (Ecotrin) 81 mg PO DAILY [facility] Last Admin: 03/14/18 08:48 Dose: 81 mg Atorvastatin Calcium (Lipitor) 10 mg PO HS [facility] Last Admin: 03/13/18 21:39 Dose: 10 mg Carvedilol (Coreg) 3.125 mg PO DAILY [facility] Last Admin: 03/14/18 08:48 Dose: 3.125 mg Ciprofloxacin (Cipro) 500 mg PO Q12 [facility] PRN Reason: Protocol Last Admin: 03/14/18 08:47 Dose: 500 mg Clopidogrel Bisulfate (Plavix) 75 mg PO DAILY [facility] Last Admin: 03/14/18 08:49 Dose: 75 mg Digoxin (Lanoxin) 0.25 mg PO DAILY [facility] Last Admin: 03/14/18 08:49 Dose: 0.25 mg Enoxaparin Sodium (Lovenox) 40 mg SC DAILY [facility] PRN Reason: Protocol Last Admin: 03/14/18 08:47 Dose: 40 mg Fluticasone Propionate (Flonase) 2 spr KW[place]ENA DAILY [facility] Last Admin: 03/14/18 08:48 Dose: 2 spr Lactobacillus Acidophilus (Bacid Acidophilus) 1 cap PO BID [facility] Last Admin: 03/14/18 08:47 Dose: 1 cap Metronidazole (Flagyl) 250 mg PO Q8 [facility] PRN Reason: Protocol Last Admin: 03/14/18 08:48 Dose: 250 mg Nystatin (Mycostatin Cream) 1 applic TOP TID [facility] Last Admin: 03/14/18 08:47 Dose: 1 applic Ondansetron HCl (Zofran Odt) 4 mg PO Q6H PRN PRN Reason: Nausea/Vomiting Last Admin: 03/14/18 13:07 Dose: 4 mg Oxycodone/Acetaminophen (Percocet 5/325 Mg Tab) 1 tab PO Q6 PRN PRN Reason: Pain, moderate (4-7) Stop: 03/15/18 21:46 Pantoprazole Sodium (Protonix Ec Tab) 40 mg PO DAILY [facility] Last Admin: 03/14/18 08:49 Dose: 40 mg - Labs Labs: 03/13/18 05:50 03/13/18 05:50 - Head Exam Head Exam: ATRAUMATIC - Eye Exam Eye Exam: EOMI - Neck Exam Neck Exam: Full ROM - Respiratory Exam Respiratory Exam: Clear to Ausculation Bilateral - GI/Abdominal Exam GI & Abdominal Exam: Soft, Normal Bowel Sounds. absent: Tenderness Assessment and Plan (1) Diverticulitis Assessment & Plan: On antibioics. Nausea persisting. Will give 6 small meals a day. Zofran when needed. Status: Acute
--- NOTE | 2018-03-14 15:40 | CP.PCM.PN ---
Subjective - Date & Time of Evaluation Date of Evaluation: 03/14/18 Time of Evaluation: 11:00 - Subjective Subjective: Patient seen and examined. Denied any complaint but still with multiple soft BM this morning. Objective - Vital Signs/Intake and Output Vital Signs (last 24 hours): Temp Pulse Resp BP Pulse Ox 97.0 F L 68 20 148/73 96 03/14/18 09:07 03/14/18 10:55 03/14/18 09:07 03/14/18 09:07 03/14/18 10:55 - Medications Medications: Current Medications Acetaminophen (Tylenol 325mg Tab) 975 mg PO Q6 PRN PRN Reason: Pain, moderate (4-7) Last Admin: 03/14/18 08:45 Dose: 975 mg Albuterol/Ipratropium (Duoneb 3 Mg/0.5 Mg (3 Ml) Ud) 3 ml INH RQ6 PRN PRN Reason: Shortness of Breath Aspirin (Ecotrin) 81 mg PO DAILY [facility] Last Admin: 03/14/18 08:48 Dose: 81 mg Atorvastatin Calcium (Lipitor) 10 mg PO HS [facility] Last Admin: 03/13/18 21:39 Dose: 10 mg Carvedilol (Coreg) 3.125 mg PO DAILY [facility] Last Admin: 03/14/18 08:48 Dose: 3.125 mg Ciprofloxacin (Cipro) 500 mg PO Q12 [facility] PRN Reason: Protocol Last Admin: 03/14/18 08:47 Dose: 500 mg Clopidogrel Bisulfate (Plavix) 75 mg PO DAILY [facility] Last Admin: 03/14/18 08:49 Dose: 75 mg Digoxin (Lanoxin) 0.25 mg PO DAILY [facility] Last Admin: 03/14/18 08:49 Dose: 0.25 mg Enoxaparin Sodium (Lovenox) 40 mg SC DAILY [facility] PRN Reason: Protocol Last Admin: 03/14/18 08:47 Dose: 40 mg Fluticasone Propionate (Flonase) 2 spr [place] DAILY [facility] Last Admin: 03/14/18 08:48 Dose: 2 spr Lactobacillus Acidophilus (Bacid Acidophilus) 1 cap PO BID [facility] Last Admin: 03/14/18 08:47 Dose: 1 cap Metronidazole (Flagyl) 250 mg PO Q8 [facility] PRN Reason: Protocol Last Admin: 03/14/18 08:48 Dose: 250 mg Nystatin (Mycostatin Cream) 1 applic TOP TID [facility] Last Admin: 03/14/18 08:47 Dose: 1 applic Ondansetron HCl (Zofran Odt) 4 mg PO Q6H PRN PRN Reason: Nausea/Vomiting Last Admin: 03/14/18 13:07 Dose: 4 mg Oxycodone/Acetaminophen (Percocet 5/325 Mg Tab) 1 tab PO Q6 PRN PRN Reason: Pain, moderate (4-7) Stop: 03/15/18 21:46 Pantoprazole Sodium (Protonix Ec Tab) 40 mg PO DAILY [facility] Last Admin: 03/14/18 08:49 Dose: 40 mg - Labs Labs: 03/13/18 05:50 03/13/18 05:50 - Constitutional Appears: No Acute Distress - Head Exam Head Exam: ATRAUMATIC - Eye Exam Eye Exam: absent: Scleral icterus - ENT Exam ENT Exam: Mucous Membranes Moist - Neck Exam Neck Exam: absent: Meningismus - Respiratory Exam Respiratory Exam: absent: Rales, Rhonchi, Wheezes, Respiratory Distress - Cardiovascular Exam Cardiovascular Exam: REGULAR RHYTHM, +S1, +S2 - GI/Abdominal Exam GI & Abdominal Exam: Soft. absent: Tenderness - Rectal Exam Rectal Exam: Deferred - Neurological Exam Neurological Exam: Alert, Oriented x3 - Psychiatric Exam Psychiatric exam: Normal Affect - Skin Skin Exam: Dry, Intact Assessment and Plan - Assessment and Plan (Free Text) Assessment: 77 yo female with history of Asthma/COPD, A Fib, CHF and diverticulosis came in because of multiple LBM accompanied with LLQ abdominal pain. CT scan of abdomen was consistent with diverticulitis and colitis. 1. Acute diverticulitis still with multiple soft BM this morning but without abdominal pain tolerated regular breakfast this am Dr Riley on GI consult surgery recommended conservative management continue IV Cipro and Flagy 2. Acute UTI on Cipro 3. Chronic A Fib rate controlled on Digoxin, ASA, Plavix, Coreg Not on anticoagulant 4. Asthma/ COPD/ ANK[place] asymptomatic consult Dr Fang pulmonology Duoneb PRN 5. Deconditioning continue physical therapy consult 6. DVT prophylaxis on Lovenox
--- NOTE | 2018-03-15 06:37 | CP.PCM.PN ---
Subjective - Date & Time of Evaluation Date of Evaluation: 03/15/18 Time of Evaluation: 08:00 - Subjective Subjective: Patient was seen and examined at bedside with Dr. Fang. She reports that she is able to tolerate solids well and now is able to tolerate up to 6 small meals a day. She reports no BM yesterday and states that she feels bloated. Nausea is described as being mildly present. She still reports left lower abdomen discomfort but specifies that it is only a discomfort and not pain. Denies fevers, vomiting, diarrhea, shortness of breath, cough, and chest pain. Objective - Vital Signs/Intake and Output Vital Signs (last 24 hours): Temp Pulse Resp BP Pulse Ox 97.0 F L 79 20 125/75 95 03/14/18 20:39 03/14/18 20:39 03/14/18 20:39 03/14/18 20:39 03/14/18 20:39 - Medications Medications: Current Medications Acetaminophen (Tylenol 325mg Tab) 975 mg PO Q6 PRN PRN Reason: Pain, moderate (4-7) Last Admin: 03/14/18 08:45 Dose: 975 mg Albuterol/Ipratropium (Duoneb 3 Mg/0.5 Mg (3 Ml) Ud) 3 ml INH RQ6 PRN PRN Reason: Shortness of Breath Aspirin (Ecotrin) 81 mg PO DAILY [facility] Last Admin: 03/14/18 08:48 Dose: 81 mg Atorvastatin Calcium (Lipitor) 10 mg PO HS [facility] Last Admin: 03/14/18 21:53 Dose: 10 mg Carvedilol (Coreg) 3.125 mg PO DAILY [facility] Last Admin: 03/14/18 08:48 Dose: 3.125 mg Ciprofloxacin (Cipro) 500 mg PO Q12 [facility] PRN Reason: Protocol Last Admin: 03/14/18 21:53 Dose: 500 mg Clopidogrel Bisulfate (Plavix) 75 mg PO DAILY [facility] Last Admin: 03/14/18 08:49 Dose: 75 mg Digoxin (Lanoxin) 0.25 mg PO DAILY [facility] Last Admin: 03/14/18 08:49 Dose: 0.25 mg Enoxaparin Sodium (Lovenox) 40 mg SC DAILY [facility] PRN Reason: Protocol Last Admin: 03/14/18 08:47 Dose: 40 mg Fluticasone Propionate (Flonase) 2 spr KW[place]ENA DAILY [facility] Last Admin: 03/14/18 08:48 Dose: 2 spr Lactobacillus Acidophilus (Bacid Acidophilus) 1 cap PO BID@1130,1930 [facility] Last Admin: 03/14/18 20:00 Dose: 1 cap Metronidazole (Flagyl) 250 mg PO Q8 [facility] PRN Reason: Protocol Last Admin: 03/15/18 01:15 Dose: 250 mg Nystatin (Mycostatin Cream) 1 applic TOP TID [facility] Last Admin: 03/14/18 19:07 Dose: 1 applic Ondansetron HCl (Zofran Odt) 4 mg PO Q6H PRN PRN Reason: Nausea/Vomiting Last Admin: 03/14/18 13:07 Dose: 4 mg Oxycodone/Acetaminophen (Percocet 5/325 Mg Tab) 1 tab PO Q6 PRN PRN Reason: Pain, moderate (4-7) Stop: 03/15/18 21:46 Last Admin: 03/15/18 02:08 Dose: 1 tab Pantoprazole Sodium (Protonix Ec Tab) 40 mg PO DAILY [facility] Last Admin: 03/14/18 08:49 Dose: 40 mg - Labs Labs: 03/13/18 05:50 03/13/18 05:50 - Constitutional Appears: Non-toxic, No Acute Distress - Head Exam Head Exam: NORMAL INSPECTION - Eye Exam Eye Exam: Normal appearance - ENT Exam ENT Exam: Mucous Membranes Moist - Neck Exam Neck Exam: Normal Inspection. absent: Lymphadenopathy, Tenderness, Thyromegaly - Respiratory Exam Respiratory Exam: Clear to Ausculation Bilateral, NORMAL BREATHING PATTERN. absent: Decreased Breath Sounds, Rhonchi, Wheezes, Respiratory Distress - Cardiovascular Exam Cardiovascular Exam: Irregular Rhythm, +S1, +S2 - GI/Abdominal Exam GI & Abdominal Exam: Tenderness, Normal Bowel Sounds. absent: Guarding, Rigid, Rebound Additional comments: LLQ mild tenderness. - Extremities Exam Extremities Exam: Normal Inspection (Chronic left foot edema) - Neurological Exam Neurological Exam: Alert, Awake, Oriented x3 - Psychiatric Exam Psychiatric exam: Normal Affect, Normal Mood - Skin Skin Exam: Normal Color Assessment and Plan (1) Diverticulitis Assessment & Plan: Patient able to tolerate solid diet. Continue current management: Ciprofloxacin and Flagyl. Status: Acute (2) UTI (urinary tract infection) Assessment & Plan: Continue Ciprofloxacin. Status: Acute (3) Atrial fibrillation, chronic Assessment & Plan: Continue current management: Digoxin, Aspirin, Plavix and coreg. Status: Chronic (4) Asthma with COPD Assessment & Plan: Patient is stable. Continue current management: Albuterol/ Ipratropium prn. Status: Chronic
[2018-03-15] MEDS: Digoxin 250 mcg (0.25 mg) Tab PO SCH (08:31)
[2018-03-15] MEDS: Enoxaparin 40 mg Syringe SC SCH (08:31)
[2018-03-15] MEDS: Pantoprazole 40 mg EC Tab PO SCH (08:32)
--- NOTE | 2018-03-15 11:49 | RAD ---
PROCEDURE: Radiographs of the chest and abdomen (obstructive series) HISTORY: Abdominal pain COMPARISON: Chest radiograph and CT scan of the abdomen and pelvis dated 03/04/2018. TECHNIQUE: AP radiograph of the chest, with upright and supine radiographs of the abdomen. FINDINGS: CHEST: Lungs: Clear. Cardiovascular: Atherosclerotic aortic calcifications. Cardiomediastinal silhouette enlarged. Pleura: Eventration of the right hemidiaphragm. No pleural fluid. No pneumothorax. Other findings: None. ABDOMEN AND PELVIS: Bowel: Unremarkable bowel gas pattern. No evidence of mechanical obstruction. Free air: None. Bones: Scoliosis. Degenerative changes. Other findings: None. IMPRESSION: Unremarkable radiographs of chest and abdomen. No evidence of mechanical bowel obstruction.
[2018-03-15] MEDS: Lactobacillus Acidophilus 500 MU Cap PO SCH ×2 (12:48→21:38)
--- NOTE | 2018-03-15 14:03 | CP.PCM.PN ---
Subjective - Date & Time of Evaluation Date of Evaluation: 03/15/18 Time of Evaluation: 14:01 - Subjective Subjective: Patient feeling abdominal queasiness/nausea over night. Is concerned that her abdomen feels uncomfortable somewhat similar to what she felt prior to this hospitalization. Tolerating diet. Objective - Vital Signs/Intake and Output Vital Signs (last 24 hours): Temp Pulse Resp BP Pulse Ox 97.7 F 76 20 149/73 94 L 03/15/18 08:40 03/15/18 08:40 03/15/18 08:40 03/15/18 08:40 03/15/18 08:40 - Medications Medications: Current Medications Acetaminophen (Tylenol 325mg Tab) 975 mg PO Q6 PRN PRN Reason: Pain, moderate (4-7) Last Admin: 03/15/18 08:27 Dose: 975 mg Albuterol/Ipratropium (Duoneb 3 Mg/0.5 Mg (3 Ml) Ud) 3 ml INH RQ6 PRN PRN Reason: Shortness of Breath Aspirin (Ecotrin) 81 mg PO DAILY [facility] Last Admin: 03/15/18 08:30 Dose: 81 mg Atorvastatin Calcium (Lipitor) 10 mg PO HS [facility] Last Admin: 03/14/18 21:53 Dose: 10 mg Carvedilol (Coreg) 3.125 mg PO DAILY [facility] Last Admin: 03/15/18 08:30 Dose: 3.125 mg Ciprofloxacin (Cipro) 500 mg PO Q12 [facility] PRN Reason: Protocol Last Admin: 03/15/18 08:29 Dose: 500 mg Clopidogrel Bisulfate (Plavix) 75 mg PO DAILY [facility] Last Admin: 03/15/18 08:31 Dose: 75 mg Digoxin (Lanoxin) 0.25 mg PO DAILY [facility] Last Admin: 03/15/18 08:31 Dose: 0.25 mg Enoxaparin Sodium (Lovenox) 40 mg SC DAILY [facility] PRN Reason: Protocol Last Admin: 03/15/18 08:31 Dose: 40 mg Fluticasone Propionate (Flonase) 2 spr KWABENA DAILY [facility] Last Admin: 03/15/18 08:30 Dose: 2 spr Lactobacillus Acidophilus (Bacid Acidophilus) 1 cap PO BID@1130,1930 [facility] Last Admin: 03/15/18 12:48 Dose: 1 cap Metronidazole (Flagyl) 250 mg PO Q8 [facility] PRN Reason: Protocol Last Admin: 03/15/18 08:30 Dose: 250 mg Nystatin (Mycostatin Cream) 1 applic TOP TID [facility] Last Admin: 03/15/18 08:27 Dose: 1 applic Ondansetron HCl (Zofran Odt) 4 mg PO Q6H PRN PRN Reason: Nausea/Vomiting Last Admin: 03/15/18 11:53 Dose: 4 mg Oxycodone/Acetaminophen (Percocet 5/325 Mg Tab) 1 tab PO Q6 PRN PRN Reason: Pain, moderate (4-7) Stop: 03/15/18 21:46 Last Admin: 03/15/18 02:08 Dose: 1 tab Pantoprazole Sodium (Protonix Ec Tab) 40 mg PO DAILY [facility] Last Admin: 03/15/18 08:32 Dose: 40 mg - Labs Labs: 03/13/18 05:50 03/13/18 05:50 - Head Exam Head Exam: ATRAUMATIC - Eye Exam Eye Exam: Normal appearance - ENT Exam ENT Exam: Mucous Membranes Moist - Neck Exam Neck Exam: Full ROM - Respiratory Exam Respiratory Exam: Clear to Ausculation Bilateral - Cardiovascular Exam Cardiovascular Exam: REGULAR RHYTHM - GI/Abdominal Exam GI & Abdominal Exam: Soft, Tenderness, Normal Bowel Sounds Additional comments: LLQ tenderness Assessment and Plan (1) Diverticulitis Assessment & Plan: Obstructive series ordered and was essentially normal. Continue current antibiotics. Encourage ambulation. Status: Acute
[2018-03-16] MEDS: Enoxaparin 40 mg Syringe SC SCH (08:28)
[2018-03-16] MEDS: Digoxin 250 mcg (0.25 mg) Tab PO SCH (08:28)
[2018-03-16] MEDS: Pantoprazole 40 mg EC Tab PO SCH (08:31)
[2018-03-16] MEDS ORDERED: Oxycodone/Acetaminophen 5/325 mg Tab PO PRN (09:51)
[2018-03-16] MEDS: Lactobacillus Acidophilus 500 MU Cap PO SCH ×2 (11:40→20:23)
[2018-03-17] MEDS: Digoxin 250 mcg (0.25 mg) Tab PO SCH (10:09)
[2018-03-17] MEDS: Enoxaparin 40 mg Syringe SC SCH (10:09)
[2018-03-17] MEDS: Pantoprazole 40 mg EC Tab PO SCH (10:10)
[2018-03-17 10:30] LABS: ALB/GLOB RATIO 0.9 (1.0-2.1); ALBUMIN 2.5 g/dL (3.5-5.0); ALT/SGPT 19 U/L (9-52); AST/SGOT 24 U/L (14-36); BLOOD UREA NITROGEN 3 mg/dl (7-17); CALCIUM 8.3 mg/dL (8.4-10.2); GFR AFRICAN-AMERICAN > 60; GFR NON-AFRICAN AMERICAN > 60
[2018-03-17] MEDS ORDERED: Magnesium Hydroxide Susp 30 ml UD PO ONE (11:48)
[2018-03-17] MEDS ORDERED: Potassium Chloride 20 mEq ER Tab PO ONE (13:00)
[2018-03-17] MEDS: Lactobacillus Acidophilus 500 MU Cap PO SCH (13:42)
--- NOTE | 2018-03-17 16:46 | CP.PCM.PN ---
Subjective - Date & Time of Evaluation Date of Evaluation: 03/17/18 Time of Evaluation: 16:43 - Subjective Subjective: Feels very queasy. No BM for a few days but oral intake has been poor. Objective - Vital Signs/Intake and Output Vital Signs (last 24 hours): Temp Pulse Resp BP Pulse Ox 97.5 F L 71 20 145/83 99 03/17/18 16:31 03/17/18 16:31 03/17/18 16:31 03/17/18 16:31 03/17/18 16:31 - Medications Medications: Current Medications Acetaminophen (Tylenol 325mg Tab) 975 mg PO Q6 PRN PRN Reason: Pain, moderate (4-7) Last Admin: 03/15/18 08:27 Dose: 975 mg Albuterol/Ipratropium (Duoneb 3 Mg/0.5 Mg (3 Ml) Ud) 3 ml INH RQ6 PRN PRN Reason: Shortness of Breath Aspirin (Ecotrin) 81 mg PO DAILY [facility] Last Admin: 03/17/18 09:32 Dose: 81 mg Atorvastatin Calcium (Lipitor) 10 mg PO HS [facility] Last Admin: 03/16/18 21:08 Dose: 10 mg Carvedilol (Coreg) 3.125 mg PO DAILY [facility] Last Admin: 03/17/18 09:31 Dose: 3.125 mg Clopidogrel Bisulfate (Plavix) 75 mg PO DAILY [facility] Last Admin: 03/17/18 10:10 Dose: 75 mg Digoxin (Lanoxin) 0.25 mg PO DAILY [facility] Last Admin: 03/17/18 10:09 Dose: 0.25 mg Enoxaparin Sodium (Lovenox) 40 mg SC DAILY [facility] PRN Reason: Protocol Last Admin: 03/17/18 10:09 Dose: 40 mg Fluticasone Propionate (Flonase) 2 spr KWABENA DAILY [facility] Last Admin: 03/17/18 09:32 Dose: 2 spr Nystatin (Mycostatin Cream) 1 applic TOP TID [facility] Last Admin: 03/17/18 13:43 Dose: 1 applic Ondansetron HCl (Zofran Odt) 4 mg PO Q6H PRN PRN Reason: Nausea/Vomiting Last Admin: 03/17/18 08:43 Dose: 4 mg Oxycodone/Acetaminophen (Percocet 5/325 Mg Tab) 1 tab PO Q4 PRN PRN Reason: Pain, moderate (4-7) Stop: 03/19/18 09:52 Last Admin: 03/16/18 10:28 Dose: 1 tab Pantoprazole Sodium (Protonix Ec Tab) 40 mg PO DAILY [facility] Last Admin: 03/17/18 10:10 Dose: 40 mg - Labs Labs: 03/13/18 05:50 03/17/18 09:05 - Head Exam Head Exam: ATRAUMATIC - Eye Exam Eye Exam: Normal appearance - ENT Exam ENT Exam: Mucous Membranes Moist - Neck Exam Neck Exam: Full ROM - Respiratory Exam Respiratory Exam: Clear to Ausculation Bilateral, NORMAL BREATHING PATTERN - Cardiovascular Exam Cardiovascular Exam: REGULAR RHYTHM, +S1, +S2 - GI/Abdominal Exam GI & Abdominal Exam: Soft, Normal Bowel Sounds. absent: Tenderness Assessment and Plan (1) Diverticulitis Status: Acute (2) Functional dyspepsia Assessment & Plan: Patient feels queasy and doesn't eat much. Will stop antibiotics. Upper endoscopy tomorrow. Status: Acute
[2018-03-18] MEDS ORDERED: Dextrose 5%/0.9% NS 1,000 ML IV SCH (07:00)
[2018-03-18 08:27] LABS: HEMOGLOBIN 12.2 g/dL (12.0-16.0); MEAN CELL VOLUME 93.4 fl (81.0-99.0); MEAN CORPUSCULAR HGB CONC 33.3 g/dL (33.0-37.0); RBC 3.93 Mil/uL (3.80-5.20); RED CELL DISTRIBUTION WIDTH 16.5 % (11.5-14.5); WHITE BLOOD COUNT 7.6 K/uL (4.8-10.8)
[2018-03-18 08:37] LABS: BLOOD UREA NITROGEN 3 mg/dl (7-17); CALCIUM 8.6 mg/dL (8.4-10.2); GFR AFRICAN-AMERICAN > 60; GFR NON-AFRICAN AMERICAN > 60
[2018-03-18] MEDS: Digoxin 250 mcg (0.25 mg) Tab PO SCH (09:23)
[2018-03-18] MEDS: Enoxaparin 40 mg Syringe SC SCH (09:24)
[2018-03-18] MEDS: Pantoprazole 40 mg EC Tab PO SCH (09:25)
--- NOTE | 2018-03-18 10:41 | CP.PCM.PN ---
Subjective - Date & Time of Evaluation Date of Evaluation: 03/18/18 Time of Evaluation: 08:30 - Subjective Subjective: Patient was seen and examined with Dr. Fang. She was sitting comfortably in the Physical therapy room. She reports nausea with meals and states that she will have an endoscopy today due to upper GI discomfort described as bloating. BM is reported as formed and occurred after the patient was given milk of magnesia. She denies vomiting, chest pain, shortness of breath, fever, chills, constipation and diarrhea. Objective - Vital Signs/Intake and Output Vital Signs (last 24 hours): Temp Pulse Resp BP Pulse Ox 97.7 F 67 20 129/86 96 03/18/18 08:14 03/18/18 08:49 03/18/18 08:14 03/18/18 08:49 03/18/18 08:14 - Medications Medications: Current Medications Acetaminophen (Tylenol 325mg Tab) 975 mg PO Q6 PRN PRN Reason: Pain, moderate (4-7) Last Admin: 03/17/18 21:18 Dose: 975 mg Albuterol/Ipratropium (Duoneb 3 Mg/0.5 Mg (3 Ml) Ud) 3 ml INH RQ6 PRN PRN Reason: Shortness of Breath Aspirin (Ecotrin) 81 mg PO DAILY [facility] Last Admin: 03/18/18 09:23 Dose: Not Given Atorvastatin Calcium (Lipitor) 10 mg PO HS [facility] Last Admin: 03/17/18 21:16 Dose: 10 mg Carvedilol (Coreg) 3.125 mg PO DAILY [facility] Last Admin: 03/18/18 08:49 Dose: 3.125 mg Clopidogrel Bisulfate (Plavix) 75 mg PO DAILY [facility] Last Admin: 03/18/18 09:25 Dose: Not Given Digoxin (Lanoxin) 0.25 mg PO DAILY [facility] Last Admin: 03/18/18 09:23 Dose: Not Given Enoxaparin Sodium (Lovenox) 40 mg SC DAILY [facility] PRN Reason: Protocol Last Admin: 03/18/18 09:24 Dose: Not Given Fluticasone Propionate (Flonase) 2 spr KW[place]ENA DAILY [facility] Last Admin: 03/18/18 09:23 Dose: Not Given Dextrose/Sodium Chloride (Dextrose 5%/0.9% Ns 1000 Ml) 1,000 mls @ 75 mls/hr IV .[id number] [facility] Stop: 03/19/18 06:56 Last Admin: 03/18/18 10:32 Dose: 75 mls/hr Nystatin (Mycostatin Cream) 1 applic TOP TID [facility] Last Admin: 03/18/18 09:25 Dose: Not Given Ondansetron HCl (Zofran Odt) 4 mg PO Q6H PRN PRN Reason: Nausea/Vomiting Last Admin: 03/17/18 21:16 Dose: 4 mg Oxycodone/Acetaminophen (Percocet 5/325 Mg Tab) 1 tab PO Q4 PRN PRN Reason: Pain, moderate (4-7) Stop: 03/19/18 09:52 Last Admin: 03/16/18 10:28 Dose: 1 tab Pantoprazole Sodium (Protonix Ec Tab) 40 mg PO DAILY [facility] Last Admin: 03/18/18 09:25 Dose: Not Given - Labs Labs: 03/18/18 08:10 03/18/18 08:10 - Constitutional Appears: Well, Non-toxic, No Acute Distress - Head Exam Head Exam: NORMAL INSPECTION - ENT Exam ENT Exam: Mucous Membranes Moist - Neck Exam Neck Exam: Normal Inspection. absent: Lymphadenopathy, Tenderness, Thyromegaly - Respiratory Exam Respiratory Exam: Clear to Ausculation Bilateral, NORMAL BREATHING PATTERN. absent: Chest Wall Tenderness, Rales, Rhonchi, Wheezes, Respiratory Distress - Cardiovascular Exam Cardiovascular Exam: Irregular Rhythm, +S1, +S2 - GI/Abdominal Exam GI & Abdominal Exam: Soft, Tenderness (LLQ tenderness), Normal Bowel Sounds. absent: Guarding, Rigid, Rebound - Extremities Exam Extremities Exam: Normal Inspection (chronic left foot edema) - Neurological Exam Neurological Exam: Alert, Awake, Oriented x3 - Psychiatric Exam Psychiatric exam: Normal Affect, Normal Mood - Skin Skin Exam: Normal Color Assessment and Plan (1) Diverticulitis Assessment & Plan: Antibiotics were stopped due nausea symptoms and possible functional dyspepsia. Endoscopy planned for today. Status: Acute (2) Atrial fibrillation, chronic Assessment & Plan: Continue current medical regimen: Coreg, Aspirin, Plavix, Digoxin Status: Chronic (3) Asthma with COPD Assessment & Plan: Stable. Albuterol/ ipatropium prn . Status: Chronic
[2018-03-18] MEDS ORDERED: Etomidate 20 mg/10ml Inj IV ONE (12:07)
[2018-03-19] MEDS: Pantoprazole 40 mg EC Tab PO SCH (08:12)
[2018-03-19] MEDS: Enoxaparin 40 mg Syringe SC SCH (08:12)
[2018-03-19] MEDS: Digoxin 250 mcg (0.25 mg) Tab PO SCH (10:15)
[2018-03-19] MEDS: Oxycodone/Acetaminophen 5/325 mg Tab PO PRN ×2 (10:40→22:11)
--- NOTE | 2018-03-19 13:47 | CP.PCM.PN ---
Subjective - Date & Time of Evaluation Date of Evaluation: 03/19/18 Time of Evaluation: 13:00 - Subjective Subjective: Patient seen and examined. Still with nausea and occasional vomiting. Objective - Vital Signs/Intake and Output Vital Signs (last 24 hours): Temp Pulse Resp BP Pulse Ox 97.9 F 97 H 20 100/60 97 03/19/18 08:24 03/19/18 10:16 03/19/18 08:24 03/19/18 10:16 03/19/18 08:24 - Medications Medications: Current Medications Acetaminophen (Tylenol 325mg Tab) 975 mg PO Q6 PRN PRN Reason: Pain, moderate (4-7) Last Admin: 03/17/18 21:18 Dose: 975 mg Albuterol/Ipratropium (Duoneb 3 Mg/0.5 Mg (3 Ml) Ud) 3 ml INH RQ6 PRN PRN Reason: Shortness of Breath Aspirin (Ecotrin) 81 mg PO DAILY [facility] Last Admin: 03/19/18 10:16 Dose: 81 mg Atorvastatin Calcium (Lipitor) 10 mg PO HS [facility] Last Admin: 03/18/18 21:32 Dose: 10 mg Carvedilol (Coreg) 3.125 mg PO DAILY [facility] Last Admin: 03/19/18 10:16 Dose: 3.125 mg Clopidogrel Bisulfate (Plavix) 75 mg PO DAILY [facility] Last Admin: 03/19/18 08:10 Dose: 75 mg Digoxin (Lanoxin) 0.25 mg PO DAILY [facility] Last Admin: 03/19/18 10:15 Dose: 0.25 mg Enoxaparin Sodium (Lovenox) 40 mg SC DAILY [facility] PRN Reason: Protocol Last Admin: 03/19/18 08:12 Dose: 40 mg Fluticasone Propionate (Flonase) 2 spr KW[place]ENA DAILY [facility] Last Admin: 03/19/18 08:10 Dose: 2 spr Nystatin (Mycostatin Cream) 1 applic TOP TID [facility] Last Admin: 03/19/18 13:16 Dose: Not Given Ondansetron HCl (Zofran Odt) 4 mg PO Q6H PRN PRN Reason: Nausea/Vomiting Last Admin: 03/18/18 16:41 Dose: 4 mg Oxycodone/Acetaminophen (Percocet 5/325 Mg Tab) 1 tab PO Q6 PRN PRN Reason: Pain, moderate (4-7) Stop: 03/22/18 10:21 Last Admin: 03/19/18 10:40 Dose: 1 tab Pantoprazole Sodium (Protonix Ec Tab) 40 mg PO DAILY [facility] Last Admin: 03/19/18 08:12 Dose: 40 mg - Labs Labs: 03/18/18 08:10 03/18/18 08:10 - Constitutional Appears: No Acute Distress - Head Exam Head Exam: ATRAUMATIC - Eye Exam Eye Exam: absent: Scleral icterus - ENT Exam ENT Exam: Mucous Membranes Moist - Neck Exam Neck Exam: absent: Meningismus - Respiratory Exam Respiratory Exam: absent: Rales, Rhonchi, Wheezes, Respiratory Distress - Cardiovascular Exam Cardiovascular Exam: REGULAR RHYTHM, +S1, +S2 - GI/Abdominal Exam GI & Abdominal Exam: Soft. absent: Tenderness - Rectal Exam Rectal Exam: Deferred - Neurological Exam Neurological Exam: Alert, Oriented x3 - Psychiatric Exam Psychiatric exam: Normal Affect - Skin Skin Exam: Dry, Intact Assessment and Plan - Assessment and Plan (Free Text) Assessment: 77 yo female with history of Asthma/COPD, A Fib, CHF and diverticulosis came in because of multiple LBM accompanied with LLQ abdominal pain. CT scan of abdomen was consistent with diverticulitis and colitis. Patient transferred to TCU for further management and therapy. 1. Acute diverticulitis had endoscopy yesterday with Dr Riley had one episode of nausea and vomiting earlier surgery recommended conservative management off antibiotics 2. Acute UTI resolved 3. Chronic A Fib rate controlled on Digoxin, ASA, Plavix, Coreg Not on anticoagulant 4. Asthma/ COPD/ ANK[facility] asymptomatic Dr Fang on pulmonology consult Duoneb PRN 5. Deconditioning continue physical therapy consult 6. DVT prophylaxis on Lovenox
[2018-03-19] MEDS ORDERED: Triamcinolone Acetonide 40 mg/mL Inj IAA ONE (14:12)
[2018-03-19] MEDS ORDERED: Dexamethasone 4 mg/1 ml IAA ONE (14:12)
[2018-03-19] MEDS ORDERED: Lidocaine 1% (10 ml) Inj IAA ONE (14:12)
--- NOTE | 2018-03-19 14:12 | CP.PCM.CON ---
History of Present Illness - History of Present Illness History of Present Illness: consulted to see Marielos Zimmer, born 1940 for chronic knee (bilateral ) and left shoulder pain she gets monthly injections from Dr Reyes for all three joints. She hasn't had an injection though in 3 months severe djd changes knees and limited ROM left shoulder with pain I will do injections to each. she is looking forward to this Past Patient History - Infectious Disease Hx of Infectious Diseases: None - Tetanus Immunizations Tetanus Immunization: Unknown - Past Medical History & Family History Past Medical History?: Yes - Past Social History Smoking Status: Never Smoked - CARDIAC Hx Atrial Fibrillation: Yes Hx Cardia Arrhythmia: Yes Hx Congestive Heart Failure: Yes Hx Heart Attack: Yes Hx Hypertension: Yes Hx Peripheral Edema: Yes Hx Peripheral Vascular Disease: Yes - PULMONARY Hx Asthma: Yes Hx Chronic Obstructive Pulmonary Disease (COPD): Yes Hx Pneumonia: Yes Other/Comment: Hx Pulmonary HTN - NEUROLOGICAL Hx Vertigo: Yes Other/Comment: Hx peripheral neuropathy - HEENT Hx HEENT Problems: No - RENAL Hx Chronic Kidney Disease: No - ENDOCRINE/METABOLIC Hx Endocrine Disorders: No Hx Hypothyroidism: No - HEMATOLOGICAL/ONCOLOGICAL Hx Anemia: Yes - INTEGUMENTARY Hx Dermatological Problems: Yes Other/Comment: Hx Chronic venous stasis dermatitis BLE - MUSCULOSKELETAL/RHEUMATOLOGICAL Hx Back Pain: Yes Hx Falls: No Hx Fractures: Yes (Left elbow) Hx Osteoporosis: Yes Hx Unsteady Gait: Yes - GASTROINTESTINAL Hx Gastrointestinal Disorders: Yes Hx Colitis: Yes Hx Diverticulitis: Yes Hx Gastritis: Yes - GENITOURINARY/GYNECOLOGICAL Hx Incontinence: Yes Hx Urinary Tract Infection: Yes - PSYCHIATRIC Hx Substance Use: No - SURGICAL HISTORY Hx Surgeries: Yes Hx Cardiac Catheterization: Yes (with Thrombectomy) Hx Cholecystectomy: Yes Hx Orthopedic Surgery: Yes Hx Tonsillectomy: Yes Other/Comment: Hx Benign tumor removal rib cage. Hx Benign Neuroma removal right foot - ANESTHESIA Hx Anesthesia: Yes Hx Anesthesia Reactions: No Hx Malignant Hyperthermia: No Meds Allergies/Adverse Reactions: Allergies Allergy/AdvReac Type Severity Reaction Status Date / Time Penicillins Allergy RASH Verified 06/26/17 21:20 Sulfa (Sulfonamide Allergy RASH Verified 06/26/17 21:20 Antibiotics) suture Allergy REDNESS Uncoded 12/11/15 07:41 - Medications Medications: Current Medications Acetaminophen (Tylenol 325mg Tab) 975 mg PO Q6 PRN PRN Reason: Pain, moderate (4-7) Last Admin: 03/17/18 21:18 Dose: 975 mg Albuterol/Ipratropium (Duoneb 3 Mg/0.5 Mg (3 Ml) Ud) 3 ml INH RQ6 PRN PRN Reason: Shortness of Breath Aspirin (Ecotrin) 81 mg PO DAILY [facility] Last Admin: 03/19/18 10:16 Dose: 81 mg Atorvastatin Calcium (Lipitor) 10 mg PO HS [facility] Last Admin: 03/18/18 21:32 Dose: 10 mg Carvedilol (Coreg) 3.125 mg PO DAILY [facility] Last Admin: 03/19/18 10:16 Dose: 3.125 mg Clopidogrel Bisulfate (Plavix) 75 mg PO DAILY [facility] Last Admin: 03/19/18 08:10 Dose: 75 mg Digoxin (Lanoxin) 0.25 mg PO DAILY [facility] Last Admin: 03/19/18 10:15 Dose: 0.25 mg Enoxaparin Sodium (Lovenox) 40 mg SC DAILY [facility] PRN Reason: Protocol Last Admin: 03/19/18 08:12 Dose: 40 mg Fluticasone Propionate (Flonase) 2 spr KW[place]ENA DAILY [facility] Last Admin: 03/19/18 08:10 Dose: 2 spr Nystatin (Mycostatin Cream) 1 applic TOP TID [facility] Last Admin: 03/19/18 13:16 Dose: Not Given Ondansetron HCl (Zofran Odt) 4 mg PO Q6H PRN PRN Reason: Nausea/Vomiting Last Admin: 03/18/18 16:41 Dose: 4 mg Oxycodone/Acetaminophen (Percocet 5/325 Mg Tab) 1 tab PO Q6 PRN PRN Reason: Pain, moderate (4-7) Stop: 03/22/18 10:21 Last Admin: 03/19/18 10:40 Dose: 1 tab Pantoprazole Sodium (Protonix Ec Tab) 40 mg PO DAILY [facility] Last Admin: 03/19/18 08:12 Dose: 40 mg Results - Vital Signs Recent Vital Signs: Last Vital Signs Temp 97.9 F 03/19/18 08:24 Pulse 97 H 03/19/18 10:16 Resp 20 03/19/18 08:24 BP 100/60 03/19/18 10:16 Pulse Ox 97 03/19/18 08:24 - Labs Result Diagrams: 03/18/18 08:10 03/18/18 08:10
--- NOTE | 2018-03-19 20:29 | CP.PCM.PN ---
Subjective - Date & Time of Evaluation Date of Evaluation: 03/19/18 Time of Evaluation: 09:00 - Subjective Subjective: Still feels queasy and c/o post nasal drip. Remains off antibiotics. Objective - Vital Signs/Intake and Output Vital Signs (last 24 hours): Temp Pulse Resp BP Pulse Ox 97.9 F 83 20 109/58 L 97 03/19/18 19:36 03/19/18 19:36 03/19/18 19:36 03/19/18 19:36 03/19/18 19:36 - Medications Medications: Current Medications Acetaminophen (Tylenol 325mg Tab) 975 mg PO Q6 PRN PRN Reason: Pain, moderate (4-7) Last Admin: 03/17/18 21:18 Dose: 975 mg Albuterol/Ipratropium (Duoneb 3 Mg/0.5 Mg (3 Ml) Ud) 3 ml INH RQ6 PRN PRN Reason: Shortness of Breath Aspirin (Ecotrin) 81 mg PO DAILY [facility] Last Admin: 03/19/18 10:16 Dose: 81 mg Atorvastatin Calcium (Lipitor) 10 mg PO HS [facility] Last Admin: 03/18/18 21:32 Dose: 10 mg Carvedilol (Coreg) 3.125 mg PO DAILY [facility] Last Admin: 03/19/18 10:16 Dose: 3.125 mg Clopidogrel Bisulfate (Plavix) 75 mg PO DAILY [facility] Last Admin: 03/19/18 08:10 Dose: 75 mg Digoxin (Lanoxin) 0.25 mg PO DAILY [facility] Last Admin: 03/19/18 10:15 Dose: 0.25 mg Enoxaparin Sodium (Lovenox) 40 mg SC DAILY [facility] PRN Reason: Protocol Last Admin: 03/19/18 08:12 Dose: 40 mg Fluticasone Propionate (Flonase) 2 spr [place] DAILY [facility] Last Admin: 03/19/18 08:10 Dose: 2 spr Nystatin (Mycostatin Cream) 1 applic TOP TID [facility] Last Admin: 03/19/18 17:13 Dose: Not Given Ondansetron HCl (Zofran Odt) 4 mg PO Q6H PRN PRN Reason: Nausea/Vomiting Last Admin: 03/18/18 16:41 Dose: 4 mg Oxycodone/Acetaminophen (Percocet 5/325 Mg Tab) 1 tab PO Q6 PRN PRN Reason: Pain, moderate (4-7) Stop: 03/22/18 10:21 Last Admin: 03/19/18 10:40 Dose: 1 tab Pantoprazole Sodium (Protonix Ec Tab) 40 mg PO DAILY [facility] Last Admin: 03/19/18 08:12 Dose: 40 mg - Labs Labs: 03/18/18 08:10 03/18/18 08:10 - Head Exam Head Exam: ATRAUMATIC - Eye Exam Eye Exam: Normal appearance, PERRL - ENT Exam ENT Exam: Normal Exam - Neck Exam Neck Exam: Full ROM - Respiratory Exam Respiratory Exam: Clear to Ausculation Bilateral - Cardiovascular Exam Cardiovascular Exam: REGULAR RHYTHM, +S1, +S2 - GI/Abdominal Exam GI & Abdominal Exam: Soft, Normal Bowel Sounds. absent: Tenderness Assessment and Plan (1) Diverticulitis Status: Acute (2) Functional dyspepsia Assessment & Plan: Tolerating small meals. Off antibiotics. Increase physical activity. Status: Acute
--- NOTE | 2018-03-20 06:56 | CP.PCM.PN ---
Subjective - Date & Time of Evaluation Date of Evaluation: 03/20/18 Time of Evaluation: 09:00 - Subjective Subjective: Patient seen and examined at bedside with Dr. Fang. She is resting comfortably on her bed. She reports her abdominal tenderness is now described as a "fluttering" and not as painful as it was when she first came in. She reports feeling much better and is now able to tolerate solid foods without nausea. BM are described as formed, non-watery, and she had about 2-3 between last night and this morning. Patient reports that her post nasal drip has not been adequately treated with Flonase. She reports that her post nasal drip is now constant and she feels as though it might be irritating her esophagus. Post naal drip associated with bilateral ear pressure that patient reports always happens when she has post nasal drip. Patient denies fever, chills, ear ache, sinus pressure, nausea, vomiting, diarrhea, constipation, chest pain and dyspnea. Objective - Vital Signs/Intake and Output Vital Signs (last 24 hours): Temp Pulse Resp BP Pulse Ox 97.9 F 83 20 109/58 L 97 03/19/18 19:36 03/19/18 19:36 03/19/18 19:36 03/19/18 19:36 03/19/18 19:36 - Medications Medications: Current Medications Acetaminophen (Tylenol 325mg Tab) 975 mg PO Q6 PRN PRN Reason: Pain, moderate (4-7) Last Admin: 03/17/18 21:18 Dose: 975 mg Albuterol/Ipratropium (Duoneb 3 Mg/0.5 Mg (3 Ml) Ud) 3 ml INH RQ6 PRN PRN Reason: Shortness of Breath Aspirin (Ecotrin) 81 mg PO DAILY [facility] Last Admin: 03/19/18 10:16 Dose: 81 mg Atorvastatin Calcium (Lipitor) 10 mg PO HS [facility] Last Admin: 03/19/18 21:25 Dose: 10 mg Carvedilol (Coreg) 3.125 mg PO DAILY [facility] Last Admin: 03/19/18 10:16 Dose: 3.125 mg Clopidogrel Bisulfate (Plavix) 75 mg PO DAILY [facility] Last Admin: 03/19/18 08:10 Dose: 75 mg Digoxin (Lanoxin) 0.25 mg PO DAILY [facility] Last Admin: 03/19/18 10:15 Dose: 0.25 mg Enoxaparin Sodium (Lovenox) 40 mg SC DAILY [facility] PRN Reason: Protocol Last Admin: 03/19/18 08:12 Dose: 40 mg Fluticasone Propionate (Flonase) 2 spr [place] DAILY [facility] Last Admin: 03/19/18 08:10 Dose: 2 spr Nystatin (Mycostatin Cream) 1 applic TOP TID [facility] Last Admin: 03/19/18 17:13 Dose: Not Given Ondansetron HCl (Zofran Odt) 4 mg PO Q6H PRN PRN Reason: Nausea/Vomiting Last Admin: 03/18/18 16:41 Dose: 4 mg Oxycodone/Acetaminophen (Percocet 5/325 Mg Tab) 1 tab PO Q6 PRN PRN Reason: Pain, moderate (4-7) Stop: 03/22/18 10:21 Last Admin: 03/19/18 22:11 Dose: 1 tab Pantoprazole Sodium (Protonix Ec Tab) 40 mg PO DAILY [facility] Last Admin: 03/19/18 08:12 Dose: 40 mg - Labs Labs: 03/18/18 08:10 03/18/18 08:10 - Constitutional Appears: Well, Non-toxic, No Acute Distress - Head Exam Head Exam: NORMAL INSPECTION - Eye Exam Eye Exam: Normal appearance - ENT Exam ENT Exam: Mucous Membranes Moist, Normal External Ear Exam (Bilateral pinnae nontender to palpation; Sinuses nontender to palpation. ) - Neck Exam Neck Exam: Normal Inspection. absent: Lymphadenopathy, Tenderness, Thyromegaly - Respiratory Exam Respiratory Exam: Clear to Ausculation Bilateral, NORMAL BREATHING PATTERN. absent: Decreased Breath Sounds, Rales, Rhonchi, Wheezes - Cardiovascular Exam Cardiovascular Exam: Irregular Rhythm, RRR, +S1, +S2. absent: Clicks, Gallop, JVD, Murmur - GI/Abdominal Exam GI & Abdominal Exam: Soft, Tenderness (LLQ mildly tenderness. ), Normal Bowel Sounds Assessment and Plan (1) Diverticulitis Assessment & Plan: Continue current conservative management. Status: Acute (2) Post-nasal drip Assessment & Plan: Use Afrin 1 spray nos q12h, do not use for more than 3 days. Patient counseled on use. Status: Acute (3) Atrial fibrillation, chronic Assessment & Plan: Continue current management: Coreg, aspirin, plavix, digoxin Status: Chronic (4) Asthma with COPD Assessment & Plan: Continue current management: Albuterol/ Ipatropium Status: Chronic
[2018-03-20] MEDS: Enoxaparin 40 mg Syringe SC SCH (08:26)
[2018-03-20] MEDS: Oxycodone/Acetaminophen 5/325 mg Tab PO PRN (09:20)
[2018-03-20] MEDS: Digoxin 250 mcg (0.25 mg) Tab PO SCH (09:24)
[2018-03-20] MEDS: Pantoprazole 40 mg EC Tab PO SCH (09:25)
--- NOTE | 2018-03-20 18:24 | PCM.PROC ---
Procedures Attestation:: I certify that I have explained the specified Operation(s) or Procedure(s), risks, benefits and reasonable alternatives to the Patient and/or other person responsible. The opportunity was given to ask questions and all questions answered - Joint Aspiration/Injection Joint #1 Consent Obtained: Verbal Consent Time Out Performed: Yes Side of Body: Right Joint Aspirated: Knee Ultrasound Guidance Used: No Skin Prep: Povidone-Iodine Needle Size Used: 22 G Fluid Clarity: Clear Total Fluid Removed (mls): 2 Medication Injected: Triamcinolone Acetate, Methylprednisolone, Lidocaine Patient Tolorated Procedure: Well Complications: None
--- NOTE | 2018-03-20 18:27 | PCM.PROC ---
Procedures Attestation:: I certify that I have explained the specified Operation(s) or Procedure(s), risks, benefits and reasonable alternatives to the Patient and/or other person responsible. The opportunity was given to ask questions and all questions answered - Joint Aspiration/Injection Joint #2 Consent Obtained: Verbal Consent Time Out Performed: Yes Side of Body: Left Joint Aspirated: Knee Ultrasound Guidance Used: No Skin Prep: Povidone-Iodine Needle Size Used: 22 G Medication Injected: Triamcinolone Acetate, Methylprednisolone, Lidocaine Patient Tolorated Procedure: Well
--- NOTE | 2018-03-20 18:29 | PCM.PROC ---
Procedures Attestation:: I certify that I have explained the specified Operation(s) or Procedure(s), risks, benefits and reasonable alternatives to the Patient and/or other person responsible. The opportunity was given to ask questions and all questions answered - Joint Aspiration/Injection Joint #3 Consent Obtained: Verbal Consent Time Out Performed: Yes Side of Body: Left Joint Aspirated: Shoulder Ultrasound Guidance Used: No Skin Prep: Povidone-Iodine Needle Size Used: 22 G Medication Injected: Triamcinolone Acetate, Methylprednisolone, Lidocaine Patient Tolorated Procedure: Well Complications: None
--- NOTE | 2018-03-20 18:31 | CP.PCM.PN ---
Subjective - Date & Time of Evaluation Date of Evaluation: 03/20/18 Time of Evaluation: 18:29 - Subjective Subjective: Patient seen in the room asking about back injections as well she was ordered meds for the left shoulder and bilateral knees for severe DJD left knee deformity is present see procedure notes I will follow up tomorrow hopefully will have some good early benefit Objective - Vital Signs/Intake and Output Vital Signs (last 24 hours): Temp Pulse Resp BP Pulse Ox 97.0 F L 63 20 114/70 95 03/20/18 18:09 03/20/18 18:09 03/20/18 18:09 03/20/18 18:09 03/20/18 18:09 - Medications Medications: Current Medications Acetaminophen (Tylenol 325mg Tab) 975 mg PO Q6 PRN PRN Reason: Pain, moderate (4-7) Last Admin: 03/17/18 21:18 Dose: 975 mg Albuterol/Ipratropium (Duoneb 3 Mg/0.5 Mg (3 Ml) Ud) 3 ml INH RQ6 PRN PRN Reason: Shortness of Breath Aspirin (Ecotrin) 81 mg PO DAILY [facility] Last Admin: 03/20/18 09:23 Dose: 81 mg Atorvastatin Calcium (Lipitor) 10 mg PO HS [facility] Last Admin: 03/19/18 21:25 Dose: 10 mg Carvedilol (Coreg) 3.125 mg PO DAILY [facility] Last Admin: 03/20/18 09:24 Dose: 3.125 mg Clopidogrel Bisulfate (Plavix) 75 mg PO DAILY [facility] Last Admin: 03/20/18 09:23 Dose: 75 mg Digoxin (Lanoxin) 0.25 mg PO DAILY [facility] Last Admin: 03/20/18 09:24 Dose: 0.25 mg Enoxaparin Sodium (Lovenox) 40 mg SC DAILY [facility] PRN Reason: Protocol Last Admin: 03/20/18 08:26 Dose: 40 mg Fluticasone Propionate (Flonase) 2 spr [place] DAILY [facility] Last Admin: 03/20/18 08:24 Dose: 2 spr Nystatin (Mycostatin Cream) 1 applic TOP TID [facility] Last Admin: 03/20/18 17:25 Dose: Not Given Ondansetron HCl (Zofran Odt) 4 mg PO Q6H PRN PRN Reason: Nausea/Vomiting Last Admin: 03/20/18 08:24 Dose: 4 mg Oxycodone/Acetaminophen (Percocet 5/325 Mg Tab) 1 tab PO Q6 PRN PRN Reason: Pain, moderate (4-7) Stop: 03/22/18 10:21 Last Admin: 03/20/18 09:20 Dose: 1 tab Oxymetazoline HCl (Nasal Decongestant 15 Ml) 1 spr NS Q12 PRN PRN Reason: Nasal congestion Pantoprazole Sodium (Protonix Ec Tab) 40 mg PO DAILY [facility] Last Admin: 03/20/18 09:25 Dose: 40 mg Tramadol HCl (Ultram) 50 mg PO Q6 PRN PRN Reason: Pain, moderate (4-7) Last Admin: 03/20/18 13:30 Dose: 50 mg - Labs Labs: 03/18/18 08:10 03/18/18 08:10
[2018-03-21] MEDS: Pantoprazole 40 mg EC Tab PO SCH (08:42)
[2018-03-21] MEDS: Digoxin 250 mcg (0.25 mg) Tab PO SCH (08:43)
[2018-03-21] MEDS: Enoxaparin 40 mg Syringe SC SCH (08:44)
--- NOTE | 2018-03-21 11:00 | CP.PCM.PN ---
Subjective - Date & Time of Evaluation Date of Evaluation: 03/21/18 Time of Evaluation: 09:45 - Subjective Subjective: Patient seen and evaluated at bedside with Dr. Fang. Patient is sitting comfortably on bed. She reports good appetite with minimal nausea, mild tenderness on her left lower abdomen that she reports has improved a lot since she was first admitted to the hospital. She states that she did not receive Afrin yesterday for her post nasal drip. Patient cannot tell when her last BM was but reports sometimes when she tries to have a BM, only mucus is seen. She reports receiving three injections yesterday by Dr. Knight in her bilateral knees and her left shoulder. She states that since the injections she feels she can move her knees much more freely without pain or restriction. Denies chest pain, dyspnea, vomiting, diarrhea, and constipation. Objective - Vital Signs/Intake and Output Vital Signs (last 24 hours): Temp Pulse Resp BP Pulse Ox 96.1 F L 91 H 20 136/90 96 03/21/18 08:20 03/21/18 08:47 03/21/18 08:20 03/21/18 08:47 03/21/18 08:20 - Medications Medications: Current Medications Acetaminophen (Tylenol 325mg Tab) 975 mg PO Q6 PRN PRN Reason: Pain, moderate (4-7) Last Admin: 03/17/18 21:18 Dose: 975 mg Albuterol/Ipratropium (Duoneb 3 Mg/0.5 Mg (3 Ml) Ud) 3 ml INH RQ6 PRN PRN Reason: Shortness of Breath Aspirin (Ecotrin) 81 mg PO DAILY [facility] Last Admin: 03/21/18 08:44 Dose: 81 mg Atorvastatin Calcium (Lipitor) 10 mg PO HS [facility] Last Admin: 03/20/18 21:26 Dose: 10 mg Carvedilol (Coreg) 3.125 mg PO DAILY [facility] Last Admin: 03/21/18 08:47 Dose: 3.125 mg Clopidogrel Bisulfate (Plavix) 75 mg PO DAILY [facility] Last Admin: 03/21/18 08:42 Dose: 75 mg Digoxin (Lanoxin) 0.25 mg PO DAILY [facility] Last Admin: 03/21/18 08:43 Dose: 0.25 mg Enoxaparin Sodium (Lovenox) 40 mg SC DAILY [facility] PRN Reason: Protocol Last Admin: 03/21/18 08:44 Dose: 40 mg Nystatin (Mycostatin Cream) 1 applic TOP TID [facility] Last Admin: 03/21/18 08:43 Dose: 1 applic Ondansetron HCl (Zofran Odt) 4 mg PO Q6H PRN PRN Reason: Nausea/Vomiting Last Admin: 03/20/18 08:24 Dose: 4 mg Oxycodone/Acetaminophen (Percocet 5/325 Mg Tab) 1 tab PO Q6 PRN PRN Reason: Pain, moderate (4-7) Stop: 03/22/18 10:21 Last Admin: 03/20/18 09:20 Dose: 1 tab Oxymetazoline HCl (Nasal Decongestant 15 Ml) 2 spr NS Q12 [facility] Pantoprazole Sodium (Protonix Ec Tab) 40 mg PO DAILY [facility] Last Admin: 03/21/18 08:42 Dose: 40 mg Tramadol HCl (Ultram) 50 mg PO Q6 PRN PRN Reason: Pain, moderate (4-7) Last Admin: 03/20/18 13:30 Dose: 50 mg - Labs Labs: 03/18/18 08:10 03/18/18 08:10 - Constitutional Appears: Well, Non-toxic, No Acute Distress - Head Exam Head Exam: NORMAL INSPECTION - Eye Exam Eye Exam: Normal appearance - ENT Exam ENT Exam: Mucous Membranes Moist - Neck Exam Neck Exam: Normal Inspection. absent: Lymphadenopathy, Tenderness, Thyromegaly - Respiratory Exam Respiratory Exam: Clear to Ausculation Bilateral, NORMAL BREATHING PATTERN. absent: Decreased Breath Sounds, Rales, Rhonchi, Wheezes - Cardiovascular Exam Cardiovascular Exam: Irregular Rhythm, +S1, +S2. absent: Clicks, Diastolic murmur, Gallop, JVD, Murmur - GI/Abdominal Exam GI & Abdominal Exam: Soft, Tenderness (mild LLQ tenderness), Normal Bowel Sounds. absent: Distended, Guarding, Organomegaly, Pulsatile Mass, Rebound - Extremities Exam Extremities Exam: Normal Inspection (chronic changes bilaterally observed . ) - Neurological Exam Neurological Exam: Alert, Awake, Oriented x3 - Psychiatric Exam Psychiatric exam: Normal Affect, Normal Mood - Skin Skin Exam: Dry, Normal Color, Warm Assessment and Plan (1) Diverticulitis Assessment & Plan: Continue current conservative management. Patient able to tolerate solid food with minimal nausea. Status: Acute (2) Post-nasal drip Assessment & Plan: Afrin was changed from prn to scheduled dose so that patient can receive it. Status: Acute (3) Atrial fibrillation, chronic Assessment & Plan: Continue current management: Digoxin, aspirin, plavix, Coreg Status: Chronic (4) Asthma with COPD Assessment & Plan: Stable. Albuterol prn. Status: Chronic
--- NOTE | 2018-03-21 11:19 | CP.PCM.PN ---
Subjective - Date & Time of Evaluation Date of Evaluation: 03/21/18 Time of Evaluation: 11:00 - Subjective Subjective: Patient seen and examined. She states that her knees feel much better after the injections yesterday by Dr. Knight. She states that she occasionally has minimal nausea after eating but it is very mild and goes away on its own. Associated with mild abdominal pain which also self resolved. Overall states she is feeling better. Objective - Vital Signs/Intake and Output Vital Signs (last 24 hours): Temp Pulse Resp BP Pulse Ox 96.1 F L 91 H 20 136/90 96 03/21/18 08:20 03/21/18 08:47 03/21/18 08:20 03/21/18 08:47 03/21/18 08:20 - Medications Medications: Current Medications Acetaminophen (Tylenol 325mg Tab) 975 mg PO Q6 PRN PRN Reason: Pain, moderate (4-7) Last Admin: 03/17/18 21:18 Dose: 975 mg Albuterol/Ipratropium (Duoneb 3 Mg/0.5 Mg (3 Ml) Ud) 3 ml INH RQ6 PRN PRN Reason: Shortness of Breath Aspirin (Ecotrin) 81 mg PO DAILY [facility] Last Admin: 03/21/18 08:44 Dose: 81 mg Atorvastatin Calcium (Lipitor) 10 mg PO HS [facility] Last Admin: 03/20/18 21:26 Dose: 10 mg Carvedilol (Coreg) 3.125 mg PO DAILY [facility] Last Admin: 03/21/18 08:47 Dose: 3.125 mg Clopidogrel Bisulfate (Plavix) 75 mg PO DAILY [facility] Last Admin: 03/21/18 08:42 Dose: 75 mg Digoxin (Lanoxin) 0.25 mg PO DAILY [facility] Last Admin: 03/21/18 08:43 Dose: 0.25 mg Enoxaparin Sodium (Lovenox) 40 mg SC DAILY [facility] PRN Reason: Protocol Last Admin: 03/21/18 08:44 Dose: 40 mg Nystatin (Mycostatin Cream) 1 applic TOP TID [facility] Last Admin: 03/21/18 08:43 Dose: 1 applic Ondansetron HCl (Zofran Odt) 4 mg PO Q6H PRN PRN Reason: Nausea/Vomiting Last Admin: 03/20/18 08:24 Dose: 4 mg Oxycodone/Acetaminophen (Percocet 5/325 Mg Tab) 1 tab PO Q6 PRN PRN Reason: Pain, moderate (4-7) Stop: 03/22/18 10:21 Last Admin: 03/20/18 09:20 Dose: 1 tab Oxymetazoline HCl (Nasal Decongestant 15 Ml) 2 spr NS Q12 [facility] Pantoprazole Sodium (Protonix Ec Tab) 40 mg PO DAILY [facility] Last Admin: 03/21/18 08:42 Dose: 40 mg Tramadol HCl (Ultram) 50 mg PO Q6 PRN PRN Reason: Pain, moderate (4-7) Last Admin: 03/20/18 13:30 Dose: 50 mg - Labs Labs: 03/18/18 08:10 03/18/18 08:10 - Additional Findings Additional findings: Physical exam: Constitutional- cooperative, awake, alert Head- NCAT, PERRL Eye- PERRL, EOMI ENT- normal exam, MMM. Neck- normal inspection, supple, no JVD Respiratory- CTAB, no wheezes rales rhonchi Cardiovascular- irregular rate and rhythm, +S1, +S2 no MRG GI/Abdominal- mild LLQ tenderness. normal bowel sounds, soft, no mass, no hsm Skin- warm, dry Extremities Exam- normal capillary refill, normal inspection Neurological Exam- alert, awake, oriented Psych- normal mood, normal affect Assessment and Plan - Assessment and Plan (Free Text) Plan: 77 yo female with history of Asthma/COPD, A Fib, CHF and diverticulosis came in because of multiple LBM accompanied with LLQ abdominal pain. CT scan of abdomen was consistent with diverticulitis and colitis. Patient transferred to TCU for further management and therapy. 1. Acute diverticulitis had endoscopy yesterday with Dr Riley had one episode of nausea and vomiting earlier surgery recommended conservative management off antibiotics 2. Acute UTI resolved 3. Chronic A Fib rate controlled on Digoxin, ASA, Plavix, Coreg Not on anticoagulant 4. Asthma/ COPD/ ANK[facility] asymptomatic Dr Fang on pulmonology consult Duoneb PRN 5. Deconditioning continue physical therapy consult 6. DVT prophylaxis on Lovenox
[2018-03-21] MEDS: Oxycodone/Acetaminophen 5/325 mg Tab PO PRN (13:42)
[2018-03-21] MEDS ORDERED: Magnesium Hydroxide Susp 30 ml UD PO PRN (13:45)
--- NOTE | 2018-03-21 22:22 | CP.PCM.PN ---
Subjective - Date & Time of Evaluation Date of Evaluation: 03/21/18 Time of Evaluation: 13:30 - Subjective Subjective: Patient reports good apetite. She request dairy and nonbland foods be added to her diet. No BMs today. Objective - Vital Signs/Intake and Output Vital Signs (last 24 hours): Temp Pulse Resp BP Pulse Ox 97.2 F L 83 20 146/84 99 03/21/18 19:54 03/21/18 19:54 03/21/18 19:54 03/21/18 19:54 03/21/18 19:54 - Medications Medications: Current Medications Acetaminophen (Tylenol 325mg Tab) 975 mg PO Q6 PRN PRN Reason: Pain, moderate (4-7) Last Admin: 03/21/18 21:06 Dose: 975 mg Albuterol/Ipratropium (Duoneb 3 Mg/0.5 Mg (3 Ml) Ud) 3 ml INH RQ6 PRN PRN Reason: Shortness of Breath Aspirin (Ecotrin) 81 mg PO DAILY [facility] Last Admin: 03/21/18 08:44 Dose: 81 mg Atorvastatin Calcium (Lipitor) 10 mg PO HS [facility] Last Admin: 03/21/18 21:32 Dose: 10 mg Carvedilol (Coreg) 3.125 mg PO DAILY [facility] Last Admin: 03/21/18 08:47 Dose: 3.125 mg Clopidogrel Bisulfate (Plavix) 75 mg PO DAILY [facility] Last Admin: 03/21/18 08:42 Dose: 75 mg Digoxin (Lanoxin) 0.25 mg PO DAILY [facility] Last Admin: 03/21/18 08:43 Dose: 0.25 mg Docusate Sodium (Colace) 100 mg PO BID [facility] Last Admin: 03/21/18 16:57 Dose: 100 mg Enoxaparin Sodium (Lovenox) 40 mg SC DAILY [facility] PRN Reason: Protocol Last Admin: 03/21/18 08:44 Dose: 40 mg Magnesium Hydroxide (Milk Of Magnesia) 30 ml PO DAILY [facility] PRN Reason: Constipation Nystatin (Mycostatin Cream) 1 applic TOP TID [facility] Last Admin: 03/21/18 16:57 Dose: Not Given Ondansetron HCl (Zofran Odt) 4 mg PO Q6H PRN PRN Reason: Nausea/Vomiting Last Admin: 03/20/18 08:24 Dose: 4 mg Oxycodone/Acetaminophen (Percocet 5/325 Mg Tab) 1 tab PO Q6 PRN PRN Reason: Pain, moderate (4-7) Stop: 03/22/18 10:21 Last Admin: 03/21/18 13:42 Dose: 1 tab Oxymetazoline HCl (Nasal Decongestant 15 Ml) 2 spr NS Q12 [facility] Last Admin: 03/21/18 21:34 Dose: 2 spr Pantoprazole Sodium (Protonix Ec Tab) 40 mg PO DAILY [facility] Last Admin: 03/21/18 08:42 Dose: 40 mg Tramadol HCl (Ultram) 50 mg PO Q6 PRN PRN Reason: Pain, moderate (4-7) Last Admin: 03/20/18 13:30 Dose: 50 mg - Labs Labs: 03/18/18 08:10 03/18/18 08:10 - Head Exam Head Exam: ATRAUMATIC - Eye Exam Eye Exam: Normal appearance - ENT Exam ENT Exam: Mucous Membranes Moist - Respiratory Exam Respiratory Exam: Clear to Ausculation Bilateral - Cardiovascular Exam Cardiovascular Exam: REGULAR RHYTHM - GI/Abdominal Exam GI & Abdominal Exam: Soft. absent: Tenderness Assessment and Plan (1) Diverticulitis Status: Acute (2) Functional dyspepsia Assessment & Plan: Clinically improving. Having constipation. Colace twice daily and MOM prn ordered. Diet advanced. Continues off antibiotics. Status: Acute
[2018-03-22 06:36] LABS: HEMOGLOBIN 12.1 g/dL (12.0-16.0); MEAN CELL VOLUME 93.4 fl (81.0-99.0); MEAN CORPUSCULAR HEMOGLOBIN 30.6 pg (27.0-31.0); MEAN CORPUSCULAR HGB CONC 32.8 g/dL (33.0-37.0); RBC 3.96 Mil/uL (3.80-5.20); RED CELL DISTRIBUTION WIDTH 16.6 % (11.5-14.5); WHITE BLOOD COUNT 18.7 K/uL (4.8-10.8)
[2018-03-22 06:53] LABS: BLOOD UREA NITROGEN 13 mg/dl (7-17); GFR AFRICAN-AMERICAN > 60; GFR NON-AFRICAN AMERICAN > 60
--- NOTE | 2018-03-22 07:06 | CP.PCM.PN ---
Subjective - Date & Time of Evaluation Date of Evaluation: 03/22/18 Time of Evaluation: 09:00 - Subjective Subjective: Patient was seen and examined with Dr. Fang. She was lying comfortably and reports no over night events. She states that she believes she is a bit constipated for 2 days now so she asked Dr. Riley for Colace. She reports good appetite, tolerating solid foods and does not suffer from nausea with food intake anymore. Today, she denies chest pain, dyspnea, diarrhea, nausea, vomiting, and abdominal pain. Objective - Vital Signs/Intake and Output Vital Signs (last 24 hours): Temp Pulse Resp BP Pulse Ox 97.2 F L 83 20 146/84 99 03/21/18 19:54 03/21/18 19:54 03/21/18 19:54 03/21/18 19:54 03/21/18 19:54 - Medications Medications: Current Medications Acetaminophen (Tylenol 325mg Tab) 975 mg PO Q6 PRN PRN Reason: Pain, moderate (4-7) Last Admin: 03/21/18 21:06 Dose: 975 mg Albuterol/Ipratropium (Duoneb 3 Mg/0.5 Mg (3 Ml) Ud) 3 ml INH RQ6 PRN PRN Reason: Shortness of Breath Aspirin (Ecotrin) 81 mg PO DAILY [facility] Last Admin: 03/21/18 08:44 Dose: 81 mg Atorvastatin Calcium (Lipitor) 10 mg PO HS [facility] Last Admin: 03/21/18 21:32 Dose: 10 mg Carvedilol (Coreg) 3.125 mg PO DAILY [facility] Last Admin: 03/21/18 08:47 Dose: 3.125 mg Clopidogrel Bisulfate (Plavix) 75 mg PO DAILY [facility] Last Admin: 03/21/18 08:42 Dose: 75 mg Digoxin (Lanoxin) 0.25 mg PO DAILY [facility] Last Admin: 03/21/18 08:43 Dose: 0.25 mg Docusate Sodium (Colace) 100 mg PO BID [facility] Last Admin: 03/21/18 16:57 Dose: 100 mg Enoxaparin Sodium (Lovenox) 40 mg SC DAILY [facility] PRN Reason: Protocol Last Admin: 03/21/18 08:44 Dose: 40 mg Magnesium Hydroxide (Milk Of Magnesia) 30 ml PO DAILY [facility] PRN Reason: Constipation Nystatin (Mycostatin Cream) 1 applic TOP TID [facility] Last Admin: 03/21/18 16:57 Dose: Not Given Ondansetron HCl (Zofran Odt) 4 mg PO Q6H PRN PRN Reason: Nausea/Vomiting Last Admin: 03/20/18 08:24 Dose: 4 mg Oxycodone/Acetaminophen (Percocet 5/325 Mg Tab) 1 tab PO Q6 PRN PRN Reason: Pain, moderate (4-7) Stop: 03/22/18 10:21 Last Admin: 03/21/18 13:42 Dose: 1 tab Oxymetazoline HCl (Nasal Decongestant 15 Ml) 2 spr NS Q12 [facility] Last Admin: 03/21/18 21:34 Dose: 2 spr Pantoprazole Sodium (Protonix Ec Tab) 40 mg PO DAILY [facility] Last Admin: 03/21/18 08:42 Dose: 40 mg Tramadol HCl (Ultram) 50 mg PO Q6 PRN PRN Reason: Pain, moderate (4-7) Last Admin: 03/20/18 13:30 Dose: 50 mg - Labs Labs: 03/22/18 06:21 03/22/18 06:21 - Constitutional Appears: Well, Non-toxic, No Acute Distress - Head Exam Head Exam: NORMAL INSPECTION - ENT Exam ENT Exam: Mucous Membranes Moist - Neck Exam Neck Exam: Normal Inspection. absent: Lymphadenopathy, Tenderness, Thyromegaly - Respiratory Exam Respiratory Exam: Clear to Ausculation Bilateral, NORMAL BREATHING PATTERN. absent: Decreased Breath Sounds, Prolonged Expiratory Phase, Rales, Rhonchi, Wheezes, Respiratory Distress, Stridor - Cardiovascular Exam Cardiovascular Exam: Irregular Rhythm, +S1, +S2. absent: Clicks, Diastolic murmur, Gallop, JVD, Murmur - GI/Abdominal Exam GI & Abdominal Exam: Soft, Tenderness (Mild LLQ tenderness on palpation. ), Normal Bowel Sounds. absent: Guarding, Organomegaly, Pulsatile Mass, Rebound - Back Exam Back Exam: NORMAL INSPECTION (chronic bilaterally skin changes. ) - Neurological Exam Neurological Exam: Alert, Awake, Oriented x3 - Psychiatric Exam Psychiatric exam: Normal Affect, Normal Mood - Skin Skin Exam: Dry, Normal Color, Warm Assessment and Plan (1) Diverticulitis Assessment & Plan: Continue current conservative management. Patient able to tolerate solid food with minimal nausea: continue current diet. Continue management of constipation: Colace 100mg po BID. Status: Acute (2) Post-nasal drip Assessment & Plan: Continue current management: Afrin (only use up to 3 days). Status: Acute (3) Atrial fibrillation, chronic Assessment & Plan: Continue current management: Digoxin, aspirin, plavix, coreg. Status: Chronic (4) Asthma with COPD Assessment & Plan: Stable. Albuterol prn. Status: Chronic
[2018-03-22] MEDS: Oxycodone/Acetaminophen 5/325 mg Tab PO PRN (08:31)
[2018-03-22] MEDS: Pantoprazole 40 mg EC Tab PO SCH (08:36)
[2018-03-22] MEDS: Enoxaparin 40 mg Syringe SC SCH (08:38)
[2018-03-22] MEDS: Digoxin 250 mcg (0.25 mg) Tab PO SCH (08:38)
--- NOTE | 2018-03-22 12:48 | CP.PCM.PN ---
Subjective - Date & Time of Evaluation Date of Evaluation: 03/22/18 Time of Evaluation: 12:48 - Subjective Subjective: Patient seen in the room and very happy with the injection results much improved function in therapies as well continue current care Objective - Vital Signs/Intake and Output Vital Signs (last 24 hours): Temp Pulse Resp BP Pulse Ox 97.1 F L 89 20 132/79 99 03/22/18 07:55 03/22/18 08:37 03/22/18 07:55 03/22/18 08:37 03/22/18 07:55 - Medications Medications: Current Medications Acetaminophen (Tylenol 325mg Tab) 975 mg PO Q6 PRN PRN Reason: Pain, moderate (4-7) Last Admin: 03/21/18 21:06 Dose: 975 mg Albuterol/Ipratropium (Duoneb 3 Mg/0.5 Mg (3 Ml) Ud) 3 ml INH RQ6 PRN PRN Reason: Shortness of Breath Aspirin (Ecotrin) 81 mg PO DAILY [facility] Last Admin: 03/22/18 08:38 Dose: 81 mg Atorvastatin Calcium (Lipitor) 10 mg PO HS [facility] Last Admin: 03/21/18 21:32 Dose: 10 mg Carvedilol (Coreg) 3.125 mg PO DAILY [facility] Last Admin: 03/22/18 08:37 Dose: 3.125 mg Clopidogrel Bisulfate (Plavix) 75 mg PO DAILY [facility] Last Admin: 03/22/18 08:36 Dose: 75 mg Digoxin (Lanoxin) 0.25 mg PO DAILY [facility] Last Admin: 03/22/18 08:38 Dose: 0.25 mg Docusate Sodium (Colace) 100 mg PO BID [facility] Last Admin: 03/22/18 08:36 Dose: 100 mg Enoxaparin Sodium (Lovenox) 40 mg SC DAILY [facility] PRN Reason: Protocol Last Admin: 03/22/18 08:38 Dose: 40 mg Magnesium Hydroxide (Milk Of Magnesia) 30 ml PO DAILY [facility] PRN Reason: Constipation Nystatin (Mycostatin Cream) 1 applic TOP TID [facility] Last Admin: 03/22/18 08:38 Dose: 1 applic Ondansetron HCl (Zofran Odt) 4 mg PO Q6H PRN PRN Reason: Nausea/Vomiting Last Admin: 03/20/18 08:24 Dose: 4 mg Oxymetazoline HCl (Nasal Decongestant 15 Ml) 2 spr NS Q12 [facility] Last Admin: 03/22/18 08:36 Dose: 2 spr Pantoprazole Sodium (Protonix Ec Tab) 40 mg PO DAILY [facility] Last Admin: 03/22/18 08:36 Dose: 40 mg Tramadol HCl (Ultram) 50 mg PO Q6 PRN PRN Reason: Pain, moderate (4-7) Last Admin: 03/20/18 13:30 Dose: 50 mg - Labs Labs: 03/22/18 06:21 03/22/18 06:21
[2018-03-22 16:12] LABS: SQUAMOUS EPITHIAL 1 /hpf (0-5); URINE BILIRUBIN NEGATIVE (NEGATIVE); URINE BLOOD NEGATIVE (NEGATIVE); URINE CLARITY CLEAR (Clear); URINE COLOR YELLOW (YELLOW); URINE GLUCOSE (UA) NEG (Normal); URINE LEUKOCYTE ESTERASE NEG Leu/uL (Negative); URINE PROTEIN 30 mg/dL (NEGATIVE); URINE UROBILINOGEN 0.2-1.0 mg/dL (0.2-1.0)
[2018-03-22] MEDS: Magnesium Oxide 400 mg Tab UD PO SCH (21:52)
[2018-03-23] MEDS: Pantoprazole 40 mg EC Tab PO SCH (09:21)
[2018-03-23] MEDS: Enoxaparin 40 mg Syringe SC SCH (09:22)
[2018-03-23] MEDS: Digoxin 250 mcg (0.25 mg) Tab PO SCH (09:25)
[2018-03-23] MEDS: Oxycodone/Acetaminophen 5/325 mg Tab PO PRN (09:37)
[2018-03-23] MEDS: Magnesium Oxide 400 mg Tab UD PO SCH (21:05)
[2018-03-24] MEDS: Digoxin 250 mcg (0.25 mg) Tab PO SCH (08:11)
[2018-03-24] MEDS: Enoxaparin 40 mg Syringe SC SCH (08:12)
[2018-03-24] MEDS: Pantoprazole 40 mg EC Tab PO SCH (08:13)
[2018-03-24] MEDS: Oxycodone/Acetaminophen 5/325 mg Tab PO PRN ×2 (10:07→16:54)
[2018-03-24] MEDS ORDERED: Albuterol-Ipratrop 3 mg / 0.5 (3 ml) UD INH PRN (21:45)
[2018-03-25] MEDS: Magnesium Oxide 400 mg Tab UD PO SCH ×2 (03:57→21:57)
[2018-03-25] MEDS: Pantoprazole 40 mg EC Tab PO SCH (08:21)
[2018-03-25] MEDS: Oxycodone/Acetaminophen 5/325 mg Tab PO PRN (08:21)
[2018-03-25] MEDS: Enoxaparin 40 mg Syringe SC SCH (08:21)
[2018-03-25] MEDS: Digoxin 250 mcg (0.25 mg) Tab PO SCH (08:21)
--- NOTE | 2018-03-25 10:41 | CP.PCM.PN ---
Subjective - Date & Time of Evaluation Date of Evaluation: 03/25/18 Time of Evaluation: 10:41 - Subjective Subjective: Appeaars to be doing well with the current regimen. Her mood is quite good. She has no abdominal pain. There is only occasional mils nausea. Her knee pain is a little more than initially post injections. Continues to improve with PT. Objective - Vital Signs/Intake and Output Vital Signs (last 24 hours): Temp Pulse Resp BP Pulse Ox 97.5 F L 76 20 154/83 H 98 03/25/18 08:04 03/25/18 08:20 03/25/18 08:04 03/25/18 08:20 03/25/18 08:04 - Medications Medications: Current Medications Acetaminophen (Tylenol 325mg Tab) 975 mg PO Q6 PRN PRN Reason: Pain, moderate (4-7) Last Admin: 03/23/18 00:56 Dose: 975 mg Albuterol/Ipratropium (Duoneb 3 Mg/0.5 Mg (3 Ml) Ud) 3 ml INH RQ6 PRN PRN Reason: Shortness of Breath Aspirin (Ecotrin) [address] [facility] Last Admin: 03/25/18 08:21 Dose: 81 mg Atorvastatin Calcium (Lipitor) [address] [facility] Last Admin: 03/25/18 03:58 Dose: 10 mg Carvedilol (Coreg) 3.[address] [facility] Last Admin: 03/25/18 08:20 Dose: 3.125 mg Clopidogrel Bisulfate (Plavix) [address] [facility] Last Admin: 03/25/18 08:21 Dose: 75 mg Digoxin (Lanoxin) 0.[address] [facility] Last Admin: 03/25/18 08:21 Dose: 0.25 mg Docusate Sodium (Colace) [address] [facility] Last Admin: 03/25/18 08:19 Dose: 100 mg Enoxaparin Sodium (Lovenox) [address] [facility] PRN Reason: Protocol Last Admin: 03/25/18 08:21 Dose: 40 mg Magnesium Hydroxide (Milk Of Magnesia) 30 ml PO DAILY PRN PRN Reason: Constipation Magnesium Oxide (Mag-Ox) [address] [facility] Last Admin: 03/25/18 03:57 Dose: 400 mg Nystatin (Mycostatin Cream) [address] [facility] Last Admin: 03/25/18 08:20 Dose: 1 applic Ondansetron HCl (Zofran Odt) 4 mg PO Q6H PRN PRN Reason: Nausea/Vomiting Last Admin: 03/24/18 09:29 Dose: 4 mg Oxycodone/Acetaminophen (Percocet 5/325 Mg Tab) 1 tab PO Q4 PRN PRN Reason: Pain, moderate (4-7) Stop: 03/25/18 16:49 Last Admin: 03/25/18 08:21 Dose: 1 tab Pantoprazole Sodium (Protonix Ec Tab) [address] [facility] Last Admin: 03/25/18 08:21 Dose: 40 mg Tramadol HCl (Ultram) 50 mg PO Q6 PRN PRN Reason: Pain, moderate (4-7) - Labs Labs: 03/22/18 06:21 03/22/18 06:21
--- NOTE | 2018-03-25 20:01 | CP.PCM.PN ---
Subjective - Date & Time of Evaluation Date of Evaluation: 03/25/18 Time of Evaluation: 20:00 - Subjective Subjective: Patient seen in the room doing ok left elbow is hurting, multiple injuries and Dr Reyes has avoided injection. I have told her now that I agree, no non-surgical treatment will be effective Her knee pain has worsened but is still better then prior to injections [id number] with RW continue current care Objective - Vital Signs/Intake and Output Vital Signs (last 24 hours): Temp Pulse Resp BP Pulse Ox 98.1 F 81 20 122/74 99 03/25/18 19:43 03/25/18 19:43 03/25/18 19:43 03/25/18 19:43 03/25/18 19:43 - Medications Medications: Current Medications Acetaminophen (Tylenol 325mg Tab) 975 mg PO Q6 PRN PRN Reason: Pain, moderate (4-7) Last Admin: 03/23/18 00:56 Dose: 975 mg Albuterol/Ipratropium (Duoneb 3 Mg/0.5 Mg (3 Ml) Ud) 3 ml INH RQ6 PRN PRN Reason: Shortness of Breath Aspirin (Ecotrin) 81 mg PO DAILY [facility] Last Admin: 03/25/18 08:21 Dose: 81 mg Atorvastatin Calcium (Lipitor) 10 mg PO HS [facility] Last Admin: 03/25/18 03:58 Dose: 10 mg Carvedilol (Coreg) 3.125 mg PO DAILY [facility] Last Admin: 03/25/18 08:20 Dose: 3.125 mg Clopidogrel Bisulfate (Plavix) 75 mg PO DAILY [facility] Last Admin: 03/25/18 08:21 Dose: 75 mg Digoxin (Lanoxin) 0.25 mg PO DAILY [facility] Last Admin: 03/25/18 08:21 Dose: 0.25 mg Docusate Sodium (Colace) 100 mg PO BID [facility] Last Admin: 03/25/18 17:34 Dose: 100 mg Enoxaparin Sodium (Lovenox) 40 mg SC DAILY [facility] PRN Reason: Protocol Last Admin: 03/25/18 08:21 Dose: 40 mg Magnesium Hydroxide (Milk Of Magnesia) 30 ml PO DAILY PRN PRN Reason: Constipation Magnesium Oxide (Mag-Ox) 400 mg PO HS [facility] Last Admin: 03/25/18 03:57 Dose: 400 mg Nystatin (Mycostatin Cream) 1 applic TOP TID [facility] Last Admin: 03/25/18 17:41 Dose: 1 applic Ondansetron HCl (Zofran Odt) 4 mg PO Q6H PRN PRN Reason: Nausea/Vomiting Last Admin: 03/24/18 09:29 Dose: 4 mg Oxycodone/Acetaminophen (Percocet 5/325 Mg Tab) 1 tab PO Q4 PRN PRN Reason: Pain, severe (8-10) Stop: 03/28/18 18:52 Pantoprazole Sodium (Protonix Ec Tab) 40 mg PO DAILY [facility] Last Admin: 03/25/18 08:21 Dose: 40 mg Tramadol HCl (Ultram) 50 mg PO Q6 PRN PRN Reason: Pain, moderate (4-7) - Labs Labs: 03/22/18 06:21 03/22/18 06:21
[2018-03-25 23:05] LABS: SQUAMOUS EPITHIAL 1 /hpf (0-5); URINE BACTERIA OCC (<OCC); URINE BILIRUBIN NEGATIVE (NEGATIVE); URINE BLOOD NEGATIVE (NEGATIVE); URINE CLARITY CLEAR (Clear); URINE COLOR YELLOW (YELLOW); URINE GLUCOSE (UA) NEG (Normal); URINE LEUKOCYTE ESTERASE TRACE Leu/uL (Negative); URINE PROTEIN NEGATIVE (NEGATIVE); URINE UROBILINOGEN 0.2-1.0 mg/dL (0.2-1.0)
[2018-03-26] MEDS: Pantoprazole 40 mg EC Tab PO SCH (09:15)
[2018-03-26] MEDS: Digoxin 250 mcg (0.25 mg) Tab PO SCH (09:15)
[2018-03-26] MEDS: Enoxaparin 40 mg Syringe SC SCH (09:16)
--- NOTE | 2018-03-26 10:39 | CP.PCM.PN ---
Subjective - Date & Time of Evaluation Date of Evaluation: 03/26/18 Time of Evaluation: 10:37 - Subjective Subjective: En-route to have a shower. Looks and feels quite well now. Physiatry note appreciated. Appetite is good, having formed BM 2X daily. Objective - Vital Signs/Intake and Output Vital Signs (last 24 hours): Temp Pulse Resp BP Pulse Ox 97.9 F 91 H 20 116/60 98 03/26/18 08:14 03/26/18 09:16 03/26/18 08:14 03/26/18 09:16 03/26/18 08:14 - Medications Medications: Current Medications Acetaminophen (Tylenol 325mg Tab) 975 mg PO Q6 PRN PRN Reason: Pain, moderate (4-7) Last Admin: 03/23/18 00:56 Dose: 975 mg Albuterol/Ipratropium (Duoneb 3 Mg/0.5 Mg (3 Ml) Ud) 3 ml INH RQ6 PRN PRN Reason: Shortness of Breath Aspirin (Ecotrin) 81 mg PO DAILY [facility] Last Admin: 03/26/18 09:16 Dose: 81 mg Atorvastatin Calcium (Lipitor) 10 mg PO HS [facility] Last Admin: 03/25/18 21:57 Dose: 10 mg Carvedilol (Coreg) 3.125 mg PO DAILY [facility] Last Admin: 03/26/18 09:16 Dose: 3.125 mg Clopidogrel Bisulfate (Plavix) 75 mg PO DAILY [facility] Last Admin: 03/26/18 09:15 Dose: 75 mg Digoxin (Lanoxin) 0.25 mg PO DAILY [facility] Last Admin: 03/26/18 09:15 Dose: 0.25 mg Docusate Sodium (Colace) 100 mg PO BID [facility] Last Admin: 03/26/18 09:15 Dose: 100 mg Enoxaparin Sodium (Lovenox) 40 mg SC DAILY [facility] PRN Reason: Protocol Last Admin: 03/26/18 09:16 Dose: 40 mg Magnesium Hydroxide (Milk Of Magnesia) 30 ml PO DAILY PRN PRN Reason: Constipation Magnesium Oxide (Mag-Ox) 400 mg PO HS [facility] Last Admin: 03/25/18 21:57 Dose: 400 mg Nystatin (Mycostatin Cream) 1 applic TOP TID [facility] Last Admin: 03/26/18 09:16 Dose: Not Given Ondansetron HCl (Zofran Odt) 4 mg PO Q6H PRN PRN Reason: Nausea/Vomiting Last Admin: 03/24/18 09:29 Dose: 4 mg Oxycodone/Acetaminophen (Percocet 5/325 Mg Tab) 1 tab PO Q4 PRN PRN Reason: Pain, severe (8-10) Stop: 03/28/18 18:52 Pantoprazole Sodium (Protonix Ec Tab) 40 mg PO DAILY [facility] Last Admin: 03/26/18 09:15 Dose: 40 mg Tramadol HCl (Ultram) 50 mg PO Q6 PRN PRN Reason: Pain, moderate (4-7) - Labs Labs: 03/22/18 06:21 03/22/18 06:21
[2018-03-26] MEDS: Oxycodone/Acetaminophen 5/325 mg Tab PO PRN ×2 (13:04→18:29)
--- NOTE | 2018-03-26 15:03 | CP.PCM.PN ---
Subjective - Date & Time of Evaluation Date of Evaluation: 03/25/18 Time of Evaluation: 14:00 - Subjective Subjective: Patient tolerating diet well. Is upset at present due to issues with her roomate Objective - Vital Signs/Intake and Output Vital Signs (last 24 hours): Temp Pulse Resp BP Pulse Ox 97.9 F 91 H 20 116/60 98 03/26/18 08:14 03/26/18 09:16 03/26/18 08:14 03/26/18 09:16 03/26/18 08:14 - Medications Medications: Current Medications Acetaminophen (Tylenol 325mg Tab) 975 mg PO Q6 PRN PRN Reason: Pain, moderate (4-7) Last Admin: 03/23/18 00:56 Dose: 975 mg Albuterol/Ipratropium (Duoneb 3 Mg/0.5 Mg (3 Ml) Ud) 3 ml INH RQ6 PRN PRN Reason: Shortness of Breath Aspirin (Ecotrin) 81 mg PO DAILY [facility] Last Admin: 03/26/18 09:16 Dose: 81 mg Atorvastatin Calcium (Lipitor) 10 mg PO [facility] Last Admin: 03/25/18 21:57 Dose: 10 mg Carvedilol (Coreg) 3.125 mg PO DAILY [facility] Last Admin: 03/26/18 09:16 Dose: 3.125 mg Clopidogrel Bisulfate (Plavix) 75 mg PO DAILY [facility] Last Admin: 03/26/18 09:15 Dose: 75 mg Digoxin (Lanoxin) 0.25 mg PO DAILY [facility] Last Admin: 03/26/18 09:15 Dose: 0.25 mg Docusate Sodium (Colace) 100 mg PO BID [facility] Last Admin: 03/26/18 09:15 Dose: 100 mg Enoxaparin Sodium (Lovenox) 40 mg SC DAILY [facility] PRN Reason: Protocol Last Admin: 03/26/18 09:16 Dose: 40 mg Magnesium Hydroxide (Milk Of Magnesia) 30 ml PO DAILY PRN PRN Reason: Constipation Magnesium Oxide (Mag-Ox) 400 mg PO HS [facility] Last Admin: 03/25/18 21:57 Dose: 400 mg Nystatin (Mycostatin Cream) 1 applic TOP TID [facility] Last Admin: 03/26/18 13:05 Dose: Not Given Ondansetron HCl (Zofran Odt) 4 mg PO Q6H PRN PRN Reason: Nausea/Vomiting Last Admin: 03/24/18 09:29 Dose: 4 mg Oxycodone/Acetaminophen (Percocet 5/325 Mg Tab) 1 tab PO Q4 PRN PRN Reason: Pain, severe (8-10) Stop: 03/28/18 18:52 Last Admin: 03/26/18 13:04 Dose: 1 tab Pantoprazole Sodium (Protonix Ec Tab) 40 mg PO DAILY [facility] Last Admin: 03/26/18 09:15 Dose: 40 mg Tramadol HCl (Ultram) 50 mg PO Q6 PRN PRN Reason: Pain, moderate (4-7) - Labs Labs: 03/22/18 06:21 03/22/18 06:21 - Head Exam Head Exam: ATRAUMATIC - Eye Exam Eye Exam: Normal appearance - ENT Exam ENT Exam: Normal Exam - Neck Exam Neck Exam: Full ROM - Respiratory Exam Respiratory Exam: Clear to Ausculation Bilateral - Cardiovascular Exam Cardiovascular Exam: REGULAR RHYTHM, +S1, +S2 - GI/Abdominal Exam GI & Abdominal Exam: Soft, Normal Bowel Sounds. absent: Tenderness Assessment and Plan (1) Diverticulitis Status: Acute (2) Functional dyspepsia Assessment & Plan: Tolerating diet well and having regular bowel movements. Continue stool softener and MOM if needed. Status: Acute
--- NOTE | 2018-03-26 16:58 | CP.PCM.PN ---
Subjective - Date & Time of Evaluation Date of Evaluation: 03/26/18 Time of Evaluation: 11:27 - Subjective Subjective: no further abd pain some burning she says with urination that had resolved but has returned no fever Objective - Vital Signs/Intake and Output Vital Signs (last 24 hours): Temp Pulse Resp BP Pulse Ox 97.7 F 64 20 121/83 96 03/26/18 15:59 03/26/18 15:59 03/26/18 15:59 03/26/18 15:59 03/26/18 15:59 - Medications Medications: Current Medications Acetaminophen (Tylenol 325mg Tab) 975 mg PO Q6 PRN PRN Reason: Pain, moderate (4-7) Last Admin: 03/23/18 00:56 Dose: 975 mg Albuterol/Ipratropium (Duoneb 3 Mg/0.5 Mg (3 Ml) Ud) 3 ml INH RQ6 PRN PRN Reason: Shortness of Breath Aspirin (Ecotrin) 81 mg PO DAILY [facility] Last Admin: 03/26/18 09:16 Dose: 81 mg Atorvastatin Calcium (Lipitor) 10 mg PO [facility] Last Admin: 03/25/18 21:57 Dose: 10 mg Carvedilol (Coreg) 3.125 mg PO DAILY [facility] Last Admin: 03/26/18 09:16 Dose: 3.125 mg Clopidogrel Bisulfate (Plavix) 75 mg PO DAILY [facility] Last Admin: 03/26/18 09:15 Dose: 75 mg Digoxin (Lanoxin) 0.25 mg PO DAILY [facility] Last Admin: 03/26/18 09:15 Dose: 0.25 mg Docusate Sodium (Colace) 100 mg PO BID [facility] Last Admin: 03/26/18 09:15 Dose: 100 mg Enoxaparin Sodium (Lovenox) 40 mg SC DAILY [facility] PRN Reason: Protocol Last Admin: 03/26/18 09:16 Dose: 40 mg Magnesium Hydroxide (Milk Of Magnesia) 30 ml PO DAILY PRN PRN Reason: Constipation Magnesium Oxide (Mag-Ox) 400 mg PO HS [facility] Last Admin: 03/25/18 21:57 Dose: 400 mg Nystatin (Mycostatin Cream) 1 applic TOP TID [facility] Last Admin: 03/26/18 13:05 Dose: Not Given Ondansetron HCl (Zofran Odt) 4 mg PO Q6H PRN PRN Reason: Nausea/Vomiting Last Admin: 03/24/18 09:29 Dose: 4 mg Oxycodone/Acetaminophen (Percocet 5/325 Mg Tab) 1 tab PO Q4 PRN PRN Reason: Pain, severe (8-10) Stop: 03/28/18 18:52 Last Admin: 03/26/18 13:04 Dose: 1 tab Pantoprazole Sodium (Protonix Ec Tab) 40 mg PO DAILY [facility] Last Admin: 03/26/18 09:15 Dose: 40 mg Tramadol HCl (Ultram) 50 mg PO Q6 PRN PRN Reason: Pain, moderate (4-7) - Labs Labs: 03/22/18 06:21 03/22/18 06:21 - Constitutional Appears: Well, Non-toxic, No Acute Distress - Head Exam Head Exam: ATRAUMATIC - Respiratory Exam Respiratory Exam: Clear to Ausculation Bilateral, NORMAL BREATHING PATTERN - Cardiovascular Exam Cardiovascular Exam: REGULAR RHYTHM, +S1, +S2 - GI/Abdominal Exam GI & Abdominal Exam: Soft, Normal Bowel Sounds. absent: Tenderness, Organomegaly, Rebound - Neurological Exam Neurological Exam: Alert, Awake, Oriented x3 Assessment and Plan - Assessment and Plan (Free Text) Assessment: 77 yo female with history of Asthma/COPD, A Fib, CHF and diverticulosis came in because of multiple LBM accompanied with LLQ abdominal pain. CT scan of abdomen was consistent with diverticulitis and colitis. Patient transferred to TCU for further management and therapy. 1. Acute diverticulitis off antibiotics 2. Acute UTI resolved initially now off treatment recurrent infection will check ua and urine culture 3. Chronic A Fib rate controlled on Digoxin, ASA, Plavix, Coreg Not on anticoagulant 4. Asthma/ COPD/ ANKITA asymptomatic Dr Fang on pulmonology consult Duoneb PRN 5. Deconditioning continue physical therapy consult 6. DVT prophylaxis on Lovenox
[2018-03-26] MEDS: Magnesium Oxide 400 mg Tab UD PO SCH (21:15)
[2018-03-27] MEDS: Oxycodone/Acetaminophen 5/325 mg Tab PO PRN (00:52)
[2018-03-27 06:38] LABS: BASO # 0.1 K/uL (0.0-0.2); BASO % 0.4 % (0.0-2.0); EOS # 0.6 K/uL (0.0-0.7); EOS % 3.7 % (0.0-4.0); HEMOGLOBIN 12.6 g/dL (12.0-16.0); LYMPH # 1.7 K/uL (1.0-4.3); MEAN CELL VOLUME 93.5 fl (81.0-99.0); MEAN CORPUSCULAR HEMOGLOBIN 30.3 pg (27.0-31.0); MEAN CORPUSCULAR HGB CONC 32.4 g/dL (33.0-37.0); MEAN PLATELET VOLUME 7.2 fl (7.2-11.7); MONO % 6.5 % (0.0-10.0); NEUT % 78.4 % (50.0-75.0); NRBC % 0.1 % (0.0-0.0); RBC 4.16 Mil/uL (3.80-5.20); RED CELL DISTRIBUTION WIDTH 16.4 % (11.5-14.5); WHITE BLOOD COUNT 15.3 K/uL (4.8-10.8)
[2018-03-27] MEDS: Digoxin 250 mcg (0.25 mg) Tab PO SCH (08:37)
[2018-03-27] MEDS: Enoxaparin 40 mg Syringe SC SCH (08:39)
[2018-03-27] MEDS: Pantoprazole 40 mg EC Tab PO SCH (08:42)
[2018-03-27] MEDS: Magnesium Oxide 400 mg Tab UD PO SCH (21:14)
[2018-03-28] MEDS: Digoxin 250 mcg (0.25 mg) Tab PO SCH (08:39)
[2018-03-28] MEDS: Enoxaparin 40 mg Syringe SC SCH (08:40)
[2018-03-28] MEDS: Pantoprazole 40 mg EC Tab PO SCH (08:44)
--- NOTE | 2018-03-28 11:02 | CP.PCM.PN ---
Subjective - Date & Time of Evaluation Date of Evaluation: 03/28/18 Time of Evaluation: 10:00 - Subjective Subjective: Patient seen and examined. Complained of some discomfort with urination where in she had to push hard in order to empty her bladder Objective - Vital Signs/Intake and Output Vital Signs (last 24 hours): Temp Pulse Resp BP Pulse Ox 97.3 F L 89 20 149/85 99 03/28/18 08:22 03/28/18 08:39 03/28/18 08:22 03/28/18 08:39 03/28/18 08:22 - Medications Medications: Current Medications Acetaminophen (Tylenol 325mg Tab) 975 mg PO Q6 PRN PRN Reason: Pain, moderate (4-7) Last Admin: 03/28/18 08:42 Dose: 975 mg Albuterol/Ipratropium (Duoneb 3 Mg/0.5 Mg (3 Ml) Ud) 3 ml INH RQ6 PRN PRN Reason: Shortness of Breath Aspirin (Ecotrin) 81 mg PO DAILY [facility] Last Admin: 03/28/18 08:39 Dose: 81 mg Atorvastatin Calcium (Lipitor) 10 mg PO [facility] Last Admin: 03/27/18 21:14 Dose: 10 mg Carvedilol (Coreg) 3.125 mg PO DAILY [facility] Last Admin: 03/28/18 08:39 Dose: 3.125 mg Clopidogrel Bisulfate (Plavix) 75 mg PO DAILY [facility] Last Admin: 03/28/18 08:39 Dose: 75 mg Digoxin (Lanoxin) 0.25 mg PO DAILY [facility] Last Admin: 03/28/18 08:39 Dose: 0.25 mg Docusate Sodium (Colace) 100 mg PO BID [facility] Last Admin: 03/28/18 08:38 Dose: 100 mg Enoxaparin Sodium (Lovenox) 40 mg SC DAILY [facility] PRN Reason: Protocol Last Admin: 03/28/18 08:40 Dose: 40 mg Magnesium Hydroxide (Milk Of Magnesia) 30 ml PO DAILY PRN PRN Reason: Constipation Magnesium Oxide (Mag-Ox) 400 mg PO HS [facility] Last Admin: 03/27/18 21:14 Dose: 400 mg Nystatin (Mycostatin Cream) 1 applic TOP TID [facility] Last Admin: 03/28/18 08:41 Dose: Not Given Ondansetron HCl (Zofran Odt) 4 mg PO Q6H PRN PRN Reason: Nausea/Vomiting Last Admin: 03/27/18 14:47 Dose: 4 mg Oxycodone/Acetaminophen (Percocet 5/325 Mg Tab) 1 tab PO Q4 PRN PRN Reason: Pain, severe (8-10) Stop: 03/28/18 18:52 Last Admin: 03/27/18 00:52 Dose: 1 tab Pantoprazole Sodium (Protonix Ec Tab) 40 mg PO DAILY [facility] Last Admin: 03/28/18 08:44 Dose: 40 mg Tramadol HCl (Ultram) 50 mg PO Q6 PRN PRN Reason: Pain, moderate (4-7) - Labs Labs: 03/27/18 05:40 03/22/18 06:21 - Constitutional Appears: No Acute Distress - Head Exam Head Exam: ATRAUMATIC - Eye Exam Eye Exam: absent: Scleral icterus - ENT Exam ENT Exam: Mucous Membranes Moist - Neck Exam Neck Exam: absent: Meningismus - Respiratory Exam Respiratory Exam: absent: Rales, Rhonchi, Wheezes, Respiratory Distress - Cardiovascular Exam Cardiovascular Exam: REGULAR RHYTHM, +S1, +S2 - GI/Abdominal Exam GI & Abdominal Exam: Soft. absent: Tenderness - Rectal Exam Rectal Exam: Deferred - Back Exam Back Exam: absent: tenderness - Neurological Exam Neurological Exam: Alert, Oriented x3 - Psychiatric Exam Psychiatric exam: Normal Affect - Skin Skin Exam: Dry, Intact Assessment and Plan - Assessment and Plan (Free Text) Assessment: 77 yo female with history of Asthma/COPD, A Fib, CHF and diverticulosis came in because of multiple LBM accompanied with LLQ abdominal pain. CT scan of abdomen was consistent with diverticulitis and colitis. Patient transferred to TCU for further management and therapy. 1. Acute diverticulitis off antibiotics 2. Recurrent UTI WBC elevated and urine + for nitrates also complaining of discomfort with urination urine C&S: grew gram negative rods and gram positive cocci Macrobid 100mg PO BID follow up final result of urine culture 3. Chronic A Fib rate controlled on Digoxin, ASA, Plavix, Coreg Not on anticoagulant 4. Asthma/ COPD/ ANKITA asymptomatic Dr Fang on pulmonology consult Duoneb PRN 5. Deconditioning continue physical therapy consult 6. DVT prophylaxis on Lovenox
--- NOTE | 2018-03-28 11:07 | CP.PCM.PN ---
Subjective - Date & Time of Evaluation Date of Evaluation: 03/28/18 Time of Evaluation: 11:06 - Subjective Subjective: Macrobid ordered for UTI. Patient will need further BON. Medications will continue essentially unchanged. Objective - Vital Signs/Intake and Output Vital Signs (last 24 hours): Temp Pulse Resp BP Pulse Ox 97.3 F L 89 20 149/85 99 03/28/18 08:22 03/28/18 08:39 03/28/18 08:22 03/28/18 08:39 03/28/18 08:22 - Medications Medications: Current Medications Acetaminophen (Tylenol 325mg Tab) 975 mg PO Q6 PRN PRN Reason: Pain, moderate (4-7) Last Admin: 03/28/18 08:42 Dose: 975 mg Albuterol/Ipratropium (Duoneb 3 Mg/0.5 Mg (3 Ml) Ud) 3 ml INH RQ6 PRN PRN Reason: Shortness of Breath Aspirin (Ecotrin) 81 mg PO DAILY [facility] Last Admin: 03/28/18 08:39 Dose: 81 mg Atorvastatin Calcium (Lipitor) 10 mg PO [facility] Last Admin: 03/27/18 21:14 Dose: 10 mg Carvedilol (Coreg) 3.125 mg PO DAILY [facility] Last Admin: 03/28/18 08:39 Dose: 3.125 mg Clopidogrel Bisulfate (Plavix) 75 mg PO DAILY [facility] Last Admin: 03/28/18 08:39 Dose: 75 mg Digoxin (Lanoxin) 0.25 mg PO DAILY [facility] Last Admin: 03/28/18 08:39 Dose: 0.25 mg Docusate Sodium (Colace) 100 mg PO BID [facility] Last Admin: 03/28/18 08:38 Dose: 100 mg Enoxaparin Sodium (Lovenox) 40 mg SC DAILY [facility] PRN Reason: Protocol Last Admin: 03/28/18 08:40 Dose: 40 mg Magnesium Hydroxide (Milk Of Magnesia) 30 ml PO DAILY PRN PRN Reason: Constipation Magnesium Oxide (Mag-Ox) 400 mg PO HS [facility] Last Admin: 03/27/18 21:14 Dose: 400 mg Nitrofurantoin Macrocrystals (Macrobid) 100 mg PO Q12 [facility] PRN Reason: Protocol Nystatin (Mycostatin Cream) 1 applic TOP TID [facility] Last Admin: 03/28/18 08:41 Dose: Not Given Ondansetron HCl (Zofran Odt) 4 mg PO Q6H PRN PRN Reason: Nausea/Vomiting Last Admin: 03/27/18 14:47 Dose: 4 mg Oxycodone/Acetaminophen (Percocet 5/325 Mg Tab) 1 tab PO Q4 PRN PRN Reason: Pain, severe (8-10) Stop: 03/28/18 18:52 Last Admin: 03/27/18 00:52 Dose: 1 tab Pantoprazole Sodium (Protonix Ec Tab) 40 mg PO DAILY [facility] Last Admin: 03/28/18 08:44 Dose: 40 mg Tramadol HCl (Ultram) 50 mg PO Q6 PRN PRN Reason: Pain, moderate (4-7) - Labs Labs: 03/27/18 05:40 03/22/18 06:21
[2018-03-28] MEDS: Magnesium Oxide 400 mg Tab UD PO SCH (21:55)
[2018-03-29] MEDS: Enoxaparin 40 mg Syringe SC SCH (08:39)
[2018-03-29] MEDS: Pantoprazole 40 mg EC Tab PO SCH (08:40)
[2018-03-29] MEDS: Digoxin 250 mcg (0.25 mg) Tab PO SCH (08:40)
--- NOTE | 2018-03-29 13:03 | CP.PCM.PN ---
Subjective - Date & Time of Evaluation Date of Evaluation: 03/29/18 Time of Evaluation: 13:01 - Subjective Subjective: Doing well. On nitrofurantoin for UTI. Appears to be doing well on her present drug regimen. Awaiting a bed in [facility]. Objective - Vital Signs/Intake and Output Vital Signs (last 24 hours): Temp Pulse Resp BP Pulse Ox 97.2 F L 65 20 179/77 H 98 03/29/18 08:46 03/29/18 08:46 03/29/18 08:46 03/29/18 08:46 03/29/18 08:46 - Medications Medications: Current Medications Acetaminophen (Tylenol 325mg Tab) 975 mg PO Q6 PRN PRN Reason: Pain, moderate (4-7) Last Admin: 03/28/18 08:42 Dose: 975 mg Albuterol/Ipratropium (Duoneb 3 Mg/0.5 Mg (3 Ml) Ud) 3 ml INH RQ6 PRN PRN Reason: Shortness of Breath Aspirin (Ecotrin) 81 mg PO DAILY [facility] Last Admin: 03/29/18 08:40 Dose: 81 mg Atorvastatin Calcium (Lipitor) 10 mg PO [facility] Last Admin: 03/28/18 21:54 Dose: 10 mg Carvedilol (Coreg) 3.125 mg PO DAILY [facility] Last Admin: 03/29/18 08:41 Dose: 3.125 mg Clopidogrel Bisulfate (Plavix) 75 mg PO DAILY [facility] Last Admin: 03/29/18 08:40 Dose: 75 mg Digoxin (Lanoxin) 0.25 mg PO DAILY [facility] Last Admin: 03/29/18 08:40 Dose: 0.25 mg Docusate Sodium (Colace) 100 mg PO BID [facility] Last Admin: 03/29/18 08:39 Dose: 100 mg Enoxaparin Sodium (Lovenox) 40 mg SC DAILY [facility] PRN Reason: Protocol Last Admin: 03/29/18 08:39 Dose: 40 mg Magnesium Hydroxide (Milk Of Magnesia) 30 ml PO DAILY PRN PRN Reason: Constipation Magnesium Oxide (Mag-Ox) 400 mg PO [facility] Last Admin: 03/28/18 21:55 Dose: 400 mg Nitrofurantoin Macrocrystals (Macrobid) 100 mg PO Q12 [facility] PRN Reason: Protocol Last Admin: 03/29/18 08:40 Dose: 100 mg Nystatin (Mycostatin Cream) 1 applic TOP TID [facility] Last Admin: 03/29/18 12:51 Dose: Not Given Ondansetron HCl (Zofran Odt) 4 mg PO Q6H PRN PRN Reason: Nausea/Vomiting Last Admin: 03/29/18 08:39 Dose: 4 mg Pantoprazole Sodium (Protonix Ec Tab) 40 mg PO DAILY [facility] Last Admin: 03/29/18 08:40 Dose: 40 mg Tramadol HCl (Ultram) 50 mg PO Q6 PRN PRN Reason: Pain, moderate (4-7) Last Admin: 03/29/18 10:23 Dose: 50 mg - Labs Labs: 03/27/18 05:40 03/22/18 06:21
--- NOTE | 2018-03-29 14:13 | CP.PCM.PN ---
Subjective - Date & Time of Evaluation Date of Evaluation: 03/29/18 Time of Evaluation: 14:12 - Subjective Subjective: Patient seen getting set in next few days to go to longer course of rehab knee pain is stable and she is very thankful wanted to follow up with me but I told her she already is seeing dr lo and I do not want to take a patient of his. she understood. Objective - Vital Signs/Intake and Output Vital Signs (last 24 hours): Temp Pulse Resp BP Pulse Ox 97.2 F L 65 20 179/77 H 98 03/29/18 08:46 03/29/18 08:46 03/29/18 08:46 03/29/18 08:46 03/29/18 08:46 - Medications Medications: Current Medications Acetaminophen (Tylenol 325mg Tab) 975 mg PO Q6 PRN PRN Reason: Pain, moderate (4-7) Last Admin: 03/28/18 08:42 Dose: 975 mg Albuterol/Ipratropium (Duoneb 3 Mg/0.5 Mg (3 Ml) Ud) 3 ml INH RQ6 PRN PRN Reason: Shortness of Breath Aspirin (Ecotrin) 81 mg PO DAILY [facility] Last Admin: 03/29/18 08:40 Dose: 81 mg Atorvastatin Calcium (Lipitor) 10 mg PO HS [facility] Last Admin: 03/28/18 21:54 Dose: 10 mg Carvedilol (Coreg) 3.125 mg PO DAILY [facility] Last Admin: 03/29/18 08:41 Dose: 3.125 mg Clopidogrel Bisulfate (Plavix) 75 mg PO DAILY [facility] Last Admin: 03/29/18 08:40 Dose: 75 mg Digoxin (Lanoxin) 0.25 mg PO DAILY [facility] Last Admin: 03/29/18 08:40 Dose: 0.25 mg Docusate Sodium (Colace) 100 mg PO BID [facility] Last Admin: 03/29/18 08:39 Dose: 100 mg Enoxaparin Sodium (Lovenox) 40 mg SC DAILY [facility] PRN Reason: Protocol Last Admin: 03/29/18 08:39 Dose: 40 mg Magnesium Hydroxide (Milk Of Magnesia) 30 ml PO DAILY PRN PRN Reason: Constipation Magnesium Oxide (Mag-Ox) 400 mg PO HS [facility] Last Admin: 03/28/18 21:55 Dose: 400 mg Nitrofurantoin Macrocrystals (Macrobid) 100 mg PO Q12 [facility] PRN Reason: Protocol Last Admin: 03/29/18 08:40 Dose: 100 mg Nystatin (Mycostatin Cream) 1 applic TOP TID [facility] Last Admin: 03/29/18 12:51 Dose: Not Given Ondansetron HCl (Zofran Odt) 4 mg PO Q6H PRN PRN Reason: Nausea/Vomiting Last Admin: 03/29/18 08:39 Dose: 4 mg Pantoprazole Sodium (Protonix Ec Tab) 40 mg PO DAILY [facility] Last Admin: 03/29/18 08:40 Dose: 40 mg Tramadol HCl (Ultram) 50 mg PO Q6 PRN PRN Reason: Pain, moderate (4-7) Last Admin: 03/29/18 10:23 Dose: 50 mg - Labs Labs: 03/27/18 05:40 03/22/18 06:21
[2018-03-29] MEDS: Magnesium Oxide 400 mg Tab UD PO SCH (21:09)
[2018-03-30 06:34] LABS: HEMOGLOBIN 12.5 g/dL (12.0-16.0); MEAN CELL VOLUME 93.9 fl (81.0-99.0); MEAN CORPUSCULAR HEMOGLOBIN 30.9 pg (27.0-31.0); MEAN CORPUSCULAR HGB CONC 32.9 g/dL (33.0-37.0); RBC 4.04 Mil/uL (3.80-5.20); RED CELL DISTRIBUTION WIDTH 16.4 % (11.5-14.5); WHITE BLOOD COUNT 11.1 K/uL (4.8-10.8)
[2018-03-30] MEDS: Enoxaparin 40 mg Syringe SC SCH (08:04)
[2018-03-30] MEDS: Digoxin 250 mcg (0.25 mg) Tab PO SCH (08:05)
[2018-03-30 08:08] VITALS: BP 157/77; PULSE 75
[2018-03-30] MEDS: Pantoprazole 40 mg EC Tab PO SCH (08:09)
[2018-03-30 08:21] VITALS: TEMP 97; O2SAT 97
--- NOTE | 2018-03-30 12:06 | CP.PCM.DIS ---
Provider - Provider Date of Admission: 03/12/18 21:20 Attending physician: Brayan Chavarria Primary care physician: Raymond Fang MD Consults: Dr. Riley- gastroenterology Dr. Fang- pulmonary Dr. Knight- physiatry Time Spent in preparation of Discharge (in minutes): 15 Hospital Course - Lab Results Lab Results: Micro Results 03/26/18 20:53 Urine,Clean Catch Urine Culture - Final Escherichia Coli Enterococcus Faecalis 03/25/18 22:30 Urine,Clean Catch Urine Culture - Final Escherichia Coli Most Recent Lab Values WBC 11.1 K/uL (4.8-10.8) H 03/30/18 05:30 RBC 4.04 Mil/uL (3.80-5.20) 03/30/18 05:30 Hgb 12.5 g/dL (12.0-16.0) 03/30/18 05:30 Hct 37.9 % (34.0-47.0) 03/30/18 05:30 MCV 93.9 fl (81.0-99.0) 03/30/18 05:30 MCH 30.9 pg (27.0-31.0) 03/30/18 05:30 MCHC 32.9 g/dL (33.0-37.0) L 03/30/18 05:30 RDW 16.4 % (11.5-14.5) H 03/30/18 05:30 Plt Count 345 K/uL (130-400) 03/30/18 05:30 MPV 7.2 fl (7.2-11.7) 03/27/18 05:40 Neut % (Auto) 78.4 % (50.0-75.0) H 03/27/18 05:40 Lymph % (Auto) 11.0 % (20.0-40.0) L 03/27/18 05:40 [place] % (Auto) 6.5 % (0.0-10.0) 03/27/18 05:40 Eos % (Auto) 3.7 % (0.0-4.0) 03/27/18 05:40 Baso % (Auto) 0.4 % (0.0-2.0) 03/27/18 05:40 Neut # (Auto) 12.0 K/uL (1.8-7.0) H 03/27/18 05:40 Lymph # (Auto) 1.7 K/uL (1.0-4.3) 03/27/18 05:40 [place] # (Auto) 1.0 K/uL (0.0-0.8) H 03/27/18 05:40 Eos # (Auto) 0.6 K/uL (0.0-0.7) 03/27/18 05:40 Baso # (Auto) 0.1 K/uL (0.0-0.2) 03/27/18 05:40 Sodium 140 mmol/l (132-148) 03/22/18 06:21 Potassium 4.3 MMOL/L (3.6-5.0) 03/22/18 06:21 Chloride 104 mmol/L (98-107) 03/22/18 06:21 Carbon Dioxide 28 mmol/L (22-30) 03/22/18 06:21 Anion Gap 12 (10-20) 03/22/18 06:21 BUN 13 mg/dl (7-17) 03/22/18 06:21 Creatinine 0.5 mg/dl (0.7-1.2) L 03/22/18 06:21 Est GFR ( Amer) > 60 03/22/18 06:21 Est GFR (Non-Af Amer) > 60 03/22/18 06:21 Random Glucose 149 mg/dL (65-105) H 03/22/18 06:21 Calcium 9.0 mg/dL (8.4-10.2) 03/22/18 06:21 Total Bilirubin 0.3 mg/dl (0.2-1.3) 03/17/18 09:05 AST 24 U/L (14-36) 03/17/18 09:05 ALT 19 U/L (9-52) 03/17/18 09:05 Alkaline Phosphatase 63 U/L (38-126) 03/17/18 09:05 Total Protein 5.2 G/DL (6.3-8.2) L 03/17/18 09:05 Albumin 2.5 g/dL (3.5-5.0) L 03/17/18 09:05 Globulin 2.8 gm/dL (2.2-3.9) 03/17/18 09:05 Albumin/Globulin Ratio 0.9 (1.0-2.1) L 03/17/18 09:05 Urine Color Yellow (YELLOW) 03/25/18 22:30 Urine Clarity Clear (Clear) 03/25/18 22:30 Urine pH 7.0 (5.0-8.0) 03/25/18 22:30 Ur Specific [place] 1.009 (1.003-1.030) 03/25/18 22:30 Urine Protein Negative mg/dL (NEGATIVE) 03/25/18 22:30 Urine Glucose (UA) Neg mg/dL (Normal) 03/25/18:30 Urine Ketones Negative mg/dL (NEGATIVE) 03/25/18 22:30 Urine Blood Negative (NEGATIVE) 03/25/18 22:30 Urine Nitrate Positive (NEGATIVE) H 03/25/18:30 Urine Bilirubin Negative (NEGATIVE) 03/25/18:30 Urine Urobilinogen 0.2-1.0 mg/dL (0.2-1.0) 03/25/18 22:30 Ur Leukocyte Esterase Trace Jaci/uL (Negative) 03/25/18 22:30 Urine RBC (Auto) < 1 /hpf (0-3) 03/25/18 22:30 Urine Microscopic WBC 6 /hpf (0-5) H 03/25/18 22:30 Ur Squamous Epith Cells 1 /hpf (0-5) 03/25/18 22:30 Urine Bacteria Occ (<OCC) H 03/25/18 22:30 - Hospital Course Hospital Course: This is a 77 yo female with history of Asthma/COPD, A Fib, CHF and diverticulosis came in because of multiple LBM accompanied with LLQ abdominal pain. CT scan of abdomen was consistent with diverticulitis and colitis. Patient transferred to TCU for further management and therapy. During her course of stay, the patient was diagnosed with Acute UTI with E. coli and E. faecalis, both of which are sensitive to Macrobid which was started. She was seen by Dr. Riley for her diverticulitis; her abdominal pain improved during her stay and she is tolerating solid diet well. Otherwise the patient had an uncomplicated stay in TCU and her condition improved. She is being discharged to [facility] today for further PT/OT and monitoring. 1. Acute diverticulitis off antibiotics 2. Acute UTI Continue Macrobid E. coli and E. faecalis sensitive to Macrobid 3. Chronic A Fib rate controlled on Digoxin, ASA, Plavix, Coreg Not on anticoagulant 4. Asthma/ COPD/ ANKITA asymptomatic Dr Fang on pulmonology consult Duoneb PRN 5. Deconditioning continue physical therapy consult 6. DVT prophylaxis on Lovenox To follow up with Dr. Fang Discharge Exam - Head Exam Head Exam: ATRAUMATIC - Additional Findings Additional findings: Physical exam: Constitutional- cooperative, awake, alert Head- NCAT, PERRL Eye- PERRL, EOMI ENT- normal exam, MMM. Neck- normal inspection, supple, no JVD Respiratory- CTAB, no wheezes rales rhonchi Cardiovascular- RRR, +S1, +S2 no MRG GI/Abdominal- normal bowel sounds, soft, no mass, no hsm Skin- warm, dry, some eccymosis on upper extremities Extremities Exam- normal capillary refill, normal inspection Neurological Exam- alert, awake, oriented Psych- normal mood, normal affect Discharge Plan - Follow Up Plan Condition: GOOD Disposition: HOME/ ROUTINE Referrals: Raymond Fang MD [Primary Care Provider] -
== END 2018-03-30 14:00 | DRG 392 ==
LOC: H.TCU 21:20
PROVIDERS: ADMIT Internal Medicine; ATTEND Internal Medicine
PROC: F07Z9FZ Gait Training/Functional Ambulation Treatment using Assistive, Adaptive, Supportive or Protective Equipment (ICD-10-PCS; principal; 2018-03-12)
PROC: F07L6ZZ Therapeutic Exercise Treatment of Musculoskeletal System - Lower Back / Lower Extremity (ICD-10-PCS; 2018-03-12)
PROC: F08Z1FZ Dressing Techniques Treatment using Assistive, Adaptive, Supportive or Protective Equipment (ICD-10-PCS; 2018-03-12)
PROC: F07Z5FZ Bed Mobility Treatment using Assistive, Adaptive, Supportive or Protective Equipment (ICD-10-PCS; 2018-03-12)
PROC: F07Z8FZ Transfer Training Treatment using Assistive, Adaptive, Supportive or Protective Equipment (ICD-10-PCS; 2018-03-12)
PROC: 0S9C3ZX Drainage of Right Knee Joint, Percutaneous Approach, Diagnostic (ICD-10-PCS; 2018-03-20)
PROC: 3E0U3BZ Introduction of Anesthetic Agent into Joints, Percutaneous Approach (ICD-10-PCS; 2018-03-20)
PROC: 3E0U33Z Introduction of Anti-inflammatory into Joints, Percutaneous Approach (ICD-10-PCS; 2018-03-20)
PROC: 3E0U3BZ Introduction of Anesthetic Agent into Joints, Percutaneous Approach (ICD-10-PCS; 2018-03-20)
PROC: 3E0U33Z Introduction of Anti-inflammatory into Joints, Percutaneous Approach (ICD-10-PCS; 2018-03-20)
DX: K57.92 Diverticulitis of intestine, part unspecified, without perforation or abscess without bleeding (principal); N39.0 Urinary tract infection, site not specified; I48.2 Chronic atrial fibrillation; G47.33 Obstructive sleep apnea (adult) (pediatric); J44.9 Chronic obstructive pulmonary disease, unspecified; Z88.0 Allergy status to penicillin; Z88.2 Allergy status to sulfonamides; I73.9 Peripheral vascular disease, unspecified; G62.9 Polyneuropathy, unspecified; M81.0 Age-related osteoporosis without current pathological fracture; I11.0 Hypertensive heart disease with heart failure; R09.82 Postnasal drip; G89.29 Other chronic pain; K30 Functional dyspepsia; K52.9 Noninfective gastroenteritis and colitis, unspecified; B96.20 Unspecified Escherichia coli [E. coli] as the cause of diseases classified elsewhere; B95.2 Enterococcus as the cause of diseases classified elsewhere; I50.9 Heart failure, unspecified

== ENCOUNTER 2018-03-18 10:47 | Day surgery (SDC) | payer MEDICARE ==
[2018-03-18 09:25] VITALS: PULSE 67
[2018-03-18] MEDS ORDERED: Lactated Ringer's 500 ML IV ONE (11:31)
[2018-03-18 12:46] VITALS: TEMP 98
[2018-03-18 12:59] VITALS: BP 117/70; PULSE 76; RESP 18; O2SAT 100
== END 2018-03-18 13:07 ==
LOC: H.ENDO 10:47
PROVIDERS: ATTEND Internal Medicine Gastroenterology
DX: K30 Functional dyspepsia (principal); K29.50 Unspecified chronic gastritis without bleeding; I48.91 Unspecified atrial fibrillation; J45.909 Unspecified asthma, uncomplicated; I25.10 Atherosclerotic heart disease of native coronary artery without angina pectoris; I50.9 Heart failure, unspecified; J44.9 Chronic obstructive pulmonary disease, unspecified; E78.5 Hyperlipidemia, unspecified; I11.0 Hypertensive heart disease with heart failure; I25.2 Old myocardial infarction; I27.20 Pulmonary hypertension, unspecified; G89.29 Other chronic pain; E66.9 Obesity, unspecified; Z68.35 Body mass index [BMI] 35.0-35.9, adult
CPT/HCPCS: 43239; 88305; J7120

== ENCOUNTER 2018-04-19 13:34 | Inpatient (IN) | payer MEDICARE ==
[2018-04-19 13:34] VITALS: BMI 35.2
[2018-04-19] MEDS ORDERED: Sodium Chloride 0.9% 1,000 ML IV STA (14:18)
[2018-04-19] MEDS ORDERED: Iohexol 240 (50 ml) PO ONE (14:21)
--- NOTE | 2018-04-19 14:48 | ED PDOC ---
HPI: Abdomen Time Seen by Provider: 04/19/18 13:46 Chief Complaint (Nursing): Abdominal Pain Chief Complaint (Provider): Abd pain History Per: Patient History/Exam Limitations: no limitations Additional Complaint(s): Pt. with abd pain lower for a few days. No dysuria. No back pain, chest pain, dyspnea. Was admitted here for infection in her abd and dc to rehab. Is at rehab currently and started getting pains again. No vomit, diarrhea, chest pain , weakness, headaches, dizziness. Past Medical History Reviewed: Nursing Documentation, Vital Signs Vital Signs: Last Vital Signs Temp 97.8 F 04/19/18 13:39 Pulse 87 04/19/18 13:39 Resp 20 04/19/18 13:39 BP 109/58 L 04/19/18 13:45 Pulse Ox 97 04/19/18 14:49 - Medical History PMH: Anemia, Asthma, Atrial Fibrillation, Bronchitis, CAD, Cardia Arrhythmia (A FIB), CHF, COPD, Diverticulitis, Fractures (Left elbow), Gastritis, HTN, Hypercholesterolemia, Hyperlipidemia, Osteoporosis, Peripheral Edema, Pneumonia Denies: Arthritis, HIV, Hypothyroidism, Chronic Kidney Disease, Rheumatoid Arthritis, Sleep Apnea - Surgical History Surgical History: Cholecystectomy, Tonsillectomy - Family History Family History: States: Unknown Family Hx - Living Arrangements Living Arrangements: With Family - Home Medications Home Medications: Ambulatory Orders Medication Instructions Recorded Clopidogrel [Plavix] 75 mg PO DAILY #0 tab 12/14/15 Digoxin [Lanoxin] 0.25 mg PO DAILY #0 tab 12/14/15 Aspirin [Ecotrin] 81 mg PO DAILY 06/26/17 Atorvastatin Calcium [Lipitor] 10 mg PO HS 06/26/17 Albuterol/Ipratropium [Duoneb 3 3 ml INH RQ6 PRN neb 03/12/18 mg/0.5 mg (3 ml) UD] Pantoprazole [Protonix EC Tab] 40 mg PO DAILY ect 03/12/18 Docusate [Colace] 100 mg PO BID cap 03/30/18 Enoxaparin [Lovenox] 40 mg SC DAILY syr 03/30/18 traMADol [Ultram] 50 mg PO Q6 PRN #10 tab 03/30/18 Acetaminophen [Tylenol 325mg tab] 650 mg PO Q4 PRN 04/19/18 Acetaminophen [Tylenol 325mg tab] 650 mg PO Q4 PRN 04/19/18 Albuterol Sulfate [Ventolin Hfa] 2 puff IH Q4 PRN 04/19/18 Aluminum Hydroxide/Magnesium H 30 ml PO TID 04/19/18 [Maalox 30 ml] Carvedilol [Coreg] 6.25 mg PO Q12 04/19/18 Ciprofloxacin [Cipro] 500 mg PO BID 04/19/18 Mag Hydrox/Aluminum Hyd/Simeth 30 ml PO Q4 PRN 04/19/18 [Maalox Advanced Suspension] Magnesium Hydroxide [Milk Of 30 ml PO HS PRN 04/19/18 Magnesia] Magnesium Oxide [Mag-Ox] 400 mg PO DAILY 04/19/18 Ondansetron [Zofran Tab] 4 mg PO Q6 PRN 04/19/18 Pregabalin [Lyrica] 50 mg PO Q12 04/19/18 - Allergies Allergies/Adverse Reactions: Allergies Allergy/AdvReac Type Severity Reaction Status Date / Time Penicillins Allergy RASH Verified 06/26/17 21:20 Sulfa (Sulfonamide Allergy RASH Verified 06/26/17 21:20 Antibiotics) suture Allergy REDNESS Uncoded 12/11/15 07:41 Review of Systems ROS Statement: Except As Marked, All Systems Reviewed And Found Negative Gastrointestinal: Positive for: Nausea, Abdominal Pain Physical Exam - Reviewed Nursing Documentation Reviewed: Yes Vital Signs Reviewed: Yes - Physical Exam Appears: Positive for: Non-toxic, No Acute Distress Head Exam: Positive for: ATRAUMATIC, NORMAL INSPECTION, NORMOCEPHALIC Skin: Positive for: Normal Color, Warm, DRY Eye Exam: Positive for: EOMI, Normal appearance, PERRL ENT: Positive for: Normal ENT Inspection Neck: Positive for: Normal, Painless ROM Cardiovascular/Chest: Positive for: Regular Rate, Rhythm Respiratory: Positive for: CNT, Normal Breath Sounds Gastrointestinal/Abdominal: Positive for: Soft, Tenderness (suprapubic and left lower quadrant) Back: Positive for: Normal Inspection. Negative for: L CVA Tenderness, R CVA Tenderness Extremity: Positive for: Normal ROM. Negative for: Tenderness, Pedal Edema Neurologic/Psych: Positive for: Alert, Oriented - Laboratory Results Result Diagrams: 04/19/18 15:30 04/19/18 16:10 Interpretation Of Abn Labs: 15.4 wbc - ECG O2 Sat by Pulse Oximetry: 97 Pulse Ox Interpretation: Normal - CT Scan/US ct Other Rad Studies (CT/US): Read By Radiologist Other Rad Interpretation: diverticulitis Disposition - Clinical Impression Clinical Impression: Sepsis, Diverticulitis - Patient ED Disposition Is Patient to be Admitted: Yes Counseled Patient/Family Regarding: Studies Performed, Diagnosis - Disposition Disposition Time: 18:54 Condition: FAIR - Pt Status Changed To: Hospital Disposition Of: Inpatient - Admit Certification Admit to Inpatient:: After my assessment, the patient will require hospitalization for at least two midnights. This is because of the severity of symptoms shown, intensity of services needed, and/or the medical risk in this patient being treated as an outpatient. - POA Present On Arrival: None
[2018-04-19] MEDS ORDERED: Albuterol 0.083% Inhal Sol (2.5 mg/3 mL) UD INH STA ×2 (14:55→16:59)
[2018-04-19] MEDS ORDERED: Iohexol 240 (50 ml) ONE (15:09)
[2018-04-19] MEDS ORDERED: Albuterol 0.083% Inhal Sol (2.5 mg/3 mL) UD ONE ×2 (15:09→17:09)
[2018-04-19 15:44] LABS: BASO # 0.1 K/uL (0.0-0.2); BASO % 0.8 % (0.0-2.0); EOS # 0.4 K/uL (0.0-0.7); EOS % 2.3 % (0.0-4.0); HEMOGLOBIN 12.9 g/dL (12.0-16.0); LYMPH # 1.3 K/uL (1.0-4.3); LYMPH % 8.5 % (20.0-40.0); MEAN CELL VOLUME 92.9 fl (81.0-99.0); MEAN CORPUSCULAR HEMOGLOBIN 30.8 pg (27.0-31.0); MEAN CORPUSCULAR HGB CONC 33.1 g/dL (33.0-37.0); MONO # 1.4 K/uL (0.0-0.8); MONO % 9.3 % (0.0-10.0); NEUT # 12.2 K/uL (1.8-7.0); NEUT % 79.1 % (50.0-75.0); NRBC % 0.1 % (0.0-0.0); PLATELET COUNT 413 K/uL (130-400); RED CELL DISTRIBUTION WIDTH 16.8 % (11.5-14.5); WHITE BLOOD COUNT 15.4 K/uL (4.8-10.8)
[2018-04-19 16:36] LABS: INR 1.8; PROTHROMBIN TIME 20.4 Seconds (9.8-13.1)
[2018-04-19 16:36] LABS: ALB/GLOB RATIO 1.2 (1.0-2.1); ALBUMIN 3.1 g/dL (3.5-5.0); ALT/SGPT 34 U/L (9-52); AST/SGOT 28 U/L (14-36); BLOOD UREA NITROGEN 7 mg/dl (7-17); CALCIUM 8.2 mg/dL (8.4-10.2); GFR AFRICAN-AMERICAN > 60; GFR NON-AFRICAN AMERICAN > 60
[2018-04-19 16:39] LABS: PARTIAL THROMBOPLASTIN TIME 34.1 Seconds (25.6-37.1)
[2018-04-19] MEDS ORDERED: Iohexol 300 100 ML IJ ONE (17:13)
[2018-04-19] MEDS ORDERED: Sodium Chloride 0.9% 50 ML IV ONE (17:13)
[2018-04-19 17:41] LABS: BANDS 4 % (0-2); EOSINOPHIL 3 % (0-7); LYMPHOCYTE 8 % (20-50); MONOCYTE 9 % (0-10); NEUTROPHIL 76 % (42-75); TOTAL CELLS COUNTED 100
[2018-04-19 17:42] LABS: ANISOCYTOSIS SLIGHT; HYPOCHROMIC SLIGHT; LARGE PLATELETS PRESENT; PLATELET ESTIMATE NORMAL (NORMAL)
--- NOTE | 2018-04-19 18:45 | CT ---
Date of service: 04/19/2018 PROCEDURE: CT Abdomen and Pelvis with contrast HISTORY: abd pain COMPARISON: 03/04/2018 TECHNIQUE: Contrast dose: 95 mL Omnipaque 300 Radiation dose: Total exam DLP = 910.77 mGy-cm. This CT exam was performed using one or more of the following dose reduction techniques: Automated exposure control, adjustment of the mA and/or kV according to patient size, and/or use of iterative reconstruction technique. FINDINGS: LOWER THORAX: Linear scar/ atelectasis in left lower lobe. No infiltrate. LIVER: Unremarkable. No gross lesion or ductal dilatation. GALLBLADDER AND BILE DUCTS: Status post cholecystectomy PANCREAS: Unremarkable. No gross lesion or ductal dilatation. SPLEEN: Unremarkable. ADRENALS: Unremarkable. No mass. KIDNEYS AND URETERS: Small bilateral parapelvic renal cysts. VASCULATURE: Unremarkable. No aortic aneurysm. BOWEL: Extensive mural thickening overall long segment involving the distal descending colon and entire sigmoid colon, as noted previously. There is extensive inflammatory change surrounding this affected segment of colon. There is extensive diverticulosis of the affected segment of colon. Findings most likely reflect long segment diverticulitis. Followup to clearing is advised to rule out underlying neoplasm. No bowel obstruction. No evidence of free intraperitoneal air. No abscess identified. No other abnormal bowel loops are identified. APPENDIX: Normal appendix. PERITONEUM: Unremarkable. No free fluid. No free air. LYMPH NODES: Shotty subcentimeter reactive pelvic lymph nodes are identified. BLADDER: Unremarkable. REPRODUCTIVE: Unremarkable uterus. BONES: Lumbar dextroscoliosis with partial ankylosis of the L2 and L3 vertebral bodies. No acute fracture. OTHER FINDINGS: None. IMPRESSION: Persistent extensive diverticulosis and diverticulitis involving the distal descending and sigmoid colon over a long segment. No evidence of abscess. No free intraperitoneal air. No other acute abnormality.
[2018-04-19] MEDS ORDERED: metroNIDAZOLE 500mg/100ml NS 100 ML IV STA (18:49)
[2018-04-19] MEDS ORDERED: Ciprofloxacin 400mg/200ml D5W 400 MG/200 ML BAG IV STA (18:49)
[2018-04-19] MEDS ORDERED: Albuterol-Ipratrop 3 mg / 0.5 (3 ml) UD INH PRN (19:17)
--- NOTE | 2018-04-19 19:29 | CP.PCM.HP ---
History of Present Illness - History of Present Illness History of Present Illness: cc: diarrhea and abd pain HPI: 77 year old female with hx of Asthma, COPD, A Fib, Chf and diverticulosis presents to the ED after discharge from [facility] with several day history of moderate to severe constant LLL abdominal pain associated with diarrhea. Patient has history of diverticulitis, diverticulosis. On prior admission, patient was extremely slow in tolerating PO intake. CTAP showed diverticulitis. WBC 15K, AFEBRILE. Cipro/Flagyl initiated. NPO with meds. HD stable. NAD. ROS: per HPI all other systems reviewed and negative Present on Admission - Present on Admission Any Indicators Present on Admission: No Past Patient History - Infectious Disease Hx of Infectious Diseases: None - Tetanus Immunizations Tetanus Immunization: Unknown - Past Medical History & Family History Past Medical History?: Yes - Past Social History Smoking Status: Never Smoked - CARDIAC Hx Atrial Fibrillation: Yes Hx Cardia Arrhythmia: Yes (A FIB) Hx Congestive Heart Failure: Yes Hx Hypercholesterolemia: Yes Hx Hypertension: Yes Hx Peripheral Edema: Yes - PULMONARY Hx Asthma: Yes Hx Bronchitis: Yes Hx Chronic Obstructive Pulmonary Disease (COPD): Yes Hx Pneumonia: Yes Hx Sleep Apnea: No - NEUROLOGICAL Hx Vertigo: Yes Other/Comment: Hx peripheral neuropathy - HEENT Hx HEENT Problems: No - RENAL Hx Chronic Kidney Disease: No - ENDOCRINE/METABOLIC Hx Hypothyroidism: No - HEMATOLOGICAL/ONCOLOGICAL Hx Anemia: Yes Hx Human Immunodeficiency Virus (HIV): No - INTEGUMENTARY Hx Dermatological Problems: No - MUSCULOSKELETAL/RHEUMATOLOGICAL Hx Arthritis: No Hx Fractures: Yes (Left elbow) Hx Osteoporosis: Yes Hx Rheumatoid Arthritis: No - GASTROINTESTINAL Hx Diverticulitis: Yes Hx Gastritis: Yes - GENITOURINARY/GYNECOLOGICAL Hx Incontinence: Yes Hx Urinary Tract Infection: Yes - PSYCHIATRIC Hx Psychophysiologic Disorder: No Hx Substance Use: No - SURGICAL HISTORY Hx Cholecystectomy: Yes Hx Tonsillectomy: Yes - ANESTHESIA Hx Anesthesia: Yes Hx Anesthesia Reactions: No Hx Malignant Hyperthermia: No Meds Allergies/Adverse Reactions: Allergies Allergy/AdvReac Type Severity Reaction Status Date / Time Penicillins Allergy RASH Verified 06/26/17 21:20 Sulfa (Sulfonamide Allergy RASH Verified 06/26/17 21:20 Antibiotics) suture Allergy REDNESS Uncoded 12/11/15 07:41 Physical Exam - Constitutional Additional comments: Vitals Reviewed GEN: WDWN, alert, cooperative HEENT: NCAT, PERRL, EOMI HEART: RRR, +S1S2, NO MRG LUNG: CTAB no wrr ABD: soft, mild tenderness, ND, No HSM, No masses EXT: normal pedal pulses, normal capillary refill NEURO: awake, alert, no focal deficits SKIN: warm, dry PSYCH: normal mood, normal affect Results - Vital Signs Recent Vital Signs: Last Vital Signs Temp 97.8 F 04/19/18 13:39 Pulse 87 04/19/18 13:39 Resp 20 04/19/18 13:39 BP 109/58 L 04/19/18 13:45 Pulse Ox 97 04/19/18 18:55 - Labs Result Diagrams: 04/19/18 15:30 04/19/18 16:10 Labs: Laboratory Results - last 24 hr 04/19/18 04/19/18 04/19/18 15:30 15:30 16:10 WBC 15.4 H RBC 4.20 Hgb 12.9 Hct 39.1 MCV 92.9 MCH 30.8 MCHC 33.1 RDW 16.8 H Plt Count 413 H MPV 7.0 L Neut % (Auto) 79.1 H Lymph % (Auto) 8.5 L [place] % (Auto) 9.3 Eos % (Auto) 2.3 Baso % (Auto) 0.8 Neut # (Auto) 12.2 H Lymph # (Auto) 1.3 [place] # (Auto) 1.4 H Eos # (Auto) 0.4 Baso # (Auto) 0.1 Neutrophils % (Manual) 76 H Band Neutrophils % 4 H Lymphocytes % (Manual) 8 L Monocytes % (Manual) 9 Eosinophils % (Manual) 3 Platelet Estimate Normal Large Platelets Present Hypochromasia (manual) Slight Anisocytosis (manual) Slight PT 20.4 H INR 1.8 APTT 34.1 Sodium 139 Potassium 3.8 Chloride 102 Carbon Dioxide 28 Anion Gap 13 BUN 7 Creatinine 0.6 L Est GFR ( Amer) > 60 Est GFR (Non-Af Amer) > 60 Random Glucose 97 Calcium 8.2 L Total Bilirubin 1.1 AST 28 ALT 34 Alkaline Phosphatase 129 H D Total Protein 5.9 L Albumin 3.1 L D Globulin 2.7 Albumin/Globulin Ratio 1.2 Assessment & Plan - Assessment and Plan (Free Text) Plan: 77 year old female with hx of Asthma, COPD, A Fib, Chf and diverticulosis presents to the ED after discharge from [facility] with several day history of moderate to severe constant LLL abdominal pain associated with diarrhea. Patient has history of diverticulitis, diverticulosis. On prior admission, patient was extremely slow in tolerating PO intake. CTAP showed diverticulitis. WBC 15K, AFEBRILE. Cipro/Flagyl initiated. NPO with meds. HD stable. NAD. 1. Acute diverticulitis - cont IV Cipro and Flagyl - afebrile, WBC 15K - HD stable - NPO with meds, possibly adv diet tomorrow if feels improved 2. Chronic A Fib rate controlled -cont Digoxin/ASA, Plavix, Coreg - Not on anticoagulant 3. Asthma/ COPD/ ANKITA - consult Dr Fang pulmonology - Duoneb PRN 4. Deconditioning - Physical therapy consult #. DVT prophylaxis with lovenox
[2018-04-19 19:42] LABS: VENOUS BLOOD GAS BASE EXCESS 3.5 mmol/L (0.0-2.0); VENOUS BLOOD GAS PCO2 55 mmHg (40-60); VENOUS BLOOD GAS PO2 34 mm/Hg (30-55); VENOUS BLOOD PH 7.35 (7.32-7.43)
[2018-04-19] MEDS: Ciprofloxacin 400mg/200ml D5W 400 MG/200 ML BAG IVPB SCH (21:20)
[2018-04-19] MEDS ORDERED: Ciprofloxacin 400mg/200ml D5W 400 MG/200 ML BAG IVPB ONE (22:57)
[2018-04-20] MEDS ORDERED: metroNIDAZOLE 500mg/100ml NS 100 ML IVPB ONE (02:23)
[2018-04-20] MEDS: metroNIDAZOLE 500mg/100ml NS 100 ML IVPB SCH ×3 (02:58→16:52)
[2018-04-20 07:44] LABS: HEMOGLOBIN 11.8 g/dL (12.0-16.0); MEAN CELL VOLUME 92.7 fl (81.0-99.0); MEAN CORPUSCULAR HGB CONC 33.5 g/dL (33.0-37.0); RBC 3.81 Mil/uL (3.80-5.20); RED CELL DISTRIBUTION WIDTH 16.4 % (11.5-14.5); WHITE BLOOD COUNT 10.2 K/uL (4.8-10.8)
[2018-04-20 07:57] LABS: BLOOD UREA NITROGEN 7 mg/dl (7-17); CALCIUM 8.2 mg/dL (8.4-10.2); GFR AFRICAN-AMERICAN > 60; GFR NON-AFRICAN AMERICAN > 60
[2018-04-20] MEDS ORDERED: Potassium Chloride 20 mEq 100 ML IVPB ONE (08:32)
[2018-04-20] MEDS: Enoxaparin 40 mg Syringe SC SCH (10:03)
[2018-04-20] MEDS: Digoxin 250 mcg (0.25 mg) Tab PO SCH (10:07)
[2018-04-20] MEDS: Alum-Mag Hydrox-Simethicone Susp (30 mL) PO SCH ×3 (10:10→16:52)
[2018-04-20] MEDS ORDERED: Alum-Mag Hydrox-Simethicone Susp (30 mL) ONE (10:10)
[2018-04-20] MEDS ORDERED: Ciprofloxacin 400mg/200ml D5W 400 MG/200 ML BAG IVPB ONE (10:10)
[2018-04-20] MEDS: Ciprofloxacin 400mg/200ml D5W 400 MG/200 ML BAG IVPB SCH ×2 (10:11→21:38)
[2018-04-20] MEDS ORDERED: Potassium Chloride 20 mEq ER Tab PO ONE (11:13)
--- NOTE | 2018-04-20 11:24 | CP.PCM.PN ---
Subjective - Date & Time of Evaluation Date of Evaluation: 04/20/18 Time of Evaluation: 10:00 - Subjective Subjective: Patient was seen and examined this morning. She is still complaining of a moderate amount of pain this morning but denies any nausea or vomiting. NAD, HD stable. Complaining of some loose stools, nonbloody. Leukocytosis now resolved. Objective - Vital Signs/Intake and Output Vital Signs (last 24 hours): Temp Pulse Resp BP Pulse Ox 98.2 F 76 18 128/72 97 04/20/18 04:20 04/20/18 10:07 04/20/18 04:20 04/20/18 10:07 04/20/18 04:20 - Medications Medications: Current Medications Acetaminophen (Tylenol 325mg Tab) 650 mg PO Q4 PRN PRN Reason: Temp >101 Acetaminophen (Tylenol 325mg Tab) 650 mg PO Q4 PRN PRN Reason: Pain, Mild (1-3) Al Hydrox/Mg Hydrox/Simethicone (Maalox Plus 30 Ml) 30 ml PO TID [facility] Last Admin: 04/20/18 10:10 Dose: 30 ml Albuterol (Ventolin Hfa 90 Mcg/Actuation (8 G)) 2 puff IH Q4 PRN PRN Reason: Shortness of Breath Albuterol/Ipratropium (Duoneb 3 Mg/0.5 Mg (3 Ml) Ud) 3 ml INH RQ6 PRN PRN Reason: Shortness of Breath Aspirin (Ecotrin) 81 mg PO DAILY [facility] Last Admin: 04/20/18 10:07 Dose: 81 mg Atorvastatin Calcium (Lipitor) 10 mg PO HS [facility] Last Admin: 04/19/18 22:45 Dose: 10 mg Carvedilol (Coreg) 6.25 mg PO Q12 [facility] Last Admin: 04/20/18 10:05 Dose: 6.25 mg Clopidogrel Bisulfate (Plavix) 75 mg PO DAILY [facility] Last Admin: 04/20/18 10:05 Dose: 75 mg Digoxin (Lanoxin) 0.25 mg PO DAILY [facility] Last Admin: 04/20/18 10:07 Dose: 0.25 mg Enoxaparin Sodium (Lovenox) 40 mg SC DAILY [facility] PRN Reason: Protocol Last Admin: 04/20/18 10:03 Dose: 40 mg Ciprofloxacin (Cipro 400mg/200ml Dsw) 400 mg in 200 mls @ 200 mls/hr IVPB Q12 SHARIFA PRN Reason: Protocol Last Admin: 04/20/18 10:11 Dose: 200 mls/hr Metronidazole (Flagyl 500mg/100ml Ns) 100 mls @ 100 mls/hr IVPB Q8 SHARIFA PRN Reason: Protocol Last Admin: 04/20/18 02:58 Dose: 100 mls/hr Ondansetron HCl (Zofran Inj) 4 mg IVP Q6 PRN PRN Reason: Nausea/Vomiting Pregabalin (Lyrica) 50 mg PO Q12 [facility] Last Admin: 04/19/18 22:45 Dose: 50 mg - Labs Labs: 04/20/18 06:45 04/20/18 06:45 PT 20.4 Seconds (9.8-13.1) H 04/19/18 15:30 INR 1.8 04/19/18 15:30 APTT 34.1 Seconds (25.6-37.1) 04/19/18 15:30 - Additional Findings Additional findings: Physical exam: Constitutional- cooperative, awake, alert Head- NCAT, PERRL Eye- PERRL, EOMI ENT- normal exam, MMM. Neck- normal inspection, supple, no JVD Respiratory- CTAB, no wheezes rales rhonchi Cardiovascular- RRR, +S1, +S2 no MRG GI/Abdominal- Mild tenderness to palpation of the left lower quadrant. normal bowel sounds, soft, no mass, no hsm Skin- warm, dry Extremities Exam- normal capillary refill, normal inspection Neurological Exam- alert, awake, oriented Psych- normal mood, normal affect Assessment and Plan - Assessment and Plan (Free Text) Plan: 77 year old female with hx of Asthma, COPD, A Fib, Chf and diverticulosis presents to the ED after discharge from [facility] with several day history of moderate to severe constant LLL abdominal pain associated with diarrhea. Patient has history of diverticulitis, diverticulosis. On prior admission, patient was extremely slow in tolerating PO intake. CTAP showed diverticulitis. WBC 15K, AFEBRILE. Cipro/Flagyl initiated. NPO with meds. HD stable. NAD. 1. Acute recurrent sigmoidal diverticulitis with extensive inflammation as noted on CT abd/pelvis - cont IV Cipro and Flagyl - IV fluids - afebrile, WBC 15K - HD stable - NPO with meds, will advance tomorrow morning as the patient still c/o pain. The patient on last admission had difficulty with diet advancement so we will need to be conservative with this. 2. Chronic A Fib rate controlled -cont Digoxin/ASA, Plavix, Coreg - Not on anticoagulant 3. Asthma/ COPD/ ANKITA - consult Dr Fang pulmonology - Duoneb PRN 4. Deconditioning - Physical therapy consult #. DVT prophylaxis with lovenox
--- NOTE | 2018-04-20 11:55 | CP.PCM.CON ---
History of Present Illness - History of Present Illness History of Present Illness: This 77 year old female is known to me from prior hospitalizations as well as the outpatient setting. She was recently hospitalized with diverticulitis, treated with antibiotics and released to [facility]. She began to have loss of appetite and lower abdominal discomfort and was sent to the emergency room for evaluation. CT A/P shows recurrence of diverticulitis of the descending/sigmoid colon. She has been placed back on antibiotic coverage with ciprofloxacin/ metronidazole. She denies vomiting, dysuria, cough, sputum, chest discomfort or dyspnea. Her last CXR was one month ago, but the lung bases appear clear when viewed in the A/P CT scan. Mild elevation of white count, no acidosis, afebrile and good oxygenation. Review of Systems - Review of Systems All systems: reviewed and no additional remarkable complaints except - Constitutional Constitutional: Anorexia - Gastrointestinal Gastrointestinal: Nausea - Musculoskeletal Musculoskeletal: Arthralgias, Back Pain - Neurological Neurological: Burning Sensations, Paresthesias (both LE's) Past Patient History - Infectious Disease Hx of Infectious Diseases: None - Tetanus Immunizations Tetanus Immunization: Unknown - Past Medical History & Family History Past Medical History?: Yes - Past Social History Smoking Status: Former Smoker Chewing Tobacco Use: No Cigar Use: No Alcohol: Social Drugs: Denies Home Situation {Lives}: Alone - CARDIAC Hx Atrial Fibrillation: Yes Hx Congestive Heart Failure: Yes Hx Hypercholesterolemia: Yes Hx Hypertension: Yes Hx Peripheral Edema: Yes - PULMONARY Hx Asthma: Yes Hx Bronchitis: Yes Hx Chronic Obstructive Pulmonary Disease (COPD): Yes Hx Pneumonia: Yes Hx Sleep Apnea: No - NEUROLOGICAL Hx Vertigo: Yes Other/Comment: Hx peripheral neuropathy - HEENT Hx HEENT Problems: No - RENAL Hx Chronic Kidney Disease: No - ENDOCRINE/METABOLIC Hx Endocrine Disorders: No - HEMATOLOGICAL/ONCOLOGICAL Hx Anemia: Yes Hx Human Immunodeficiency Virus (HIV): No - INTEGUMENTARY Hx Cellulitis: Yes - MUSCULOSKELETAL/RHEUMATOLOGICAL Hx Degenerative Joint Disease: Yes Hx Fractures: Yes (Left elbow) Hx Osteoporosis: Yes - GASTROINTESTINAL Hx Diverticulitis: Yes Hx Gastritis: Yes - GENITOURINARY/GYNECOLOGICAL Hx Incontinence: Yes Hx Urinary Tract Infection: Yes - PSYCHIATRIC Hx Psychophysiologic Disorder: No Hx Substance Use: No - SURGICAL HISTORY Hx Cholecystectomy: Yes Hx Tonsillectomy: Yes - ANESTHESIA Hx Anesthesia: Yes Hx Anesthesia Reactions: No Hx Malignant Hyperthermia: No Meds Allergies/Adverse Reactions: Allergies Allergy/AdvReac Type Severity Reaction Status Date / Time Penicillins Allergy RASH Verified 06/26/17 21:20 Sulfa (Sulfonamide Allergy RASH Verified 06/26/17 21:20 Antibiotics) suture Allergy REDNESS Uncoded 12/11/15 07:41 - Medications Medications: Current Medications Acetaminophen (Tylenol 325mg Tab) 650 mg PO Q4 PRN PRN Reason: Temp >101 Acetaminophen (Tylenol 325mg Tab) 650 mg PO Q4 PRN PRN Reason: Pain, Mild (1-3) Al Hydrox/Mg Hydrox/Simethicone (Maalox Plus 30 Ml) 30 ml PO TID [facility] Last Admin: 04/20/18 10:10 Dose: 30 ml Albuterol (Ventolin Hfa 90 Mcg/Actuation (8 G)) 2 puff IH Q4 PRN PRN Reason: Shortness of Breath Albuterol/Ipratropium (Duoneb 3 Mg/0.5 Mg (3 Ml) Ud) 3 ml INH RQ6 PRN PRN Reason: Shortness of Breath Aspirin (Ecotrin) 81 mg PO DAILY [facility] Last Admin: 04/20/18 10:07 Dose: 81 mg Atorvastatin Calcium (Lipitor) 10 mg PO HS [facility] Last Admin: 04/19/18 22:45 Dose: 10 mg Carvedilol (Coreg) 6.25 mg PO Q12 [facility] Last Admin: 04/20/18 10:05 Dose: 6.25 mg Clopidogrel Bisulfate (Plavix) 75 mg PO DAILY [facility] Last Admin: 04/20/18 10:05 Dose: 75 mg Digoxin (Lanoxin) 0.25 mg PO DAILY [facility] Last Admin: 04/20/18 10:07 Dose: 0.25 mg Enoxaparin Sodium (Lovenox) 40 mg SC DAILY [facility] PRN Reason: Protocol Last Admin: 04/20/18 10:03 Dose: 40 mg Ciprofloxacin (Cipro 400mg/200ml Dsw) 400 mg in 200 mls @ 200 mls/hr IVPB Q12 [facility] PRN Reason: Protocol Last Admin: 04/20/18 10:11 Dose: 200 mls/hr Metronidazole (Flagyl 500mg/100ml Ns) 100 mls @ 100 mls/hr IVPB Q8 [facility] PRN Reason: Protocol Last Admin: 04/20/18 02:58 Dose: 100 mls/hr Dextrose/Sodium Chloride (Dextrose 5%/0.45% Ns 1000 Ml) 1,000 mls @ 80 mls/hr IV .[id number] [facility] Stop: 04/21/18 11:25 Ondansetron HCl (Zofran Inj) 4 mg IVP Q6 PRN PRN Reason: Nausea/Vomiting Pregabalin (Lyrica) 50 mg PO Q12 [facility] Last Admin: 04/19/18 22:45 Dose: 50 mg Physical Exam - Additional Findings Additional findings: Overweight female, lying in bed, no acute distress. LE's have trace dependant edema, NO erythema, small area of ecchymosis LLE. Peripheral pulses very diminished in LE's, no cyanosis, no clubbing, no calf tenderness. No palpable lymphadenopathy. Neck is supple and trachea midline. Pharynx is pink and moist w/o exudate. Nares are patent bilaterally w/o bleeding or exudate. Conjunctivae are pink and non-icteric. No dullness on chest percussion, equal expansion. Breath sounds are diminished bilaterally w/o audible wheezes. Few scattered sonorous rhonchi, occasional dry rales in LL's. Heart sounds are distant, rhythm irregular. Abdomen is soft, non-distended, tenderness in LLQ +, NABS. Results - Vital Signs Recent Vital Signs: Last Vital Signs Temp 98.2 F 04/20/18 04:20 Pulse 76 04/20/18 10:07 Resp 18 04/20/18 04:20 BP 128/72 04/20/18 10:07 Pulse Ox 97 04/20/18 04:20 - Labs Result Diagrams: 04/21/18 05:25 04/21/18 05:25 Labs: Laboratory Results - last 24 hr 04/19/18 04/19/18 04/19/18 15:30 15:30 16:10 WBC 15.4 H RBC 4.20 Hgb 12.9 Hct 39.1 MCV 92.9 MCH 30.8 MCHC 33.1 RDW 16.8 H Plt Count 413 H MPV 7.0 L Neut % (Auto) 79.1 H Lymph % (Auto) 8.5 L [place] % (Auto) 9.3 Eos % (Auto) 2.3 Baso % (Auto) 0.8 Neut # (Auto) 12.2 H Lymph # (Auto) 1.3 [place] # (Auto) 1.4 H Eos # (Auto) 0.4 Baso # (Auto) 0.1 Neutrophils % (Manual) 76 H Band Neutrophils % 4 H Lymphocytes % (Manual) 8 L Monocytes % (Manual) 9 Eosinophils % (Manual) 3 Platelet Estimate Normal Large Platelets Present Hypochromasia (manual) Slight Anisocytosis (manual) Slight PT 20.4 H INR 1.8 APTT 34.1 pO2 VBG pH VBG pCO2 VBG HCO3 VBG Total CO2 VBG O2 Sat (Calc) VBG Base Excess VBG Potassium Glucose Lactate FiO2 Sodium 139 Potassium 3.8 Chloride 102 Carbon Dioxide 28 Anion Gap 13 BUN 7 Creatinine 0.6 L Est GFR ( Amer) > 60 Est GFR (Non-Af Amer) > 60 Random Glucose 97 Calcium 8.2 L Total Bilirubin 1.1 AST 28 ALT 34 Alkaline Phosphatase 129 H D Total Protein 5.9 L Albumin 3.1 L D Globulin 2.7 Albumin/Globulin Ratio 1.2 Venous Blood Potassium 04/19/18 04/20/18 04/20/18 19:16 06:45 06:45 WBC 10.2 RBC 3.81 Hgb 11.8 L Hct 35.3 MCV 92.7 MCH 31.0 MCHC 33.5 RDW 16.4 H Plt Count 390 MPV Neut % (Auto) Lymph % (Auto) [place] % (Auto) Eos % (Auto) Baso % (Auto) Neut # (Auto) Lymph # (Auto) [place] # (Auto) Eos # (Auto) Baso # (Auto) Neutrophils % (Manual) Band Neutrophils % Lymphocytes % (Manual) Monocytes % (Manual) Eosinophils % (Manual) Platelet Estimate Large Platelets Hypochromasia (manual) Anisocytosis (manual) PT INR APTT pO2 34 VBG pH 7.35 VBG pCO2 55 VBG HCO3 26.6 VBG Total CO2 32.1 H VBG O2 Sat (Calc) 59.6 VBG Base Excess 3.5 H VBG Potassium 3.2 L Glucose 101 Lactate 1.1 FiO2 21.0 Sodium 137.0 140 Potassium 3.4 L Chloride 102.0 103 Carbon Dioxide 27 Anion Gap 13 BUN 7 Creatinine 0.6 L Est GFR ( Amer) > 60 Est GFR (Non-Af Amer) > 60 Random Glucose 89 Calcium 8.2 L Total Bilirubin AST ALT Alkaline Phosphatase Total Protein Albumin Globulin Albumin/Globulin Ratio Venous Blood Potassium 3.2 L Assessment & Plan (1) Diverticulitis Status: Acute Priority: High (2) Asthma with COPD Status: Chronic Priority: High (3) Atrial fibrillation, chronic Status: Chronic Priority: High (4) Myocardial infarction Status: Inactive Priority: High - Assessment and Plan (Free Text) Plan: Agree with present management with parenteral antibiotics. Aerosol therapy presently on an as needed basis only. Cardiology and Gastroenterology to eval as well. Chest x-ray requested. Supplemental nasal O2. Patient preference for PICC line placement (difficult IV). - Date & Time Date: 04/20/18 Time: 11:54
[2018-04-20] MEDS: Dextrose 5%/0.45% NS 1,000 ML IV SCH (12:02)
--- NOTE | 2018-04-20 12:59 | CP.PCM.CON ---
History of Present Illness - History of Present Illness History of Present Illness: 77 y/o w/f admitted with diverticulitis Pt had similar episode this past March Pt has long standing Hx Chronic Atrial Fibrillation Not on anticoagulaion because of complications She denies palpitations, chest pain, SOB, dizziness CT Scan Abd/pelvis: Diverticulitis descending and Sigmoid Colon No abscess formation Echo 03/04/2018 Concentric hypertrophy LV EF: 35 - 40% KAYLIN MAC MR PMH: Anemia, Asthma, Atrial Fibrillation not on anti coagulation secondary to complications Bronchitis, CAD CHF acute on chronic Left systolic Diverticulitis, Fractures (Left elbow repair), Gastritis, Osteoporosis, Peripheral Edema, Pneumonia, Sleep Apnea PSH: Cholecystectomy, Tonsillectomy; Right foot benign tumor removed; Right rib benign tumor removed; Left wrist ORIF Past Patient History - Infectious Disease Hx of Infectious Diseases: None - Tetanus Immunizations Tetanus Immunization: Unknown - Past Medical History & Family History Past Medical History?: Yes - Past Social History Smoking Status: Never Smoked - CARDIAC Hx Atrial Fibrillation: Yes Hx Cardia Arrhythmia: Yes (A FIB) Hx Congestive Heart Failure: Yes Hx Hypercholesterolemia: Yes Hx Hypertension: Yes Hx Peripheral Edema: Yes - PULMONARY Hx Asthma: Yes Hx Bronchitis: Yes Hx Chronic Obstructive Pulmonary Disease (COPD): Yes Hx Pneumonia: Yes Hx Sleep Apnea: No - NEUROLOGICAL Hx Vertigo: Yes Other/Comment: Hx peripheral neuropathy - HEENT Hx HEENT Problems: No - RENAL Hx Chronic Kidney Disease: No - ENDOCRINE/METABOLIC Hx Hypothyroidism: No - HEMATOLOGICAL/ONCOLOGICAL Hx Anemia: Yes Hx Human Immunodeficiency Virus (HIV): No - INTEGUMENTARY Hx Dermatological Problems: No - MUSCULOSKELETAL/RHEUMATOLOGICAL Hx Arthritis: No Hx Fractures: Yes (Left elbow) Hx Osteoporosis: Yes Hx Rheumatoid Arthritis: No - GASTROINTESTINAL Hx Diverticulitis: Yes Hx Gastritis: Yes - GENITOURINARY/GYNECOLOGICAL Hx Incontinence: Yes Hx Urinary Tract Infection: Yes - PSYCHIATRIC Hx Psychophysiologic Disorder: No Hx Substance Use: No - SURGICAL HISTORY Hx Cholecystectomy: Yes Hx Tonsillectomy: Yes - ANESTHESIA Hx Anesthesia: Yes Hx Anesthesia Reactions: No Hx Malignant Hyperthermia: No Meds Allergies/Adverse Reactions: Allergies Allergy/AdvReac Type Severity Reaction Status Date / Time Penicillins Allergy RASH Verified 06/26/17 21:20 Sulfa (Sulfonamide Allergy RASH Verified 06/26/17 21:20 Antibiotics) suture Allergy REDNESS Uncoded 12/11/15 07:41 - Medications Medications: Current Medications Acetaminophen (Tylenol 325mg Tab) 650 mg PO Q4 PRN PRN Reason: Temp >101 Acetaminophen (Tylenol 325mg Tab) 650 mg PO Q4 PRN PRN Reason: Pain, Mild (1-3) Al Hydrox/Mg Hydrox/Simethicone (Maalox Plus 30 Ml) 30 ml PO TID [facility] Last Admin: 04/20/18 10:10 Dose: 30 ml Albuterol (Ventolin Hfa 90 Mcg/Actuation (8 G)) 2 puff IH Q4 PRN PRN Reason: Shortness of Breath Albuterol/Ipratropium (Duoneb 3 Mg/0.5 Mg (3 Ml) Ud) 3 ml INH RQ6 PRN PRN Reason: Shortness of Breath Aspirin (Ecotrin) 81 mg PO DAILY [facility] Last Admin: 04/20/18 10:07 Dose: 81 mg Atorvastatin Calcium (Lipitor) 10 mg PO HS [facility] Last Admin: 04/19/18 22:45 Dose: 10 mg Carvedilol (Coreg) 6.25 mg PO Q12 [facility] Last Admin: 04/20/18 10:05 Dose: 6.25 mg Clopidogrel Bisulfate (Plavix) 75 mg PO DAILY [facility] Last Admin: 04/20/18 10:05 Dose: 75 mg Digoxin (Lanoxin) 0.25 mg PO DAILY [facility] Last Admin: 04/20/18 10:07 Dose: 0.25 mg Enoxaparin Sodium (Lovenox) 40 mg SC DAILY [facility] PRN Reason: Protocol Last Admin: 04/20/18 10:03 Dose: 40 mg Ciprofloxacin (Cipro 400mg/200ml Dsw) 400 mg in 200 mls @ 200 mls/hr IVPB Q12 [facility] PRN Reason: Protocol Last Admin: 04/20/18 10:11 Dose: 200 mls/hr Metronidazole (Flagyl 500mg/100ml Ns) 100 mls @ 100 mls/hr IVPB Q8 [facility] PRN Reason: Protocol Last Admin: 04/20/18 02:58 Dose: 100 mls/hr Dextrose/Sodium Chloride (Dextrose 5%/0.45% Ns 1000 Ml) 1,000 mls @ 80 mls/hr IV .[id number] [facility] Stop: 04/21/18 11:25 Last Admin: 04/20/18 12:02 Dose: 80 mls/hr Ondansetron HCl (Zofran Inj) 4 mg IVP Q6 PRN PRN Reason: Nausea/Vomiting Pregabalin (Lyrica) 50 mg PO Q12 [facility] Last Admin: 04/20/18 12:03 Dose: 50 mg Physical Exam - Constitutional Appears: Well - Head Exam Head Exam: NORMAL INSPECTION - Eye Exam Eye Exam: Normal appearance - ENT Exam ENT Exam: Normal Exam - Respiratory Exam Respiratory Exam: NORMAL BREATHING PATTERN - Cardiovascular Exam Cardiovascular Exam: Irregular Rhythm Results - Vital Signs Recent Vital Signs: Last Vital Signs Temp 97.8 F 04/20/18 12:39 Pulse 69 04/20/18 12:39 Resp 18 04/20/18 12:39 BP 120/83 04/20/18 12:39 Pulse Ox 95 04/20/18 12:39 - Labs Result Diagrams: 04/21/18 05:25 04/21/18 05:25 Labs: Laboratory Results - last 24 hr 04/19/18 04/19/18 04/19/18 15:30 15:30 16:10 WBC 15.4 H RBC 4.20 Hgb 12.9 Hct 39.1 MCV 92.9 MCH 30.8 MCHC 33.1 RDW 16.8 H Plt Count 413 H MPV 7.0 L Neut % (Auto) 79.1 H Lymph % (Auto) 8.5 L [place] % (Auto) 9.3 Eos % (Auto) 2.3 Baso % (Auto) 0.8 Neut # (Auto) 12.2 H Lymph # (Auto) 1.3 [place] # (Auto) 1.4 H Eos # (Auto) 0.4 Baso # (Auto) 0.1 Neutrophils % (Manual) 76 H Band Neutrophils % 4 H Lymphocytes % (Manual) 8 L Monocytes % (Manual) 9 Eosinophils % (Manual) 3 Platelet Estimate Normal Large Platelets Present Hypochromasia (manual) Slight Anisocytosis (manual) Slight PT 20.4 H INR 1.8 APTT 34.1 pO2 VBG pH VBG pCO2 VBG HCO3 VBG Total CO2 VBG O2 Sat (Calc) VBG Base Excess VBG Potassium Glucose Lactate FiO2 Sodium 139 Potassium 3.8 Chloride 102 Carbon Dioxide 28 Anion Gap 13 BUN 7 Creatinine 0.6 L Est GFR ( Amer) > 60 Est GFR (Non-Af Amer) > 60 Random Glucose 97 Calcium 8.2 L Total Bilirubin 1.1 AST 28 ALT 34 Alkaline Phosphatase 129 H D Total Protein 5.9 L Albumin 3.1 L D Globulin 2.7 Albumin/Globulin Ratio 1.2 Venous Blood Potassium 04/19/18 04/20/18 04/20/18 19:16 06:45 06:45 WBC 10.2 RBC 3.81 Hgb 11.8 L Hct 35.3 MCV 92.7 MCH 31.0 MCHC 33.5 RDW 16.4 H Plt Count 390 MPV Neut % (Auto) Lymph % (Auto) [place] % (Auto) Eos % (Auto) Baso % (Auto) Neut # (Auto) Lymph # (Auto) [place] # (Auto) Eos # (Auto) Baso # (Auto) Neutrophils % (Manual) Band Neutrophils % Lymphocytes % (Manual) Monocytes % (Manual) Eosinophils % (Manual) Platelet Estimate Large Platelets Hypochromasia (manual) Anisocytosis (manual) PT INR APTT pO2 34 VBG pH 7.35 VBG pCO2 55 VBG HCO3 26.6 VBG Total CO2 32.1 H VBG O2 Sat (Calc) 59.6 VBG Base Excess 3.5 H VBG Potassium 3.2 L Glucose 101 Lactate 1.1 FiO2 21.0 Sodium 137.0 140 Potassium 3.4 L Chloride 102.0 103 Carbon Dioxide 27 Anion Gap 13 BUN 7 Creatinine 0.6 L Est GFR ( Amer) > 60 Est GFR (Non-Af Amer) > 60 Random Glucose 89 Calcium 8.2 L Total Bilirubin AST ALT Alkaline Phosphatase Total Protein Albumin Globulin Albumin/Globulin Ratio Venous Blood Potassium 3.2 L Assessment & Plan (1) Chronic atrial fibrillation Assessment and Plan: Cardiac llamas the pt is stable Status: Chronic Priority: High (2) Diverticulitis Status: Acute Priority: High (3) Asthma Status: Chronic Priority: High
[2018-04-20] MEDS: Albuterol HFA 90 mcg/actuation (8 g) IH PRN (21:41)
[2018-04-21] MEDS: metroNIDAZOLE 500mg/100ml NS 100 ML IVPB SCH ×3 (00:49→17:00)
[2018-04-21 07:12] LABS: HEMOGLOBIN 11.7 g/dL (12.0-16.0); MEAN CELL VOLUME 92.7 fl (81.0-99.0); MEAN CORPUSCULAR HGB CONC 33.4 g/dL (33.0-37.0); RBC 3.79 Mil/uL (3.80-5.20); RED CELL DISTRIBUTION WIDTH 16.7 % (11.5-14.5); WHITE BLOOD COUNT 9.1 K/uL (4.8-10.8)
[2018-04-21 07:31] LABS: BLOOD UREA NITROGEN 4 mg/dl (7-17); CALCIUM 8.4 mg/dL (8.4-10.2); GFR AFRICAN-AMERICAN > 60; GFR NON-AFRICAN AMERICAN > 60
[2018-04-21] MEDS: Ciprofloxacin 400mg/200ml D5W 400 MG/200 ML BAG IVPB SCH ×2 (09:00→20:10)
[2018-04-21] MEDS ORDERED: Potassium Chloride 20 mEq ER Tab PO ONE (10:15)
[2018-04-21] MEDS: Enoxaparin 40 mg Syringe SC SCH (10:16)
[2018-04-21] MEDS: Digoxin 250 mcg (0.25 mg) Tab PO SCH (10:18)
[2018-04-21] MEDS: Alum-Mag Hydrox-Simethicone Susp (30 mL) PO SCH ×3 (10:18→17:20)
[2018-04-21] MEDS: Dextrose 5%/0.45% NS 1,000 ML IV SCH ×2 (10:22→20:10)
[2018-04-21] MEDS: Albuterol HFA 90 mcg/actuation (8 g) IH PRN (11:56)
--- NOTE | 2018-04-21 14:13 | CP.PCM.CON ---
History of Present Illness - History of Present Illness History of Present Illness: 77 yo female with recent admission for diverticulitis admitted after having LLQ abdominal pain and diarrhea. Patient was in rehab at the time. Has long segment strictured left colon likely due to diverticulosis. Review of Systems - Constitutional Constitutional: absent: Chills - EENT Eyes: absent: Blurred Vision Nose/Mouth/Throat: absent: Nasal Congestion - Cardiovascular Cardiovascular: absent: Chest Pain - Respiratory Respiratory: absent: Cough - Gastrointestinal Gastrointestinal: As Per HPI - Genitourinary Genitourinary: absent: Change in Urinary Stream Past Patient History - Infectious Disease Hx of Infectious Diseases: None - Tetanus Immunizations Tetanus Immunization: Unknown - Past Medical History & Family History Past Medical History?: Yes - Past Social History Smoking Status: Never Smoked - CARDIAC Hx Atrial Fibrillation: Yes Hx Cardia Arrhythmia: Yes (A FIB) Hx Congestive Heart Failure: Yes Hx Hypercholesterolemia: Yes Hx Hypertension: Yes Hx Peripheral Edema: Yes - PULMONARY Hx Asthma: Yes Hx Bronchitis: Yes Hx Chronic Obstructive Pulmonary Disease (COPD): Yes Hx Pneumonia: Yes Hx Sleep Apnea: No - NEUROLOGICAL Hx Vertigo: Yes Other/Comment: Hx peripheral neuropathy - HEENT Hx HEENT Problems: No - RENAL Hx Chronic Kidney Disease: No - ENDOCRINE/METABOLIC Hx Hypothyroidism: No - HEMATOLOGICAL/ONCOLOGICAL Hx Anemia: Yes Hx Human Immunodeficiency Virus (HIV): No - INTEGUMENTARY Hx Dermatological Problems: No - MUSCULOSKELETAL/RHEUMATOLOGICAL Hx Arthritis: No Hx Fractures: Yes (Left elbow) Hx Osteoporosis: Yes Hx Rheumatoid Arthritis: No - GASTROINTESTINAL Hx Diverticulitis: Yes Hx Gastritis: Yes - GENITOURINARY/GYNECOLOGICAL Hx Incontinence: Yes Hx Urinary Tract Infection: Yes - PSYCHIATRIC Hx Psychophysiologic Disorder: No Hx Substance Use: No - SURGICAL HISTORY Hx Cholecystectomy: Yes Hx Tonsillectomy: Yes - ANESTHESIA Hx Anesthesia: Yes Hx Anesthesia Reactions: No Hx Malignant Hyperthermia: No Meds Allergies/Adverse Reactions: Allergies Allergy/AdvReac Type Severity Reaction Status Date / Time Penicillins Allergy RASH Verified 06/26/17 21:20 Sulfa (Sulfonamide Allergy RASH Verified 06/26/17 21:20 Antibiotics) suture Allergy REDNESS Uncoded 12/11/15 07:41 - Medications Medications: Current Medications Acetaminophen (Tylenol 325mg Tab) 650 mg PO Q4 PRN PRN Reason: Temp >101 Last Admin: 04/21/18 01:32 Dose: 650 mg Acetaminophen (Tylenol 325mg Tab) 650 mg PO Q4 PRN PRN Reason: Pain, Mild (1-3) Last Admin: 04/21/18 10:15 Dose: 650 mg Al Hydrox/Mg Hydrox/Simethicone (Maalox Plus 30 Ml) 30 ml PO TID [facility] Last Admin: 04/21/18 13:28 Dose: 30 ml Albuterol (Ventolin Hfa 90 Mcg/Actuation (8 G)) 2 puff IH Q4 PRN PRN Reason: Shortness of Breath Last Admin: 04/21/18 11:56 Dose: 2 puff Albuterol/Ipratropium (Duoneb 3 Mg/0.5 Mg (3 Ml) Ud) 3 ml INH RQ6 PRN PRN Reason: Shortness of Breath Aspirin (Ecotrin) 81 mg PO DAILY [facility] Last Admin: 04/21/18 10:17 Dose: 81 mg Atorvastatin Calcium (Lipitor) 10 mg PO HS [facility] Last Admin: 04/20/18 21:39 Dose: 10 mg Carvedilol (Coreg) 6.25 mg PO Q12 [facility] Last Admin: 04/21/18 10:17 Dose: 6.25 mg Clopidogrel Bisulfate (Plavix) 75 mg PO DAILY [facility] Last Admin: 04/21/18 10:17 Dose: 75 mg Digoxin (Lanoxin) 0.25 mg PO DAILY [facility] Last Admin: 04/21/18 10:18 Dose: 0.25 mg Enoxaparin Sodium (Lovenox) 40 mg SC DAILY [facility] PRN Reason: Protocol Last Admin: 04/21/18 10:16 Dose: 40 mg Ciprofloxacin (Cipro 400mg/200ml Dsw) 400 mg in 200 mls @ 200 mls/hr IVPB Q12 [facility] PRN Reason: Protocol Last Admin: 04/21/18 09:00 Dose: 200 mls/hr Metronidazole (Flagyl 500mg/100ml Ns) 100 mls @ 100 mls/hr IVPB Q8 [facility] PRN Reason: Protocol Last Admin: 04/21/18 10:00 Dose: 100 mls/hr Ondansetron HCl (Zofran Inj) 4 mg IVP Q6 PRN PRN Reason: Nausea/Vomiting Last Admin: 04/21/18 11:58 Dose: 4 mg Pregabalin (Lyrica) 50 mg PO Q12 [facility] Last Admin: 04/21/18 10:16 Dose: 50 mg Physical Exam - Head Exam Head Exam: ATRAUMATIC - Eye Exam Eye Exam: Normal appearance - Neck Exam Neck exam: Positive for: Normal Inspection - Respiratory Exam Respiratory Exam: Clear to Auscultation Bilateral - Cardiovascular Exam Cardiovascular Exam: REGULAR RHYTHM, +S1, +S2 - GI/Abdominal Exam GI & Abdominal Exam: Soft, Tenderness. absent: Guarding, Rebound Results - Vital Signs Recent Vital Signs: Last Vital Signs Temp 97.6 F 04/21/18 12:26 Pulse 77 04/21/18 12:26 Resp 18 04/21/18 12:26 BP 120/83 04/21/18 12:26 Pulse Ox 98 04/21/18 12:26 - Labs Result Diagrams: 04/21/18 05:25 04/21/18 05:25 Labs: Laboratory Results - last 24 hr 04/21/18 04/21/18 05:25 05:25 WBC 9.1 RBC 3.79 L Hgb 11.7 L Hct 35.1 MCV 92.7 MCH 31.0 MCHC 33.4 RDW 16.7 H Plt Count 425 H Sodium 140 Potassium 3.3 L Chloride 107 Carbon Dioxide 27 Anion Gap 9 L BUN 4 L Creatinine 0.6 L Est GFR ( Amer) > 60 Est GFR (Non-Af Amer) > 60 Random Glucose 99 Calcium 8.4 Assessment & Plan (1) Diverticulitis Assessment and Plan: Additional episode of diverticulitis. Continue IV abx and fluids. Recommend surgical consult. Agree with fluid diet. Status: Acute Priority: High
--- NOTE | 2018-04-21 15:12 | CP.PCM.PN ---
Subjective - Date & Time of Evaluation Date of Evaluation: 04/21/18 Time of Evaluation: 11:00 - Subjective Subjective: Patient was seen and examined at bedside. She reports feeling better today. Still with intermittent lower crampy abdominal pain which occurs with eating clear liquid diet. No other new complaints today. Objective - Vital Signs/Intake and Output Vital Signs (last 24 hours): Temp Pulse Resp BP Pulse Ox 97.6 F 77 18 120/83 98 04/21/18 12:26 04/21/18 12:26 04/21/18 12:26 04/21/18 12:26 04/21/18 12:26 - Medications Medications: Current Medications Acetaminophen (Tylenol 325mg Tab) 650 mg PO Q4 PRN PRN Reason: Temp >101 Last Admin: 04/21/18 01:32 Dose: 650 mg Acetaminophen (Tylenol 325mg Tab) 650 mg PO Q4 PRN PRN Reason: Pain, Mild (1-3) Last Admin: 04/21/18 10:15 Dose: 650 mg Al Hydrox/Mg Hydrox/Simethicone (Maalox Plus 30 Ml) 30 ml PO TID [facility] Last Admin: 04/21/18 13:28 Dose: 30 ml Albuterol (Ventolin Hfa 90 Mcg/Actuation (8 G)) 2 puff IH Q4 PRN PRN Reason: Shortness of Breath Last Admin: 04/21/18 11:56 Dose: 2 puff Albuterol/Ipratropium (Duoneb 3 Mg/0.5 Mg (3 Ml) Ud) 3 ml INH RQ6 PRN PRN Reason: Shortness of Breath Aspirin (Ecotrin) 81 mg PO DAILY [facility] Last Admin: 04/21/18 10:17 Dose: 81 mg Atorvastatin Calcium (Lipitor) 10 mg PO HS [facility] Last Admin: 04/20/18 21:39 Dose: 10 mg Carvedilol (Coreg) 6.25 mg PO Q12 [facility] Last Admin: 04/21/18 10:17 Dose: 6.25 mg Clopidogrel Bisulfate (Plavix) 75 mg PO DAILY [facility] Last Admin: 04/21/18 10:17 Dose: 75 mg Digoxin (Lanoxin) 0.25 mg PO DAILY [facility] Last Admin: 04/21/18 10:18 Dose: 0.25 mg Enoxaparin Sodium (Lovenox) 40 mg SC DAILY [facility] PRN Reason: Protocol Last Admin: 04/21/18 10:16 Dose: 40 mg Ciprofloxacin (Cipro 400mg/200ml Dsw) 400 mg in 200 mls @ 200 mls/hr IVPB Q12 [facility] PRN Reason: Protocol Last Admin: 04/21/18 09:00 Dose: 200 mls/hr Metronidazole (Flagyl 500mg/100ml Ns) 100 mls @ 100 mls/hr IVPB Q8 [facility] PRN Reason: Protocol Last Admin: 04/21/18 10:00 Dose: 100 mls/hr Ondansetron HCl (Zofran Inj) 4 mg IVP Q6 PRN PRN Reason: Nausea/Vomiting Last Admin: 04/21/18 11:58 Dose: 4 mg Pregabalin (Lyrica) 50 mg PO Q12 [facility] Last Admin: 04/21/18 10:16 Dose: 50 mg - Labs Labs: 04/21/18 05:25 04/21/18 05:25 PT 20.4 Seconds (9.8-13.1) H 04/19/18 15:30 INR 1.8 04/19/18 15:30 APTT 34.1 Seconds (25.6-37.1) 04/19/18 15:30 - Additional Findings Additional findings: Physical exam: Constitutional- cooperative, awake, alert Head- NCAT, PERRL Eye- PERRL, EOMI ENT- normal exam, MMM. Neck- normal inspection, supple, no JVD Respiratory- CTAB, no wheezes rales rhonchi Cardiovascular- RRR, +S1, +S2 no MRG GI/Abdominal- Mild tenderness to palpation of the left lower quadrant. normal bowel sounds, soft, no mass, no hsm Skin- warm, dry Extremities Exam- normal capillary refill, normal inspection Neurological Exam- alert, awake, oriented Psych- normal mood, normal affect Assessment and Plan - Assessment and Plan (Free Text) Plan: 77 year old female with hx of Asthma, COPD, A Fib, Chf and diverticulosis presents to the ED after discharge from [facility] with several day history of moderate to severe constant LLL abdominal pain associated with diarrhea. Patient has history of diverticulitis, diverticulosis. On prior admission, patient was extremely slow in tolerating PO intake. CTAP showed diverticulitis. WBC 15K, AFEBRILE. Cipro/Flagyl initiated. NPO with meds. HD stable. NAD. 1. Acute recurrent sigmoidal diverticulitis with extensive inflammation as noted on CT abd/pelvis - cont IV Cipro and Flagyl - IV fluids - afebrile, WBC 15K - HD stable - Advanced to CLD this morning and tolerating other than some mild pain. Will further advance to full liquids for dinner and hopefully advance to solid diet tomorrow. - Dr. Riley on consult for GI - Surgical consult if unable to readily advance diet and/or any new complications arise. 2. Chronic A Fib rate controlled -cont Digoxin/ASA, Plavix, Coreg - Not on anticoagulant 3. Asthma/ COPD/ ANKITA - consult Dr Fang pulmonology - Duoneb PRN 4. Deconditioning - Physical therapy consult #. DVT prophylaxis with lovenox
[2018-04-22] MEDS: metroNIDAZOLE 500mg/100ml NS 100 ML IVPB SCH ×3 (00:34→17:47)
[2018-04-22] MEDS: Albuterol HFA 90 mcg/actuation (8 g) IH PRN (06:49)
[2018-04-22] MEDS: Dextrose 5%/0.45% NS 1,000 ML IV SCH (06:50)
[2018-04-22 07:01] LABS: HEMOGLOBIN 12.3 g/dL (12.0-16.0); MEAN CELL VOLUME 93.6 fl (81.0-99.0); MEAN CORPUSCULAR HEMOGLOBIN 30.8 pg (27.0-31.0); MEAN CORPUSCULAR HGB CONC 32.9 g/dL (33.0-37.0); RBC 3.99 Mil/uL (3.80-5.20)
[2018-04-22 07:41] LABS: BLOOD UREA NITROGEN < 2 mg/dl (7-17); CALCIUM 8.3 mg/dL (8.4-10.2); GFR AFRICAN-AMERICAN > 60; GFR NON-AFRICAN AMERICAN > 60
--- NOTE | 2018-04-22 08:31 | PQF ---
PROVIDER RESPONSE TEXT: Longstanding history of bronchial asthma; mild intermittent type. REVIEWER QUERY TEXT: Asthma Specificity and Type Asthma is documented in the Medical Record. Please specify the type of asthma if known. Such as: -- Mild intermittent -- Mild persistent -- Moderate persistent -- Severe persistent -- Exercise induced bronchospasm -- Cough variant asthma -- Other, please specify -- Unable to determine The patient's Clinical Indicators include: Documentation of Asthma with COPD status Chronic. Medication: VentKaden Parsons Query created by: Tricia Raya on 04/22/2018 8:20 AM Electronically signed by: 04/22/2018 8:28 AM
--- NOTE | 2018-04-22 09:41 | PQF ---
PROVIDER RESPONSE TEXT: Sepsis is ruled out. REVIEWER QUERY TEXT: Conflicting Documentation Clarification A single mention of SEPSIS by the ER is documented for the same clinical presentation . Please docu ment if Sepsis is: -- Confirmed and current -- Confirmed, treated and resolved -- Ruled out -- Other, please specify The patient's Clinical Indicators include: Recently hospitalized with diverticulitis and treated with antibiotics and sent to [facility]. TEMP: 97.8, 98.4, 98.2, 97.8, 97.1 HR: 87. 70, 78, 86, 76, 76, BP: 109/58, 128/75, 112/68, 128/72 R : 20, 17, 18, 18, 18, 20 WBC 15.4 L shift , CT: Persistent extensive diverticulosis and diverticulitis involving the distal d escending and sigmoid colon over a long segment Rx: Dual IVAB Admitting order: DX: Diverticulitis, Sepsis Query created by: Tricia Raya on 04/22/2018 8:13 AM Electronically signed by: Travis Reeder MD 04/22/2018 9:37 AM
[2018-04-22] MEDS: Ciprofloxacin 400mg/200ml D5W 400 MG/200 ML BAG IVPB SCH ×2 (09:47→21:07)
[2018-04-22] MEDS: Digoxin 250 mcg (0.25 mg) Tab PO SCH (09:48)
[2018-04-22] MEDS: Enoxaparin 40 mg Syringe SC SCH (09:48)
[2018-04-22] MEDS: Alum-Mag Hydrox-Simethicone Susp (30 mL) PO SCH ×2 (09:50→17:45)
[2018-04-22] MEDS ORDERED: Atropine-Diphenoxylate 0.025-2.5 mg Tab PO ONE (12:00)
--- NOTE | 2018-04-22 12:21 | CP.PCM.CON ---
<AnupMariam - Last Filed: 04/22/18 12:15> History of Present Illness - History of Present Illness History of Present Illness: General Surgery - Dr. Bailey 77 yo F w/ COPD, CAD, CHF, Afib, admitted on 04/19 with recurrent episode of sigmoid diverticulitis. Pt was recently admitted on 03/04 for similar complaints of lower abdominal pain and found to have acute uncomplicated diverticulitis. She was treated in the hospital with IV abx and discharged to TCU on 03/12 where she continued Abx and rehab. Pt states she was continued on a regular diet and ate what she was given. She finished her course of PO antibiotics only about a week ago. Pt states that on Sunday she developed recurrent LLQ abdominal pain that was similar to her initial presentation on . She had associated nausea and diarrhea. Pt denies any Fevers/Chills, Constipation, Vomiting, SOb/Chest pain. She also has had recent UTIs with dysuria, pneumaturia, and malodorous urine. PMH: COPD, CHF, Afib, CAD PSH: Lap Jo, T&A, R Rib benign tumor resection, L wrist ORIF Meds as per chart, includes ASA and Plavix Allergic to PCN and Sulfa Review of Systems - Review of Systems All systems: reviewed and no additional remarkable complaints except Past Patient History - Infectious Disease Hx of Infectious Diseases: None - Tetanus Immunizations Tetanus Immunization: Unknown - Past Medical History & Family History Past Medical History?: Yes - Past Social History Smoking Status: Never Smoked - CARDIAC Hx Atrial Fibrillation: Yes Hx Cardia Arrhythmia: Yes (A FIB) Hx Congestive Heart Failure: Yes Hx Hypercholesterolemia: Yes Hx Hypertension: Yes Hx Peripheral Edema: Yes - PULMONARY Hx Asthma: Yes Hx Bronchitis: Yes Hx Chronic Obstructive Pulmonary Disease (COPD): Yes Hx Pneumonia: Yes Hx Sleep Apnea: No - NEUROLOGICAL Hx Vertigo: Yes Other/Comment: Hx peripheral neuropathy - HEENT Hx HEENT Problems: No - RENAL Hx Chronic Kidney Disease: No - ENDOCRINE/METABOLIC Hx Hypothyroidism: No - HEMATOLOGICAL/ONCOLOGICAL Hx Anemia: Yes Hx Human Immunodeficiency Virus (HIV): No - INTEGUMENTARY Hx Dermatological Problems: No - MUSCULOSKELETAL/RHEUMATOLOGICAL Hx Arthritis: No Hx Fractures: Yes (Left elbow) Hx Osteoporosis: Yes Hx Rheumatoid Arthritis: No - GASTROINTESTINAL Hx Diverticulitis: Yes Hx Gastritis: Yes - GENITOURINARY/GYNECOLOGICAL Hx Incontinence: Yes Hx Urinary Tract Infection: Yes - PSYCHIATRIC Hx Psychophysiologic Disorder: No Hx Substance Use: No - SURGICAL HISTORY Hx Cholecystectomy: Yes Hx Tonsillectomy: Yes - ANESTHESIA Hx Anesthesia: Yes Hx Anesthesia Reactions: No Hx Malignant Hyperthermia: No Meds Allergies/Adverse Reactions: Allergies Allergy/AdvReac Type Severity Reaction Status Date / Time Penicillins Allergy RASH Verified 06/26/17 21:20 Sulfa (Sulfonamide Allergy RASH Verified 06/26/17 21:20 Antibiotics) suture Allergy REDNESS Uncoded 12/11/15 07:41 - Medications Medications: Current Medications Acetaminophen (Tylenol 325mg Tab) 650 mg PO Q4 PRN PRN Reason: Temp >101 Last Admin: 04/21/18 17:34 Dose: 650 mg Acetaminophen (Tylenol 325mg Tab) 650 mg PO Q4 PRN PRN Reason: Pain, Mild (1-3) Last Admin: 04/22/18 06:48 Dose: 650 mg Al Hydrox/Mg Hydrox/Simethicone (Maalox Plus 30 Ml) 30 ml PO TID [facility] Last Admin: 04/22/18 09:50 Dose: Not Given Albuterol (Ventolin Hfa 90 Mcg/Actuation (8 G)) 2 puff IH Q4 PRN PRN Reason: Shortness of Breath Last Admin: 04/22/18 06:49 Dose: 2 puff Albuterol/Ipratropium (Duoneb 3 Mg/0.5 Mg (3 Ml) Ud) 3 ml INH RQ6 PRN PRN Reason: Shortness of Breath Aspirin (Ecotrin) 81 mg PO DAILY [facility] Last Admin: 04/22/18 09:48 Dose: 81 mg Atorvastatin Calcium (Lipitor) 10 mg PO HS [facility] Last Admin: 04/21/18 21:12 Dose: 10 mg Carvedilol (Coreg) 6.25 mg PO Q12 [facility] Last Admin: 04/22/18 09:48 Dose: 6.25 mg Clopidogrel Bisulfate (Plavix) 75 mg PO DAILY [facility] Last Admin: 04/22/18 09:48 Dose: 75 mg Digoxin (Lanoxin) 0.25 mg PO DAILY [facility] Last Admin: 04/22/18 09:48 Dose: 0.25 mg Enoxaparin Sodium (Lovenox) 40 mg SC DAILY [facility] PRN Reason: Protocol Last Admin: 04/22/18 09:48 Dose: 40 mg Ciprofloxacin (Cipro 400mg/200ml Dsw) 400 mg in 200 mls @ 200 mls/hr IVPB Q12 [facility] PRN Reason: Protocol Last Admin: 04/22/18 09:47 Dose: 200 mls/hr Metronidazole (Flagyl 500mg/100ml Ns) 100 mls @ 100 mls/hr IVPB Q8 [facility] PRN Reason: Protocol Last Admin: 04/22/18 00:34 Dose: 100 mls/hr Dextrose/Sodium Chloride (Dextrose 5%/0.45% Ns 1000 Ml) 1,000 mls @ 80 mls/hr IV .[id number] [facility] Stop: 04/22/18 18:25 Last Admin: 04/22/18 06:50 Dose: 80 mls/hr Ondansetron HCl (Zofran Inj) 4 mg IVP Q6 PRN PRN Reason: Nausea/Vomiting Last Admin: 04/21/18 20:03 Dose: 4 mg Pregabalin (Lyrica) 50 mg PO Q12 [facility] Last Admin: 04/22/18 09:53 Dose: 50 mg Physical Exam - Constitutional Appears: No Acute Distress - Head Exam Head Exam: ATRAUMATIC, NORMAL INSPECTION, NORMOCEPHALIC - Eye Exam Eye Exam: EOMI, Normal appearance - ENT Exam ENT Exam: Mucous Membranes Moist - Respiratory Exam Respiratory Exam: NORMAL BREATHING PATTERN. absent: Respiratory Distress - Cardiovascular Exam Cardiovascular Exam: REGULAR RHYTHM - GI/Abdominal Exam GI & Abdominal Exam: Firm (LLQ, suprapubic), Soft, Tenderness (LLQ). absent: Distended, Guarding, Hernia, Rebound, Rigid - Neurological Exam Neurological exam: Alert, Oriented x3 - Psychiatric Exam Psychiatric exam: Normal Affect, Normal Mood - Skin Skin Exam: Dry, Intact Results - Vital Signs Recent Vital Signs: Last Vital Signs Temp 97.6 F 04/22/18 08:00 Pulse 79 04/22/18 09:48 Resp 18 04/22/18 08:00 BP 102/65 04/22/18 09:48 Pulse Ox 95 04/22/18 08:00 - Labs Result Diagrams: 04/22/18 05:50 04/22/18 05:50 Labs: Laboratory Results - last 24 hr 04/22/18 04/22/18 05:50 05:50 WBC 9.0 RBC 3.99 Hgb 12.3 Hct 37.3 MCV 93.6 MCH 30.8 MCHC 32.9 L RDW 17.0 H Plt Count 453 H Sodium 142 Potassium 3.6 Chloride 109 H Carbon Dioxide 27 Anion Gap 10 BUN < 2 L Creatinine 0.5 L Est GFR ( Amer) > 60 Est GFR (Non-Af Amer) > 60 Random Glucose 113 H Calcium 8.3 L Assessment & Plan - Assessment and Plan (Free Text) Assessment: 77 yo F w/ recurrent diverticulitis -Continue Full liquid diet, nutritional supplements -Continue IV Abx: cipro/flagyl -Consider Urology eval. for colovesical fistula given recent UTIs (pt sees Dr. Hannon) -Will follow with you, goal to get pt better with conservative Tx, Colonoscopy in 6 weeks, and then plan for elective resection DW Dr Maritza Hebert PGY4 <Jonathan Salas - Last Filed: 04/22/18 19:43> History of Present Illness - History of Present Illness History of Present Illness: Patient was seen and examined at the bedside. Agree with resident's note above. Meds - Medications Medications: Current Medications Acetaminophen (Tylenol 325mg Tab) 650 mg PO Q4 PRN PRN Reason: Pain, Mild (1-3) Last Admin: 04/22/18 06:48 Dose: 650 mg Al Hydrox/Mg Hydrox/Simethicone (Maalox Plus 30 Ml) 30 ml PO TID [facility] Last Admin: 04/22/18 17:45 Dose: Not Given Albuterol (Ventolin Hfa 90 Mcg/Actuation (8 G)) 2 puff IH Q4 PRN PRN Reason: Shortness of Breath Last Admin: 04/22/18 06:49 Dose: 2 puff Albuterol/Ipratropium (Duoneb 3 Mg/0.5 Mg (3 Ml) Ud) 3 ml INH RQ6 PRN PRN Reason: Shortness of Breath Aspirin (Ecotrin) 81 mg PO DAILY [facility] Last Admin: 04/22/18 09:48 Dose: 81 mg Atorvastatin Calcium (Lipitor) 10 mg PO HS [facility] Last Admin: 04/21/18 21:12 Dose: 10 mg Carvedilol (Coreg) 6.25 mg PO Q12 [facility] Last Admin: 04/22/18 09:48 Dose: 6.25 mg Clopidogrel Bisulfate (Plavix) 75 mg PO DAILY [facility] Last Admin: 04/22/18 09:48 Dose: 75 mg Digoxin (Lanoxin) 0.25 mg PO DAILY [facility] Last Admin: 04/22/18 09:48 Dose: 0.25 mg Enoxaparin Sodium (Lovenox) 40 mg SC DAILY [facility] PRN Reason: Protocol Last Admin: 04/22/18 09:48 Dose: 40 mg Ciprofloxacin (Cipro 400mg/200ml Dsw) 400 mg in 200 mls @ 200 mls/hr IVPB Q12 [facility] PRN Reason: Protocol Last Admin: 04/22/18 09:47 Dose: 200 mls/hr Metronidazole (Flagyl 500mg/100ml Ns) 100 mls @ 100 mls/hr IVPB Q8 [facility] PRN Reason: Protocol Last Admin: 04/22/18 17:47 Dose: 100 mls/hr Ondansetron HCl (Zofran Inj) 4 mg IVP Q6 PRN PRN Reason: Nausea/Vomiting Last Admin: 04/21/18 20:03 Dose: 4 mg Pregabalin (Lyrica) 50 mg PO Q12 [facility] Last Admin: 04/22/18 09:53 Dose: 50 mg Results - Vital Signs Recent Vital Signs: Last Vital Signs Temp 97.7 F 04/22/18 16:34 Pulse 82 04/22/18 16:34 Resp 20 04/22/18 16:34 BP 133/77 04/22/18 16:34 Pulse Ox 96 04/22/18 16:34 - Labs Result Diagrams: 04/22/18 05:50 04/22/18 05:50 Labs: Laboratory Results - last 24 hr 04/22/18 04/22/18 05:50 05:50 WBC 9.0 RBC 3.99 Hgb 12.3 Hct 37.3 MCV 93.6 MCH 30.8 MCHC 32.9 L RDW 17.0 H Plt Count 453 H Sodium 142 Potassium 3.6 Chloride 109 H Carbon Dioxide 27 Anion Gap 10 BUN < 2 L Creatinine 0.5 L Est GFR ( Amer) > 60 Est GFR (Non-Af Amer) > 60 Random Glucose 113 H Calcium 8.3 L
--- NOTE | 2018-04-22 12:29 | CP.PCM.PN ---
Subjective - Date & Time of Evaluation Date of Evaluation: 04/22/18 Time of Evaluation: 07:40 - Subjective Subjective: Patient seen and examined at bedside during morning rounds in Telemetry. Patient lying in bed, NAD. No acute events overnight. Dyspnea well controlled with albuterol PRN. Patient still reports intermittent nausea. Denies vomiting, diarrhea, constipation, fever or chills. Currently on clear liquid diet. Tolerating well. Vitals stable. BP 102/65, P 79, RR 18, SpO2 95 on RA Trachea in midline, Mucosa moist. Breath sounds present and equal bilaterally. Clear to auscultation B/L. No dullness. No audible wheezes, rhonchi or rales. Mild tenderness lower abdomen. No rigidity or guarding. Trace bilateral pedal edema. B/L lower leg erythema and soreness. Mild intermittent asthma well controlled with albuterol. C/W cipro/flagyl. General surgery consult. Drop Hammer Operator Helper consult for bilateral knee arthritis. C/W current medical management. Agree with fluid diet. Objective - Vital Signs/Intake and Output Vital Signs (last 24 hours): Temp Pulse Resp BP Pulse Ox 97.6 F 79 18 102/65 95 04/22/18 08:00 04/22/18 09:48 04/22/18 08:00 04/22/18 09:48 04/22/18 08:00 - Medications Medications: Current Medications Acetaminophen (Tylenol 325mg Tab) 650 mg PO Q4 PRN PRN Reason: Temp >101 Last Admin: 04/21/18 17:34 Dose: 650 mg Acetaminophen (Tylenol 325mg Tab) 650 mg PO Q4 PRN PRN Reason: Pain, Mild (1-3) Last Admin: 04/22/18 06:48 Dose: 650 mg Al Hydrox/Mg Hydrox/Simethicone (Maalox Plus 30 Ml) 30 ml PO TID [facility] Last Admin: 04/22/18 09:50 Dose: Not Given Albuterol (Ventolin Hfa 90 Mcg/Actuation (8 G)) 2 puff IH Q4 PRN PRN Reason: Shortness of Breath Last Admin: 04/22/18 06:49 Dose: 2 puff Albuterol/Ipratropium (Duoneb 3 Mg/0.5 Mg (3 Ml) Ud) 3 ml INH RQ6 PRN PRN Reason: Shortness of Breath Aspirin (Ecotrin) 81 mg PO DAILY [facility] Last Admin: 04/22/18 09:48 Dose: 81 mg Atorvastatin Calcium (Lipitor) 10 mg PO HS [facility] Last Admin: 04/21/18 21:12 Dose: 10 mg Carvedilol (Coreg) 6.25 mg PO Q12 [facility] Last Admin: 04/22/18 09:48 Dose: 6.25 mg Clopidogrel Bisulfate (Plavix) 75 mg PO DAILY [facility] Last Admin: 04/22/18 09:48 Dose: 75 mg Digoxin (Lanoxin) 0.25 mg PO DAILY [facility] Last Admin: 04/22/18 09:48 Dose: 0.25 mg Enoxaparin Sodium (Lovenox) 40 mg SC DAILY [facility] PRN Reason: Protocol Last Admin: 04/22/18 09:48 Dose: 40 mg Ciprofloxacin (Cipro 400mg/200ml Dsw) 400 mg in 200 mls @ 200 mls/hr IVPB Q12 [facility] PRN Reason: Protocol Last Admin: 04/22/18 09:47 Dose: 200 mls/hr Metronidazole (Flagyl 500mg/100ml Ns) 100 mls @ 100 mls/hr IVPB Q8 [facility] PRN Reason: Protocol Last Admin: 04/22/18 00:34 Dose: 100 mls/hr Dextrose/Sodium Chloride (Dextrose 5%/0.45% Ns 1000 Ml) 1,000 mls @ 80 mls/hr IV .[id number] [facility] Stop: 04/22/18 18:25 Last Admin: 04/22/18 06:50 Dose: 80 mls/hr Ondansetron HCl (Zofran Inj) 4 mg IVP Q6 PRN PRN Reason: Nausea/Vomiting Last Admin: 04/21/18 20:03 Dose: 4 mg Pregabalin (Lyrica) 50 mg PO Q12 [facility] Last Admin: 04/22/18 09:53 Dose: 50 mg - Labs Labs: 04/22/18 05:50 04/22/18 05:50 PT 20.4 Seconds (9.8-13.1) H 04/19/18 15:30 INR 1.8 04/19/18 15:30 APTT 34.1 Seconds (25.6-37.1) 04/19/18 15:30
[2018-04-22] MEDS ORDERED: Lidocaine Hydrochloride 1% 10 ML ONE (12:54)
--- NOTE | 2018-04-22 13:03 | PCM.SURG1 ---
Surgeon's Initial Post Op Note - Surgeon's Notes Surgeon: Boni Burns MD Civil Service Worker: NONE Type of Anesthesia: Local Pre-Operative Diagnosis: Poor venous access Operative Findings: US showed a patent right basilic vein. Post-Operative Diagnosis: Poor venous access Operation Performed: Single lumen picc placement right arm, 35 cm. Specimen/Specimens Removed: NONE Estimated Blood Loss: EBL {In ML}: 2 Blood Products Given: N/A Drains Used: No Drains Post-Op Condition: Fair Date of Surgery/Procedure: 04/22/18 Time of Surgery/Procedure: 13:00
--- NOTE | 2018-04-22 13:13 | VASCULAR ---
PROCEDURE: Date of procedure: 04/22/2018 Procedure: 1. Placement of a right arm PICC with ultrasound and fluoroscopic guidance, CPT 83739 2. PICC tip confirmation with spot radiograph and is in the superior vena cava Medications: 1 percent lidocaine Total Fluoro time: 36.9 seconds Radiation: 4.71 MGy EBL: 2 cc HISTORY: Poor venous access TECHNIQUE: Following informed consent and procedure time-out, the patient was placed supine on the interventional table and the right arm prepped and draped in the usual sterile fashion. Ultrasound showed a patent and compressible right basilic vein. After the skin was anesthetized with lidocaine, the basilic vein was accessed with micro micropuncture technique using ultrasound guidance. A guidewire was then advanced under fluoroscopic guidance into the superior vena cava. An image documenting ultrasound guidance for vascular access was permanently saved. The length of the single-lumen 4 [place] PICC was trimmed to 35 centimeters and advanced through a peel-away sheath. The PICC was position with tip of PICC confirm a spot radiograph the superior vena cava. The PICC was secured to the patient's skin. The PICC was flushed. A biopatch and sterile dressing was applied. IMPRESSION: Placement of a single-lumen 4 [place] PICC trimmed to 35 centimeters via right basilic vein. The tip of the PICC is confirmed with spot radiograph and is in the superior vena cava.
--- NOTE | 2018-04-22 13:41 | CP.PCM.PN ---
Subjective - Date & Time of Evaluation Date of Evaluation: 04/22/18 Time of Evaluation: 10:00 - Subjective Subjective: Patient was seen and examined during rounds. She is reporting some loose stools and intermittent anal seepage of stool. Denies vomiting, constipation, fever, or chills. Tolerating full liquid diet althought still complaining of some pain after eating and some nausea. Objective - Vital Signs/Intake and Output Vital Signs (last 24 hours): Temp Pulse Resp BP Pulse Ox 98.7 F 83 18 148/78 95 04/22/18 12:50 04/22/18 12:50 04/22/18 12:50 04/22/18 12:50 04/22/18 08:00 - Medications Medications: Current Medications Acetaminophen (Tylenol 325mg Tab) 650 mg PO Q4 PRN PRN Reason: Temp >101 Last Admin: 04/21/18 17:34 Dose: 650 mg Acetaminophen (Tylenol 325mg Tab) 650 mg PO Q4 PRN PRN Reason: Pain, Mild (1-3) Last Admin: 04/22/18 06:48 Dose: 650 mg Al Hydrox/Mg Hydrox/Simethicone (Maalox Plus 30 Ml) 30 ml PO TID [facility] Last Admin: 04/22/18 09:50 Dose: Not Given Albuterol (Ventolin Hfa 90 Mcg/Actuation (8 G)) 2 puff IH Q4 PRN PRN Reason: Shortness of Breath Last Admin: 04/22/18 06:49 Dose: 2 puff Albuterol/Ipratropium (Duoneb 3 Mg/0.5 Mg (3 Ml) Ud) 3 ml INH RQ6 PRN PRN Reason: Shortness of Breath Aspirin (Ecotrin) 81 mg PO DAILY [facility] Last Admin: 04/22/18 09:48 Dose: 81 mg Atorvastatin Calcium (Lipitor) 10 mg PO HS [facility] Last Admin: 04/21/18 21:12 Dose: 10 mg Carvedilol (Coreg) 6.25 mg PO Q12 [facility] Last Admin: 04/22/18 09:48 Dose: 6.25 mg Clopidogrel Bisulfate (Plavix) 75 mg PO DAILY [facility] Last Admin: 04/22/18 09:48 Dose: 75 mg Digoxin (Lanoxin) 0.25 mg PO DAILY [facility] Last Admin: 08/13/18 09:48 Dose: 0.25 mg Enoxaparin Sodium (Lovenox) 40 mg SC DAILY [facility] PRN Reason: Protocol Last Admin: 04/22/18 09:48 Dose: 40 mg Ciprofloxacin (Cipro 400mg/200ml Dsw) 400 mg in 200 mls @ 200 mls/hr IVPB Q12 [facility] PRN Reason: Protocol Last Admin: 04/22/18 09:47 Dose: 200 mls/hr Metronidazole (Flagyl 500mg/100ml Ns) 100 mls @ 100 mls/hr IVPB Q8 [facility] PRN Reason: Protocol Last Admin: 04/22/18 00:34 Dose: 100 mls/hr Dextrose/Sodium Chloride (Dextrose 5%/0.45% Ns 1000 Ml) 1,000 mls @ 80 mls/hr IV .[id number] [facility] Stop: 04/22/18 18:25 Last Admin: 04/22/18 06:50 Dose: 80 mls/hr Ondansetron HCl (Zofran Inj) 4 mg IVP Q6 PRN PRN Reason: Nausea/Vomiting Last Admin: 04/21/18 20:03 Dose: 4 mg Pregabalin (Lyrica) 50 mg PO Q12 [facility] Last Admin: 04/22/18 09:53 Dose: 50 mg - Labs Labs: 04/22/18 05:50 04/22/18 05:50 PT 20.4 Seconds (9.8-13.1) H 04/19/18 15:30 INR 1.8 04/19/18 15:30 APTT 34.1 Seconds (25.6-37.1) 04/19/18 15:30 - Additional Findings Additional findings: Physical exam: Constitutional- cooperative, awake, alert Head- NCAT, PERRL Eye- PERRL, EOMI ENT- normal exam, MMM. Neck- normal inspection, supple, no JVD Respiratory- CTAB, no wheezes rales rhonchi Cardiovascular- RRR, +S1, +S2 no MRG GI/Abdominal- Mild tenderness to palpation of the left lower quadrant. normal bowel sounds, soft, no mass, no hsm Skin- warm, dry Extremities Exam- normal capillary refill, normal inspection Neurological Exam- alert, awake, oriented Psych- normal mood, normal affect Assessment and Plan - Assessment and Plan (Free Text) Plan: 77 year old female with hx of Asthma, COPD, A Fib, Chf and diverticulosis presents to the ED after discharge from [facility] with several day history of moderate to severe constant LLL abdominal pain associated with diarrhea. Patient has history of diverticulitis, diverticulosis. On prior admission, patient was extremely slow in tolerating PO intake. CTAP showed diverticulitis. WBC 15K, AFEBRILE. Cipro/Flagyl initiated. NPO with meds. HD stable. NAD. 1. Acute recurrent sigmoidal diverticulitis with extensive inflammation as noted on CT abd/pelvis - Slowly improving - cont IV Cipro and Flagyl - IV fluids - afebrile, WBC 15K - HD stable - Full liquid diet being tolerated somewhat although patient having intermittent nausea and abdominal pain. Plan for advancement to soft regular diet in AM. - Dr. Riley on consult for GI - Dr. Bailey on consult for general surgery - Dr. Burns was consulted for placement of PICC line today which was placed successfully. 2. Chronic A Fib rate controlled -cont Digoxin/ASA, Plavix, Coreg - Not on anticoagulant 3. Asthma/ COPD/ ANKITA - consult Dr Fang pulmonology - Duoneb PRN 4. Deconditioning - Physical therapy consult #. DVT prophylaxis with lovenox Disposition: Plan for discharge to home directly once patient's condition improved. Continue physical therapy as tolerated.
--- NOTE | 2018-04-22 18:55 | CP.PCM.PN ---
Subjective - Date & Time of Evaluation Date of Evaluation: 04/22/18 Time of Evaluation: 14:00 - Subjective Subjective: Patient's symptoms slwly improving. Tolerating diet. Objective - Vital Signs/Intake and Output Vital Signs (last 24 hours): Temp Pulse Resp BP Pulse Ox 97.7 F 82 20 133/77 96 04/22/18 16:34 04/22/18 16:34 04/22/18 16:34 04/22/18 16:34 04/22/18 16:34 - Medications Medications: Current Medications Acetaminophen (Tylenol 325mg Tab) 650 mg PO Q4 PRN PRN Reason: Pain, Mild (1-3) Last Admin: 04/22/18 06:48 Dose: 650 mg Al Hydrox/Mg Hydrox/Simethicone (Maalox Plus 30 Ml) 30 ml PO TID [facility] Last Admin: 04/22/18 17:45 Dose: Not Given Albuterol (Ventolin Hfa 90 Mcg/Actuation (8 G)) 2 puff IH Q4 PRN PRN Reason: Shortness of Breath Last Admin: 04/22/18 06:49 Dose: 2 puff Albuterol/Ipratropium (Duoneb 3 Mg/0.5 Mg (3 Ml) Ud) 3 ml INH RQ6 PRN PRN Reason: Shortness of Breath Aspirin (Ecotrin) 81 mg PO DAILY [facility] Last Admin: 04/22/18 09:48 Dose: 81 mg Atorvastatin Calcium (Lipitor) 10 mg PO HS [facility] Last Admin: 04/21/18 21:12 Dose: 10 mg Carvedilol (Coreg) 6.25 mg PO Q12 [facility] Last Admin: 04/22/18 09:48 Dose: 6.25 mg Clopidogrel Bisulfate (Plavix) 75 mg PO DAILY [facility] Last Admin: 04/22/18 09:48 Dose: 75 mg Digoxin (Lanoxin) 0.25 mg PO DAILY [facility] Last Admin: 04/22/18 09:48 Dose: 0.25 mg Enoxaparin Sodium (Lovenox) 40 mg SC DAILY [facility] PRN Reason: Protocol Last Admin: 04/22/18 09:48 Dose: 40 mg Ciprofloxacin (Cipro 400mg/200ml Dsw) 400 mg in 200 mls @ 200 mls/hr IVPB Q12 [facility] PRN Reason: Protocol Last Admin: 04/22/18 09:47 Dose: 200 mls/hr Metronidazole (Flagyl 500mg/100ml Ns) 100 mls @ 100 mls/hr IVPB Q8 [facility] PRN Reason: Protocol Last Admin: 04/22/18 17:47 Dose: 100 mls/hr Ondansetron HCl (Zofran Inj) 4 mg IVP Q6 PRN PRN Reason: Nausea/Vomiting Last Admin: 04/21/18 20:03 Dose: 4 mg Pregabalin (Lyrica) 50 mg PO Q12 [facility] Last Admin: 04/22/18 09:53 Dose: 50 mg - Labs Labs: 04/22/18 05:50 04/22/18 05:50 PT 20.4 Seconds (9.8-13.1) H 04/19/18 15:30 INR 1.8 04/19/18 15:30 APTT 34.1 Seconds (25.6-37.1) 04/19/18 15:30 - Head Exam Head Exam: ATRAUMATIC - Eye Exam Pupil Exam: NORMAL ACCOMODATION - ENT Exam ENT Exam: Mucous Membranes Moist - Neck Exam Neck Exam: Normal Inspection - Cardiovascular Exam Cardiovascular Exam: REGULAR RHYTHM - GI/Abdominal Exam GI & Abdominal Exam: Soft, Tenderness (LLQ), Normal Bowel Sounds Assessment and Plan (1) Diverticulitis Assessment & Plan: Clinically improving. Maintain IV antibiotics. Status: Acute
[2018-04-23] MEDS: metroNIDAZOLE 500mg/100ml NS 100 ML IVPB SCH ×3 (00:41→16:25)
--- NOTE | 2018-04-23 07:41 | CP.PCM.PN ---
Subjective - Date & Time of Evaluation Date of Evaluation: 04/23/18 Time of Evaluation: 07:38 - Subjective Subjective: General Surgery - DR. Salas Pt S&ETom DOZIER. Pt tolerating full liquid diet. She still has some lower abdominal pain which she notices most after being palpated in the region. She has mild pain at rest. She has been OOB. No further episodes of diarrhea. She denies any Nausea/Vomiting/Fevers/Chills. Objective - Vital Signs/Intake and Output Vital Signs (last 24 hours): Temp Pulse Resp BP Pulse Ox 98.7 F 77 18 105/68 96 04/23/18 01:00 04/23/18 01:00 04/23/18 01:00 04/23/18 01:00 04/23/18 01:00 - Medications Medications: Current Medications Acetaminophen (Tylenol 325mg Tab) 650 mg PO Q4 PRN PRN Reason: Pain, Mild (1-3) Last Admin: 04/22/18 21:06 Dose: 650 mg Al Hydrox/Mg Hydrox/Simethicone (Maalox Plus 30 Ml) 30 ml PO TID [facility] Last Admin: 04/22/18 17:45 Dose: Not Given Albuterol (Ventolin Hfa 90 Mcg/Actuation (8 G)) 2 puff IH Q4 PRN PRN Reason: Shortness of Breath Last Admin: 04/22/18 06:49 Dose: 2 puff Albuterol/Ipratropium (Duoneb 3 Mg/0.5 Mg (3 Ml) Ud) 3 ml INH RQ6 PRN PRN Reason: Shortness of Breath Aspirin (Ecotrin) 81 mg PO DAILY [facility] Last Admin: 04/22/18 09:48 Dose: 81 mg Atorvastatin Calcium (Lipitor) 10 mg PO HS [facility] Last Admin: 04/22/18 21:05 Dose: 10 mg Carvedilol (Coreg) 6.25 mg PO Q12 [facility] Last Admin: 04/22/18 21:05 Dose: 6.25 mg Clopidogrel Bisulfate (Plavix) 75 mg PO DAILY [facility] Last Admin: 04/22/18 09:48 Dose: 75 mg Digoxin (Lanoxin) 0.25 mg PO DAILY [facility] Last Admin: 04/22/18 09:48 Dose: 0.25 mg Enoxaparin Sodium (Lovenox) 40 mg SC DAILY [facility] PRN Reason: Protocol Last Admin: 04/22/18 09:48 Dose: 40 mg Ciprofloxacin (Cipro 400mg/200ml Dsw) 400 mg in 200 mls @ 200 mls/hr IVPB Q12 [facility] PRN Reason: Protocol Last Admin: 04/22/18 21:07 Dose: 200 mls/hr Metronidazole (Flagyl 500mg/100ml Ns) 100 mls @ 100 mls/hr IVPB Q8 [facility] PRN Reason: Protocol Last Admin: 04/23/18 00:41 Dose: 100 mls/hr Ondansetron HCl (Zofran Inj) 4 mg IVP Q6 PRN PRN Reason: Nausea/Vomiting Last Admin: 04/21/18 20:03 Dose: 4 mg Pregabalin (Lyrica) 50 mg PO Q12 [facility] Last Admin: 04/22/18 21:05 Dose: 50 mg - Labs Labs: 04/22/18 05:50 04/22/18 05:50 PT 20.4 Seconds (9.8-13.1) H 04/19/18 15:30 INR 1.8 04/19/18 15:30 APTT 34.1 Seconds (25.6-37.1) 04/19/18 15:30 - Constitutional Appears: No Acute Distress - Head Exam Head Exam: ATRAUMATIC, NORMAL INSPECTION, NORMOCEPHALIC - Eye Exam Eye Exam: Normal appearance - Respiratory Exam Respiratory Exam: NORMAL BREATHING PATTERN. absent: Respiratory Distress - Cardiovascular Exam Cardiovascular Exam: REGULAR RHYTHM - GI/Abdominal Exam GI & Abdominal Exam: Firm, Tenderness. absent: Distended, Guarding, Rigid, Soft - Neurological Exam Neurological Exam: Alert, Oriented x3 - Psychiatric Exam Psychiatric exam: Normal Affect, Normal Mood - Skin Skin Exam: Dry, Intact Assessment and Plan - Assessment and Plan (Free Text) Assessment: 77 yo F w/ recurrent diverticulitis -Soft diet, to be continued until complete resolution of symptoms -Continue IV Abx: cipro/flagyl -Consider Urology eval. for colovesical fistula given recent UTIs (pt sees Dr. Hannon) -Continue Conservative Tx, Colonoscopy in 6 weeks, and then plan for elective resection DW Dr Maritza Hebert PGY4
[2018-04-23] MEDS: Ciprofloxacin 400mg/200ml D5W 400 MG/200 ML BAG IVPB SCH ×2 (08:23→22:08)
[2018-04-23] MEDS: Digoxin 250 mcg (0.25 mg) Tab PO SCH (08:24)
[2018-04-23] MEDS: Enoxaparin 40 mg Syringe SC SCH (08:25)
[2018-04-23] MEDS: Alum-Mag Hydrox-Simethicone Susp (30 mL) PO SCH ×3 (08:36→16:34)
--- NOTE | 2018-04-23 09:26 | CP.PCM.PN ---
Subjective - Date & Time of Evaluation Date of Evaluation: 04/23/18 Time of Evaluation: 09:19 - Subjective Subjective: General Surgery Pt seen and examined this AM. She reports feeling better. She reports having an irritated rectum from diarrhea, however it is also improving s she has not been having diarrhea today. Pt is sitting up about to eat breakfast. (-) N/V/D /C. Labs and vitals noted. PE Gen: Pt sitting up at edge of bed in NAD Skin: warm and dry (except extr, see below) Cardio: (+) irregularly irregular, rate controlled Lung: CTA bilaterally Abd: Soft, (+) Mild LLQ and epigastric tenderness. Extr: Left UE: (+) Left elbow with deformity. (+) Bilateral legs are dangling from side of bed with blue hue and pitting edema L (3+) > R(1+), DP and PT pulses are only dopplerable. Areas marked with an"X". (Per pt this is her baseline in regards to the blue and edema). Bilateral feet slightly cooler to touch than mid jacobson. A/P Diverticulitis Slowly improving Continue antibiotics Outpt colonoscopy then pt to follow up in office for elective bowel resection. Diet changed to RD's recs of 2gNa, low fiber. Bluish Bilateral Lower Extremities PT and DP pulses are all dopplerable Dr. Cabrales made aware Objective - Vital Signs/Intake and Output Vital Signs (last 24 hours): Temp Pulse Resp BP Pulse Ox 98.1 F 76 19 139/84 94 L 04/23/18 07:55 04/23/18 07:55 04/23/18 07:55 04/23/18 07:55 04/23/18 07:55 - Medications Medications: Current Medications Acetaminophen (Tylenol 325mg Tab) 650 mg PO Q4 PRN PRN Reason: Pain, Mild (1-3) Last Admin: 04/22/18 21:06 Dose: 650 mg Al Hydrox/Mg Hydrox/Simethicone (Maalox Plus 30 Ml) 30 ml PO TID [facility] Last Admin: 04/23/18 08:36 Dose: Not Given Albuterol (Ventolin Hfa 90 Mcg/Actuation (8 G)) 2 puff IH Q4 PRN PRN Reason: Shortness of Breath Last Admin: 04/22/18 06:49 Dose: 2 puff Albuterol/Ipratropium (Duoneb 3 Mg/0.5 Mg (3 Ml) Ud) 3 ml INH RQ6 PRN PRN Reason: Shortness of Breath Aspirin (Ecotrin) 81 mg PO DAILY [facility] Last Admin: 04/23/18 08:24 Dose: 81 mg Atorvastatin Calcium (Lipitor) 10 mg PO HS [facility] Last Admin: 04/22/18 21:05 Dose: 10 mg Carvedilol (Coreg) 6.25 mg PO Q12 [facility] Last Admin: 04/23/18 08:24 Dose: 6.25 mg Clopidogrel Bisulfate (Plavix) 75 mg PO DAILY [facility] Last Admin: 04/23/18 08:26 Dose: 75 mg Digoxin (Lanoxin) 0.25 mg PO DAILY [facility] Last Admin: 04/23/18 08:24 Dose: 0.25 mg Enoxaparin Sodium (Lovenox) 40 mg SC DAILY [facility] PRN Reason: Protocol Last Admin: 04/23/18 08:25 Dose: 40 mg Ciprofloxacin (Cipro 400mg/200ml Dsw) 400 mg in 200 mls @ 200 mls/hr IVPB Q12 [facility] PRN Reason: Protocol Last Admin: 04/23/18 08:23 Dose: 200 mls/hr Metronidazole (Flagyl 500mg/100ml Ns) 100 mls @ 100 mls/hr IVPB Q8 [facility] PRN Reason: Protocol Last Admin: 04/23/18 08:23 Dose: 100 mls/hr Ondansetron HCl (Zofran Inj) 4 mg IVP Q6 PRN PRN Reason: Nausea/Vomiting Last Admin: 04/21/18 20:03 Dose: 4 mg Pregabalin (Lyrica) 50 mg PO Q12 [facility] Last Admin: 04/23/18 08:29 Dose: 50 mg - Labs Labs: 04/22/18 05:50 04/22/18 05:50 PT 20.4 Seconds (9.8-13.1) H 04/19/18 15:30 INR 1.8 04/19/18 15:30 APTT 34.1 Seconds (25.6-37.1) 04/19/18 15:30
--- NOTE | 2018-04-23 11:07 | CP.PCM.PN ---
Subjective - Date & Time of Evaluation Date of Evaluation: 04/23/18 Time of Evaluation: 10:00 - Subjective Subjective: Cardiac llamas doing well AF with controlled rate Objective - Vital Signs/Intake and Output Vital Signs (last 24 hours): Temp Pulse Resp BP Pulse Ox 98.1 F 76 19 139/84 94 L 04/23/18 07:55 04/23/18 07:55 04/23/18 07:55 04/23/18 07:55 04/23/18 07:55 - Medications Medications: Current Medications Acetaminophen (Tylenol 325mg Tab) 650 mg PO Q4 PRN PRN Reason: Pain, Mild (1-3) Last Admin: 04/22/18 21:06 Dose: 650 mg Al Hydrox/Mg Hydrox/Simethicone (Maalox Plus 30 Ml) 30 ml PO TID [facility] Last Admin: 04/23/18 08:36 Dose: Not Given Albuterol (Ventolin Hfa 90 Mcg/Actuation (8 G)) 2 puff IH Q4 PRN PRN Reason: Shortness of Breath Last Admin: 04/22/18 06:49 Dose: 2 puff Albuterol/Ipratropium (Duoneb 3 Mg/0.5 Mg (3 Ml) Ud) 3 ml INH RQ6 PRN PRN Reason: Shortness of Breath Aspirin (Ecotrin) 81 mg PO DAILY [facility] Last Admin: 04/23/18 08:24 Dose: 81 mg Atorvastatin Calcium (Lipitor) 10 mg PO HS [facility] Last Admin: 04/22/18 21:05 Dose: 10 mg Carvedilol (Coreg) 6.25 mg PO Q12 [facility] Last Admin: 04/23/18 08:24 Dose: 6.25 mg Clopidogrel Bisulfate (Plavix) 75 mg PO DAILY [facility] Last Admin: 04/23/18 08:26 Dose: 75 mg Digoxin (Lanoxin) 0.25 mg PO DAILY [facility] Last Admin: 04/23/18 08:24 Dose: 0.25 mg Enoxaparin Sodium (Lovenox) 40 mg SC DAILY [facility] PRN Reason: Protocol Last Admin: 04/23/18 08:25 Dose: 40 mg Ciprofloxacin (Cipro 400mg/200ml Dsw) 400 mg in 200 mls @ 200 mls/hr IVPB Q12 [facility] PRN Reason: Protocol Last Admin: 04/23/18 08:23 Dose: 200 mls/hr Metronidazole (Flagyl 500mg/100ml Ns) 100 mls @ 100 mls/hr IVPB Q8 [facility] PRN Reason: Protocol Last Admin: 04/23/18 08:23 Dose: 100 mls/hr Ondansetron HCl (Zofran Inj) 4 mg IVP Q6 PRN PRN Reason: Nausea/Vomiting Last Admin: 04/21/18 20:03 Dose: 4 mg Pregabalin (Lyrica) 50 mg PO Q12 [facility] Last Admin: 04/23/18 08:29 Dose: 50 mg - Labs Labs: 04/22/18 05:50 04/22/18 05:50 PT 20.4 Seconds (9.8-13.1) H 04/19/18 15:30 INR 1.8 04/19/18 15:30 APTT 34.1 Seconds (25.6-37.1) 04/19/18 15:30 Assessment and Plan (1) Chronic atrial fibrillation Status: Chronic (2) Diverticulitis Status: Acute (3) Asthma Status: Chronic
--- NOTE | 2018-04-23 11:10 | CP.PCM.PN ---
Subjective - Date & Time of Evaluation Date of Evaluation: 04/23/18 Time of Evaluation: 10:45 - Subjective Subjective: Patient seen and examined bedside. Still with some abdominal cramps.No more diarrhea or BM today .Tolerated low fiber diet this AM. No acute issues overnight. Lower extremities cool to touch and with purplish color change when sitting up but pulses present. Objective - Vital Signs/Intake and Output Vital Signs (last 24 hours): Temp Pulse Resp BP Pulse Ox 98.1 F 76 19 139/84 94 L 04/23/18 07:55 04/23/18 07:55 04/23/18 07:55 04/23/18 07:55 04/23/18 07:55 - Medications Medications: Current Medications Acetaminophen (Tylenol 325mg Tab) 650 mg PO Q4 PRN PRN Reason: Pain, Mild (1-3) Last Admin: 04/22/18 21:06 Dose: 650 mg Al Hydrox/Mg Hydrox/Simethicone (Maalox Plus 30 Ml) 30 ml PO TID [facility] Last Admin: 04/23/18 08:36 Dose: Not Given Albuterol (Ventolin Hfa 90 Mcg/Actuation (8 G)) 2 puff IH Q4 PRN PRN Reason: Shortness of Breath Last Admin: 04/22/18 06:49 Dose: 2 puff Albuterol/Ipratropium (Duoneb 3 Mg/0.5 Mg (3 Ml) Ud) 3 ml INH RQ6 PRN PRN Reason: Shortness of Breath Aspirin (Ecotrin) 81 mg PO DAILY [facility] Last Admin: 04/23/18 08:24 Dose: 81 mg Atorvastatin Calcium (Lipitor) 10 mg PO HS [facility] Last Admin: 04/22/18 21:05 Dose: 10 mg Carvedilol (Coreg) 6.25 mg PO Q12 [facility] Last Admin: 04/23/18 08:24 Dose: 6.25 mg Clopidogrel Bisulfate (Plavix) 75 mg PO DAILY [facility] Last Admin: 04/23/18 08:26 Dose: 75 mg Digoxin (Lanoxin) 0.25 mg PO DAILY [facility] Last Admin: 04/23/18 08:24 Dose: 0.25 mg Enoxaparin Sodium (Lovenox) 40 mg SC DAILY [facility] PRN Reason: Protocol Last Admin: 04/23/18 08:25 Dose: 40 mg Ciprofloxacin (Cipro 400mg/200ml Dsw) 400 mg in 200 mls @ 200 mls/hr IVPB Q12 [facility] PRN Reason: Protocol Last Admin: 04/23/18 08:23 Dose: 200 mls/hr Metronidazole (Flagyl 500mg/100ml Ns) 100 mls @ 100 mls/hr IVPB Q8 [facility] PRN Reason: Protocol Last Admin: 04/23/18 08:23 Dose: 100 mls/hr Ondansetron HCl (Zofran Inj) 4 mg IVP Q6 PRN PRN Reason: Nausea/Vomiting Last Admin: 04/21/18 20:03 Dose: 4 mg Pregabalin (Lyrica) 50 mg PO Q12 [facility] Last Admin: 04/23/18 08:29 Dose: 50 mg - Labs Labs: 04/22/18 05:50 04/22/18 05:50 PT 20.4 Seconds (9.8-13.1) H 04/19/18 15:30 INR 1.8 04/19/18 15:30 APTT 34.1 Seconds (25.6-37.1) 04/19/18 15:30 - Constitutional Appears: Non-toxic, No Acute Distress, Other (obese) - Head Exam Head Exam: ATRAUMATIC, NORMAL INSPECTION, NORMOCEPHALIC - Eye Exam Eye Exam: EOMI, PERRL Pupil Exam: NORMAL ACCOMODATION - ENT Exam ENT Exam: Mucous Membranes Moist, Normal Exam - Neck Exam Neck Exam: Full ROM, Normal Inspection - Respiratory Exam Respiratory Exam: Clear to Ausculation Bilateral, NORMAL BREATHING PATTERN. absent: Rhonchi, Wheezes - Cardiovascular Exam Cardiovascular Exam: +S1, +S2. absent: JVD - GI/Abdominal Exam GI & Abdominal Exam: Soft. absent: Distended, Guarding, Tenderness, Rebound - Rectal Exam Rectal Exam: Deferred - Extremities Exam Extremities Exam: Pedal Edema (1 +). absent: Calf Tenderness Additional comments: tenderness with palpation pulses present with doppler - Neurological Exam Neurological Exam: Alert, Awake, CN II-XII Intact - Psychiatric Exam Psychiatric exam: Normal Affect - Skin Skin Exam: Dry, Pallor, Warm Assessment and Plan - Assessment and Plan (Free Text) Assessment: 77 year old female with hx of Asthma, COPD, A Fib, CHF and diverticulosis presented to the ED after discharge from [facility] with several day history of moderate to severe constant LLL abdominal pain associated with diarrhea. Patient has history of diverticulitis, diverticulosis. On prior admission, patient was extremely slow in tolerating PO intake. CT abdomen showed diverticulitis. WBC 15K. she was admitted to med/surg and started on Cipro and Flagyl. Surgery ands GI consulted 1. Acute recurrent sigmoidal diverticulitis CT abd/pelvis showed extensive inflammation and WBC 15 K Slowly improving, still with some abdominal discomfort Afebrile and WBC normalized Continue Cipro and Flagyl Started low fiber diet today and tolerated so far GI and surgery consult appreciated Will need colonoscopy in 6 weeks and electiv e colon resection as out patient Continue low fiber diet 2.Rule out Lower extremity arterial insufficiency with purplish color change to LE today upon sitting Will order arterial doppler of LE bilaterally PT eval and treat 3. Chronic A Fib rate controlled -cont Digoxin/ASA, Plavix, Coreg - Not on anticoagulant 4. Asthma/ COPD/ ANKITA pulmonary consult with Dr. Fang appreciated Duoneb PRN 5. Deconditioning Physical therapy consult 6. DVT prophylaxis lovenox
--- NOTE | 2018-04-23 12:08 | CP.PCM.PN ---
Subjective - Date & Time of Evaluation Date of Evaluation: 04/23/18 Time of Evaluation: 09:00 - Subjective Subjective: Patient doing well overnight, states that she has no SOB, yesterday she had mild wheezing well controlled with albuterol as needed. Patient still reports minor cramping and nausea. Denies having diarrhea fever or chills. Patient has been started on a regular diet today and tolerating well. General surgery states that any procedure for future treatment of diverticulitis will be done as outpatient. Vitals stable. BP 139/84, HR 76, RR 19, SpO2 94 on RA On exam patient has normal breath sounds B/L. Clear to auscultation. No audible wheezes, rhonchi or rales. Trace bilateral pedal edema. Patient has mild intermittent asthma well controlled with albuterol and she remains stable. Patient will be transferred to TCU today for PT. Objective - Vital Signs/Intake and Output Vital Signs (last 24 hours): Temp Pulse Resp BP Pulse Ox 98.1 F 76 19 139/84 94 L 04/23/18 07:55 04/23/18 07:55 04/23/18 07:55 04/23/18 07:55 04/23/18 07:55 - Medications Medications: Current Medications Acetaminophen (Tylenol 325mg Tab) 650 mg PO Q4 PRN PRN Reason: Pain, Mild (1-3) Last Admin: 04/22/18 21:06 Dose: 650 mg Al Hydrox/Mg Hydrox/Simethicone (Maalox Plus 30 Ml) 30 ml PO TID ON LICENSE OF [facility] Last Admin: 04/23/18 08:36 Dose: Not Given Albuterol (Ventolin Hfa 90 Mcg/Actuation (8 G)) 2 puff IH Q4 PRN PRN Reason: Shortness of Breath Last Admin: 04/22/18 06:49 Dose: 2 puff Albuterol/Ipratropium (Duoneb 3 Mg/0.5 Mg (3 Ml) Ud) 3 ml INH RQ6 PRN PRN Reason: Shortness of Breath Aspirin (Ecotrin) 81 mg PO DAILY ON [facility] OF [facility] Last Admin: 04/23/18 08:24 Dose: 81 mg Atorvastatin Calcium (Lipitor) 10 mg PO HS ON [facility] OF [facility] Last Admin: 04/22/18 21:05 Dose: 10 mg Carvedilol (Coreg) 6.25 mg PO Q12 ON LICENSE OF [facility] Last Admin: 04/23/18 08:24 Dose: 6.25 mg Clopidogrel Bisulfate (Plavix) 75 mg PO DAILY ON [facility] OF [facility] Last Admin: 04/23/18 08:26 Dose: 75 mg Digoxin (Lanoxin) 0.25 mg PO DAILY ON [facility] Last Admin: 04/23/18 08:24 Dose: 0.25 mg Enoxaparin Sodium (Lovenox) 40 mg SC DAILY [facility] PRN Reason: Protocol Last Admin: 04/23/18 08:25 Dose: 40 mg Ciprofloxacin (Cipro 400mg/200ml Dsw) 400 mg in 200 mls @ 200 mls/hr IVPB Q12 [facility] PRN Reason: Protocol Last Admin: 04/23/18 08:23 Dose: 200 mls/hr Metronidazole (Flagyl 500mg/100ml Ns) 100 mls @ 100 mls/hr IVPB Q8 [facility] PRN Reason: Protocol Last Admin: 04/23/18 08:23 Dose: 100 mls/hr Ondansetron HCl (Zofran Inj) 4 mg IVP Q6 PRN PRN Reason: Nausea/Vomiting Last Admin: 04/23/18 11:17 Dose: 4 mg Pregabalin (Lyrica) 50 mg PO Q12 ON [facility] OF [facility] Last Admin: 04/23/18 08:29 Dose: 50 mg - Labs Labs: 04/22/18 05:50 04/22/18 05:50 PT 20.4 Seconds (9.8-13.1) H 04/19/18 15:30 INR 1.8 04/19/18 15:30 APTT 34.1 Seconds (25.6-37.1) 04/19/18 15:30
--- NOTE | 2018-04-23 14:27 | US ---
Date of service: 04/23/2018 PROCEDURE: Duplex ultrasound of the bilateral lower extremity arteries. HISTORY: cold lower extremities COMPARISON: None available. TECHNIQUE: Grayscale and duplex Doppler evaluation of the bilateral common femoral, superficial femoral, popliteal, posterior tibial and dorsalis pedis arteries was performed.. FINDINGS: RIGHT LOWER EXTREMITY: RIGHT COMMON FEMORAL ARTERY: Intimal thickening is present Maximal flow velocity of 94.4 cm/s. RIGHT SUPERFICIAL FEMORAL ARTERY: Intimal thickening is present Maximal flow velocity of 78.6 cm/s. RIGHT POPLITEAL ARTERY:Heterogeneous plaque formation. Maximal flow velocity of 51.6 cm/s. RIGHT POSTERIOR TIBIAL ARTERY: Heterogeneous plaque formation. Maximal flow velocity of 84.0 cm/s. RIGHT DORSALIS PEDIS ARTERY: Widely patent. Maximal flow velocity of 59.4 cm/s. LEFT LOWER EXTREMITY: LEFT COMMON FEMORAL ARTERY: Intimal thickening is present Maximal flow velocity of 118.1 cm/s. LEFT SUPERFICIAL FEMORAL ARTERY: Heterogeneous plaque formation. Maximal flow velocity of 1818.1 cm/s. LEFT POPLITEAL ARTERY:Heterogeneous plaque formation. Maximal flow velocity of 49.6 cm/s. LEFT POSTERIOR TIBIAL ARTERY: Intimal thickening is present Maximal flow velocity of 27.7 cm/s. LEFT DORSALIS PEDIS ARTERY: Heterogeneous plaque formation. Maximal flow velocity of 65.9 cm/s. OTHER FINDINGS: None. IMPRESSION: Atherosclerotic disease both lower extremities. Otherwise unremarkable Duplex Doppler of the bilateral lower extremity arteries.
--- NOTE | 2018-04-23 14:41 | CP.PCM.PN ---
Subjective - Date & Time of Evaluation Date of Evaluation: 04/23/18 Time of Evaluation: 14:36 - Subjective Subjective: Patient tolerating diet. Mild abdominal pain. Objective - Vital Signs/Intake and Output Vital Signs (last 24 hours): Temp Pulse Resp BP Pulse Ox 98.1 F 76 19 139/84 94 L 04/23/18 07:55 04/23/18 07:55 04/23/18 07:55 04/23/18 07:55 04/23/18 07:55 - Medications Medications: Current Medications Acetaminophen (Tylenol 325mg Tab) 650 mg PO Q4 PRN PRN Reason: Pain, Mild (1-3) Last Admin: 04/22/18 21:06 Dose: 650 mg Al Hydrox/Mg Hydrox/Simethicone (Maalox Plus 30 Ml) 30 ml PO TID [facility] Last Admin: 04/23/18 12:37 Dose: Not Given Albuterol (Ventolin Hfa 90 Mcg/Actuation (8 G)) 2 puff IH Q4 PRN PRN Reason: Shortness of Breath Last Admin: 04/22/18 06:49 Dose: 2 puff Albuterol/Ipratropium (Duoneb 3 Mg/0.5 Mg (3 Ml) Ud) 3 ml INH RQ6 PRN PRN Reason: Shortness of Breath Aspirin (Ecotrin) 81 mg PO DAILY [facility] Last Admin: 04/23/18 08:24 Dose: 81 mg Atorvastatin Calcium (Lipitor) 10 mg PO HS [facility] Last Admin: 04/22/18 21:05 Dose: 10 mg Carvedilol (Coreg) 6.25 mg PO Q12 [facility] Last Admin: 04/23/18 08:24 Dose: 6.25 mg Clopidogrel Bisulfate (Plavix) 75 mg PO DAILY [facility] Last Admin: 04/23/18 08:26 Dose: 75 mg Digoxin (Lanoxin) 0.25 mg PO DAILY [facility] Last Admin: 04/23/18 08:24 Dose: 0.25 mg Enoxaparin Sodium (Lovenox) 40 mg SC DAILY [facility] PRN Reason: Protocol Last Admin: 04/23/18 08:25 Dose: 40 mg Ciprofloxacin (Cipro 400mg/200ml Dsw) 400 mg in 200 mls @ 200 mls/hr IVPB Q12 [facility] PRN Reason: Protocol Last Admin: 04/23/18 08:23 Dose: 200 mls/hr Metronidazole (Flagyl 500mg/100ml Ns) 100 mls @ 100 mls/hr IVPB Q8 [facility] PRN Reason: Protocol Last Admin: 04/23/18 08:23 Dose: 100 mls/hr Ondansetron HCl (Zofran Inj) 4 mg IVP Q6 PRN PRN Reason: Nausea/Vomiting Last Admin: 04/23/18 11:17 Dose: 4 mg Pregabalin (Lyrica) 50 mg PO Q12 [facility] Last Admin: 04/23/18 08:29 Dose: 50 mg - Labs Labs: 04/22/18 05:50 04/22/18 05:50 PT 20.4 Seconds (9.8-13.1) H 04/19/18 15:30 INR 1.8 04/19/18 15:30 APTT 34.1 Seconds (25.6-37.1) 04/19/18 15:30 - Head Exam Head Exam: ATRAUMATIC - Eye Exam Eye Exam: Normal appearance - ENT Exam ENT Exam: Normal Exam - Neck Exam Neck Exam: Full ROM - Respiratory Exam Respiratory Exam: Clear to Ausculation Bilateral - Cardiovascular Exam Cardiovascular Exam: REGULAR RHYTHM - GI/Abdominal Exam GI & Abdominal Exam: Soft, Tenderness Additional comments: LLQ Assessment and Plan (1) Diverticulitis Assessment & Plan: Diverticulitis steadily improving. Colonoscopy in 6 weeks. Status: Acute
[2018-04-23] MEDS: Albuterol HFA 90 mcg/actuation (8 g) IH PRN (17:58)
[2018-04-24] MEDS: metroNIDAZOLE 500mg/100ml NS 100 ML IVPB SCH ×2 (00:06→08:52)
[2018-04-24 08:28] VITALS: BP 142/85; PULSE 74; RESP 20; TEMP 98.4; O2SAT 97
[2018-04-24] MEDS: Albuterol HFA 90 mcg/actuation (8 g) IH PRN (08:49)
[2018-04-24] MEDS: Enoxaparin 40 mg Syringe SC SCH (08:52)
[2018-04-24] MEDS: Digoxin 250 mcg (0.25 mg) Tab PO SCH (08:53)
[2018-04-24 08:54] VITALS: PULSE 74
[2018-04-24] MEDS: Alum-Mag Hydrox-Simethicone Susp (30 mL) PO SCH ×2 (08:54→12:38)
[2018-04-24] MEDS: Ciprofloxacin 400mg/200ml D5W 400 MG/200 ML BAG IVPB SCH (10:40)
--- NOTE | 2018-04-24 10:51 | CP.PCM.PN ---
Subjective - Date & Time of Evaluation Date of Evaluation: 04/24/18 Time of Evaluation: 10:50 - Subjective Subjective: General surgery progress note for for Dr. Wes Wells, PGy-2 Pt S & E at bedside at 0950 Pt reports tolerating diet, no diarrhea since yesterday. Was given Imodium. Denies N & V, F & C. Hasn't been OOBTC or ambulating much. Objective - Vital Signs/Intake and Output Vital Signs (last 24 hours): Temp Pulse Resp BP Pulse Ox 98.4 F 74 20 142/85 97 04/24/18 08:27 04/24/18 08:53 04/24/18 08:27 04/24/18 08:53 04/24/18 08:27 - Medications Medications: Current Medications Acetaminophen (Tylenol 325mg Tab) 650 mg PO Q4 PRN PRN Reason: Pain, Mild (1-3) Last Admin: 04/23/18 23:21 Dose: 650 mg Al Hydrox/Mg Hydrox/Simethicone (Maalox Plus 30 Ml) 30 ml PO TID [facility] Last Admin: 04/24/18 08:54 Dose: Not Given Albuterol (Ventolin Hfa 90 Mcg/Actuation (8 G)) 2 puff IH Q4 PRN PRN Reason: Shortness of Breath Last Admin: 04/24/18 08:49 Dose: 2 puff Albuterol/Ipratropium (Duoneb 3 Mg/0.5 Mg (3 Ml) Ud) 3 ml INH RQ6 PRN PRN Reason: Shortness of Breath Aspirin (Ecotrin) 81 mg PO DAILY [facility] Last Admin: 04/24/18 08:52 Dose: 81 mg Atorvastatin Calcium (Lipitor) 10 mg PO HS [facility] Last Admin: 04/23/18 22:09 Dose: 10 mg Carvedilol (Coreg) 6.25 mg PO Q12 [facility] Last Admin: 04/24/18 08:53 Dose: 6.25 mg Clopidogrel Bisulfate (Plavix) 75 mg PO DAILY [facility] Last Admin: 04/24/18 08:53 Dose: 75 mg Digoxin (Lanoxin) 0.25 mg PO DAILY [facility] Last Admin: 04/24/18 08:53 Dose: 0.25 mg Enoxaparin Sodium (Lovenox) 40 mg SC DAILY [facility] PRN Reason: Protocol Last Admin: 04/24/18 08:52 Dose: 40 mg Ciprofloxacin (Cipro 400mg/200ml Dsw) 400 mg in 200 mls @ 200 mls/hr IVPB Q12 [facility] PRN Reason: Protocol Last Admin: 04/24/18 10:40 Dose: 200 mls/hr Metronidazole (Flagyl 500mg/100ml Ns) 100 mls @ 100 mls/hr IVPB Q8 [facility] PRN Reason: Protocol Last Admin: 04/24/18 08:52 Dose: 100 mls/hr Ondansetron HCl (Zofran Inj) 4 mg IVP Q6 PRN PRN Reason: Nausea/Vomiting Last Admin: 04/23/18 16:49 Dose: 4 mg Pregabalin (Lyrica) 50 mg PO Q12 [facility] Last Admin: 04/24/18 08:58 Dose: 50 mg - Labs Labs: 04/22/18 05:50 04/22/18 05:50 PT 20.4 Seconds (9.8-13.1) H 04/19/18 15:30 INR 1.8 04/19/18 15:30 APTT 34.1 Seconds (25.6-37.1) 04/19/18 15:30 - Constitutional Appears: Non-toxic, No Acute Distress - Head Exam Head Exam: ATRAUMATIC, NORMAL INSPECTION, NORMOCEPHALIC - Eye Exam Eye Exam: EOMI, Normal appearance - ENT Exam ENT Exam: Mucous Membranes Moist, Normal Exam - Neck Exam Neck Exam: Full ROM, Normal Inspection - Respiratory Exam Respiratory Exam: NORMAL BREATHING PATTERN - Cardiovascular Exam Cardiovascular Exam: REGULAR RHYTHM, +S1, +S2 - GI/Abdominal Exam GI & Abdominal Exam: Soft, Tenderness (mild, over LLQ). absent: Distended ( obese), Firm, Guarding - Extremities Exam Extremities Exam: Normal Inspection - Neurological Exam Neurological Exam: Alert, Awake, Oriented x3 - Psychiatric Exam Psychiatric exam: Normal Affect, Normal Mood - Skin Skin Exam: Dry, Intact, Normal Color, Warm Assessment and Plan - Assessment and Plan (Free Text) Assessment: 77F w/recurrent diverticulitis- resolving Plan: Soft diet- continue until comlete resolution of symptoms Cont IV Abx Consider urology eval w/Dr Hannon (pre-existing pt) 2/2 recent UTIs Cont conservative tx Recommend Colonoscopy in 6 wks Follow up with surgery for elective surgical intervention Will FREDRICK attending Priscilla, PGY-2
--- NOTE | 2018-04-24 11:00 | CP.PCM.PN ---
Subjective - Date & Time of Evaluation Date of Evaluation: 04/24/18 Time of Evaluation: 10:57 - Subjective Subjective: General Surgery Pt seen and examined this AM, she reports eating solids yesterday with fair intake and reports she only felt bloated. Denies abdominal pain at this time. (-) N/V/D/C. Labs and vitals noted PE Gen: Pt laying in bed in NAD Skin: warm and dry Cardio: s1s2 RRR Lungs: CTA bilaterally Abd: soft, (+) mild LLQ tenderness Extr: Bilateral extr normal in color, with (+) pedal edema on right foot A/P Diverticulitis Continue diet Continue antibiotics Colonoscopy as outpt, then to follow up for elective surgery Objective - Vital Signs/Intake and Output Vital Signs (last 24 hours): Temp Pulse Resp BP Pulse Ox 98.4 F 74 20 142/85 97 04/24/18 08:27 04/24/18 08:53 04/24/18 08:27 04/24/18 08:53 04/24/18 08:27 - Medications Medications: Current Medications Acetaminophen (Tylenol 325mg Tab) 650 mg PO Q4 PRN PRN Reason: Pain, Mild (1-3) Last Admin: 04/23/18 23:21 Dose: 650 mg Al Hydrox/Mg Hydrox/Simethicone (Maalox Plus 30 Ml) 30 ml PO TID [facility] Last Admin: 04/24/18 08:54 Dose: Not Given Albuterol (Ventolin Hfa 90 Mcg/Actuation (8 G)) 2 puff IH Q4 PRN PRN Reason: Shortness of Breath Last Admin: 04/24/18 08:49 Dose: 2 puff Albuterol/Ipratropium (Duoneb 3 Mg/0.5 Mg (3 Ml) Ud) 3 ml INH RQ6 PRN PRN Reason: Shortness of Breath Aspirin (Ecotrin) 81 mg PO DAILY [facility] Last Admin: 04/24/18 08:52 Dose: 81 mg Atorvastatin Calcium (Lipitor) 10 mg PO HS [facility] Last Admin: 04/23/18 22:09 Dose: 10 mg Carvedilol (Coreg) 6.25 mg PO Q12 [facility] Last Admin: 04/24/18 08:53 Dose: 6.25 mg Clopidogrel Bisulfate (Plavix) 75 mg PO DAILY [facility] Last Admin: 04/24/18 08:53 Dose: 75 mg Digoxin (Lanoxin) 0.25 mg PO DAILY [facility] Last Admin: 04/24/18 08:53 Dose: 0.25 mg Enoxaparin Sodium (Lovenox) 40 mg SC DAILY [facility] PRN Reason: Protocol Last Admin: 04/24/18 08:52 Dose: 40 mg Ciprofloxacin (Cipro 400mg/200ml Dsw) 400 mg in 200 mls @ 200 mls/hr IVPB Q12 [facility] PRN Reason: Protocol Last Admin: 04/24/18 10:40 Dose: 200 mls/hr Metronidazole (Flagyl 500mg/100ml Ns) 100 mls @ 100 mls/hr IVPB Q8 [facility] PRN Reason: Protocol Last Admin: 04/24/18 08:52 Dose: 100 mls/hr Ondansetron HCl (Zofran Inj) 4 mg IVP Q6 PRN PRN Reason: Nausea/Vomiting Last Admin: 04/23/18 16:49 Dose: 4 mg Pregabalin (Lyrica) 50 mg PO Q12 [facility] Last Admin: 04/24/18 08:58 Dose: 50 mg - Labs Labs: 04/22/18 05:50 04/22/18 05:50 PT 20.4 Seconds (9.8-13.1) H 04/19/18 15:30 INR 1.8 04/19/18 15:30 APTT 34.1 Seconds (25.6-37.1) 04/19/18 15:30
--- NOTE | 2018-04-24 11:59 | CP.PCM.DIS ---
Provider - Provider Date of Admission: 04/19/18 18:53 Attending physician: Lorrie Martinez DO Primary care physician: Dr. Fang Consults: pulmonary consult GI consult Surgery consult Time Spent in preparation of Discharge (in minutes): 15 Hospital Course - Lab Results Lab Results: Micro Results 04/19/18 15:30 Blood-Venous Blood Culture - Preliminary NO GROWTH AFTER 4 DAYS 04/19/18 15:30 Blood-Venous Blood Culture - Preliminary NO GROWTH AFTER 4 DAYS Most Recent Lab Values WBC 9.0 K/uL (4.8-10.8) 04/22/18 05:50 RBC 3.99 Mil/uL (3.80-5.20) 04/22/18 05:50 Hgb 12.3 g/dL (12.0-16.0) 04/22/18 05:50 Hct 37.3 % (34.0-47.0) 04/22/18 05:50 MCV 93.6 fl (81.0-99.0) 04/22/18 05:50 MCH 30.8 pg (27.0-31.0) 04/22/18 05:50 MCHC 32.9 g/dL (33.0-37.0) L 04/22/18 05:50 RDW 17.0 % (11.5-14.5) H 04/22/18 05:50 Plt Count 453 K/uL (130-400) H 04/22/18 05:50 MPV 7.0 fl (7.2-11.7) L 04/19/18 15:30 Neut % (Auto) 79.1 % (50.0-75.0) H 04/19/18 15:30 Lymph % (Auto) 8.5 % (20.0-40.0) L 04/19/18 15:30 [place] % (Auto) 9.3 % (0.0-10.0) 04/19/18 15:30 Eos % (Auto) 2.3 % (0.0-4.0) 04/19/18 15:30 Baso % (Auto) 0.8 % (0.0-2.0) 04/19/18 15:30 Neut # (Auto) 12.2 K/uL (1.8-7.0) H 04/19/18 15:30 Lymph # (Auto) 1.3 K/uL (1.0-4.3) 04/19/18 15:30 [place] # (Auto) 1.4 K/uL (0.0-0.8) H 04/19/18 15:30 Eos # (Auto) 0.4 K/uL (0.0-0.7) 04/19/18 15:30 Baso # (Auto) 0.1 K/uL (0.0-0.2) 04/19/18 15:30 Neutrophils % (Manual) 76 % (42-75) H 04/19/18 15:30 Band Neutrophils % 4 % (0-2) H 04/19/18 15:30 Lymphocytes % (Manual) 8 % (20-50) L 04/19/18 15:30 Monocytes % (Manual) 9 % (0-10) 04/19/18 15:30 Eosinophils % (Manual) 3 % (0-7) 04/19/18 15:30 Platelet Estimate Normal (NORMAL) 04/19/18 15:30 Large Platelets Present 04/19/18 15:30 Hypochromasia (manual) Slight 04/19/18 15:30 Anisocytosis (manual) Slight 04/19/18 15:30 PT 20.4 Seconds (9.8-13.1) H 04/19/18 15:30 INR 1.8 04/19/18 15:30 APTT 34.1 Seconds (25.6-37.1) 04/19/18 15:30 pO2 34 mm/Hg (30-55) 04/19/18 19:16 VBG pH 7.35 (7.32-7.43) 04/19/18 19:16 VBG pCO2 55 mmHg (40-60) 04/19/18 19:16 VBG HCO3 26.6 mmol/L 04/19/18 19:16 VBG Total CO2 32.1 mmol/L (22-28) H 04/19/18 19:16 VBG O2 Sat (Calc) 59.6 % (40-65) 04/19/18 19:16 VBG Base Excess 3.5 mmol/L (0.0-2.0) H 04/19/18 19:16 VBG Potassium 3.2 mmol/L (3.6-5.2) L 04/19/18 19:16 Sodium 137.0 mmol/L (132-148) 04/19/18 19:16 Chloride 102.0 mmol/L (98-107) 04/19/18 19:16 Glucose 101 mg/dL (65-105) 04/19/18 19:16 Lactate 1.1 mmol/L (0.7-2.1) 04/19/18 19:16 FiO2 21.0 % 04/19/18 19:16 Sodium 142 mmol/l (132-148) 04/22/18 05:50 Potassium 3.6 MMOL/L (3.6-5.0) 04/22/18 05:50 Chloride 109 mmol/L (98-107) H 04/22/18 05:50 Carbon Dioxide 27 mmol/L (22-30) 04/22/18 05:50 Anion Gap 10 (10-20) 04/22/18 05:50 BUN < 2 mg/dl (7-17) L 04/22/18 05:50 Creatinine 0.5 mg/dl (0.7-1.2) L 04/22/18 05:50 Est GFR ( Amer) > 60 04/22/18 05:50 Est GFR (Non-Af Amer) > 60 04/22/18 05:50 Random Glucose 113 mg/dL (65-105) H 04/22/18 05:50 Calcium 8.3 mg/dL (8.4-10.2) L 04/22/18 05:50 Total Bilirubin 1.1 mg/dl (0.2-1.3) 04/19/18 16:10 AST 28 U/L (14-36) 04/19/18 16:10 ALT 34 U/L (9-52) 04/19/18 16:10 Alkaline Phosphatase 129 U/L (38-126) H D 04/19/18 16:10 Total Protein 5.9 G/DL (6.3-8.2) L 04/19/18 16:10 Albumin 3.1 g/dL (3.5-5.0) L D 04/19/18 16:10 Globulin 2.7 gm/dL (2.2-3.9) 04/19/18 16:10 Albumin/Globulin Ratio 1.2 (1.0-2.1) 04/19/18 16:10 Venous Blood Potassium 3.2 mmol/L (3.6-5.2) L 04/19/18 19:16 - Hospital Course Hospital Course: 77 year old female with hx of Asthma, COPD, A Fib, CHF and diverticulosis presented to the ED after discharge from [facility] with several day history of moderate to severe constant LLL abdominal pain associated with diarrhea. Patient has history of diverticulitis, diverticulosis. On prior admission, patient was extremely slow in tolerating PO intake. CT abdomen showed diverticulitis. WBC 15K. She was admitted to med/surg and started on Cipro and Flagyl. Surgery and GI consulted. Patient clinically improving on Cipro and Flagyl and tolerating diet . Plan is for colonoscopy in 6 weeks and elective colon resection. PT was consulte for deconditioning and TCU was recommended . Will transfer to TCU for continuation of IV antibiotics and PT. 1. Acute recurrent sigmoidal diverticulitis --improving CT abd/pelvis showed extensive inflammation and WBC 15 K Afebrile and WBC normalized Continue Cipro and Flagyl Started low fiber diet and tolerating GI and surgery consult appreciated Will need colonoscopy in 6 weeks and elective colon resection as out patient Continue low fiber diet 2.Lower extremity arterial insufficiency/PAD with purplish color change to LE upon sitting but pulses present arterial doppler showed artherosclerotic disease but no significant stenosis Pt consulted . will continue PT in TCU Continue ASA, Plavix , statin 3. Chronic A Fib rate controlled cont Digoxin/ASA, Plavix, Coreg Not on anticoagulant 4. Asthma/ COPD/ [facility] pulmonary consult with Dr. Fang appreciated Duoneb PRN 5. Deconditioning Physical therapy consult appreciated Transfer to TCu for PT today 6. DVT prophylaxis lovenox Discharge Exam - Head Exam Head Exam: ATRAUMATIC, NORMAL INSPECTION, NORMOCEPHALIC Discharge Plan - Discharge Medications Prescriptions: Ciprofloxacin Lactate/D5w [Ciprofloxacn-D5w 200 mg/100 ml] 400 mg IV Q12 #14 vial metroNIDAZOLE IV 500 mg/100 ml [Flagyl IV] 500 mg IV TID #21 bag - Follow Up Plan Condition: FAIR Disposition: TRANSF TO SNF Patient education suggested?: Yes
--- NOTE | 2018-04-24 12:31 | CP.PCM.PN ---
<Myrtle Mejia - Last Filed: 04/24/18 12:41> Subjective - Date & Time of Evaluation Date of Evaluation: 04/24/18 Time of Evaluation: 09:00 - Subjective Subjective: Patient doing well overnight, states that she has no SOB, she didnt need to use the PRN albuterol overnight, no wheezing. Patient still reports minor cramping in the LLQ and nausea. Patient states she has diarrhea still and immodium has been helping slightly. Patient has been started on a regular diet advance as tolerated. General surgery states that patient needs a colonoscopy in 6 weeks with future surgical intervention to be determined. Vitals stable. BP 142/85, HR 74, T 98.4, SpO2 97 on RA On exam patient has normal breath sounds B/L. Clear to auscultation. No audible wheezes, rhonchi or rales. Trace bilateral pedal edema. Patient has mild intermittent asthma well controlled with albuterol and she remains stable. Patient will be transferred to TCU for PT. Advance diet as tolerated Objective - Vital Signs/Intake and Output Vital Signs (last 24 hours): Temp Pulse Resp BP Pulse Ox 98.4 F 74 20 142/85 97 04/24/18 08:27 04/24/18 08:53 04/24/18 08:27 04/24/18 08:53 04/24/18 08:27 - Medications Medications: Current Medications Acetaminophen (Tylenol 325mg Tab) 650 mg PO Q4 PRN PRN Reason: Pain, Mild (1-3) Last Admin: 04/23/18 23:21 Dose: 650 mg Al Hydrox/Mg Hydrox/Simethicone (Maalox Plus 30 Ml) 30 ml PO TID [facility] Last Admin: 04/24/18 08:54 Dose: Not Given Albuterol (Ventolin Hfa 90 Mcg/Actuation (8 G)) 2 puff IH Q4 PRN PRN Reason: Shortness of Breath Last Admin: 04/24/18 08:49 Dose: 2 puff Albuterol/Ipratropium (Duoneb 3 Mg/0.5 Mg (3 Ml) Ud) 3 ml INH RQ6 PRN PRN Reason: Shortness of Breath Aspirin (Ecotrin) 81 mg PO DAILY [facility] Last Admin: 04/24/18 08:52 Dose: 81 mg Atorvastatin Calcium (Lipitor) 10 mg PO HS [facility] Last Admin: 04/23/18 22:09 Dose: 10 mg Carvedilol (Coreg) 6.25 mg PO Q12 [facility] Last Admin: 04/24/18 08:53 Dose: 6.25 mg Clopidogrel Bisulfate (Plavix) 75 mg PO DAILY [facility] Last Admin: 04/24/18 08:53 Dose: 75 mg Digoxin (Lanoxin) 0.25 mg PO DAILY [facility] Last Admin: 04/24/18 08:53 Dose: 0.25 mg Enoxaparin Sodium (Lovenox) 40 mg SC DAILY [facility] PRN Reason: Protocol Last Admin: 04/24/18 08:52 Dose: 40 mg Ciprofloxacin (Cipro 400mg/200ml Dsw) 400 mg in 200 mls @ 200 mls/hr IVPB Q12 [facility] PRN Reason: Protocol Last Admin: 04/24/18 10:40 Dose: 200 mls/hr Metronidazole (Flagyl 500mg/100ml Ns) 100 mls @ 100 mls/hr IVPB Q8 [facility] PRN Reason: Protocol Last Admin: 04/24/18 08:52 Dose: 100 mls/hr Ondansetron HCl (Zofran Inj) 4 mg IVP Q6 PRN PRN Reason: Nausea/Vomiting Last Admin: 04/24/18 12:11 Dose: 4 mg Pregabalin (Lyrica) 50 mg PO Q12 [facility] Last Admin: 04/24/18 08:58 Dose: 50 mg - Labs Labs: 04/22/18 05:50 04/22/18 05:50 PT 20.4 Seconds (9.8-13.1) H 04/19/18 15:30 INR 1.8 04/19/18 15:30 APTT 34.1 Seconds (25.6-37.1) 04/19/18 15:30 <Raymond Fang - Last Filed: 04/24/18 16:09> Subjective - Subjective Subjective: Seen and examined with the residents on rounds in the morning. Physical exam performed and reviewed. Case discussed and plan of care formulated. The entry in the EMR by the resident has been reviewed an agreed upon. Objective - Vital Signs/Intake and Output Vital Signs (last 24 hours): Temp Pulse Resp BP Pulse Ox 98.4 F 74 20 142/85 97 04/24/18 08:27 04/24/18 08:53 04/24/18 08:27 04/24/18 08:53 04/24/18 08:27 - Medications Medications: Current Medications Acetaminophen (Tylenol 325mg Tab) 650 mg PO Q4 PRN PRN Reason: Pain, Mild (1-3) Last Admin: 04/23/18 23:21 Dose: 650 mg Al Hydrox/Mg Hydrox/Simethicone (Maalox Plus 30 Ml) 30 ml PO TID [facility] Last Admin: 04/24/18 12:38 Dose: Not Given Albuterol (Ventolin Hfa 90 Mcg/Actuation (8 G)) 2 puff IH Q4 PRN PRN Reason: Shortness of Breath Last Admin: 04/24/18 08:49 Dose: 2 puff Albuterol/Ipratropium (Duoneb 3 Mg/0.5 Mg (3 Ml) Ud) 3 ml INH RQ6 PRN PRN Reason: Shortness of Breath Aspirin (Ecotrin) 81 mg PO DAILY [facility] Last Admin: 04/24/18 08:52 Dose: 81 mg Atorvastatin Calcium (Lipitor) 10 mg PO HS [facility] Last Admin: 04/23/18 22:09 Dose: 10 mg Carvedilol (Coreg) 6.25 mg PO Q12 [facility] Last Admin: 04/24/18 08:53 Dose: 6.25 mg Clopidogrel Bisulfate (Plavix) 75 mg PO DAILY [facility] Last Admin: 04/24/18 08:53 Dose: 75 mg Digoxin (Lanoxin) 0.25 mg PO DAILY [facility] Last Admin: 04/24/18 08:53 Dose: 0.25 mg Enoxaparin Sodium (Lovenox) 40 mg SC DAILY [facility] PRN Reason: Protocol Last Admin: 04/24/18 08:52 Dose: 40 mg Ciprofloxacin (Cipro 400mg/200ml Dsw) 400 mg in 200 mls @ 200 mls/hr IVPB Q12 [facility] PRN Reason: Protocol Last Admin: 04/24/18 10:40 Dose: 200 mls/hr Metronidazole (Flagyl 500mg/100ml Ns) 100 mls @ 100 mls/hr IVPB Q8 [facility] PRN Reason: Protocol Last Admin: 04/24/18 08:52 Dose: 100 mls/hr Ondansetron HCl (Zofran Inj) 4 mg IVP Q6 PRN PRN Reason: Nausea/Vomiting Last Admin: 04/24/18 12:11 Dose: 4 mg Pregabalin (Lyrica) 50 mg PO Q12 [facility] Last Admin: 04/24/18 08:58 Dose: 50 mg - Labs Labs: 04/22/18 05:50 04/22/18 05:50 PT 20.4 Seconds (9.8-13.1) H 04/19/18 15:30 INR 1.8 04/19/18 15:30 APTT 34.1 Seconds (25.6-37.1) 04/19/18 15:30 Assessment and Plan (1) Diverticulitis Status: Acute (2) Asthma with COPD Status: Chronic (3) Atrial fibrillation, chronic Status: Chronic
--- NOTE | 2018-04-24 16:24 | CP.PCM.PN ---
Subjective - Date & Time of Evaluation Date of Evaluation: 04/24/18 Time of Evaluation: 09:00 - Subjective Subjective: Abdominal continues to improve. Slight nausea. Objective - Vital Signs/Intake and Output Vital Signs (last 24 hours): Temp Pulse Resp BP Pulse Ox 98.4 F 74 20 142/85 97 04/24/18 08:27 04/24/18 08:53 04/24/18 08:27 04/24/18 08:53 04/24/18 08:27 - Medications Medications: Current Medications Acetaminophen (Tylenol 325mg Tab) 650 mg PO Q4 PRN PRN Reason: Pain, Mild (1-3) Last Admin: 04/23/18 23:21 Dose: 650 mg Al Hydrox/Mg Hydrox/Simethicone (Maalox Plus 30 Ml) 30 ml PO TID [facility] Last Admin: 04/24/18 12:38 Dose: Not Given Albuterol (Ventolin Hfa 90 Mcg/Actuation (8 G)) 2 puff IH Q4 PRN PRN Reason: Shortness of Breath Last Admin: 04/24/18 08:49 Dose: 2 puff Albuterol/Ipratropium (Duoneb 3 Mg/0.5 Mg (3 Ml) Ud) 3 ml INH RQ6 PRN PRN Reason: Shortness of Breath Aspirin (Ecotrin) 81 mg PO DAILY [facility] Last Admin: 04/24/18 08:52 Dose: 81 mg Atorvastatin Calcium (Lipitor) 10 mg PO HS [facility] Last Admin: 04/23/18 22:09 Dose: 10 mg Carvedilol (Coreg) 6.25 mg PO Q12 [facility] Last Admin: 04/24/18 08:53 Dose: 6.25 mg Clopidogrel Bisulfate (Plavix) 75 mg PO DAILY [facility] Last Admin: 04/24/18 08:53 Dose: 75 mg Digoxin (Lanoxin) 0.25 mg PO DAILY [facility] Last Admin: 04/24/18 08:53 Dose: 0.25 mg Enoxaparin Sodium (Lovenox) 40 mg SC DAILY [facility] PRN Reason: Protocol Last Admin: 04/24/18 08:52 Dose: 40 mg Ciprofloxacin (Cipro 400mg/200ml Dsw) 400 mg in 200 mls @ 200 mls/hr IVPB Q12 [facility] PRN Reason: Protocol Last Admin: 08/15/18 10:40 Dose: 200 mls/hr Metronidazole (Flagyl 500mg/100ml Ns) 100 mls @ 100 mls/hr IVPB Q8 [facility] PRN Reason: Protocol Last Admin: 04/24/18 08:52 Dose: 100 mls/hr Ondansetron HCl (Zofran Inj) 4 mg IVP Q6 PRN PRN Reason: Nausea/Vomiting Last Admin: 04/24/18 12:11 Dose: 4 mg Pregabalin (Lyrica) 50 mg PO Q12 [facility] Last Admin: 04/24/18 08:58 Dose: 50 mg - Labs Labs: 04/22/18 05:50 04/22/18 05:50 PT 20.4 Seconds (9.8-13.1) H 04/19/18 15:30 INR 1.8 04/19/18 15:30 APTT 34.1 Seconds (25.6-37.1) 04/19/18 15:30 - Head Exam Head Exam: ATRAUMATIC - Eye Exam Eye Exam: Normal appearance - ENT Exam ENT Exam: Normal Exam - Respiratory Exam Respiratory Exam: Clear to Ausculation Bilateral - Cardiovascular Exam Cardiovascular Exam: REGULAR RHYTHM, +S1, +S2 - GI/Abdominal Exam GI & Abdominal Exam: Soft, Tenderness, Normal Bowel Sounds Additional comments: moderate LLQ tenderness Assessment and Plan (1) Diverticulitis Assessment & Plan: Continues to improve. Colonoscopy in 6 weeks and then elective surgery. Status: Acute
== END 2018-04-24 15:40 | DRG 392 ==
LOC: H.ER 13:34 → H.ERHOLD 18:53 → H.TEL 04-20 10:37 → H.MEDSURG1 04-23 00:32
PROVIDERS: ADMIT Student in an Organized Health Care Education/Training Program; ATTEND Student in an Organized Health Care Education/Training Program
PROC: 02HV33Z Insertion of Infusion Device into Superior Vena Cava, Percutaneous Approach (ICD-10-PCS; principal; 2018-04-22)
PROC: B518ZZA Fluoroscopy of Superior Vena Cava, Guidance (ICD-10-PCS; 2018-04-22)
PROC: B548ZZA Ultrasonography of Superior Vena Cava, Guidance (ICD-10-PCS; 2018-04-22)
PROC: 3E04329 Introduction of Other Anti-infective into Central Vein, Percutaneous Approach (ICD-10-PCS; 2018-04-22)
DX: K57.32 Diverticulitis of large intestine without perforation or abscess without bleeding (principal); I48.2 Chronic atrial fibrillation; I11.0 Hypertensive heart disease with heart failure; I50.22 Chronic systolic (congestive) heart failure; J45.20 Mild intermittent asthma, uncomplicated; I25.10 Atherosclerotic heart disease of native coronary artery without angina pectoris; G47.33 Obstructive sleep apnea (adult) (pediatric); E78.5 Hyperlipidemia, unspecified; E78.00 Pure hypercholesterolemia, unspecified; J44.9 Chronic obstructive pulmonary disease, unspecified; M81.0 Age-related osteoporosis without current pathological fracture; I73.9 Peripheral vascular disease, unspecified; K29.70 Gastritis, unspecified, without bleeding; D64.9 Anemia, unspecified; M19.90 Unspecified osteoarthritis, unspecified site; Z79.82 Long term (current) use of aspirin; Z79.02 Long term (current) use of antithrombotics/antiplatelets; Z87.440 Personal history of urinary (tract) infections; Z87.01 Personal history of pneumonia (recurrent); Z87.891 Personal history of nicotine dependence; Z88.0 Allergy status to penicillin; Z88.2 Allergy status to sulfonamides; Z90.49 Acquired absence of other specified parts of digestive tract

== ENCOUNTER 2018-04-24 15:54 | Inpatient (IN) | payer OTHER, MEDICARE ==
[2018-04-24 16:35] VITALS: BMI 36.5
[2018-04-24 17:57] VITALS: RESP 20
[2018-04-24] MEDS ORDERED: Albuterol-Ipratrop 3 mg / 0.5 (3 ml) UD INH PRN (19:38)
[2018-04-24] MEDS ORDERED: CIPROFLOXACIN LACTATE IV SCH (21:00)
[2018-04-24] MEDS ORDERED: D5W IV SCH (21:00)
[2018-04-24] MEDS: Ciprofloxacin 400mg/200ml D5W 400 MG/200 ML BAG IVPB SCH (21:06)
[2018-04-24] MEDS: Albuterol HFA 90 mcg/actuation (8 g) IH PRN (21:54)
[2018-04-25] MEDS: metroNIDAZOLE 500mg/100ml NS 100 ML IVPB SCH ×3 (00:30→17:33)
[2018-04-25 07:07] LABS: BASO # 0.1 K/uL (0.0-0.2); BASO % 0.5 % (0.0-2.0); EOS # 0.7 K/uL (0.0-0.7); EOS % 6.3 % (0.0-4.0); HEMOGLOBIN 11.4 g/dL (12.0-16.0); LYMPH # 1.5 K/uL (1.0-4.3); LYMPH % 12.8 % (20.0-40.0); MEAN CELL VOLUME 91.8 fl (81.0-99.0); MEAN CORPUSCULAR HEMOGLOBIN 30.6 pg (27.0-31.0); MEAN CORPUSCULAR HGB CONC 33.3 g/dL (33.0-37.0); MEAN PLATELET VOLUME 6.8 fl (7.2-11.7); MONO # 0.9 K/uL (0.0-0.8); MONO % 7.8 % (0.0-10.0); NEUT # 8.4 K/uL (1.8-7.0); NEUT % 72.6 % (50.0-75.0); NRBC % 0.2 % (0.0-0.0); RBC 3.71 Mil/uL (3.80-5.20); RED CELL DISTRIBUTION WIDTH 17.3 % (11.5-14.5); WHITE BLOOD COUNT 11.6 K/uL (4.8-10.8)
[2018-04-25 07:34] LABS: BLOOD UREA NITROGEN 6 mg/dl (7-17); CALCIUM 8.4 mg/dL (8.4-10.2); GFR NON-AFRICAN AMERICAN > 60
[2018-04-25] MEDS: Pantoprazole 40 mg EC Tab PO SCH (08:58)
[2018-04-25] MEDS: Enoxaparin 40 mg Syringe SC SCH (08:58)
[2018-04-25] MEDS: Digoxin 250 mcg (0.25 mg) Tab PO SCH (08:58)
[2018-04-25] MEDS ORDERED: metroNIDAZOLE 500mg/100ml NS IVPB SCH (09:00)
--- NOTE | 2018-04-25 09:32 | CP.PCM.PN ---
Subjective - Date & Time of Evaluation Date of Evaluation: 04/25/18 Time of Evaluation: 09:32 - Subjective Subjective: Patient seen at bedside this morning states she isnt feeling very well, still currently has abdominal pain, a decreased appetite, mildly tolerating diet patient feels nausea especially with food given Zofran this morning. Her last episode of diarrhea was 2 days ago, taking Imodium. Denies fevers, chills, night sweats, SOB or Chest pain. Patient currently on Flagyl day 5 and Cipro day 6. WBC count elevated 11.6 from 9.0 yest. Afebrile-T: 97.0 Patient will attempt PT today in TCU. 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 Objective - Vital Signs/Intake and Output Vital Signs (last 24 hours): Temp Pulse Resp BP Pulse Ox 97.0 F L 70 20 144/66 94 L 04/25/18 08:06 04/25/18 08:57 04/25/18 08:06 04/25/18 08:57 04/25/18 08:06 - Medications Medications: Current Medications Acetaminophen (Tylenol 325mg Tab) 650 mg PO Q4 PRN PRN Reason: Pain, Mild (1-3) Albuterol (Ventolin Hfa 90 Mcg/Actuation (8 G)) 2 puff IH Q4 PRN PRN Reason: Shortness of Breath Last Admin: 04/24/18 21:54 Dose: 2 puff Albuterol/Ipratropium (Duoneb 3 Mg/0.5 Mg (3 Ml) Ud) 3 ml INH RQ6 PRN PRN Reason: Shortness of Breath Aspirin (Ecotrin) 81 mg PO DAILY [facility] Last Admin: 04/25/18 08:57 Dose: 81 mg Atorvastatin Calcium (Lipitor) 10 mg PO HS [facility] Last Admin: 04/24/18 21:04 Dose: 10 mg Carvedilol (Coreg) 6.25 mg PO Q12 [facility] Last Admin: 04/25/18 08:57 Dose: 6.25 mg Clopidogrel Bisulfate (Plavix) 75 mg PO DAILY [facility] Last Admin: 04/25/18 08:58 Dose: 75 mg Digoxin (Lanoxin) 0.25 mg PO DAILY [facility] Last Admin: 04/25/18 08:58 Dose: 0.25 mg Enoxaparin Sodium (Lovenox) 40 mg SC DAILY [facility] PRN Reason: Protocol Last Admin: 04/25/18 08:58 Dose: 40 mg Metronidazole (Flagyl 500mg/100ml Ns) 100 mls @ 100 mls/hr IVPB Q8 [facility] Last Admin: 04/25/18 09:02 Dose: 100 mls/hr Ciprofloxacin (Cipro 400mg/200ml Dsw) 400 mg in 200 mls @ 200 mls/hr IVPB Q12 [facility] Last Admin: 04/24/18 21:06 Dose: 200 mls/hr Ondansetron HCl (Zofran Inj) 4 mg IVP Q6 PRN PRN Reason: Nausea/Vomiting Last Admin: 04/25/18 09:01 Dose: 4 mg Pantoprazole Sodium (Protonix Ec Tab) 40 mg PO DAILY [facility] Last Admin: 04/25/18 08:58 Dose: 40 mg Pregabalin (Lyrica) 50 mg PO Q12 [facility] Last Admin: 04/25/18 09:01 Dose: 50 mg Tramadol HCl (Ultram) 50 mg PO Q6 PRN PRN Reason: Pain, moderate (4-7) Last Admin: 04/24/18 20:15 Dose: 50 mg - Labs Labs: 04/25/18 06:20 04/25/18 06:20 - Constitutional Appears: Well, No Acute Distress - Head Exam Head Exam: ATRAUMATIC, NORMAL INSPECTION - Eye Exam Eye Exam: EOMI, Normal appearance - ENT Exam ENT Exam: Mucous Membranes Moist - Respiratory Exam Respiratory Exam: Clear to Ausculation Bilateral, NORMAL BREATHING PATTERN - Cardiovascular Exam Cardiovascular Exam: REGULAR RHYTHM, RRR, +S1, +S2 - GI/Abdominal Exam GI & Abdominal Exam: Soft, Tenderness (Tender to palpation LLQ), Hyperactive Bowel Sounds - Extremities Exam Additional comments: Slight erythema of shins, B/L feet cold to touch - Neurological Exam Neurological Exam: Alert, Awake, Oriented x3 (Peripheral Neuropathy ) Assessment and Plan (1) Diverticulitis Assessment & Plan: -Continue a low resin diet, nutrition consulted on divericulitis diet -Rising WBC count 11.6- continue antibiotics Flagyl + Cipro -Repeat CBC in AM Status: Acute (2) Chronic atrial fibrillation Assessment & Plan: - Continue ASA, Plavix. Status: Acute (3) DVT prophylaxis Assessment & Plan: - Lovenox Status: Acute (4) Asthma Assessment & Plan: - Stable- Albuterol PRN Status: Chronic
--- NOTE | 2018-04-25 10:58 | CP.PCM.PN ---
Subjective - Date & Time of Evaluation Date of Evaluation: 04/25/18 Time of Evaluation: 10:00 - Subjective Subjective: Pt feeling better still with some abdominal pain/diarrhea Cardiac llamas doing well Objective - Vital Signs/Intake and Output Vital Signs (last 24 hours): Temp Pulse Resp BP Pulse Ox 97.0 F L 70 20 144/66 94 L 04/25/18 08:06 04/25/18 08:57 04/25/18 08:06 04/25/18 08:57 04/25/18 08:06 - Medications Medications: Current Medications Acetaminophen (Tylenol 325mg Tab) 650 mg PO Q4 PRN PRN Reason: Pain, Mild (1-3) Albuterol (Ventolin Hfa 90 Mcg/Actuation (8 G)) 2 puff IH Q4 PRN PRN Reason: Shortness of Breath Last Admin: 04/24/18 21:54 Dose: 2 puff Albuterol/Ipratropium (Duoneb 3 Mg/0.5 Mg (3 Ml) Ud) 3 ml INH RQ6 PRN PRN Reason: Shortness of Breath Aspirin (Ecotrin) 81 mg PO DAILY [facility] Last Admin: 04/25/18 08:57 Dose: 81 mg Atorvastatin Calcium (Lipitor) 10 mg PO HS [facility] Last Admin: 04/24/18 21:04 Dose: 10 mg Carvedilol (Coreg) 6.25 mg PO Q12 [facility] Last Admin: 04/25/18 08:57 Dose: 6.25 mg Clopidogrel Bisulfate (Plavix) 75 mg PO DAILY [facility] Last Admin: 04/25/18 08:58 Dose: 75 mg Digoxin (Lanoxin) 0.25 mg PO DAILY [facility] Last Admin: 04/25/18 08:58 Dose: 0.25 mg Enoxaparin Sodium (Lovenox) 40 mg SC DAILY [facility] PRN Reason: Protocol Last Admin: 04/25/18 08:58 Dose: 40 mg Metronidazole (Flagyl 500mg/100ml Ns) 100 mls @ 100 mls/hr IVPB Q8 [facility] Last Admin: 04/25/18 09:02 Dose: 100 mls/hr Ciprofloxacin (Cipro 400mg/200ml Dsw) 400 mg in 200 mls @ 200 mls/hr IVPB Q12 [facility] Last Admin: 04/24/18 21:06 Dose: 200 mls/hr Ondansetron HCl (Zofran Inj) 4 mg IVP Q6 PRN PRN Reason: Nausea/Vomiting Last Admin: 04/25/18 09:01 Dose: 4 mg Pantoprazole Sodium (Protonix Ec Tab) 40 mg PO DAILY [facility] Last Admin: 04/25/18 08:58 Dose: 40 mg Pregabalin (Lyrica) 50 mg PO Q12 [facility] Last Admin: 04/25/18 09:01 Dose: 50 mg Tramadol HCl (Ultram) 50 mg PO Q6 PRN PRN Reason: Pain, moderate (4-7) Last Admin: 04/24/18 20:15 Dose: 50 mg - Labs Labs: 04/25/18 06:20 04/25/18 06:20
[2018-04-25] MEDS: Ciprofloxacin 400mg/200ml D5W 400 MG/200 ML BAG IVPB SCH ×2 (11:05→23:42)
--- NOTE | 2018-04-25 11:33 | CP.PCM.HP ---
<Lorrie Martinez - Last Filed: 04/25/18 11:33> Past Patient History - Infectious Disease Hx of Infectious Diseases: None - Tetanus Immunizations Tetanus Immunization: Unknown - Past Medical History & Family History Past Medical History?: Yes - Past Social History Smoking Status: Never Smoked - CARDIAC Hx Atrial Fibrillation: Yes Hx Cardia Arrhythmia: Yes (A FIB) Hx Congestive Heart Failure: Yes Hx Hypercholesterolemia: Yes Hx Hypertension: Yes Hx Peripheral Edema: Yes - PULMONARY Hx Asthma: Yes Hx Bronchitis: Yes Hx Chronic Obstructive Pulmonary Disease (COPD): Yes Hx Pneumonia: Yes Hx Sleep Apnea: No - NEUROLOGICAL Hx Vertigo: Yes Other/Comment: Hx peripheral neuropathy - HEENT Hx HEENT Problems: No - RENAL Hx Chronic Kidney Disease: No - ENDOCRINE/METABOLIC Hx Hypothyroidism: No - HEMATOLOGICAL/ONCOLOGICAL Hx Anemia: Yes Hx Human Immunodeficiency Virus (HIV): No - INTEGUMENTARY Hx Dermatological Problems: No - MUSCULOSKELETAL/RHEUMATOLOGICAL Hx Arthritis: No Hx Falls: No Hx Fractures: Yes (Left elbow) Hx Osteoporosis: Yes Hx Rheumatoid Arthritis: No - GASTROINTESTINAL Hx Diverticulitis: Yes Hx Gastritis: Yes - GENITOURINARY/GYNECOLOGICAL Hx Incontinence: Yes Hx Urinary Tract Infection: Yes - PSYCHIATRIC Hx Psychophysiologic Disorder: No Hx Substance Use: No - SURGICAL HISTORY Hx Cholecystectomy: Yes Hx Tonsillectomy: Yes - ANESTHESIA Hx Anesthesia: Yes Hx Anesthesia Reactions: No Hx Malignant Hyperthermia: No Meds Allergies/Adverse Reactions: Allergies Allergy/AdvReac Type Severity Reaction Status Date / Time Penicillins Allergy RASH Verified 04/24/18 16:34 Sulfa (Sulfonamide Allergy RASH Verified 04/24/18 16:34 Antibiotics) suture Allergy REDNESS Uncoded 04/24/18 16:34 Results - Vital Signs Recent Vital Signs: Last Vital Signs Temp 97.0 F L 04/25/18 08:06 Pulse 70 04/25/18 08:57 Resp 20 04/25/18 08:06 BP 144/66 04/25/18 08:57 Pulse Ox 94 L 04/25/18 08:06 - Labs Result Diagrams: 04/25/18 06:20 04/25/18 06:20 Labs: Laboratory Results - last 24 hr 04/25/18 04/25/18 06:20 06:20 WBC 11.6 H RBC 3.71 L Hgb 11.4 L Hct 34.1 MCV 91.8 MCH 30.6 MCHC 33.3 RDW 17.3 H Plt Count 432 H MPV 6.8 L Neut % (Auto) 72.6 Lymph % (Auto) 12.8 L Gove % (Auto) 7.8 Eos % (Auto) 6.3 H Baso % (Auto) 0.5 Neut # (Auto) 8.4 H Lymph # (Auto) 1.5 Gove # (Auto) 0.9 H Eos # (Auto) 0.7 Baso # (Auto) 0.1 Sodium 139 Potassium 3.6 Chloride 104 Carbon Dioxide 29 Anion Gap 10 BUN 6 L Creatinine 0.6 L Est GFR ( Amer) > 60 Est GFR (Non-Af Amer) > 60 Random Glucose 91 Calcium 8.4 <Myrtle Mejia - Last Filed: 04/25/18 11:38> Results - Vital Signs Recent Vital Signs: Last Vital Signs Temp 97.0 F L 04/25/18 08:06 Pulse 70 04/25/18 08:57 Resp 20 04/25/18 08:06 BP 144/66 04/25/18 08:57 Pulse Ox 94 L 04/25/18 08:06 - Labs Result Diagrams: 04/25/18 06:20 04/25/18 06:20 Labs: Laboratory Results - last 24 hr 04/25/18 04/25/18 06:20 06:20 WBC 11.6 H RBC 3.71 L Hgb 11.4 L Hct 34.1 MCV 91.8 MCH 30.6 MCHC 33.3 RDW 17.3 H Plt Count 432 H MPV 6.8 L Neut % (Auto) 72.6 Lymph % (Auto) 12.8 L Gove % (Auto) 7.8 Eos % (Auto) 6.3 H Baso % (Auto) 0.5 Neut # (Auto) 8.4 H Lymph # (Auto) 1.5 Gove # (Auto) 0.9 H Eos # (Auto) 0.7 Baso # (Auto) 0.1 Sodium 139 Potassium 3.6 Chloride 104 Carbon Dioxide 29 Anion Gap 10 BUN 6 L Creatinine 0.6 L Est GFR ( Amer) > 60 Est GFR (Non-Af Amer) > 60 Random Glucose 91 Calcium 8.4 Assessment & Plan (1) Diverticulitis Status: Acute Priority: High (2) Chronic atrial fibrillation Status: Acute (3) DVT prophylaxis Status: Acute Priority: Medium
--- NOTE | 2018-04-25 13:05 | CP.PCM.HP ---
Addendum entered and electronically signed by Myrtle Mejia MD 04/25/18 15: 48: Pt is 77 yo F with a Pmhx of Diverticulitis, chronic a fib, Asthma/COPD, CHF presented to the ED on 04/19/18 after being discharged from subacute rehab with moderate to severe constant LLQ abdominal pain and nonbloody diarrhea for a few days. Patient stated on admission that she has had other episodes of diverticulitis in the past which were slow to resolve. A CT of the abdomen and pelvis was positive for diverticulitis, she was afebrile and had a WBC count of 15. Patient was treated and now transferred to TCU for further rehab needs. Original Note: <Myrtle Mejia - Last Filed: 04/25/18 13:34> History of Present Illness - History of Present Illness History of Present Illness: Patient seen at bedside this morning states she isnt feeling very well, still currently has abdominal pain, a decreased appetite, mildly tolerating diet patient feels nausea especially with food given Zofran this morning. Her last episode of diarrhea was 2 days ago, taking Imodium. Denies fevers, chills, night sweats, SOB or Chest pain. Patient currently on Flagyl day 5 and Cipro day 6. WBC count elevated 11.6 from 9.0 yest. Afebrile-T: 97.0 Patient will attempt PT today in TCU. 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 Present on Admission - Present on Admission Any Indicators Present on Admission: No History of DVT/PE: No History of Uncontrolled Diabetes: No Urinary Catheter: No Decubitus Ulcer Present: No Review of Systems - Constitutional Additional comments: Decreased appetite - Gastrointestinal Gastrointestinal: Abdominal Pain, Diarrhea Additional comments: States last time she had diarrhea was 2 days ago, taking Immodium - Neurological Additional comments: Peripheral Neuropathy Past Patient History - Infectious Disease Hx of Infectious Diseases: None - Tetanus Immunizations Tetanus Immunization: Unknown - Past Medical History & Family History Past Medical History?: Yes - Past Social History Smoking Status: Never Smoked - CARDIAC Hx Atrial Fibrillation: Yes Hx Cardia Arrhythmia: Yes (A FIB) Hx Congestive Heart Failure: Yes Hx Hypercholesterolemia: Yes Hx Hypertension: Yes Hx Peripheral Edema: Yes - PULMONARY Hx Asthma: Yes Hx Bronchitis: Yes Hx Chronic Obstructive Pulmonary Disease (COPD): Yes Hx Pneumonia: Yes Hx Sleep Apnea: No - NEUROLOGICAL Hx Vertigo: Yes Other/Comment: Hx peripheral neuropathy - HEENT Hx HEENT Problems: No - RENAL Hx Chronic Kidney Disease: No - ENDOCRINE/METABOLIC Hx Hypothyroidism: No - HEMATOLOGICAL/ONCOLOGICAL Hx Anemia: Yes Hx Human Immunodeficiency Virus (HIV): No - INTEGUMENTARY Hx Dermatological Problems: No - MUSCULOSKELETAL/RHEUMATOLOGICAL Hx Arthritis: No Hx Falls: No Hx Fractures: Yes (Left elbow) Hx Osteoporosis: Yes Hx Rheumatoid Arthritis: No - GASTROINTESTINAL Hx Diverticulitis: Yes Hx Gastritis: Yes - GENITOURINARY/GYNECOLOGICAL Hx Incontinence: Yes Hx Urinary Tract Infection: Yes - PSYCHIATRIC Hx Psychophysiologic Disorder: No Hx Substance Use: No - SURGICAL HISTORY Hx Cholecystectomy: Yes Hx Tonsillectomy: Yes - ANESTHESIA Hx Anesthesia: Yes Hx Anesthesia Reactions: No Hx Malignant Hyperthermia: No Meds Allergies/Adverse Reactions: Allergies Allergy/AdvReac Type Severity Reaction Status Date / Time Penicillins Allergy RASH Verified 04/24/18 16:34 Sulfa (Sulfonamide Allergy RASH Verified 04/24/18 16:34 Antibiotics) suture Allergy REDNESS Uncoded 04/24/18 16:34 Physical Exam - Constitutional Appears: Well, No Acute Distress - Head Exam Head Exam: ATRAUMATIC, NORMAL INSPECTION, NORMOCEPHALIC - Eye Exam Eye Exam: EOMI, Normal appearance - ENT Exam ENT Exam: Mucous Membranes Moist - Neck Exam Neck exam: Positive for: Normal Inspection - Respiratory Exam Respiratory Exam: Clear to Auscultation Bilateral, NORMAL BREATHING PATTERN - Cardiovascular Exam Cardiovascular Exam: Irregular Rhythm, +S1, +S2 - GI/Abdominal Exam GI & Abdominal Exam: Hyperactive Bowel Sounds, Soft, Tenderness Additional comments: Tender to palpation of LLQ - Extremities Exam Additional comments: Slight erythema of shins, B/L feet cold to touch - Neurological Exam Neurological exam: Alert, CN II-XII Intact, Oriented x3 Additional comments: Peripheral Neuropathy Results - Vital Signs Recent Vital Signs: Last Vital Signs Temp 97.0 F L 04/25/18 08:06 Pulse 70 04/25/18 08:57 Resp 20 04/25/18 08:06 BP 144/66 04/25/18 08:57 Pulse Ox 94 L 04/25/18 08:06 - Labs Result Diagrams: 04/25/18 06:20 04/25/18 06:20 Labs: Laboratory Results - last 24 hr 04/25/18 04/25/18 06:20 06:20 WBC 11.6 H RBC 3.71 L Hgb 11.4 L Hct 34.1 MCV 91.8 MCH 30.6 MCHC 33.3 RDW 17.3 H Plt Count 432 H MPV 6.8 L Neut % (Auto) 72.6 Lymph % (Auto) 12.8 L [place] % (Auto) 7.8 Eos % (Auto) 6.3 H Baso % (Auto) 0.5 Neut # (Auto) 8.4 H Lymph # (Auto) 1.5 [place] # (Auto) 0.9 H Eos # (Auto) 0.7 Baso # (Auto) 0.1 Sodium 139 Potassium 3.6 Chloride 104 Carbon Dioxide 29 Anion Gap 10 BUN 6 L Creatinine 0.6 L Est GFR ( Amer) > 60 Est GFR (Non-Af Amer) > 60 Random Glucose 91 Calcium 8.4 Assessment & Plan (1) Diverticulitis Assessment and Plan: -Continue a low resin diet, nutrition consulted on divericulitis diet -Rising WBC count 11.6- continue antibiotics Flagyl + Cipro -Repeat CBC in AM Status: Acute Priority: High (2) Chronic atrial fibrillation Assessment and Plan: - Continue ASA, Plavix. Status: Acute (3) Asthma Assessment and Plan: - Stable- Continue Albuterol inhaler PRN Status: Chronic Priority: High (4) DVT prophylaxis Assessment and Plan: - Lovenox Status: Acute Priority: Medium <Lorrie Martinez - Last Filed: 04/30/18 09:08> Results - Vital Signs Recent Vital Signs: Last Vital Signs Temp 96.8 F L 04/30/18 07:45 Pulse 68 04/30/18 08:16 Resp 20 04/30/18 07:45 BP 143/104 H 04/30/18 08:16 Pulse Ox 96 04/30/18 07:45 - Labs Result Diagrams: 04/26/18 06:20 04/26/18 06:20 Labs: Laboratory Results - last 24 hr 04/29/18 11:25 Digoxin 2.0 Attending/Attestation - Attestation I have personally seen and examined this patient.: Yes I have fully participated in the care of the patient.: Yes I have reviewed all pertinent clinical information: Yes Notes (Text): 04/30/18 09:08 Seen, examined, and discussed with resident. Agree with findings and plan as above.
--- NOTE | 2018-04-25 20:42 | CP.PCM.CON ---
History of Present Illness - History of Present Illness History of Present Illness: 77 year old female asthmatic admitted with recurrent diverticulitis. She has done well with current antibiotic therapy and her asthma has remained stable with minimal need for use of beta-adrenergic rescue inhaler. She had been admitted recently with acute diverticulitis and was treated with antibiotic therapy conservatively. She responded well and was discharged to subacute rehabilitation where she appeared to be doing quite well until the day prior to her planned discharge she once again developed lower abdominal pain and change in bowel habit. She was readmitted to the hospital through the emergency room where she was found to have a recurrence of her acute diverticulitis. Past Patient History - Infectious Disease Hx of Infectious Diseases: None - Tetanus Immunizations Tetanus Immunization: Unknown - Past Medical History & Family History Past Medical History?: Yes - Past Social History Smoking Status: Never Smoked - CARDIAC Hx Atrial Fibrillation: Yes Hx Cardia Arrhythmia: Yes (A FIB) Hx Congestive Heart Failure: Yes Hx Hypercholesterolemia: Yes Hx Hypertension: Yes Hx Peripheral Edema: Yes - PULMONARY Hx Asthma: Yes Hx Bronchitis: Yes Hx Chronic Obstructive Pulmonary Disease (COPD): Yes Hx Pneumonia: Yes Hx Sleep Apnea: No - NEUROLOGICAL Hx Vertigo: Yes Other/Comment: Hx peripheral neuropathy - HEENT Hx HEENT Problems: No - RENAL Hx Chronic Kidney Disease: No - ENDOCRINE/METABOLIC Hx Hypothyroidism: No - HEMATOLOGICAL/ONCOLOGICAL Hx Anemia: Yes Hx Human Immunodeficiency Virus (HIV): No - INTEGUMENTARY Hx Dermatological Problems: No - MUSCULOSKELETAL/RHEUMATOLOGICAL Hx Arthritis: No Hx Falls: No Hx Fractures: Yes (Left elbow) Hx Osteoporosis: Yes Hx Rheumatoid Arthritis: No - GASTROINTESTINAL Hx Diverticulitis: Yes Hx Gastritis: Yes - GENITOURINARY/GYNECOLOGICAL Hx Incontinence: Yes Hx Urinary Tract Infection: Yes - PSYCHIATRIC Hx Psychophysiologic Disorder: No Hx Substance Use: No - SURGICAL HISTORY Hx Cholecystectomy: Yes Hx Tonsillectomy: Yes - ANESTHESIA Hx Anesthesia: Yes Hx Anesthesia Reactions: No Hx Malignant Hyperthermia: No Meds Allergies/Adverse Reactions: Allergies Allergy/AdvReac Type Severity Reaction Status Date / Time Penicillins Allergy RASH Verified 04/24/18 16:34 Sulfa (Sulfonamide Allergy RASH Verified 04/24/18 16:34 Antibiotics) suture Allergy REDNESS Uncoded 04/24/18 16:34 - Medications Medications: Current Medications Acetaminophen (Tylenol 325mg Tab) 650 mg PO Q4 PRN PRN Reason: Pain, Mild (1-3) Albuterol (Ventolin Hfa 90 Mcg/Actuation (8 G)) 2 puff IH Q4 PRN PRN Reason: Shortness of Breath Last Admin: 04/24/18 21:54 Dose: 2 puff Albuterol/Ipratropium (Duoneb 3 Mg/0.5 Mg (3 Ml) Ud) 3 ml INH RQ6 PRN PRN Reason: Shortness of Breath Aspirin (Ecotrin) 81 mg PO DAILY [facility] Last Admin: 04/25/18 08:57 Dose: 81 mg Atorvastatin Calcium (Lipitor) 10 mg PO HS [facility] Last Admin: 04/24/18 21:04 Dose: 10 mg Carvedilol (Coreg) 6.25 mg PO Q12 [facility] Last Admin: 04/25/18 08:57 Dose: 6.25 mg Clopidogrel Bisulfate (Plavix) 75 mg PO DAILY [facility] Last Admin: 04/25/18 08:58 Dose: 75 mg Digoxin (Lanoxin) 0.25 mg PO DAILY [facility] Last Admin: 04/25/18 08:58 Dose: 0.25 mg Enoxaparin Sodium (Lovenox) 40 mg SC DAILY [facility] PRN Reason: Protocol Last Admin: 04/25/18 08:58 Dose: 40 mg Metronidazole (Flagyl 500mg/100ml Ns) 100 mls @ 100 mls/hr IVPB Q8 [facility] Last Admin: 04/25/18 17:33 Dose: 100 mls/hr Ciprofloxacin (Cipro 400mg/200ml Dsw) 400 mg in 200 mls @ 200 mls/hr IVPB Q12 [facility] Last Admin: 04/25/18 11:05 Dose: 200 mls/hr Ondansetron HCl (Zofran Inj) 4 mg IVP Q6 PRN PRN Reason: Nausea/Vomiting Last Admin: 04/25/18 09:01 Dose: 4 mg Pantoprazole Sodium (Protonix Ec Tab) 40 mg PO DAILY [facility] Last Admin: 04/25/18 08:58 Dose: 40 mg Pregabalin (Lyrica) 50 mg PO Q12 [facility] Last Admin: 04/25/18 09:01 Dose: 50 mg Tramadol HCl (Ultram) 50 mg PO Q6 PRN PRN Reason: Pain, moderate (4-7) Last Admin: 04/24/18 20:15 Dose: 50 mg Physical Exam - Additional Findings Additional findings: Lying in bed comfortably. Has complaint of mild intermittent nausea. Pharynx is pink and mucous membranes are moist without exudate. Conjunctivae are pink and there is no scleral icterus. Neck is supple and trachea is midline. No visible neck vein distention. No palpable lymphadenopathy. No dullness on chest percussion. Equal expansion. Breath sounds are mildly diminished bilaterally with occasional sibilant rhonchi heard in the lower lobes. Expiratory phase appears slightly prolonged without any wheezing. No bronchial breathing or egophony. Heart sounds are distant and rhythm is irregular. Abdomen is soft, fleshy with minimal left lower quadrant tenderness. Bowel sounds are present. Trace ankle edema noted bilaterally with mild erythema but no increased warmth. No cyanosis. No calf tenderness. Results - Vital Signs Recent Vital Signs: Last Vital Signs Temp 97.7 F 04/25/18 15:39 Pulse 88 04/25/18 15:56 Resp 20 04/25/18 15:39 BP 121/83 04/25/18 15:39 Pulse Ox 96 04/25/18 15:39 - Labs Result Diagrams: 04/26/18 06:20 04/26/18 06:20 Labs: Laboratory Results - last 24 hr 04/25/18 04/25/18 06:20 06:20 WBC 11.6 H RBC 3.71 L Hgb 11.4 L Hct 34.1 MCV 91.8 MCH 30.6 MCHC 33.3 RDW 17.3 H Plt Count 432 H MPV 6.8 L Neut % (Auto) 72.6 Lymph % (Auto) 12.8 L [place] % (Auto) 7.8 Eos % (Auto) 6.3 H Baso % (Auto) 0.5 Neut # (Auto) 8.4 H Lymph # (Auto) 1.5 [place] # (Auto) 0.9 H Eos # (Auto) 0.7 Baso # (Auto) 0.1 Sodium 139 Potassium 3.6 Chloride 104 Carbon Dioxide 29 Anion Gap 10 BUN 6 L Creatinine 0.6 L Est GFR ( Amer) > 60 Est GFR (Non-Af Amer) > 60 Random Glucose 91 Calcium 8.4 Assessment & Plan (1) Diverticulitis Status: Acute Priority: High (2) Asthma Status: Chronic Priority: High (3) Atrial fibrillation, chronic Status: Chronic Priority: High - Assessment and Plan (Free Text) Plan: Continue current antibiotic regimen. Followup with gastroenterology. Inhalation therapy for her asthma will be on an as-needed basis only. Physical therapy. - Date & Time Date: 04/25/18 Time: 20:45
[2018-04-25 21:19] LABS: SQUAMOUS EPITHIAL 1 /hpf (0-5); URINE BACTERIA OCC (<OCC); URINE BILIRUBIN NEGATIVE (NEGATIVE); URINE BLOOD SMALL (NEGATIVE); URINE CLARITY CLOUDY (Clear); URINE COLOR YELLOW (YELLOW); URINE GLUCOSE (UA) NEG (Normal); URINE LEUKOCYTE ESTERASE LARGE Leu/uL (Negative); URINE PROTEIN NEGATIVE (NEGATIVE); URINE UROBILINOGEN 0.2-1.0 mg/dL (0.2-1.0)
[2018-04-26] MEDS: metroNIDAZOLE 500mg/100ml NS 100 ML IVPB SCH ×3 (01:32→16:51)
[2018-04-26 06:45] LABS: BLOOD UREA NITROGEN 5 mg/dl (7-17); CALCIUM 8.5 mg/dL (8.4-10.2); GFR NON-AFRICAN AMERICAN > 60
[2018-04-26 06:55] LABS: HEMOGLOBIN 11.5 g/dL (12.0-16.0); MEAN CELL VOLUME 92.7 fl (81.0-99.0); MEAN CORPUSCULAR HEMOGLOBIN 30.1 pg (27.0-31.0); MEAN CORPUSCULAR HGB CONC 32.5 g/dL (33.0-37.0); RBC 3.82 Mil/uL (3.80-5.20); RED CELL DISTRIBUTION WIDTH 17.2 % (11.5-14.5); WHITE BLOOD COUNT 10.6 K/uL (4.8-10.8)
[2018-04-26] MEDS: Enoxaparin 40 mg Syringe SC SCH (09:22)
[2018-04-26] MEDS: Digoxin 250 mcg (0.25 mg) Tab PO SCH (09:22)
[2018-04-26] MEDS: Pantoprazole 40 mg EC Tab PO SCH (09:23)
--- NOTE | 2018-04-26 09:51 | CP.PCM.CON ---
History of Present Illness - History of Present Illness History of Present Illness: Dr Knight PMR consultation on Marielos Zimmer, born 1940, who has been admitted to [facility] for further [facility]. I had seen her a month ago and performed knee and shoulder injections. She typically gets them on a monthly basis. I typically do not inject sooner than 3 months. She insists that she gets them monthly. I will make an exception and re-inject. The benefits lasted a couple of weeks Review of Systems - Cardiovascular Cardiovascular: absent: Chest Pain - Respiratory Respiratory: absent: Hemoptysis Past Patient History - Infectious Disease Hx of Infectious Diseases: None - Tetanus Immunizations Tetanus Immunization: Unknown - Past Medical History & Family History Past Medical History?: Yes - Past Social History Smoking Status: Never Smoked - CARDIAC Hx Atrial Fibrillation: Yes Hx Cardia Arrhythmia: Yes (A FIB) Hx Congestive Heart Failure: Yes Hx Hypercholesterolemia: Yes Hx Hypertension: Yes Hx Peripheral Edema: Yes - PULMONARY Hx Asthma: Yes Hx Bronchitis: Yes Hx Chronic Obstructive Pulmonary Disease (COPD): Yes Hx Pneumonia: Yes Hx Sleep Apnea: No - NEUROLOGICAL Hx Vertigo: Yes Other/Comment: Hx peripheral neuropathy - HEENT Hx HEENT Problems: No - RENAL Hx Chronic Kidney Disease: No - ENDOCRINE/METABOLIC Hx Hypothyroidism: No - HEMATOLOGICAL/ONCOLOGICAL Hx Anemia: Yes Hx Human Immunodeficiency Virus (HIV): No - INTEGUMENTARY Hx Dermatological Problems: No - MUSCULOSKELETAL/RHEUMATOLOGICAL Hx Arthritis: No Hx Falls: No Hx Fractures: Yes (Left elbow) Hx Osteoporosis: Yes Hx Rheumatoid Arthritis: No - GASTROINTESTINAL Hx Diverticulitis: Yes Hx Gastritis: Yes - GENITOURINARY/GYNECOLOGICAL Hx Incontinence: Yes Hx Urinary Tract Infection: Yes - PSYCHIATRIC Hx Psychophysiologic Disorder: No Hx Substance Use: No - SURGICAL HISTORY Hx Cholecystectomy: Yes Hx Tonsillectomy: Yes - ANESTHESIA Hx Anesthesia: Yes Hx Anesthesia Reactions: No Hx Malignant Hyperthermia: No Meds Allergies/Adverse Reactions: Allergies Allergy/AdvReac Type Severity Reaction Status Date / Time Penicillins Allergy RASH Verified 04/24/18 16:34 Sulfa (Sulfonamide Allergy RASH Verified 04/24/18 16:34 Antibiotics) suture Allergy REDNESS Uncoded 04/24/18 16:34 - Medications Medications: Current Medications Acetaminophen (Tylenol 325mg Tab) 650 mg PO Q4 PRN PRN Reason: Pain, Mild (1-3) Albuterol (Ventolin Hfa 90 Mcg/Actuation (8 G)) 2 puff IH Q4 PRN PRN Reason: Shortness of Breath Last Admin: 04/24/18 21:54 Dose: 2 puff Albuterol/Ipratropium (Duoneb 3 Mg/0.5 Mg (3 Ml) Ud) 3 ml INH RQ6 PRN PRN Reason: Shortness of Breath Aspirin (Ecotrin) 81 mg PO DAILY [facility] Last Admin: 04/26/18 09:22 Dose: 81 mg Atorvastatin Calcium (Lipitor) 10 mg PO HS [facility] Last Admin: 04/25/18 21:49 Dose: 10 mg Carvedilol (Coreg) 6.25 mg PO Q12 [facility] Last Admin: 04/26/18 09:22 Dose: 6.25 mg Clopidogrel Bisulfate (Plavix) 75 mg PO DAILY [facility] Last Admin: 04/26/18 09:23 Dose: 75 mg Digoxin (Lanoxin) 0.25 mg PO DAILY [facility] Last Admin: 04/26/18 09:22 Dose: 0.25 mg Enoxaparin Sodium (Lovenox) 40 mg SC DAILY [facility] PRN Reason: Protocol Last Admin: 04/26/18 09:22 Dose: 40 mg Metronidazole (Flagyl 500mg/100ml Ns) 100 mls @ 100 mls/hr IVPB Q8 [facility] Last Admin: 04/26/18 09:23 Dose: 100 mls/hr Ciprofloxacin (Cipro 400mg/200ml Dsw) 400 mg in 200 mls @ 200 mls/hr IVPB Q12@ 0000,1200 [facility] Last Admin: 04/25/18 23:42 Dose: 200 mls/hr Ondansetron HCl (Zofran Inj) 4 mg IVP Q6 PRN PRN Reason: Nausea/Vomiting Last Admin: 04/25/18 09:01 Dose: 4 mg Pantoprazole Sodium (Protonix Ec Tab) 40 mg PO DAILY [facility] Last Admin: 04/26/18 09:23 Dose: 40 mg Pregabalin (Lyrica) 50 mg PO Q12 [facility] Last Admin: 04/26/18 09:25 Dose: 50 mg Tramadol HCl (Ultram) 50 mg PO Q6 PRN PRN Reason: Pain, moderate (4-7) Last Admin: 04/26/18 09:29 Dose: 50 mg Physical Exam - Constitutional Appears: Non-toxic - Head Exam Head Exam: ATRAUMATIC, NORMAL INSPECTION, NORMOCEPHALIC Results - Vital Signs Recent Vital Signs: Last Vital Signs Temp 96.4 F L 04/26/18 08:25 Pulse 85 04/26/18 09:22 Resp 20 04/26/18 08:25 BP 134/72 04/26/18 09:22 Pulse Ox 93 L 04/26/18 08:25 - Labs Result Diagrams: 04/26/18 06:20 04/26/18 06:20 Labs: Laboratory Results - last 24 hr 04/25/18 04/26/18 04/26/18 21:10 06:20 06:20 WBC 10.6 RBC 3.82 Hgb 11.5 L Hct 35.4 MCV 92.7 MCH 30.1 MCHC 32.5 L RDW 17.2 H Plt Count 437 H Sodium 143 Potassium 3.8 Chloride 105 Carbon Dioxide 34 H Anion Gap 8 L BUN 5 L Creatinine 0.6 L Est GFR ( Amer) > 60 Est GFR (Non-Af Amer) > 60 Random Glucose 102 Calcium 8.5 Urine Color Yellow Urine Clarity Cloudy Urine pH 7.0 Ur Specific [place] < 1.005 Urine Protein Negative Urine Glucose (UA) Neg Urine Ketones Negative Urine Blood Small Urine Nitrate Negative Urine Bilirubin Negative Urine Urobilinogen 0.2-1.0 Ur Leukocyte Esterase Large Urine RBC (Auto) 25 H Urine Microscopic WBC 192 H Ur Squamous Epith Cells 1 Urine Bacteria Occ H Assessment & Plan - Assessment and Plan (Free Text) Assessment: elderly female severe djd will do bilateral knee and shoulder injection
[2018-04-26] MEDS ORDERED: Triamcinolone Acetonide 40 mg/mL Inj IAA ONE (09:52)
[2018-04-26] MEDS ORDERED: Lidocaine 1% MPF (30 ml) Inj INJ ONE (09:52)
[2018-04-26] MEDS ORDERED: Dexamethasone 4 mg/1 ml IAA ONE (09:52)
--- NOTE | 2018-04-26 12:05 | CP.PCM.PN ---
<Rebekah Mistry - Last Filed: 04/26/18 12:52> Subjective - Subjective Subjective: Ms. Zimmer was seen at bedside this morning; she was sitting comfortably in chair next to bed. She reports that she has some pain in her joints which she has spoken to cell support operator Dr. Knight about, and is hopeful that there will be further treatment that helps her joints. She continues to do well with antibiotic therapy (cipro and flagyl) for diverticulitis and has remained stable in regards to her asthma; she has minimal need for beta-adrenergic rescue inhaler. Pt has some urinary complaints, urgency, straining. Review of chart shows UA with elevated WBC and pending urine culture; urine culture from admission to medical floor prior to TCU admission showed E. coli and E. faecalis, resistant to ciprofloxacin. Objective - Vital Signs/Intake and Output Vital Signs (last 24 hours): Temp Pulse Resp BP Pulse Ox 96.4 F L 85 20 134/72 93 L 04/26/18 08:25 04/26/18 09:22 04/26/18 08:25 04/26/18 09:22 04/26/18 08:25 - Medications Medications: Current Medications Acetaminophen (Tylenol 325mg Tab) 650 mg PO Q4 PRN PRN Reason: Pain, Mild (1-3) Albuterol (Ventolin Hfa 90 Mcg/Actuation (8 G)) 2 puff IH Q4 PRN PRN Reason: Shortness of Breath Last Admin: 04/26/18 12:26 Dose: 2 puff Albuterol/Ipratropium (Duoneb 3 Mg/0.5 Mg (3 Ml) Ud) 3 ml INH RQ6 PRN PRN Reason: Shortness of Breath Aspirin (Ecotrin) 81 mg PO DAILY [facility] Last Admin: 04/26/18 09:22 Dose: 81 mg Atorvastatin Calcium (Lipitor) 10 mg PO HS [facility] Last Admin: 04/25/18 21:49 Dose: 10 mg Carvedilol (Coreg) 6.25 mg PO Q12 [facility] Last Admin: 04/26/18 09:22 Dose: 6.25 mg Clopidogrel Bisulfate (Plavix) 75 mg PO DAILY [facility] Last Admin: 04/26/18 09:23 Dose: 75 mg Digoxin (Lanoxin) 0.25 mg PO DAILY [facility] Last Admin: 04/26/18 09:22 Dose: 0.25 mg Enoxaparin Sodium (Lovenox) 40 mg SC DAILY [facility] PRN Reason: Protocol Last Admin: 04/26/18 09:22 Dose: 40 mg Metronidazole (Flagyl 500mg/100ml Ns) 100 mls @ 100 mls/hr IVPB Q8 [facility] Stop: 04/27/18 00:01 Last Admin: 04/26/18 09:23 Dose: 100 mls/hr Ciprofloxacin (Cipro 400mg/200ml Dsw) 400 mg in 200 mls @ 200 mls/hr IVPB Q12@ 0000,1200 [facility] Stop: 04/27/18 00:01 Last Admin: 04/25/18 23:42 Dose: 200 mls/hr Magnesium Hydroxide (Milk Of Magnesia) 30 ml PO DAILY [facility] Nitrofurantoin Macrocrystals (Macrobid) 100 mg PO Q12 [facility] PRN Reason: Protocol Stop: 05/03/18 21:00 Ondansetron HCl (Zofran Inj) 4 mg IVP Q6 PRN PRN Reason: Nausea/Vomiting Last Admin: 04/25/18 09:01 Dose: 4 mg Pantoprazole Sodium (Protonix Ec Tab) 40 mg PO DAILY [facility] Last Admin: 04/26/18 09:23 Dose: 40 mg Pregabalin (Lyrica) 50 mg PO Q12 [facility] Last Admin: 04/26/18 09:25 Dose: 50 mg Tramadol HCl (Ultram) 50 mg PO Q6 PRN PRN Reason: Pain, moderate (4-7) Last Admin: 04/26/18 09:29 Dose: 50 mg - Labs Labs: 04/26/18 06:20 04/26/18 06:20 - Constitutional Appears: No Acute Distress - Respiratory Exam Respiratory Exam: NORMAL BREATHING PATTERN. absent: Respiratory Distress - Neurological Exam Neurological Exam: Alert, Oriented x3 - Skin Skin Exam: Normal Color, Warm Assessment and Plan (1) Diverticulitis Status: Acute (2) UTI (urinary tract infection) Status: Acute (3) Asthma Status: Chronic - Assessment and Plan (Free Text) Assessment: Added macrobid for emperic coverage for UTI given pt's allergies and bacterial resistance to current antibiotics. Continue Venotlin use and Duoneb treatments as ordered. <Raymond Fang - Last Filed: 04/26/18 13:44> Subjective - Date & Time of Evaluation Date of Evaluation: 04/26/18 Time of Evaluation: 12:05 - Subjective Subjective: The patient was seen and examined with the residents earlier in the day. Physical findings were discussed and any ancillary studies were reviewed. A medical assessment was made and a plan of future care was developed. The entry in the EMR made by the resident was reviewed and represents an accurate account of today's visit. Objective - Vital Signs/Intake and Output Vital Signs (last 24 hours): Temp Pulse Resp BP Pulse Ox 96.4 F L 85 20 134/72 93 L 04/26/18 08:25 04/26/18 09:22 04/26/18 08:25 04/26/18 09:22 04/26/18 08:25 - Medications Medications: Current Medications Acetaminophen (Tylenol 325mg Tab) 650 mg PO Q4 PRN PRN Reason: Pain, Mild (1-3) Albuterol (Ventolin Hfa 90 Mcg/Actuation (8 G)) 2 puff IH Q4 PRN PRN Reason: Shortness of Breath Last Admin: 04/24/18 21:54 Dose: 2 puff Albuterol/Ipratropium (Duoneb 3 Mg/0.5 Mg (3 Ml) Ud) 3 ml INH RQ6 PRN PRN Reason: Shortness of Breath Aspirin (Ecotrin) 81 mg PO DAILY [facility] Last Admin: 04/26/18 09:22 Dose: 81 mg Atorvastatin Calcium (Lipitor) 10 mg PO HS [facility] Last Admin: 04/25/18 21:49 Dose: 10 mg Carvedilol (Coreg) 6.25 mg PO Q12 [facility] Last Admin: 04/26/18 09:22 Dose: 6.25 mg Clopidogrel Bisulfate (Plavix) 75 mg PO DAILY [facility] Last Admin: 04/26/18 09:23 Dose: 75 mg Digoxin (Lanoxin) 0.25 mg PO DAILY [facility] Last Admin: 04/26/18 09:22 Dose: 0.25 mg Enoxaparin Sodium (Lovenox) 40 mg SC DAILY [facility] PRN Reason: Protocol Last Admin: 04/26/18 09:22 Dose: 40 mg Metronidazole (Flagyl 500mg/100ml Ns) 100 mls @ 100 mls/hr IVPB Q8 [facility] Stop: 04/27/18 00:01 Last Admin: 04/26/18 09:23 Dose: 100 mls/hr Ciprofloxacin (Cipro 400mg/200ml Dsw) 400 mg in 200 mls @ 200 mls/hr IVPB Q12@ 0000,1200 [facility] Stop: 04/27/18 00:01 Last Admin: 04/25/18 23:42 Dose: 200 mls/hr Magnesium Hydroxide (Milk Of Magnesia) 30 ml PO DAILY [facility] Nitrofurantoin Macrocrystals (Macrobid) 100 mg PO Q12 [facility] PRN Reason: Protocol Stop: 05/03/18 21:00 Ondansetron HCl (Zofran Inj) 4 mg IVP Q6 PRN PRN Reason: Nausea/Vomiting Last Admin: 04/25/18 09:01 Dose: 4 mg Pantoprazole Sodium (Protonix Ec Tab) 40 mg PO DAILY [facility] Last Admin: 04/26/18 09:23 Dose: 40 mg Pregabalin (Lyrica) 50 mg PO Q12 [facility] Last Admin: 04/26/18 09:25 Dose: 50 mg Tramadol HCl (Ultram) 50 mg PO Q6 PRN PRN Reason: Pain, moderate (4-7) Last Admin: 04/26/18 09:29 Dose: 50 mg - Labs Labs: 04/26/18 06:20 04/26/18 06:20 Assessment and Plan (1) Diverticulitis Status: Acute (2) Asthma Status: Chronic (3) Atrial fibrillation, chronic Status: Chronic
--- NOTE | 2018-04-26 12:08 | CP.PCM.CON ---
History of Present Illness - History of Present Illness History of Present Illness: GI consult note for Dr. Riley Consulted for: diverticulitis Pt is a 77F with PMH including diverticulosis, CHF, COPD, AFIB, and anemia who has resolving diverticulitis. Patient was first admitted for diverticulitis on and was treated with IV antibiotics and transferred to outside rehab facility. Patient completed a course of antibiotics at the facility but then began to have more L abdominal pain a few days after antibiotics were discontinued and she was re-admitted for persistent diverticulitis on 04/19. CT scan did not show any abscesses or free air. Patient was started on IV cipro and flagyl and has been recovering well. Patient was just transferred to the TCU. Patient states that her LLQ pain is improving, only mild and intermittent in nature. Patient states that she hasn't had a bowel movement in 3 days after she was given immodium for diarrhea. She denies bloating or discomfort. Stool did not have hematochezia or melena. Patient has had some foul smelling urine but no hematuria, pyuria, or dysuria. Patient denies fevers or chills, she is tolerating her diet PMH: afib, CAD, CHF, HLD, HTN, COPD, anemia, osteoporosis, left elbow fracture PSH: cholecystectomy, tonsilectomy, right rib resection, left wrist surgery ALL: PCN, sulfa, sutures Review of Systems - Review of Systems All systems: reviewed and no additional remarkable complaints except (as per HPI ) Past Patient History - Infectious Disease Hx of Infectious Diseases: None - Tetanus Immunizations Tetanus Immunization: Unknown - Past Medical History & Family History Past Medical History?: Yes - Past Social History Smoking Status: Never Smoked - CARDIAC Hx Atrial Fibrillation: Yes Hx Cardia Arrhythmia: Yes (A FIB) Hx Congestive Heart Failure: Yes Hx Hypercholesterolemia: Yes Hx Hypertension: Yes Hx Peripheral Edema: Yes - PULMONARY Hx Asthma: Yes Hx Bronchitis: Yes Hx Chronic Obstructive Pulmonary Disease (COPD): Yes Hx Pneumonia: Yes Hx Sleep Apnea: No - NEUROLOGICAL Hx Vertigo: Yes Other/Comment: Hx peripheral neuropathy - HEENT Hx HEENT Problems: No - RENAL Hx Chronic Kidney Disease: No - ENDOCRINE/METABOLIC Hx Hypothyroidism: No - HEMATOLOGICAL/ONCOLOGICAL Hx Anemia: Yes Hx Human Immunodeficiency Virus (HIV): No - INTEGUMENTARY Hx Dermatological Problems: No - MUSCULOSKELETAL/RHEUMATOLOGICAL Hx Arthritis: No Hx Falls: No Hx Fractures: Yes (Left elbow) Hx Osteoporosis: Yes Hx Rheumatoid Arthritis: No - GASTROINTESTINAL Hx Diverticulitis: Yes Hx Gastritis: Yes - GENITOURINARY/GYNECOLOGICAL Hx Incontinence: Yes Hx Urinary Tract Infection: Yes - PSYCHIATRIC Hx Psychophysiologic Disorder: No Hx Substance Use: No - SURGICAL HISTORY Hx Cholecystectomy: Yes Hx Tonsillectomy: Yes - ANESTHESIA Hx Anesthesia: Yes Hx Anesthesia Reactions: No Hx Malignant Hyperthermia: No Meds Allergies/Adverse Reactions: Allergies Allergy/AdvReac Type Severity Reaction Status Date / Time Penicillins Allergy RASH Verified 04/24/18 16:34 Sulfa (Sulfonamide Allergy RASH Verified 04/24/18 16:34 Antibiotics) suture Allergy REDNESS Uncoded 04/24/18 16:34 - Medications Medications: Current Medications Acetaminophen (Tylenol 325mg Tab) 650 mg PO Q4 PRN PRN Reason: Pain, Mild (1-3) Albuterol (Ventolin Hfa 90 Mcg/Actuation (8 G)) 2 puff IH Q4 PRN PRN Reason: Shortness of Breath Last Admin: 04/24/18 21:54 Dose: 2 puff Albuterol/Ipratropium (Duoneb 3 Mg/0.5 Mg (3 Ml) Ud) 3 ml INH RQ6 PRN PRN Reason: Shortness of Breath Aspirin (Ecotrin) 81 mg PO DAILY [facility] Last Admin: 04/26/18 09:22 Dose: 81 mg Atorvastatin Calcium (Lipitor) 10 mg PO HS [facility] Last Admin: 04/25/18 21:49 Dose: 10 mg Carvedilol (Coreg) 6.25 mg PO Q12 [facility] Last Admin: 04/26/18 09:22 Dose: 6.25 mg Clopidogrel Bisulfate (Plavix) 75 mg PO DAILY [facility] Last Admin: 04/26/18 09:23 Dose: 75 mg Digoxin (Lanoxin) 0.25 mg PO DAILY [facility] Last Admin: 04/26/18 09:22 Dose: 0.25 mg Enoxaparin Sodium (Lovenox) 40 mg SC DAILY [facility] PRN Reason: Protocol Last Admin: 04/26/18 09:22 Dose: 40 mg Metronidazole (Flagyl 500mg/100ml Ns) 100 mls @ 100 mls/hr IVPB Q8 [facility] Stop: 04/27/18 00:01 Last Admin: 04/26/18 09:23 Dose: 100 mls/hr Ciprofloxacin (Cipro 400mg/200ml Dsw) 400 mg in 200 mls @ 200 mls/hr IVPB Q12@ 0000,1200 [facility] Stop: 04/27/18 00:01 Last Admin: 04/25/18 23:42 Dose: 200 mls/hr Magnesium Hydroxide (Milk Of Magnesia) 30 ml PO DAILY [facility] Nitrofurantoin Macrocrystals (Macrobid) 100 mg PO Q12 [facility] PRN Reason: Protocol Stop: 05/03/18 21:00 Ondansetron HCl (Zofran Inj) 4 mg IVP Q6 PRN PRN Reason: Nausea/Vomiting Last Admin: 04/25/18 09:01 Dose: 4 mg Pantoprazole Sodium (Protonix Ec Tab) 40 mg PO DAILY [facility] Last Admin: 04/26/18 09:23 Dose: 40 mg Pregabalin (Lyrica) 50 mg PO Q12 [facility] Last Admin: 04/26/18 09:25 Dose: 50 mg Tramadol HCl (Ultram) 50 mg PO Q6 PRN PRN Reason: Pain, moderate (4-7) Last Admin: 04/26/18 09:29 Dose: 50 mg Physical Exam - Constitutional Appears: Well, Non-toxic, No Acute Distress - Head Exam Head Exam: ATRAUMATIC, NORMOCEPHALIC - Eye Exam Eye Exam: Normal appearance. absent: Conjunctival injection, Scleral icterus - ENT Exam ENT Exam: Mucous Membranes Moist, Normal Oropharynx - Respiratory Exam Respiratory Exam: NORMAL BREATHING PATTERN. absent: Accessory Muscle Use, Respiratory Distress - Cardiovascular Exam Cardiovascular Exam: RRR - GI/Abdominal Exam GI & Abdominal Exam: Normal Bowel Sounds, Soft, Tenderness (mild LLQ tenderness to deep palpation). absent: Distended - Extremities Exam Extremities exam: Positive for: calf tenderness (BL lower extremity with chronic edema and cellulitis), pedal edema, pedal pulses present - Neurological Exam Neurological exam: Alert, Oriented x3 - Psychiatric Exam Psychiatric exam: Normal Affect, Normal Mood - Skin Skin Exam: Dry, Normal Color (except as noted above), Warm Results - Vital Signs Recent Vital Signs: Last Vital Signs Temp 96.4 F L 04/26/18 08:25 Pulse 85 04/26/18 09:22 Resp 20 04/26/18 08:25 BP 134/72 04/26/18 09:22 Pulse Ox 93 L 04/26/18 08:25 - Labs Result Diagrams: 04/26/18 06:20 04/26/18 06:20 Labs: Laboratory Results - last 24 hr 04/25/18 04/26/18 04/26/18 21:10 06:20 06:20 WBC 10.6 RBC 3.82 Hgb 11.5 L Hct 35.4 MCV 92.7 MCH 30.1 MCHC 32.5 L RDW 17.2 H Plt Count 437 H Sodium 143 Potassium 3.8 Chloride 105 Carbon Dioxide 34 H Anion Gap 8 L BUN 5 L Creatinine 0.6 L Est GFR ( Amer) > 60 Est GFR (Non-Af Amer) > 60 Random Glucose 102 Calcium 8.5 Urine Color Yellow Urine Clarity Cloudy Urine pH 7.0 Ur Specific [place] < 1.005 Urine Protein Negative Urine Glucose (UA) Neg Urine Ketones Negative Urine Blood Small Urine Nitrate Negative Urine Bilirubin Negative Urine Urobilinogen 0.2-1.0 Ur Leukocyte Esterase Large Urine RBC (Auto) 25 H Urine Microscopic WBC 192 H Ur Squamous Epith Cells 1 Urine Bacteria Occ H Assessment & Plan - Assessment and Plan (Free Text) Assessment: 77F with recurrent diverticulitis, now resolved Plan: Continue antibiotics through today, fulfilling 7 days of treatment Continue current diet Add milk of magnesium [place] [facility] Plan to perform colonoscopy in approximately 6 weeks--no further intervention planned this hospitalization Discussed with Dr. Riley, who agrees with above Brenda Najera, PGY2
[2018-04-26] MEDS: Albuterol HFA 90 mcg/actuation (8 g) IH PRN (12:26)
[2018-04-26] MEDS: Ciprofloxacin 400mg/200ml D5W 400 MG/200 ML BAG IVPB SCH (13:40)
[2018-04-26] MEDS: Magnesium Hydroxide Susp 30 ml UD PO SCH (18:23)
[2018-04-27] MEDS: Ciprofloxacin 400mg/200ml D5W 400 MG/200 ML BAG IVPB SCH (00:36)
[2018-04-27] MEDS: Digoxin 250 mcg (0.25 mg) Tab PO SCH (08:14)
[2018-04-27] MEDS: Pantoprazole 40 mg EC Tab PO SCH (08:14)
[2018-04-27] MEDS: Enoxaparin 40 mg Syringe SC SCH (08:14)
[2018-04-27] MEDS: Magnesium Hydroxide Susp 30 ml UD PO SCH (08:15)
--- NOTE | 2018-04-27 12:41 | CP.PCM.PN ---
Subjective - Date & Time of Evaluation Date of Evaluation: 04/27/18 Time of Evaluation: 12:38 - Subjective Subjective: Appears comfortable. No abdominal pain or nausea. Appetite is still poor. Cipro/Flagyl have been discontinued ( received 7 days). Occasional mild chest tightness with use of rescue inhaler. No audible wheezes or rales on chest exam. Abdomen is soft and non-tender with good bowel sounds. Ankles are pink with trace edema. On nitrofurantoin for UTI presently. Continue physical therapy. Monitor need for rescue inhaler use. Objective - Vital Signs/Intake and Output Vital Signs (last 24 hours): Temp Pulse Resp BP Pulse Ox 97.2 F L 60 20 129/60 99 04/27/18 08:08 04/27/18 08:13 04/27/18 08:08 04/27/18 08:13 04/27/18 08:08 - Medications Medications: Current Medications Acetaminophen (Tylenol 325mg Tab) 650 mg PO Q4 PRN PRN Reason: Pain, Mild (1-3) Albuterol (Ventolin Hfa 90 Mcg/Actuation (8 G)) 2 puff IH Q4 PRN PRN Reason: Shortness of Breath Last Admin: 04/26/18 12:26 Dose: 2 puff Albuterol/Ipratropium (Duoneb 3 Mg/0.5 Mg (3 Ml) Ud) 3 ml INH RQ6 PRN PRN Reason: Shortness of Breath Aspirin (Ecotrin) 81 mg PO DAILY [facility] Last Admin: 04/27/18 08:14 Dose: 81 mg Atorvastatin Calcium (Lipitor) 10 mg PO HS [facility] Last Admin: 04/26/18 21:12 Dose: 10 mg Carvedilol (Coreg) 6.25 mg PO Q12 [facility] Last Admin: 04/27/18 08:13 Dose: 6.25 mg Clopidogrel Bisulfate (Plavix) 75 mg PO DAILY [facility] Last Admin: 04/27/18 08:14 Dose: 75 mg Digoxin (Lanoxin) 0.25 mg PO DAILY [facility] Last Admin: 04/27/18 08:14 Dose: 0.25 mg Enoxaparin Sodium (Lovenox) 40 mg SC DAILY [facility] PRN Reason: Protocol Last Admin: 04/27/18 08:14 Dose: 40 mg Magnesium Hydroxide (Milk Of Magnesia) 30 ml PO DAILY [facility] Last Admin: 04/27/18 08:15 Dose: 30 ml Nitrofurantoin Macrocrystals (Macrobid) 100 mg PO Q12 [facility] PRN Reason: Protocol Stop: 05/03/18 21:00 Last Admin: 04/27/18 08:14 Dose: 100 mg Ondansetron HCl (Zofran Inj) 4 mg IVP Q6 PRN PRN Reason: Nausea/Vomiting Last Admin: 04/26/18 12:52 Dose: 4 mg Pantoprazole Sodium (Protonix Ec Tab) 40 mg PO DAILY [facility] Last Admin: 04/27/18 08:14 Dose: 40 mg Pregabalin (Lyrica) 50 mg PO Q12 [facility] Last Admin: 04/27/18 08:16 Dose: 50 mg Tramadol HCl (Ultram) 50 mg PO Q6 PRN PRN Reason: Pain, moderate (4-7) Last Admin: 04/27/18 01:38 Dose: 50 mg - Labs Labs: 04/26/18 06:20 04/26/18 06:20 Assessment and Plan (1) Diverticulitis Status: Acute (2) Asthma Status: Chronic (3) Atrial fibrillation, chronic Status: Chronic
[2018-04-28] MEDS: Enoxaparin 40 mg Syringe SC SCH (08:50)
[2018-04-28] MEDS: Digoxin 250 mcg (0.25 mg) Tab PO SCH (08:50)
[2018-04-28] MEDS: Pantoprazole 40 mg EC Tab PO SCH (08:52)
[2018-04-28] MEDS: Magnesium Hydroxide Susp 30 ml UD PO SCH (08:52)
[2018-04-28] MEDS ORDERED: Magnesium Hydroxide Susp 30 ml UD PO PRN (16:29)
--- NOTE | 2018-04-28 20:39 | CP.PCM.PN ---
Subjective - Date & Time of Evaluation Date of Evaluation: 04/28/18 Time of Evaluation: 17:00 - Subjective Subjective: Patient had a couple of BMs today. Generally doing well. Objective - Vital Signs/Intake and Output Vital Signs (last 24 hours): Temp Pulse Resp BP Pulse Ox 97.0 F L 83 20 121/71 95 04/28/18 17:21 04/28/18 17:21 04/28/18 17:21 04/28/18 17:21 04/28/18 17:21 - Medications Medications: Current Medications Acetaminophen (Tylenol 325mg Tab) 650 mg PO Q4 PRN PRN Reason: Pain, Mild (1-3) Albuterol (Ventolin Hfa 90 Mcg/Actuation (8 G)) 2 puff IH Q4 PRN PRN Reason: Shortness of Breath Last Admin: 04/26/18 12:26 Dose: 2 puff Albuterol/Ipratropium (Duoneb 3 Mg/0.5 Mg (3 Ml) Ud) 3 ml INH RQ6 PRN PRN Reason: Shortness of Breath Aspirin (Ecotrin) 81 mg PO DAILY [facility] Last Admin: 04/28/18 08:50 Dose: 81 mg Atorvastatin Calcium (Lipitor) 10 mg PO HS [facility] Last Admin: 04/27/18 21:07 Dose: 10 mg Carvedilol (Coreg) 6.25 mg PO Q12 [facility] Last Admin: 04/28/18 08:50 Dose: 6.25 mg Clopidogrel Bisulfate (Plavix) 75 mg PO DAILY [facility] Last Admin: 04/28/18 08:52 Dose: 75 mg Digoxin (Lanoxin) 0.25 mg PO DAILY [facility] Last Admin: 04/28/18 08:50 Dose: 0.25 mg Magnesium Hydroxide (Milk Of Magnesia) 30 ml PO DAILY [facility] PRN Reason: Constipation Nitrofurantoin Macrocrystals (Macrobid) 100 mg PO Q12 [facility] PRN Reason: Protocol Stop: 05/03/18 21:00 Last Admin: 04/28/18 08:51 Dose: 100 mg Ondansetron HCl (Zofran Inj) 4 mg IVP Q6 PRN PRN Reason: Nausea/Vomiting Last Admin: 04/28/18 11:14 Dose: 4 mg Pantoprazole Sodium (Protonix Ec Tab) 40 mg PO DAILY [facility] Last Admin: 04/28/18 08:52 Dose: 40 mg Pregabalin (Lyrica) 50 mg PO Q12 [facility] Last Admin: 04/28/18 08:51 Dose: 50 mg Tramadol HCl (Ultram) 50 mg PO Q6 PRN PRN Reason: Pain, moderate (4-7) Last Admin: 04/27/18 17:14 Dose: 50 mg - Labs Labs: 04/26/18 06:20 04/26/18 06:20 - Eye Exam Eye Exam: EOMI, Normal appearance - ENT Exam ENT Exam: Normal Exam - Neck Exam Neck Exam: Normal Inspection - Respiratory Exam Respiratory Exam: Clear to Ausculation Bilateral - Cardiovascular Exam Cardiovascular Exam: +S1, +S2 - GI/Abdominal Exam GI & Abdominal Exam: Soft. absent: Tenderness Assessment and Plan (1) Diverticulitis Assessment & Plan: Doing well off abx. Maintain BMs regular to soft consistency. Status: Acute
--- NOTE | 2018-04-29 08:48 | CP.PCM.CON ---
History of Present Illness - History of Present Illness History of Present Illness: 77 yo w/f admitted with recurrent diverticulitis I have been following the patient Cardiac llamas the patient has been doing well EKG: Atrial Fibrillation Echo 03/04/2018 Concentric hypertrophy LV EF: 35 - 40% KAYLIN MAC MR PMH: Anemia, Asthma, Atrial Fibrillation not on anti coagulation secondary to complications Bronchitis, CAD CHF acute on chronic Left systolic Diverticulitis, Fractures (Left elbow repair), Gastritis, Osteoporosis, Peripheral Edema, Pneumonia, Sleep Apnea Past Patient History - Infectious Disease Hx of Infectious Diseases: None - Tetanus Immunizations Tetanus Immunization: Unknown - Past Medical History & Family History Past Medical History?: Yes - Past Social History Smoking Status: Never Smoked - CARDIAC Hx Atrial Fibrillation: Yes Hx Cardia Arrhythmia: Yes (A FIB) Hx Congestive Heart Failure: Yes Hx Hypercholesterolemia: Yes Hx Hypertension: Yes Hx Peripheral Edema: Yes - PULMONARY Hx Asthma: Yes Hx Bronchitis: Yes Hx Chronic Obstructive Pulmonary Disease (COPD): Yes Hx Pneumonia: Yes Hx Sleep Apnea: No - NEUROLOGICAL Hx Vertigo: Yes Other/Comment: Hx peripheral neuropathy - HEENT Hx HEENT Problems: No - RENAL Hx Chronic Kidney Disease: No - ENDOCRINE/METABOLIC Hx Hypothyroidism: No - HEMATOLOGICAL/ONCOLOGICAL Hx Anemia: Yes Hx Human Immunodeficiency Virus (HIV): No - INTEGUMENTARY Hx Dermatological Problems: No - MUSCULOSKELETAL/RHEUMATOLOGICAL Hx Arthritis: No Hx Falls: No Hx Fractures: Yes (Left elbow) Hx Osteoporosis: Yes Hx Rheumatoid Arthritis: No - GASTROINTESTINAL Hx Diverticulitis: Yes Hx Gastritis: Yes - GENITOURINARY/GYNECOLOGICAL Hx Incontinence: Yes Hx Urinary Tract Infection: Yes - PSYCHIATRIC Hx Psychophysiologic Disorder: No Hx Substance Use: No - SURGICAL HISTORY Hx Cholecystectomy: Yes Hx Tonsillectomy: Yes - ANESTHESIA Hx Anesthesia: Yes Hx Anesthesia Reactions: No Hx Malignant Hyperthermia: No Meds Allergies/Adverse Reactions: Allergies Allergy/AdvReac Type Severity Reaction Status Date / Time Penicillins Allergy RASH Verified 04/24/18 16:34 Sulfa (Sulfonamide Allergy RASH Verified 04/24/18 16:34 Antibiotics) suture Allergy REDNESS Uncoded 04/24/18 16:34 - Medications Medications: Current Medications Acetaminophen (Tylenol 325mg Tab) 650 mg PO Q4 PRN PRN Reason: Pain, Mild (1-3) Albuterol (Ventolin Hfa 90 Mcg/Actuation (8 G)) 2 puff IH Q4 PRN PRN Reason: Shortness of Breath Last Admin: 04/26/18 12:26 Dose: 2 puff Albuterol/Ipratropium (Duoneb 3 Mg/0.5 Mg (3 Ml) Ud) 3 ml INH RQ6 PRN PRN Reason: Shortness of Breath Aspirin (Ecotrin) 81 mg PO DAILY [facility] Last Admin: 04/28/18 08:50 Dose: 81 mg Atorvastatin Calcium (Lipitor) 10 mg PO HS [facility] Last Admin: 04/27/18 21:07 Dose: 10 mg Carvedilol (Coreg) 6.25 mg PO Q12 [facility] Last Admin: 04/28/18 21:27 Dose: 6.25 mg Clopidogrel Bisulfate (Plavix) 75 mg PO DAILY [facility] Last Admin: 04/28/18 08:52 Dose: 75 mg Digoxin (Lanoxin) 0.25 mg PO DAILY [facility] Last Admin: 04/28/18 08:50 Dose: 0.25 mg Magnesium Hydroxide (Milk Of Magnesia) 30 ml PO DAILY PRN PRN Reason: Constipation Nitrofurantoin Macrocrystals (Macrobid) 100 mg PO Q12 [facility] PRN Reason: Protocol Stop: 05/03/18 21:00 Last Admin: 04/28/18 21:27 Dose: 100 mg Ondansetron HCl (Zofran Inj) 4 mg IVP Q6 PRN PRN Reason: Nausea/Vomiting Last Admin: 04/28/18 11:14 Dose: 4 mg Pantoprazole Sodium (Protonix Ec Tab) 40 mg PO DAILY [facility] Last Admin: 04/28/18 08:52 Dose: 40 mg Pregabalin (Lyrica) 50 mg PO Q12 [facility] Last Admin: 04/28/18 21:26 Dose: 50 mg Tramadol HCl (Ultram) 50 mg PO Q6 PRN PRN Reason: Pain, moderate (4-7) Last Admin: 04/27/18 17:14 Dose: 50 mg Physical Exam - Constitutional Appears: Well - Head Exam Head Exam: NORMAL INSPECTION - Eye Exam Eye Exam: Normal appearance - ENT Exam ENT Exam: Normal Exam - Respiratory Exam Respiratory Exam: NORMAL BREATHING PATTERN - Cardiovascular Exam Cardiovascular Exam: Irregular Rhythm Results - Vital Signs Recent Vital Signs: Last Vital Signs Temp 97.6 F 04/29/18 08:28 Pulse 83 04/29/18 08:28 Resp 20 04/29/18 08:28 BP 130/74 04/29/18 08:28 Pulse Ox 99 04/29/18 08:28 - Labs Result Diagrams: 04/26/18 06:20 04/26/18 06:20 Assessment & Plan (1) Chronic atrial fibrillation Assessment and Plan: Cardiac llamas patient is doing well Status: Acute (2) Diverticulitis Status: Acute Priority: High (3) Asthma Status: Chronic Priority: High
[2018-04-29] MEDS: Pantoprazole 40 mg EC Tab PO SCH (08:53)
[2018-04-29] MEDS: Digoxin 250 mcg (0.25 mg) Tab PO SCH (08:53)
--- NOTE | 2018-04-29 11:23 | CP.PCM.PN ---
<FedeRebekah - Last Filed: 04/29/18 11:32> Subjective - Date & Time of Evaluation Date of Evaluation: 04/29/18 Time of Evaluation: 10:00 - Subjective Subjective: Pulmonology note for Dr. Fang. Ms. Zimmer was seen this morning during bedside rounds with Dr. Fang. She was sitting up in bed, stated she felt ok but a little not like herself today; she was waiting for garment steamer for joint pain treatment. She has completed her antibiotic therapy (cipro and flagyl) for diverticulitis. She has remained stable in regards to her asthma; continues to have minimal need for beta-adrenergic rescue inhaler. Review of records showed urine culture results- E. coli resistant to previously started macrobid. Pt has penicillin allergy listed but has taken cephalosporins without difficulty in the past. Objective - Vital Signs/Intake and Output Vital Signs (last 24 hours): Temp Pulse Resp BP Pulse Ox 97.6 F 83 20 130/74 99 04/29/18 08:28 04/29/18 08:53 04/29/18 08:28 04/29/18 08:53 04/29/18 08:28 - Medications Medications: Current Medications Acetaminophen (Tylenol 325mg Tab) 650 mg PO Q4 PRN PRN Reason: Pain, Mild (1-3) Albuterol (Ventolin Hfa 90 Mcg/Actuation (8 G)) 2 puff IH Q4 PRN PRN Reason: Shortness of Breath Last Admin: 04/26/18 12:26 Dose: 2 puff Albuterol/Ipratropium (Duoneb 3 Mg/0.5 Mg (3 Ml) Ud) 3 ml INH RQ6 PRN PRN Reason: Shortness of Breath Aspirin (Ecotrin) 81 mg PO DAILY [facility] Last Admin: 04/29/18 08:53 Dose: 81 mg Atorvastatin Calcium (Lipitor) 10 mg PO HS [facility] Last Admin: 04/27/18 21:07 Dose: 10 mg Carvedilol (Coreg) 6.25 mg PO Q12 [facility] Last Admin: 04/29/18 08:53 Dose: 6.25 mg Cephalexin Monohydrate (Keflex) 500 mg PO BID [facility] PRN Reason: Protocol Clopidogrel Bisulfate (Plavix) 75 mg PO DAILY [facility] Last Admin: 08/20/18 08:53 Dose: 75 mg Digoxin (Lanoxin) 0.25 mg PO DAILY [facility] Last Admin: 04/29/18 08:53 Dose: 0.25 mg Magnesium Hydroxide (Milk Of Magnesia) 30 ml PO DAILY PRN PRN Reason: Constipation Ondansetron HCl (Zofran Inj) 4 mg IVP Q6 PRN PRN Reason: Nausea/Vomiting Last Admin: 04/29/18 08:58 Dose: 4 mg Pantoprazole Sodium (Protonix Ec Tab) 40 mg PO DAILY [facility] Last Admin: 04/29/18 08:53 Dose: 40 mg Pregabalin (Lyrica) 50 mg PO Q12 [facility] Last Admin: 04/29/18 08:54 Dose: 50 mg Tramadol HCl (Ultram) 50 mg PO Q6 PRN PRN Reason: Pain, moderate (4-7) Last Admin: 04/29/18 08:57 Dose: 50 mg - Labs Labs: 04/26/18 06:20 04/26/18 06:20 - Constitutional Appears: Non-toxic, No Acute Distress - ENT Exam ENT Exam: Mucous Membranes Moist - Respiratory Exam Respiratory Exam: Clear to Ausculation Bilateral, NORMAL BREATHING PATTERN. absent: Wheezes, Respiratory Distress - Cardiovascular Exam Cardiovascular Exam: REGULAR RHYTHM, +S1, +S2 - Extremities Exam Extremities Exam: Normal Inspection - Neurological Exam Neurological Exam: Alert, Oriented x3 - Skin Skin Exam: Normal Color, Warm Assessment and Plan (1) Diverticulitis Status: Acute (2) UTI (urinary tract infection) Assessment & Plan: Resistant to prior taken on this admission antibiotic (cipro) as well as to recently started macrobid. Pt has prior penicillin allergy many years ago but has more recently in the past taken cephalosporins on outpatient basis without difficulty. Start keflex. Status: Acute (3) Asthma Assessment & Plan: Continue current use of rescue inhaler as needed. Status: Chronic <Raymond Fang - Last Filed: 04/30/18 07:06> Subjective - Subjective Subjective: Seen and examined together with the residents on rounds. Physical findings and ancillary studies were reviewed. Diagnosis and plan of care were formulated after discussion. The entry in EMR as made by the resident is an accurate accounting of this visit. Objective - Vital Signs/Intake and Output Vital Signs (last 24 hours): Temp Pulse Resp BP Pulse Ox 97.0 F L 78 20 132/74 96 08/20/18 20:09 04/29/18 21:39 04/29/18 20:09 04/29/18 21:39 04/29/18 20:09 - Medications Medications: Current Medications Acetaminophen (Tylenol 325mg Tab) 650 mg PO Q4 PRN PRN Reason: Pain, Mild (1-3) Albuterol (Ventolin Hfa 90 Mcg/Actuation (8 G)) 2 puff IH Q4 PRN PRN Reason: Shortness of Breath Last Admin: 04/29/18 12:14 Dose: 2 puff Albuterol/Ipratropium (Duoneb 3 Mg/0.5 Mg (3 Ml) Ud) 3 ml INH RQ6 PRN PRN Reason: Shortness of Breath Aspirin (Ecotrin) 81 mg PO DAILY [facility] Last Admin: 04/29/18 08:53 Dose: 81 mg Atorvastatin Calcium (Lipitor) 10 mg PO HS [facility] Last Admin: 04/29/18 21:40 Dose: 10 mg Carvedilol (Coreg) 6.25 mg PO Q12 [facility] Last Admin: 04/29/18 21:39 Dose: 6.25 mg Cephalexin Monohydrate (Keflex) 500 mg PO BID [facility] PRN Reason: Protocol Last Admin: 04/29/18 16:53 Dose: 500 mg Clopidogrel Bisulfate (Plavix) 75 mg PO DAILY [facility] Last Admin: 04/29/18 08:53 Dose: 75 mg Digoxin (Lanoxin) 0.25 mg PO DAILY [facility] Last Admin: 04/29/18 08:53 Dose: 0.25 mg Magnesium Hydroxide (Milk Of Magnesia) 30 ml PO DAILY PRN PRN Reason: Constipation Ondansetron HCl (Zofran Inj) 4 mg IVP Q6 PRN PRN Reason: Nausea/Vomiting Last Admin: 04/29/18 08:58 Dose: 4 mg Pantoprazole Sodium (Protonix Ec Tab) 40 mg PO DAILY [facility] Last Admin: 04/29/18 08:53 Dose: 40 mg Pregabalin (Lyrica) 50 mg PO Q12 [facility] Last Admin: 04/29/18 21:39 Dose: 50 mg Tramadol HCl (Ultram) 50 mg PO Q6 PRN PRN Reason: Pain, moderate (4-7) Last Admin: 04/29/18 18:20 Dose: 50 mg - Labs Labs: 04/26/18 06:20 04/26/18 06:20 Assessment and Plan (1) Diverticulitis Status: Acute (2) Asthma Status: Chronic (3) Atrial fibrillation, chronic Status: Chronic
[2018-04-29] MEDS: Albuterol HFA 90 mcg/actuation (8 g) IH PRN (12:14)
--- NOTE | 2018-04-29 14:40 | CP.PCM.PN ---
Subjective - Date & Time of Evaluation Date of Evaluation: 04/29/18 Time of Evaluation: 14:05 - Subjective Subjective: GI progress note for Dr. Riley Patient seen and examined at bedside. Patient states that occasionally she experiences short-lived mild left sided abdominal pain and intermittent nausea but is having small, regular color and consistency bowel movements, no diarrhea , fevers, or any other symptoms. Objective - Vital Signs/Intake and Output Vital Signs (last 24 hours): Temp Pulse Resp BP Pulse Ox 97.6 F 83 20 130/74 99 04/29/18 08:28 04/29/18 08:53 04/29/18 08:28 04/29/18 08:53 04/29/18 08:28 - Medications Medications: Current Medications Acetaminophen (Tylenol 325mg Tab) 650 mg PO Q4 PRN PRN Reason: Pain, Mild (1-3) Albuterol (Ventolin Hfa 90 Mcg/Actuation (8 G)) 2 puff IH Q4 PRN PRN Reason: Shortness of Breath Last Admin: 04/29/18 12:14 Dose: 2 puff Albuterol/Ipratropium (Duoneb 3 Mg/0.5 Mg (3 Ml) Ud) 3 ml INH RQ6 PRN PRN Reason: Shortness of Breath Aspirin (Ecotrin) 81 mg PO DAILY [facility] Last Admin: 04/29/18 08:53 Dose: 81 mg Atorvastatin Calcium (Lipitor) 10 mg PO HS [facility] Last Admin: 04/27/18 21:07 Dose: 10 mg Carvedilol (Coreg) 6.25 mg PO Q12 [facility] Last Admin: 04/29/18 08:53 Dose: 6.25 mg Cephalexin Monohydrate (Keflex) 500 mg PO BID [facility] PRN Reason: Protocol Last Admin: 04/29/18 12:38 Dose: 500 mg Clopidogrel Bisulfate (Plavix) 75 mg PO DAILY [facility] Last Admin: 04/29/18 08:53 Dose: 75 mg Digoxin (Lanoxin) 0.25 mg PO DAILY [facility] Last Admin: 04/29/18 08:53 Dose: 0.25 mg Magnesium Hydroxide (Milk Of Magnesia) 30 ml PO DAILY PRN PRN Reason: Constipation Ondansetron HCl (Zofran Inj) 4 mg IVP Q6 PRN PRN Reason: Nausea/Vomiting Last Admin: 04/29/18 08:58 Dose: 4 mg Pantoprazole Sodium (Protonix Ec Tab) 40 mg PO DAILY [facility] Last Admin: 04/29/18 08:53 Dose: 40 mg Pregabalin (Lyrica) 50 mg PO Q12 [facility] Last Admin: 04/29/18 08:54 Dose: 50 mg Tramadol HCl (Ultram) 50 mg PO Q6 PRN PRN Reason: Pain, moderate (4-7) Last Admin: 04/29/18 08:57 Dose: 50 mg - Labs Labs: 04/26/18 06:20 04/26/18 06:20 - Constitutional Appears: Well, Non-toxic, No Acute Distress - Head Exam Head Exam: ATRAUMATIC, NORMOCEPHALIC - Eye Exam Eye Exam: Normal appearance. absent: Conjunctival injection, Scleral icterus - ENT Exam ENT Exam: Mucous Membranes Moist, Normal Oropharynx - Respiratory Exam Respiratory Exam: NORMAL BREATHING PATTERN. absent: Accessory Muscle Use, Respiratory Distress - Cardiovascular Exam Cardiovascular Exam: RRR - GI/Abdominal Exam GI & Abdominal Exam: Soft. absent: Distended, Tenderness - Extremities Exam Extremities Exam: absent: Calf Tenderness, Pedal Edema, Tenderness - Neurological Exam Neurological Exam: Alert, Awake, Oriented x3 - Psychiatric Exam Psychiatric exam: Normal Affect, Normal Mood - Skin Skin Exam: Dry, Intact, Normal Color, Warm Assessment and Plan - Assessment and Plan (Free Text) Assessment: 77F with diverticulitis, resolving well Plan: Continue current diet Continue PT and encourage ambulation Continue PRN milk of magnesium Upon discharge, patient should maintain a low fiber diet until diverticulitis has completely resolved, and then have a high fiber diet to prevent further diverticulitis flares Follow up with Dr. Riley in his office after discharge to plan for colonoscopy after 4-[address] Riley, who agrees with above Brenda Najera, PGY2
[2018-04-30] MEDS: Pantoprazole 40 mg EC Tab PO SCH (08:16)
--- NOTE | 2018-04-30 09:47 | CP.PCM.PN ---
Subjective - Date & Time of Evaluation Date of Evaluation: 04/30/18 Time of Evaluation: 09:47 - Subjective Subjective: doing well no complaints hd stable nad Objective - Vital Signs/Intake and Output Vital Signs (last 24 hours): Temp Pulse Resp BP Pulse Ox 96.8 F L 68 20 143/104 H 96 04/30/18 07:45 04/30/18 08:16 04/30/18 07:45 04/30/18 08:16 04/30/18 07:45 Intake and Output: Vitals Reviewed GEN: WDWN, alert, cooperative HEENT: NCAT, PERRL, EOMI HEART: RRR, +S1S2, NO MRG LUNG: CTAB, NO WRR ABD: soft, NT, ND, No HSM, No masses EXT: normal pedal pulses NEURO: awake, alert SKIN: warm, dry PSYCH: normal mood, normal affect - Medications Medications: Current Medications Acetaminophen (Tylenol 325mg Tab) 650 mg PO Q4 PRN PRN Reason: Pain, Mild (1-3) Albuterol (Ventolin Hfa 90 Mcg/Actuation (8 G)) 2 puff IH Q4 PRN PRN Reason: Shortness of Breath Last Admin: 04/29/18 12:14 Dose: 2 puff Albuterol/Ipratropium (Duoneb 3 Mg/0.5 Mg (3 Ml) Ud) 3 ml INH RQ6 PRN PRN Reason: Shortness of Breath Aspirin (Ecotrin) 81 mg PO DAILY [facility] Last Admin: 04/30/18 08:16 Dose: 81 mg Atorvastatin Calcium (Lipitor) 10 mg PO HS [facility] Last Admin: 04/29/18 21:40 Dose: 10 mg Carvedilol (Coreg) 6.25 mg PO Q12 [facility] Last Admin: 04/30/18 08:16 Dose: 6.25 mg Cephalexin Monohydrate (Keflex) 500 mg PO BID [facility] PRN Reason: Protocol Last Admin: 04/30/18 08:15 Dose: 500 mg Clopidogrel Bisulfate (Plavix) 75 mg PO DAILY [facility] Last Admin: 04/30/18 08:15 Dose: 75 mg Digoxin (Lanoxin) 0.25 mg PO DAILY [facility] Last Admin: 04/29/18 08:53 Dose: 0.25 mg Magnesium Hydroxide (Milk Of Magnesia) 30 ml PO DAILY PRN PRN Reason: Constipation Ondansetron HCl (Zofran Inj) 4 mg IVP Q6 PRN PRN Reason: Nausea/Vomiting Last Admin: 04/29/18 08:58 Dose: 4 mg Pantoprazole Sodium (Protonix Ec Tab) 40 mg PO DAILY [facility] Last Admin: 04/30/18 08:16 Dose: 40 mg Pregabalin (Lyrica) 50 mg PO Q12 [facility] Last Admin: 04/30/18 08:15 Dose: 50 mg Tramadol HCl (Ultram) 50 mg PO Q6 PRN PRN Reason: Pain, moderate (4-7) Last Admin: 04/30/18 08:15 Dose: 50 mg - Labs Labs: 04/26/18 06:20 04/26/18 06:20 Assessment and Plan - Assessment and Plan (Free Text) Plan: 77 yo F with a Pmhx of Diverticulitis, chronic a fib, Asthma/COPD, CHF presented to the ED on 04/19/18 after being discharged from subacute rehab with moderate to severe constant LLQ abdominal pain and nonbloody diarrhea for a few days. Patient stated on admission that she has had other episodes of diverticulitis in the past which were slow to resolve. A CT of the abdomen and pelvis was positive for diverticulitis, she was afebrile and had a WBC count of 15. Patient was treated and now transferred to TCU for further rehab needs. (1) Diverticulitis - PT/OT - Continue a low resin diet, nutrition consulted on divericulitis diet - continue antibiotics Flagyl + Cipro - SURGERY on board (2) Chronic atrial fibrillation - Continue ASA, Plavix. (3) Asthma - Stable - Continue Albuterol inhaler PRN (4) DVT prophylaxis - Lovenox
--- NOTE | 2018-04-30 10:13 | CP.PCM.PN ---
Subjective - Date & Time of Evaluation Date of Evaluation: 04/30/18 Time of Evaluation: 09:10 - Subjective Subjective: GI consult note for Dr. Riley Pt seen and examined at bedside this AM. No adverse events, patient states she has no abdominal pain and normal bowel movements Objective - Vital Signs/Intake and Output Vital Signs (last 24 hours): Temp Pulse Resp BP Pulse Ox 96.8 F L 68 20 143/104 H 96 04/30/18 07:45 04/30/18 08:16 04/30/18 07:45 04/30/18 08:16 04/30/18 07:45 - Medications Medications: Current Medications Acetaminophen (Tylenol 325mg Tab) 650 mg PO Q4 PRN PRN Reason: Pain, Mild (1-3) Albuterol (Ventolin Hfa 90 Mcg/Actuation (8 G)) 2 puff IH Q4 PRN PRN Reason: Shortness of Breath Last Admin: 04/29/18 12:14 Dose: 2 puff Albuterol/Ipratropium (Duoneb 3 Mg/0.5 Mg (3 Ml) Ud) 3 ml INH RQ6 PRN PRN Reason: Shortness of Breath Aspirin (Ecotrin) 81 mg PO DAILY [facility] Last Admin: 04/30/18 08:16 Dose: 81 mg Atorvastatin Calcium (Lipitor) 10 mg PO HS [facility] Last Admin: 04/29/18 21:40 Dose: 10 mg Carvedilol (Coreg) 6.25 mg PO Q12 [facility] Last Admin: 04/30/18 08:16 Dose: 6.25 mg Cephalexin Monohydrate (Keflex) 500 mg PO BID [facility] PRN Reason: Protocol Last Admin: 04/30/18 08:15 Dose: 500 mg Clopidogrel Bisulfate (Plavix) 75 mg PO DAILY [facility] Last Admin: 04/30/18 08:15 Dose: 75 mg Digoxin (Lanoxin) 0.25 mg PO DAILY [facility] Last Admin: 04/29/18 08:53 Dose: 0.25 mg Furosemide (Lasix) 40 mg PO DAILY [facility] Magnesium Hydroxide (Milk Of Magnesia) 30 ml PO DAILY PRN PRN Reason: Constipation Ondansetron HCl (Zofran Inj) 4 mg IVP Q6 PRN PRN Reason: Nausea/Vomiting Last Admin: 04/29/18 08:58 Dose: 4 mg Pantoprazole Sodium (Protonix Ec Tab) 40 mg PO DAILY [facility] Last Admin: 04/30/18 08:16 Dose: 40 mg Pregabalin (Lyrica) 50 mg PO Q12 [facility] Last Admin: 04/30/18 08:15 Dose: 50 mg Tramadol HCl (Ultram) 50 mg PO Q6 PRN PRN Reason: Pain, moderate (4-7) Last Admin: 04/30/18 08:15 Dose: 50 mg - Labs Labs: 04/26/18 06:20 04/26/18 06:20 - Constitutional Appears: Well, Non-toxic, No Acute Distress - Head Exam Head Exam: ATRAUMATIC, NORMOCEPHALIC - Eye Exam Eye Exam: Normal appearance. absent: Conjunctival injection, Scleral icterus - ENT Exam ENT Exam: Mucous Membranes Moist, Normal Oropharynx - Respiratory Exam Respiratory Exam: NORMAL BREATHING PATTERN. absent: Accessory Muscle Use, Respiratory Distress - Cardiovascular Exam Cardiovascular Exam: RRR - GI/Abdominal Exam GI & Abdominal Exam: Soft. absent: Distended, Tenderness - Extremities Exam Extremities Exam: absent: Calf Tenderness, Pedal Edema, Tenderness - Neurological Exam Neurological Exam: Alert, Awake, Oriented x3 - Psychiatric Exam Psychiatric exam: Normal Affect, Normal Mood - Skin Skin Exam: Dry, Normal Color, Warm Assessment and Plan - Assessment and Plan (Free Text) Assessment: 77F with diverticulitis, now resolving Plan: No further intervention at this time Recommend follow up with Dr. Riley in his office for planning colonoscopy Patient should have a low fiber diet until seen by Dr. Riley in his office Patient should maintain a high fiber diet when acute diverticulitis improved Discussed with Dr. Riley, Brenda Najera, PGY2
[2018-04-30] MEDS: Digoxin 250 mcg (0.25 mg) Tab PO SCH (10:52)
--- NOTE | 2018-04-30 11:42 | CP.PCM.PN ---
Subjective - Date & Time of Evaluation Date of Evaluation: 04/30/18 Time of Evaluation: 08:00 - Subjective Subjective: Pulmonary note: Dr. Fang 77 YO F seen resting comfortably. Denies any difficulty with her breathing. States she is feeling well, however did not sleep well last night. Has been having some worsening pitting edema on her lower extremities. Pt seen participating with PT without any difficulties tolerating it well. She did not see hyperbaric technician yesterday, will receive treatment today. - Patients asthma is stable w/ current treatment. - Will restart patients home medication. Lasix 40 mg PO. - Dig levels reviewed which were 2, which is the higher end of normal will continue to monitor. May possibly be associated to patients nausea yesterday. Objective - Vital Signs/Intake and Output Vital Signs (last 24 hours): Temp Pulse Resp BP Pulse Ox 96.8 F L 68 20 143/104 H 96 04/30/18 07:45 04/30/18 08:16 04/30/18 07:45 04/30/18 08:16 04/30/18 07:45 - Medications Medications: Current Medications Acetaminophen (Tylenol 325mg Tab) 650 mg PO Q4 PRN PRN Reason: Pain, Mild (1-3) Albuterol (Ventolin Hfa 90 Mcg/Actuation (8 G)) 2 puff IH Q4 PRN PRN Reason: Shortness of Breath Last Admin: 04/29/18 12:14 Dose: 2 puff Albuterol/Ipratropium (Duoneb 3 Mg/0.5 Mg (3 Ml) Ud) 3 ml INH RQ6 PRN PRN Reason: Shortness of Breath Aspirin (Ecotrin) 81 mg PO DAILY [facility] Last Admin: 04/30/18 08:16 Dose: 81 mg Atorvastatin Calcium (Lipitor) 10 mg PO HS [facility] Last Admin: 04/29/18 21:40 Dose: 10 mg Carvedilol (Coreg) 6.25 mg PO Q12 [facility] Last Admin: 04/30/18 08:16 Dose: 6.25 mg Cephalexin Monohydrate (Keflex) 500 mg PO BID [facility] PRN Reason: Protocol Last Admin: 04/30/18 08:15 Dose: 500 mg Clopidogrel Bisulfate (Plavix) 75 mg PO DAILY [facility] Last Admin: 04/30/18 08:15 Dose: 75 mg Digoxin (Lanoxin) 0.25 mg PO DAILY [facility] Last Admin: 04/30/18 10:52 Dose: 0.25 mg Furosemide (Lasix) 40 mg PO DAILY [facility] Magnesium Hydroxide (Milk Of Magnesia) 30 ml PO DAILY PRN PRN Reason: Constipation Ondansetron HCl (Zofran Inj) 4 mg IVP Q6 PRN PRN Reason: Nausea/Vomiting Last Admin: 04/29/18 08:58 Dose: 4 mg Pantoprazole Sodium (Protonix Ec Tab) 40 mg PO DAILY [facility] Last Admin: 04/30/18 08:16 Dose: 40 mg Pregabalin (Lyrica) 50 mg PO Q12 [facility] Last Admin: 04/30/18 08:15 Dose: 50 mg Tramadol HCl (Ultram) 50 mg PO Q6 PRN PRN Reason: Pain, moderate (4-7) Last Admin: 04/30/18 08:15 Dose: 50 mg - Labs Labs: 04/26/18 06:20 04/26/18 06:20 - Constitutional Appears: No Acute Distress - Head Exam Head Exam: NORMAL INSPECTION - Respiratory Exam Respiratory Exam: Clear to Ausculation Bilateral - Cardiovascular Exam Cardiovascular Exam: REGULAR RHYTHM, +S1, +S2 - GI/Abdominal Exam GI & Abdominal Exam: Soft, Tenderness (mild left lower quadrant pain) - Extremities Exam Additional comments: 1+ pitting edema B/L - Neurological Exam Neurological Exam: Alert, Awake, Normal Gait Assessment and Plan (1) Diverticulitis Status: Acute (2) UTI (urinary tract infection) Assessment & Plan: C/W Keflex Status: Acute (3) Asthma Assessment & Plan: well controlled with treatment Status: Chronic
--- NOTE | 2018-04-30 13:41 | PCM.PROC ---
Procedures Attestation:: I certify that I have explained the specified Operation(s) or Procedure(s), risks, benefits and reasonable alternatives to the Patient and/or other person responsible. The opportunity was given to ask questions and all questions answered - Joint Aspiration/Injection Joint #1 Consent Obtained: Verbal Consent Time Out Performed: Yes Side of Body: Right Joint Aspirated: Knee Ultrasound Guidance Used: No Skin Prep: Povidone-Iodine Needle Size Used: 22 G Total Fluid Removed (mls): 0 Medication Injected: Triamcinolone Acetate, Methylprednisolone, Lidocaine Patient Tolorated Procedure: Well Complications: None
--- NOTE | 2018-04-30 13:41 | PCM.PROC ---
Procedures Attestation:: I certify that I have explained the specified Operation(s) or Procedure(s), risks, benefits and reasonable alternatives to the Patient and/or other person responsible. The opportunity was given to ask questions and all questions answered - Joint Aspiration/Injection Joint #2 Consent Obtained: Verbal Consent Time Out Performed: Yes Side of Body: Left Joint Aspirated: Knee Ultrasound Guidance Used: No Skin Prep: Povidone-Iodine Needle Size Used: 22 G Total Fluid Removed (mls): 0 Medication Injected: Triamcinolone Acetate, Methylprednisolone, Lidocaine Patient Tolorated Procedure: Well Complications: None
[2018-04-30] MEDS: Albuterol HFA 90 mcg/actuation (8 g) IH PRN (14:59)
[2018-05-01] MEDS: Pantoprazole 40 mg EC Tab PO SCH (09:25)
[2018-05-01] MEDS: Enoxaparin 40 mg Syringe SC SCH (09:26)
[2018-05-01] MEDS: Digoxin 250 mcg (0.25 mg) Tab PO SCH (09:32)
[2018-05-01 11:10] LABS: HEMOGLOBIN 10.9 g/dL (12.0-16.0); MEAN CELL VOLUME 93.3 fl (81.0-99.0); MEAN CORPUSCULAR HEMOGLOBIN 32.2 pg (27.0-31.0); MEAN CORPUSCULAR HGB CONC 34.5 g/dL (33.0-37.0); RBC 3.38 Mil/uL (3.80-5.20); RED CELL DISTRIBUTION WIDTH 13.3 % (11.5-14.5); WHITE BLOOD COUNT 7.7 K/uL (4.8-10.8)
--- NOTE | 2018-05-01 11:29 | CP.PCM.PN ---
Subjective - Date & Time of Evaluation Date of Evaluation: 05/01/18 Time of Evaluation: 10:00 - Subjective Subjective: Patient seen and examined at bedside. Denies SOB, chest pain. She endorses having deep sleep last night, and was not easily arousable this morning. She also c/o urinary incontinence, nausea, visual changes, fatigue, difficulty choosing correct words when speaking this morning. She is lucid, alert and oriented during exam. Will check CBC, CMP, ABG, U/A, urine culture Neuro consulted, Dr. Olguin, recs appreciated; Head CT w/o contrast ordered. Objective - Vital Signs/Intake and Output Vital Signs (last 24 hours): Temp Pulse Resp BP Pulse Ox 98.1 F 93 H 20 146/77 96 05/01/18 09:00 05/01/18 09:32 05/01/18 09:00 05/01/18 09:33 05/01/18 09:00 - Medications Medications: Current Medications Acetaminophen (Tylenol 325mg Tab) 650 mg PO Q4 PRN PRN Reason: Pain, Mild (1-3) Last Admin: 05/01/18 10:39 Dose: 650 mg Albuterol (Ventolin Hfa 90 Mcg/Actuation (8 G)) 2 puff IH Q4 PRN PRN Reason: Shortness of Breath Last Admin: 04/30/18 14:59 Dose: 2 puff Albuterol/Ipratropium (Duoneb 3 Mg/0.5 Mg (3 Ml) Ud) 3 ml INH RQ6 PRN PRN Reason: Shortness of Breath Aspirin (Ecotrin) 81 mg PO DAILY [facility] Last Admin: 05/01/18 09:25 Dose: 81 mg Atorvastatin Calcium (Lipitor) 10 mg PO HS [facility] Last Admin: 04/30/18 21:50 Dose: 10 mg Carvedilol (Coreg) 6.25 mg PO Q12 [facility] Last Admin: 05/01/18 09:32 Dose: 6.25 mg Cephalexin Monohydrate (Keflex) 500 mg PO BID [facility] PRN Reason: Protocol Last Admin: 05/01/18 09:25 Dose: 500 mg Clopidogrel Bisulfate (Plavix) 75 mg PO DAILY [facility] Last Admin: 05/01/18 09:26 Dose: 75 mg Digoxin (Lanoxin) 0.25 mg PO DAILY [facility] Last Admin: 05/01/18 09:32 Dose: 0.25 mg Enoxaparin Sodium (Lovenox) 40 mg SC DAILY [facility] PRN Reason: Protocol Last Admin: 05/01/18 09:26 Dose: 40 mg Furosemide (Lasix) 40 mg PO DAILY [facility] Last Admin: 05/01/18 09:33 Dose: 40 mg Magnesium Hydroxide (Milk Of Magnesia) 30 ml PO DAILY PRN PRN Reason: Constipation Ondansetron HCl (Zofran Inj) 4 mg IVP Q6 PRN PRN Reason: Nausea/Vomiting Last Admin: 04/29/18 08:58 Dose: 4 mg Pantoprazole Sodium (Protonix Ec Tab) 40 mg PO DAILY [facility] Last Admin: 05/01/18 09:25 Dose: 40 mg Pregabalin (Lyrica) 50 mg PO Q12 [facility] Last Admin: 05/01/18 09:29 Dose: 50 mg Tramadol HCl (Ultram) 50 mg PO Q6 PRN PRN Reason: Pain, moderate (4-7) Last Admin: 04/30/18 13:15 Dose: 50 mg - Labs Labs: 05/01/18 10:56 04/26/18 06:20 - Constitutional Appears: No Acute Distress - Head Exam Head Exam: NORMAL INSPECTION - ENT Exam ENT Exam: Mucous Membranes Moist - Respiratory Exam Respiratory Exam: Decreased Breath Sounds, Clear to Ausculation Bilateral, NORMAL BREATHING PATTERN. absent: Chest Wall Tenderness - Cardiovascular Exam Cardiovascular Exam: +S1, +S2. absent: Bradycardia, Tachycardia - GI/Abdominal Exam GI & Abdominal Exam: Soft, Normal Bowel Sounds. absent: Tenderness - Extremities Exam Extremities Exam: Pedal Edema (improving) - Neurological Exam Neurological Exam: Alert, Awake, Oriented x3 - Psychiatric Exam Psychiatric exam: Normal Affect - Skin Skin Exam: Dry, Normal Color, Warm
[2018-05-01 11:30] LABS: BLOOD UREA NITROGEN 19 mg/dl (7-17); CALCIUM 8.5 mg/dL (8.4-10.2); GFR NON-AFRICAN AMERICAN > 60
[2018-05-01 13:53] LABS: ABG ALLEN TEST YES; ARTERIAL BLOOD GAS HEMOGLOBIN 12.1 g/dL (11.7-17.4); ARTERIAL BLOOD GAS O2 CAPACITY 16.5 mL/dL (16-24); ARTERIAL BLOOD GAS O2 CONTENT 16.1 ML/dL (15-23); ARTERIAL BLOOD GAS O2 SAT 97.6 % (95-98); ARTERIAL BLOOD GAS PCO2 40 mm/Hg (35-45); ARTERIAL BLOOD GAS PH 7.49 (7.35-7.45); ARTERIAL BLOOD GAS PO2 76 mm/Hg (80-100); ARTERIAL BLOOD GAS TCO2 31.7 mmol/L (22-28)
[2018-05-01 15:12] LABS: SQUAMOUS EPITHIAL < 1 /hpf (0-5); URINE BACTERIA RARE (<OCC); URINE BILIRUBIN NEGATIVE (NEGATIVE); URINE BLOOD NEGATIVE (NEGATIVE); URINE CLARITY SLIGHTY-CLOUDY (Clear); URINE COLOR YELLOW (YELLOW); URINE GLUCOSE (UA) NEG (Normal); URINE LEUKOCYTE ESTERASE NEG Leu/uL (Negative); URINE PROTEIN 100 mg/dL (NEGATIVE); URINE UROBILINOGEN 0.2-1.0 mg/dL (0.2-1.0)
--- NOTE | 2018-05-01 16:31 | CP.PCM.CON ---
History of Present Illness - History of Present Illness History of Present Illness: Pt is 77 yo F with a Pmhx of Diverticulitis, chronic a fib, Asthma/COPD, CHF presented to the ED on 04/19/18 after being discharged from subacute rehab with moderate to severe constant LLQ abdominal pain and nonbloody diarrhea for a few days. Patient stated on admission that she has had other episodes of diverticulitis in the past which were slow to resolve. A CT of the abdomen and pelvis was positive for diverticulitis, she was afebrile and had a WBC count of 15. Patient was treated and now transferred to TCU for further rehab needs. Past Patient History - Infectious Disease Hx of Infectious Diseases: None - Tetanus Immunizations Tetanus Immunization: Unknown - Past Medical History & Family History Past Medical History?: Yes - Past Social History Smoking Status: Never Smoked - CARDIAC Hx Atrial Fibrillation: Yes Hx Cardia Arrhythmia: Yes (A FIB) Hx Congestive Heart Failure: Yes Hx Hypercholesterolemia: Yes Hx Hypertension: Yes Hx Peripheral Edema: Yes - PULMONARY Hx Asthma: Yes Hx Bronchitis: Yes Hx Chronic Obstructive Pulmonary Disease (COPD): Yes Hx Pneumonia: Yes Hx Sleep Apnea: No - NEUROLOGICAL Hx Vertigo: Yes Other/Comment: Hx peripheral neuropathy - HEENT Hx HEENT Problems: No - RENAL Hx Chronic Kidney Disease: No - ENDOCRINE/METABOLIC Hx Hypothyroidism: No - HEMATOLOGICAL/ONCOLOGICAL Hx Anemia: Yes Hx Human Immunodeficiency Virus (HIV): No - INTEGUMENTARY Hx Dermatological Problems: No - MUSCULOSKELETAL/RHEUMATOLOGICAL Hx Arthritis: No Hx Falls: No Hx Fractures: Yes (Left elbow) Hx Osteoporosis: Yes Hx Rheumatoid Arthritis: No - GASTROINTESTINAL Hx Diverticulitis: Yes Hx Gastritis: Yes - GENITOURINARY/GYNECOLOGICAL Hx Incontinence: Yes Hx Urinary Tract Infection: Yes - PSYCHIATRIC Hx Psychophysiologic Disorder: No Hx Substance Use: No - SURGICAL HISTORY Hx Cholecystectomy: Yes Hx Tonsillectomy: Yes - ANESTHESIA Hx Anesthesia: Yes Hx Anesthesia Reactions: No Hx Malignant Hyperthermia: No Meds Allergies/Adverse Reactions: Allergies Allergy/AdvReac Type Severity Reaction Status Date / Time Penicillins Allergy RASH Verified 04/24/18 16:34 Sulfa (Sulfonamide Allergy RASH Verified 04/24/18 16:34 Antibiotics) suture Allergy REDNESS Uncoded 04/24/18 16:34 - Medications Medications: Current Medications Acetaminophen (Tylenol 325mg Tab) 650 mg PO Q4 PRN PRN Reason: Pain, Mild (1-3) Last Admin: 05/01/18 10:39 Dose: 650 mg Albuterol (Ventolin Hfa 90 Mcg/Actuation (8 G)) 2 puff IH Q4 PRN PRN Reason: Shortness of Breath Last Admin: 04/30/18 14:59 Dose: 2 puff Albuterol/Ipratropium (Duoneb 3 Mg/0.5 Mg (3 Ml) Ud) 3 ml INH RQ6 PRN PRN Reason: Shortness of Breath Aspirin (Ecotrin) 81 mg PO DAILY [facility] Last Admin: 05/01/18 09:25 Dose: 81 mg Atorvastatin Calcium (Lipitor) 10 mg PO HS [facility] Last Admin: 04/30/18 21:50 Dose: 10 mg Carvedilol (Coreg) 6.25 mg PO Q12 [facility] Last Admin: 05/01/18 09:32 Dose: 6.25 mg Cephalexin Monohydrate (Keflex) 500 mg PO BID [facility] PRN Reason: Protocol Last Admin: 05/01/18 09:25 Dose: 500 mg Clopidogrel Bisulfate (Plavix) 75 mg PO DAILY [facility] Last Admin: 05/01/18 09:26 Dose: 75 mg Digoxin (Lanoxin) 0.25 mg PO DAILY [facility] Last Admin: 05/01/18 09:32 Dose: 0.25 mg Enoxaparin Sodium (Lovenox) 40 mg SC DAILY [facility] PRN Reason: Protocol Last Admin: 05/01/18 09:26 Dose: 40 mg Furosemide (Lasix) 40 mg PO DAILY [facility] Last Admin: 05/01/18 09:33 Dose: 40 mg Magnesium Hydroxide (Milk Of Magnesia) 30 ml PO DAILY PRN PRN Reason: Constipation Ondansetron HCl (Zofran Inj) 4 mg IVP Q6 PRN PRN Reason: Nausea/Vomiting Last Admin: 04/29/18 08:58 Dose: 4 mg Pantoprazole Sodium (Protonix Ec Tab) 40 mg PO DAILY [facility] Last Admin: 05/01/18 09:25 Dose: 40 mg Pregabalin (Lyrica) 50 mg PO Q12 [facility] Last Admin: 05/01/18 09:29 Dose: 50 mg Tramadol HCl (Ultram) 50 mg PO Q6 PRN PRN Reason: Pain, moderate (4-7) Last Admin: 04/30/18 13:15 Dose: 50 mg Results - Vital Signs Recent Vital Signs: Last Vital Signs Temp 97.9 F 05/01/18 15:43 Pulse 74 05/01/18 15:43 Resp 20 05/01/18 15:43 BP 147/96 H 05/01/18 15:43 Pulse Ox 96 05/01/18 15:43 - Labs Result Diagrams: 05/01/18 10:56 05/01/18 10:56 Labs: Laboratory Results - last 24 hr 05/01/18 05/01/18 05/01/18 10:31 10:56 10:56 WBC 7.7 RBC 3.38 L Hgb 10.9 L Hct 31.5 L MCV 93.3 MCH 32.2 H MCHC 34.5 RDW 13.3 Plt Count 341 pCO2 40 pO2 76 L HCO3 30.0 H ABG pH 7.49 H ABG Total CO2 31.7 H ABG O2 Saturation 97.6 ABG O2 Content 16.1 ABG Base Excess 6.6 H ABG Hemoglobin 12.1 ABG Carboxyhemoglobin 2.0 H POC ABG HHb (Measured) 2.3 ABG Methemoglobin 1.4 ABG O2 Capacity 16.5 Trevin Test Yes A-a O2 Difference 24.0 Hgb O2 Saturation 94.3 L FiO2 21.0 Blood Gas Comments Room air Crit Value Read Back N Sodium 139 Potassium 4.3 Chloride 100 Carbon Dioxide 35 H Anion Gap 8 L BUN 19 H Creatinine 0.8 Est GFR ( Amer) > 60 Est GFR (Non-Af Amer) > 60 Random Glucose 125 H Calcium 8.5 Urine Color Urine Clarity Urine pH Ur Specific [place] Urine Protein Urine Glucose (UA) Urine Ketones Urine Blood Urine Nitrate Urine Bilirubin Urine Urobilinogen Ur Leukocyte Esterase Urine RBC (Auto) Urine Microscopic WBC Ur Squamous Epith Cells Urine Bacteria 05/01/18 14:50 WBC RBC Hgb Hct MCV MCH MCHC RDW Plt Count pCO2 pO2 HCO3 ABG pH ABG Total CO2 ABG O2 Saturation ABG O2 Content ABG Base Excess ABG Hemoglobin ABG Carboxyhemoglobin POC ABG HHb (Measured) ABG Methemoglobin ABG O2 Capacity Trevin Test A-a O2 Difference Hgb O2 Saturation FiO2 Blood Gas Comments Crit Value Read Back Sodium Potassium Chloride Carbon Dioxide Anion Gap BUN Creatinine Est GFR ( Amer) Est GFR (Non-Af Amer) Random Glucose Calcium Urine Color Yellow Urine Clarity Slighty-cloudy Urine pH 7.0 Ur Specific [place] 1.014 Urine Protein 100 Urine Glucose (UA) Neg Urine Ketones Negative Urine Blood Negative Urine Nitrate Negative Urine Bilirubin Negative Urine Urobilinogen 0.2-1.0 Ur Leukocyte Esterase Neg Urine RBC (Auto) 1 Urine Microscopic WBC 1 Ur Squamous Epith Cells < 1 Urine Bacteria Rare
[2018-05-01] MEDS ORDERED: Albuterol-Ipratrop 3 mg / 0.5 (3 ml) UD INH PRN (21:20)
[2018-05-02] MEDS: Pantoprazole 40 mg EC Tab PO SCH (09:17)
[2018-05-02] MEDS: Enoxaparin 40 mg Syringe SC SCH (09:18)
[2018-05-02] MEDS: Digoxin 250 mcg (0.25 mg) Tab PO SCH (09:18)
[2018-05-02] MEDS: Albuterol HFA 90 mcg/actuation (8 g) IH PRN (10:34)
--- NOTE | 2018-05-02 11:28 | CP.PCM.PN ---
Subjective - Date & Time of Evaluation Date of Evaluation: 05/02/18 Time of Evaluation: 10:00 - Subjective Subjective: Patient seen and examined at bedside. She denies SOB, chest pain, difficulty breathing. Endorsees being able to tolerate PT. Continues to c/o fatigue and headache, improving. She is lucid, alert and oriented during exam. Patient's charts, labs, and nurse notes reviewed. Objective - Vital Signs/Intake and Output Vital Signs (last 24 hours): Temp Pulse Resp BP Pulse Ox 97.5 F L 77 20 151/101 H 94 L 05/02/18 09:07 05/02/18 09:16 05/02/18 09:07 05/02/18 09:17 05/02/18 09:07 - Medications Medications: Current Medications Acetaminophen (Tylenol 325mg Tab) 650 mg PO Q4 PRN PRN Reason: Pain, Mild (1-3) Last Admin: 05/02/18 10:54 Dose: 650 mg Albuterol (Ventolin Hfa 90 Mcg/Actuation (8 G)) 2 puff IH Q4 PRN PRN Reason: Shortness of Breath Last Admin: 05/02/18 10:34 Dose: 2 puff Albuterol/Ipratropium (Duoneb 3 Mg/0.5 Mg (3 Ml) Ud) 3 ml INH RQ6 PRN PRN Reason: Shortness of Breath Aspirin (Ecotrin) 81 mg PO DAILY [facility] Last Admin: 05/02/18 09:17 Dose: 81 mg Atorvastatin Calcium (Lipitor) 10 mg PO HS [facility] Last Admin: 05/01/18 21:30 Dose: 10 mg Carvedilol (Coreg) 6.25 mg PO Q12 [facility] Last Admin: 05/02/18 09:16 Dose: 6.25 mg Cephalexin Monohydrate (Keflex) 500 mg PO BID [facility] PRN Reason: Protocol Last Admin: 05/02/18 09:17 Dose: 500 mg Clopidogrel Bisulfate (Plavix) 75 mg PO DAILY [facility] Last Admin: 05/02/18 10:55 Dose: 75 mg Digoxin (Lanoxin) 0.25 mg PO DAILY [facility] Last Admin: 05/02/18 09:18 Dose: 0.25 mg Enoxaparin Sodium (Lovenox) 40 mg SC DAILY [facility] PRN Reason: Protocol Last Admin: 05/02/18 09:18 Dose: 40 mg Furosemide (Lasix) 40 mg PO DAILY [facility] Last Admin: 05/02/18 09:17 Dose: 40 mg Magnesium Hydroxide (Milk Of Magnesia) 30 ml PO DAILY PRN PRN Reason: Constipation Ondansetron HCl (Zofran Inj) 4 mg IVP Q6 PRN PRN Reason: Nausea/Vomiting Last Admin: 04/29/18 08:58 Dose: 4 mg Pantoprazole Sodium (Protonix Ec Tab) 40 mg PO DAILY [facility] Last Admin: 05/02/18 09:17 Dose: 40 mg Tramadol HCl (Ultram) 50 mg PO Q6 PRN PRN Reason: Pain, moderate (4-7) - Labs Labs: 05/01/18 10:56 05/01/18 10:56 - Constitutional Appears: No Acute Distress - ENT Exam ENT Exam: Mucous Membranes Moist - Respiratory Exam Respiratory Exam: Clear to Ausculation Bilateral, NORMAL BREATHING PATTERN. absent: Wheezes - Cardiovascular Exam Cardiovascular Exam: REGULAR RHYTHM, RRR, +S1, +S2. absent: Bradycardia, Tachycardia - GI/Abdominal Exam GI & Abdominal Exam: Soft, Normal Bowel Sounds. absent: Tenderness - Extremities Exam Extremities Exam: Pedal Edema (improving). absent: Tenderness - Neurological Exam Neurological Exam: Alert, Awake, Oriented x3 - Psychiatric Exam Psychiatric exam: Normal Affect - Skin Skin Exam: Intact, Normal Color, Warm Assessment and Plan - Assessment and Plan (Free Text) Assessment: CT scan did not show acute changes. Patient okay for d/c. Plans for Sunday or Sunday per social work Patient's questions and concerns addressed thoroughly. Patient advised to have outpatient sleep study.
--- NOTE | 2018-05-02 13:03 | CP.PCM.PN ---
Subjective - Date & Time of Evaluation Date of Evaluation: 05/02/18 Time of Evaluation: 12:45 - Subjective Subjective: GI progress note for Dr. Riley Pt seen and examined at bedside. No abdominal pain, eating well, normal BM's Objective - Vital Signs/Intake and Output Vital Signs (last 24 hours): Temp Pulse Resp BP Pulse Ox 97.5 F L 77 20 151/101 H 94 L 05/02/18 09:07 05/02/18 09:16 05/02/18 09:07 05/02/18 09:17 05/02/18 09:07 - Medications Medications: Current Medications Acetaminophen (Tylenol 325mg Tab) 650 mg PO Q4 PRN PRN Reason: Pain, Mild (1-3) Last Admin: 05/02/18 10:54 Dose: 650 mg Albuterol (Ventolin Hfa 90 Mcg/Actuation (8 G)) 2 puff IH Q4 PRN PRN Reason: Shortness of Breath Last Admin: 05/02/18 10:34 Dose: 2 puff Albuterol/Ipratropium (Duoneb 3 Mg/0.5 Mg (3 Ml) Ud) 3 ml INH RQ6 PRN PRN Reason: Shortness of Breath Aspirin (Ecotrin) 81 mg PO DAILY [facility] Last Admin: 05/02/18 09:17 Dose: 81 mg Atorvastatin Calcium (Lipitor) 10 mg PO HS [facility] Last Admin: 05/01/18 21:30 Dose: 10 mg Carvedilol (Coreg) 6.25 mg PO Q12 [facility] Last Admin: 05/02/18 09:16 Dose: 6.25 mg Cephalexin Monohydrate (Keflex) 500 mg PO BID [facility] PRN Reason: Protocol Last Admin: 05/02/18 09:17 Dose: 500 mg Clopidogrel Bisulfate (Plavix) 75 mg PO DAILY [facility] Last Admin: 05/02/18 10:55 Dose: 75 mg Digoxin (Lanoxin) 0.25 mg PO DAILY [facility] Last Admin: 05/02/18 09:18 Dose: 0.25 mg Enoxaparin Sodium (Lovenox) 40 mg SC DAILY [facility] PRN Reason: Protocol Last Admin: 05/02/18 09:18 Dose: 40 mg Furosemide (Lasix) 40 mg PO DAILY [facility] Last Admin: 05/02/18 09:17 Dose: 40 mg Magnesium Hydroxide (Milk Of Magnesia) 30 ml PO DAILY PRN PRN Reason: Constipation Ondansetron HCl (Zofran Inj) 4 mg IVP Q6 PRN PRN Reason: Nausea/Vomiting Last Admin: 04/29/18 08:58 Dose: 4 mg Pantoprazole Sodium (Protonix Ec Tab) 40 mg PO DAILY [facility] Last Admin: 05/02/18 09:17 Dose: 40 mg Tramadol HCl (Ultram) 50 mg PO Q6 PRN PRN Reason: Pain, moderate (4-7) - Labs Labs: 05/01/18 10:56 05/01/18 10:56 - Constitutional Appears: Well, Non-toxic, No Acute Distress - Head Exam Head Exam: ATRAUMATIC, NORMOCEPHALIC - Eye Exam Eye Exam: Normal appearance. absent: Conjunctival injection, Scleral icterus - ENT Exam ENT Exam: Mucous Membranes Moist, Normal Oropharynx - Respiratory Exam Respiratory Exam: NORMAL BREATHING PATTERN. absent: Accessory Muscle Use, Respiratory Distress - GI/Abdominal Exam GI & Abdominal Exam: Soft. absent: Distended, Tenderness - Neurological Exam Neurological Exam: Alert, Awake, Oriented x3 - Psychiatric Exam Psychiatric exam: Normal Affect, Normal Mood - Skin Skin Exam: Dry, Intact, Normal Color, Warm Assessment and Plan - Assessment and Plan (Free Text) Assessment: 77F with acute diverticulitis, now resolved Plan: Continue low fiber diet at this time, then high fiber diet when acute flare resolved Patient will need colonoscopy as outpatient in 4-6 weeks Follow up with Dr. Riley in his office after discharge Discussed with Dr. Osvaldo Najera, [id number]
[2018-05-03] MEDS: Pantoprazole 40 mg EC Tab PO SCH (08:22)
[2018-05-03] MEDS: Enoxaparin 40 mg Syringe SC SCH (08:22)
[2018-05-03] MEDS: Digoxin 250 mcg (0.25 mg) Tab PO SCH (08:23)
--- NOTE | 2018-05-03 12:40 | CP.PCM.PN ---
Subjective - Date & Time of Evaluation Date of Evaluation: 05/03/18 Time of Evaluation: 10:40 - Subjective Subjective: Pulmonology note for Dr. Fang: Ms. Zimmer was seen/examined at bedside rounds this morning. Reports she has been able to sleep, and overall feels okay. She does not have difficulty breathing and continues to use Ventolin inhaler about once every 2 days. Tolerating diet, having normal BMs has been off antibiotics for diverticulitis; continues to take Keflex for UTI (today is day 5). She is planned for discharge home tomorrow, was actively planning her day and mentioned she would need her medications refilled so that she could pick them up on the way home tomorrow. Med refills sent to pharmacy for chronic medications. Objective - Vital Signs/Intake and Output Vital Signs (last 24 hours): Temp Pulse Resp BP Pulse Ox 97.0 F L 75 20 158/85 H 100 05/03/18 08:24 05/03/18 08:24 05/03/18 08:24 05/03/18 08:24 05/03/18 08:24 - Medications Medications: Current Medications Acetaminophen (Tylenol 325mg Tab) 650 mg PO Q4 PRN PRN Reason: Pain, Mild (1-3) Last Admin: 05/02/18 10:54 Dose: 650 mg Albuterol (Ventolin Hfa 90 Mcg/Actuation (8 G)) 2 puff IH Q4 PRN PRN Reason: Shortness of Breath Last Admin: 05/02/18 10:34 Dose: 2 puff Albuterol/Ipratropium (Duoneb 3 Mg/0.5 Mg (3 Ml) Ud) 3 ml INH RQ6 PRN PRN Reason: Shortness of Breath Aspirin (Ecotrin) 81 mg PO DAILY [facility] Last Admin: 05/03/18 08:22 Dose: 81 mg Atorvastatin Calcium (Lipitor) 10 mg PO HS [facility] Last Admin: 05/02/18 21:48 Dose: 10 mg Carvedilol (Coreg) 6.25 mg PO Q12 [facility] Last Admin: 05/03/18 08:22 Dose: 6.25 mg Cephalexin Monohydrate (Keflex) 500 mg PO BID [facility] PRN Reason: Protocol Last Admin: 05/03/18 08:22 Dose: 500 mg Clopidogrel Bisulfate (Plavix) 75 mg PO DAILY [facility] Last Admin: 05/03/18 08:22 Dose: 75 mg Digoxin (Lanoxin) 0.25 mg PO DAILY [facility] Last Admin: 05/03/18 08:23 Dose: 0.25 mg Enoxaparin Sodium (Lovenox) 40 mg SC DAILY [facility] PRN Reason: Protocol Last Admin: 05/03/18 08:22 Dose: 40 mg Furosemide (Lasix) 40 mg PO DAILY [facility] Last Admin: 05/03/18 08:22 Dose: 40 mg Magnesium Hydroxide (Milk Of Magnesia) 30 ml PO DAILY [facility] PRN Reason: Constipation Ondansetron HCl (Zofran Inj) 4 mg IVP Q6 PRN PRN Reason: Nausea/Vomiting Last Admin: 04/29/18 08:58 Dose: 4 mg Pantoprazole Sodium (Protonix Ec Tab) 40 mg PO DAILY [facility] Last Admin: 05/03/18 08:22 Dose: 40 mg Tramadol HCl (Ultram) 50 mg PO Q6 PRN PRN Reason: Pain, moderate (4-7) Last Admin: 05/03/18 09:41 Dose: 50 mg - Labs Labs: 05/01/18 10:56 05/01/18 10:56 - Constitutional Appears: No Acute Distress - Head Exam Head Exam: NORMAL INSPECTION - Eye Exam Eye Exam: Normal appearance - ENT Exam ENT Exam: Mucous Membranes Moist - Respiratory Exam Respiratory Exam: NORMAL BREATHING PATTERN. absent: Respiratory Distress Additional comments: good, equal air movement bilaterally, no expiratory wheezes - Cardiovascular Exam Cardiovascular Exam: REGULAR RHYTHM, +S1, +S2 - Extremities Exam Extremities Exam: Pedal Edema (stable). absent: Tenderness - Neurological Exam Neurological Exam: Alert, Oriented x3 - Psychiatric Exam Psychiatric exam: Normal Affect - Skin Skin Exam: Normal Color, Warm Assessment and Plan (1) Diverticulitis Status: Acute (2) UTI (urinary tract infection) Assessment & Plan: Continue Keflex 500 mg BID, Day 5 Status: Acute (3) Asthma Assessment & Plan: Well controlled/managed. Continue current management. Status: Chronic
[2018-05-03 20:39] VITALS: TEMP 97
[2018-05-04 09:08] VITALS: BP 178/88; PULSE 77; O2SAT 95
[2018-05-04] MEDS: Digoxin 250 mcg (0.25 mg) Tab PO SCH (09:14)
[2018-05-04] MEDS: Enoxaparin 40 mg Syringe SC SCH (09:15)
[2018-05-04 09:20] VITALS: PULSE 77
[2018-05-04] MEDS: Pantoprazole 40 mg EC Tab PO SCH (09:20)
--- NOTE | 2018-05-04 10:12 | CP.PCM.DIS ---
Provider - Provider Date of Admission: 04/24/18 16:52 Attending physician: Lorrie Martinez DO Consults: Dr Osvaldo Fang Time Spent in preparation of Discharge (in minutes): 25 Diagnosis - Discharge Diagnosis (1) Diverticulitis Status: Acute Priority: High Comment: continue on low resin diet (2) Chronic atrial fibrillation Status: Chronic Comment: rate controlled. continue ASA and Plavix (3) COPD (chronic obstructive pulmonary disease) Status: Chronic Priority: Medium Comment: Albuterol inhaler prn Hospital Course - Lab Results Lab Results: Micro Results 05/01/18 14:50 Urine,Clean Catch Urine Culture - Preliminary No growth. 04/25/18 21:10 Urine,Clean Catch Urine Culture - Final Escherichia Coli Streptococcus Species Most Recent Lab Values WBC 7.7 K/uL (4.8-10.8) 05/01/18 10:56 RBC 3.38 Mil/uL (3.80-5.20) L 05/01/18 10:56 Hgb 10.9 g/dL (12.0-16.0) L 05/01/18 10:56 Hct 31.5 % (34.0-47.0) L 05/01/18 10:56 MCV 93.3 fl (81.0-99.0) 05/01/18 10:56 MCH 32.2 pg (27.0-31.0) H 05/01/18 10:56 MCHC 34.5 g/dL (33.0-37.0) 05/01/18 10:56 RDW 13.3 % (11.5-14.5) 05/01/18 10:56 Plt Count 341 K/uL (130-400) 05/01/18 10:56 MPV 6.8 fl (7.2-11.7) L 04/25/18 06:20 Neut % (Auto) 72.6 % (50.0-75.0) 04/25/18 06:20 Lymph % (Auto) 12.8 % (20.0-40.0) L 04/25/18 06:20 [place] % (Auto) 7.8 % (0.0-10.0) 04/25/18 06:20 Eos % (Auto) 6.3 % (0.0-4.0) H 04/25/18 06:20 Baso % (Auto) 0.5 % (0.0-2.0) 04/25/18 06:20 Neut # (Auto) 8.4 K/uL (1.8-7.0) H 04/25/18 06:20 Lymph # (Auto) 1.5 K/uL (1.0-4.3) 04/25/18 06:20 [place] # (Auto) 0.9 K/uL (0.0-0.8) H 04/25/18 06:20 Eos # (Auto) 0.7 K/uL (0.0-0.7) 04/25/18 06:20 Baso # (Auto) 0.1 K/uL (0.0-0.2) 04/25/18 06:20 pCO2 40 mm/Hg (35-45) 05/01/18 10:31 pO2 76 mm/Hg (80-100) L 05/01/18 10:31 HCO3 30.0 mmol/L (21-28) H 05/01/18 10:31 ABG pH 7.49 (7.35-7.45) H 05/01/18 10:31 ABG Total CO2 31.7 mmol/L (22-28) H 05/01/18 10:31 ABG O2 Saturation 97.6 % (95-98) 05/01/18 10:31 ABG O2 Content 16.1 ML/dL (15-23) 05/01/18 10:31 ABG Base Excess 6.6 mmol/L (-2.0-3.0) H 05/01/18 10:31 ABG Hemoglobin 12.1 g/dL (11.7-17.4) 05/01/18 10:31 ABG Carboxyhemoglobin 2.0 % (0.5-1.5) H 05/01/18 10:31 POC ABG HHb (Measured) 2.3 % (0.0-5.0) 05/01/18 10:31 ABG Methemoglobin 1.4 % (0.0-3.0) 05/01/18 10:31 ABG O2 Capacity 16.5 mL/dL (16-24) 05/01/18 10:31 Trevin Test Yes 05/01/18 10:31 A-a O2 Difference 24.0 mm/Hg 05/01/18 10:31 Hgb O2 Saturation 94.3 % (95.0-98.0) L 05/01/18 10:31 FiO2 21.0 % 05/01/18 10:31 Blood Gas Comments Room air 05/01/18 10:31 Crit Value Read Back N 05/01/18 10:31 Sodium 139 mmol/l (132-148) 05/01/18 10:56 Potassium 4.3 MMOL/L (3.6-5.0) 05/01/18 10:56 Chloride 100 mmol/L (98-107) 05/01/18 10:56 Carbon Dioxide 35 mmol/L (22-30) H 05/01/18 10:56 Anion Gap 8 (10-20) L 05/01/18 10:56 BUN 19 mg/dl (7-17) H 05/01/18 10:56 Creatinine 0.8 mg/dl (0.7-1.2) 05/01/18 10:56 Est GFR ( Amer) > 60 05/01/18 10:56 Est GFR (Non-Af Amer) > 60 05/01/18 10:56 Random Glucose 125 mg/dL (65-105) H 05/01/18 10:56 Calcium 8.5 mg/dL (8.4-10.2) 05/01/18 10:56 Urine Color Yellow (YELLOW) 05/01/18 14:50 Urine Clarity Slighty-cloudy (Clear) 05/01/18 14:50 Urine pH 7.0 (5.0-8.0) 05/01/18 14:50 Ur Specific [place] 1.014 (1.003-1.030) 05/01/18 14:50 Urine Protein 100 mg/dL (NEGATIVE) 05/01/18 14:50 Urine Glucose (UA) Neg mg/dL (Normal) 05/01/18 14:50 Urine Ketones Negative mg/dL (NEGATIVE) 05/01/18 14:50 Urine Blood Negative (NEGATIVE) 05/01/18 14:50 Urine Nitrate Negative (NEGATIVE) 05/01/18 14:50 Urine Bilirubin Negative (NEGATIVE) 05/01/18 14:50 Urine Urobilinogen 0.2-1.0 mg/dL (0.2-1.0) 05/01/18 14:50 Ur Leukocyte Esterase Neg Jaci/uL (Negative) 05/01/18 14:50 Urine RBC (Auto) 1 /hpf (0-3) 05/01/18 14:50 Urine Microscopic WBC 1 /hpf (0-5) 05/01/18 14:50 Ur Squamous Epith Cells < 1 /hpf (0-5) 05/01/18 14:50 Urine Bacteria Rare (<OCC) 05/01/18 14:50 Digoxin 2.0 ng/mL (0.8-2.0) 04/29/18 11:25 - Hospital Course Hospital Course: 77 yo female with history of Chronic AFib, Asthma/COPD, CHF and Diverticulitis came in after discharged from [facility] because of persistent LLQ abdominal pain associated with diarrhea. She was admitted and diagnosed with Acute Diverticulitis which was confirmed with CT scan of the abdomen/pelvis. She was started on antibiotics and then transferred to TCU for further rehab. Patient did well and was discharged in stable condition. Discharge Exam - Head Exam Head Exam: NORMAL INSPECTION - Eye Exam Eye Exam: absent: Scleral icterus - ENT Exam ENT Exam: Mucous Membranes Moist - Respiratory Exam Respiratory Exam: absent: Rales, Rhonchi, Wheezes, Respiratory Distress - Cardiovascular Exam Cardiovascular Exam: Irregular Rhythm - GI/Abdominal Exam GI & Abdominal Exam: Soft. absent: Tenderness - Rectal Exam Rectal Exam: Deferred - Neurological Exam Neurological exam: Alert, Oriented x3 - Psychiatric Exam Psychiatric exam: Normal Affect - Skin Skin Exam: Dry, Intact Discharge Plan - Follow Up Plan Condition: GOOD Disposition: HOME/ ROUTINE Instructions: Diverticulitis (DC), Sepsis, Adult (DC)
== END 2018-05-04 13:30 | disposition home health service (06) | DRG 391 ==
LOC: H.TCU 16:52
PROVIDERS: ADMIT Student in an Organized Health Care Education/Training Program; ATTEND Student in an Organized Health Care Education/Training Program
PROC: 3E04329 Introduction of Other Anti-infective into Central Vein, Percutaneous Approach (ICD-10-PCS; principal; 2018-04-24)
PROC: F07M6FZ Therapeutic Exercise Treatment of Musculoskeletal System - Whole Body using Assistive, Adaptive, Supportive or Protective Equipment (ICD-10-PCS; 2018-04-26)
PROC: F08Z4FZ Home Management Treatment using Assistive, Adaptive, Supportive or Protective Equipment (ICD-10-PCS; 2018-04-26)
PROC: 0S9C3ZX Drainage of Right Knee Joint, Percutaneous Approach, Diagnostic (ICD-10-PCS; 2018-04-30)
PROC: 0S9B3ZX Drainage of Left Hip Joint, Percutaneous Approach, Diagnostic (ICD-10-PCS; 2018-04-30)
PROC: 0R9K3ZX Drainage of Left Shoulder Joint, Percutaneous Approach, Diagnostic (ICD-10-PCS; 2018-04-30)
DX: K57.92 Diverticulitis of intestine, part unspecified, without perforation or abscess without bleeding (principal); I50.23 Acute on chronic systolic (congestive) heart failure; N39.0 Urinary tract infection, site not specified; M19.90 Unspecified osteoarthritis, unspecified site; M81.0 Age-related osteoporosis without current pathological fracture; R32 Unspecified urinary incontinence; Z79.02 Long term (current) use of antithrombotics/antiplatelets; Z79.82 Long term (current) use of aspirin; Z80.1 Family history of malignant neoplasm of trachea, bronchus and lung; Z87.01 Personal history of pneumonia (recurrent); Z87.440 Personal history of urinary (tract) infections; Z87.891 Personal history of nicotine dependence; Z88.0 Allergy status to penicillin; Z90.49 Acquired absence of other specified parts of digestive tract; D64.9 Anemia, unspecified; G62.9 Polyneuropathy, unspecified; J40 Bronchitis, not specified as acute or chronic; K29.70 Gastritis, unspecified, without bleeding; K57.90 Diverticulosis of intestine, part unspecified, without perforation or abscess without bleeding; E78.5 Hyperlipidemia, unspecified; Z87.81 Personal history of (healed) traumatic fracture; E78.00 Pure hypercholesterolemia, unspecified; G47.30 Sleep apnea, unspecified; I11.0 Hypertensive heart disease with heart failure; I25.10 Atherosclerotic heart disease of native coronary artery without angina pectoris; I48.2 Chronic atrial fibrillation; J44.9 Chronic obstructive pulmonary disease, unspecified; Z88.2 Allergy status to sulfonamides